=== PATIENT | female | born 1970 | race Caucasian/White ===

== ENCOUNTER → 2016-09-15 | Outpatient (REF) | payer BC ==
[2016-09-15 18:41] LABS: ALBUMIN 3.3 GM/DL (3.2-5.2); ALBUMIN/GLOBULIN RATIO 0.94 (1.00-1.93); ALKALINE PHOSPHATASE 61 U/L (45-117); ALT/SGPT 20 U/L (12-78); ANION GAP 5 MEQ/L (8-16); AST/SGOT 12 U/L (15-37); BILIRUBIN,TOTAL 0.5 MG/DL (0.2-1.0); BLOOD UREA NITROGEN 13 MG/DL (7-18); CALCIUM LEVEL 8.2 MG/DL (8.5-10.1); CARBON DIOXIDE LEVEL 29 MEQ/L (21-32); CHLORIDE LEVEL 108 MEQ/L (98-107); CHOLESTEROL LEVEL 161 MG/DL (<200); CREATININE FOR GFR 0.68 MG/DL (0.55-1.02); GLOMERULAR FILTRATION RATE > 60.0 (>58); GLUCOSE, FASTING 93 MG/DL (70-105); POTASSIUM SERUM 4.3 MEQ/L (3.5-5.1); SODIUM LEVEL 142 MEQ/L (136-145); TOTAL PROTEIN 6.8 GM/DL (6.4-8.2); TRIGLYCERIDES LEVEL 98 MG/DL (<150)
[2016-09-15 20:24] LABS: MEAN CORPUSCULAR HEMOGLOBIN 31.4 pg (27.0-33.0); MEAN CORPUSCULAR HGB CONC 33.4 g/dl (32.0-36.5); RED CELL DISTRIBUTION WIDTH 12.8 % (11.5-14.5); WHITE BLOOD COUNT 7.8 K/mm3 (4.0-10.0)
== END ==
LOC: M SFHCLERA 12:21
PROVIDERS: ATTEND Physician Assistant
DX: R59.9 Enlarged lymph nodes, unspecified (principal); E78.2 Mixed hyperlipidemia

== ENCOUNTER → 2016-11-10 | Outpatient (REF) | payer BC ==
[2016-11-11 12:49] LABS: ANION GAP 5 MEQ/L (8-16); BLOOD UREA NITROGEN 12 MG/DL (7-18); CALCIUM LEVEL 8.7 MG/DL (8.5-10.1); CARBON DIOXIDE LEVEL 31 MEQ/L (21-32); CHLORIDE LEVEL 107 MEQ/L (98-107); CHOLESTEROL LEVEL 171 MG/DL (<200); CREATININE FOR GFR 0.84 MG/DL (0.55-1.02); GLOMERULAR FILTRATION RATE > 60.0 (>58); GLUCOSE, FASTING 92 MG/DL (70-105); POTASSIUM SERUM 4.3 MEQ/L (3.5-5.1); SODIUM LEVEL 143 MEQ/L (136-145); TRIGLYCERIDES LEVEL 114 MG/DL (<150)
== END ==
LOC: M SFHCLERA 15:52
PROVIDERS: ATTEND Family Medicine
DX: M79.89 Other specified soft tissue disorders (principal)

== ENCOUNTER → 2017-12-23 | Outpatient (CLI) | payer BC, MEDICAID | LOC: M SLEEP 19:33 | DX: G47.33 Obstructive sleep apnea (adult) (pediatric) (principal) | CPT/HCPCS: 95811 ==

== ENCOUNTER → 2018-01-17 | Outpatient (CLI) | payer BC, MEDICAID | LOC: M LRY 13:55 | DX: R06.2 Wheezing (principal) | CPT/HCPCS: 71046 ==

== ENCOUNTER → 2018-07-07 | Outpatient (REF) | payer BC ==
[2018-07-07 11:40] LABS: BASO # 0.1 10^3/uL (0.0-0.2); EOS # 0.2 10^3/uL (0.0-0.50); EOS % 1.8 % (0.0-3.0); HEMATOCRIT 49.2 % (36.0-47.0); HEMOGLOBIN 15.9 g/dl (12.0-15.5); LYMPH # 1.8 10^3/uL (1.5-4.5); MEAN CORPUSCULAR HEMOGLOBIN 30.2 pg (27.0-33.0); MEAN CORPUSCULAR HGB CONC 32.3 g/dl (32.0-36.5); MEAN CORPUSCULAR VOLUME 93.4 fl (80.0-96.0); MONO # 0.7 10^3/uL (0.0-0.8); MONO % 7.6 % (0.0-5.0); NEUTROPHILS # 6.3 10^3/uL (1.8-7.7); NEUTROPHILS % 69.3 % (36.0-66.0); PLATELET COUNT, AUTOMATED 251 10^3/uL (150-450); RED BLOOD COUNT 5.27 10^6/uL (4.00-5.40); WHITE BLOOD COUNT 9.1 10^3/uL (4.0-10.0)
[2018-07-07 11:47] LABS: ALBUMIN 3.4 GM/DL (3.2-5.2); ALT/SGPT 16 U/L (12-78); BILIRUBIN,TOTAL 0.7 MG/DL (0.2-1.0); BLOOD UREA NITROGEN 16 MG/DL (7-18); CALCIUM LEVEL 8.4 MG/DL (8.5-10.1); CARBON DIOXIDE LEVEL 30 MEQ/L (21-32); CHLORIDE LEVEL 104 MEQ/L (98-107); CHOLESTEROL LEVEL 146 MG/DL (<200); CHOLESTEROL RISK RATIO 3.842 (<5); CREATININE FOR GFR 0.73 MG/DL (0.55-1.30); GLOMERULAR FILTRATION RATE > 60.0 (>58); GLUCOSE, FASTING 102 MG/DL (70-100); HDL CHOLESTEROL 38 MG/DL (>40); LDL CHOLESTEROL 87 MG/DL (<100); NON-HDL-C 108 MG/DL; POTASSIUM SERUM 4.4 MEQ/L (3.5-5.1); SODIUM LEVEL 141 MEQ/L (136-145); TOTAL PROTEIN 6.8 GM/DL (6.4-8.2); TRIGLYCERIDES LEVEL 103 MG/DL (<150)
[2018-07-07 12:23] LABS: HEMOGLOBIN A1c 6.4 %
== END ==
LOC: M SFHCLERA 09:28
PROVIDERS: ATTEND Nurse Practitioner Family
DX: E78.2 Mixed hyperlipidemia (principal); I10 Essential (primary) hypertension

== ENCOUNTER → 2018-12-06 | Outpatient (CLI) | payer BC ==
[2018-12-06 12:35] LABS: BASO # 0.1 10^3/uL (0.0-0.2); BASO % 0.7 % (0.0-1.0); EOS # 0.2 10^3/uL (0.0-0.5); HEMATOCRIT 47.4 % (36.0-47.0); HEMOGLOBIN 15.5 g/dl (12.0-15.5); LYMPH # 2.3 10^3/uL (1.5-5.0); LYMPH % 28.8 % (24.0-44.0); MEAN CORPUSCULAR HEMOGLOBIN 30.3 pg (27.0-33.0); MEAN CORPUSCULAR HGB CONC 32.7 g/dl (32.0-36.5); MEAN CORPUSCULAR VOLUME 92.8 fl (80.0-96.0); MONO # 0.7 10^3/uL (0.0-0.8); MONO % 8.7 % (0.0-5.0); NEUTROPHILS # 4.8 10^3/uL (1.5-8.5); NEUTROPHILS % 59.6 % (36.0-66.0); PLATELET COUNT, AUTOMATED 217 10^3/uL (150-450); RED BLOOD COUNT 5.11 10^6/uL (4.00-5.40); WHITE BLOOD COUNT 8.1 10^3/uL (4.0-10.0)
[2018-12-06 12:44] LABS: ALBUMIN 3.3 GM/DL (3.2-5.2); ALT/SGPT 21 U/L (12-78); BILIRUBIN,TOTAL 0.6 MG/DL (0.2-1.0); BLOOD UREA NITROGEN 16 MG/DL (7-18); CALCIUM LEVEL 8.7 MG/DL (8.5-10.1); CARBON DIOXIDE LEVEL 30 MEQ/L (21-32); CHLORIDE LEVEL 108 MEQ/L (98-107); CREATININE FOR GFR 0.77 MG/DL (0.55-1.30); FERRITIN 111 NG/ML (8-252); GLOMERULAR FILTRATION RATE > 60.0 (>58); GLUCOSE, FASTING 95 MG/DL (70-100); IRON (FE) 111 UG/DL (50-170); MAGNESIUM LEVEL 2.2 MG/DL (1.8-2.4); PERCENT SATURATION 41.1 % (13.2-45.0); PHOSPHORUS LEVEL 3.5 MG/DL (2.5-4.9); POTASSIUM SERUM 3.7 MEQ/L (3.5-5.1); SODIUM LEVEL 143 MEQ/L (136-145); TOTAL IRON BINDING CAPACITY 270 UG/DL (250-450); TOTAL PROTEIN 6.5 GM/DL (6.4-8.2)
[2018-12-06 12:49] LABS: VITAMIN B12 LEVEL 419 PG/ML (247-911)
[2018-12-06 12:52] LABS: HEMOGLOBIN A1c 5.4 %
[2018-12-06 13:47] LABS: HEMATOCRIT 47.4 % (36.0-47.0)
== END ==
LOC: M LRY 09:29
PROVIDERS: ATTEND Surgery
DX: K91.2 Postsurgical malabsorption, not elsewhere classified (principal); E55.9 Vitamin D deficiency, unspecified; Z98.84 Bariatric surgery status

== ENCOUNTER 2019-04-24 07:17 | Emergency (ER) | payer BC ==
[~2019-04-24] VITALS: Ht 170.2 cm; Wt 149.5 kg
[2019-04-24] MEDS ORDERED: ALBU8.5H (07:34)
[2019-04-24] MEDS ORDERED: OMEP-221 (07:34)
[2019-04-24] MEDS ORDERED: NS 1,000 ML IV ONE (07:45)
[2019-04-24] MEDS ORDERED: HYDROMORPHONE HCL 0.5 MG/ 0.5 ML SYRINGE (J1170 PER 1) IV ONE (07:45)
[2019-04-24] MEDS ORDERED: ONDANSETRON 4MG/2ML VIAL (J2405) IV ONE (07:45)
[2019-04-24 08:07] LABS: BASO # 0.1 10^3/uL (0.0-0.2); BASO % 0.7 % (0.0-1.0); EOS # 0.1 10^3/uL (0.0-0.5); EOS % 1.4 % (0.0-3.0); HEMATOCRIT 49.9 % (36.0-47.0); HEMOGLOBIN 15.7 g/dl (12.0-15.5); LYMPH # 1.7 10^3/uL (1.5-5.0); LYMPH % 21.7 % (24.0-44.0); MEAN CORPUSCULAR HEMOGLOBIN 29.6 pg (27.0-33.0); MEAN CORPUSCULAR HGB CONC 31.5 g/dl (32.0-36.5); MEAN CORPUSCULAR VOLUME 94.2 fl (80.0-96.0); MONO # 0.7 10^3/uL (0.0-0.8); MONO % 9.1 % (0.0-5.0); NEUTROPHILS # 5.1 10^3/uL (1.5-8.5); PLATELET COUNT, AUTOMATED 239 10^3/uL (150-450); WHITE BLOOD COUNT 7.6 10^3/uL (4.0-10.0)
[2019-04-24] MEDS: GASTROGRAFIN SOLUTION 30ML PO SCH ×2 (08:09→08:50)
[2019-04-24 08:38] LABS: ALBUMIN 3.1 GM/DL (3.2-5.2); ALT/SGPT 12 U/L (12-78); BILIRUBIN,DIRECT 0.2 MG/DL (0.0-0.2); BILIRUBIN,TOTAL 0.6 MG/DL (0.2-1.0); LIPASE 57 U/L (73-393); TOTAL PROTEIN 6.3 GM/DL (6.4-8.2)
[2019-04-24 08:39] LABS: HCG, SERUM QUALITATIVE NEGATIVE (NEGATIVE)
[2019-04-24] MEDS ORDERED: ISOVUE-370 76% 100ML VIAL (Q9967) As Ordered ONE (09:28)
--- NOTE | 2019-04-24 10:55 | REP ---
CT ABDOMEN AND PELVIS WITH ORAL AND IV CONTRAST: TECHNIQUE: Axial contrast enhanced images from the lung bases to the pubic symphysis using 100 mL Isovue 370 intravenous contrast material with multiplanar reformations. Visualized lung bases demonstrate no infiltrate. Liver, spleen and right adrenal are unremarkable. There is stable left adrenal gland thickening unchanged since the prior CT of 11/11/2011. Pancreas again demonstrates a cystic structure of the body of the pancreas measuring 2.4 x 2.8 cm. This is mildly increased in size since the prior study when it measured 2.2 x 1.7 cm. Recommend further evaluation with a dedicated MRI of the pancreas with and without contrast. The kidneys are unremarkable with no hydronephrosis. There is no abdominal aortic aneurysm. There is no adenopathy. There is no free air or free fluid. No bowel wall thickening is seen. There is evidence of prior gastric bypass surgery. Anterior abdominal wall hernia is seen in the midline at the level of the pelvis containing nondilated small bowel loops. There is no evidence of strangulation. The appendix is normal. No pelvic mass is seen. The urinary bladder is mildly distended and grossly unremarkable. There are degenerative changes of the spine. IMPRESSION: No evidence of appendicitis, free air or free fluid. Anterior abdominal wall hernia at the level of the pelvis in the midline contains nondilated bowel loops with no evidence of strangulation. Cystic structure in the body of the pancreas is mildly increased in size since the prior CT of 11/11/2011. Recommend dedicated MRI of the pancreas with and without contrast for further evaluation. Electronically Signed by Chris Naik MD 04/26/2019 11:39 A
[2019-04-24] MEDS ORDERED: ONDA4TAB6 PO (12:38)
[2019-04-24 12:49] VITALS: BP 119/74
--- NOTE | 2019-04-26 12:29 | ED PDOC ---
Post-Departure Follow-Up dr naik and juan carlos collins faxed formal report of ct abd/p for fu Petr Caldwell MD Apr 26, 2019 12:29
== END 2019-04-24 12:54 | disposition home or self-care (01) ==
LOC: M ED 07:17
DX: K64.9 Unspecified hemorrhoids (principal); R10.9 Unspecified abdominal pain; Z98.84 Bariatric surgery status; F17.200 Nicotine dependence, unspecified, uncomplicated; Z79.899 Other long term (current) drug therapy; Z88.5 Allergy status to narcotic agent
CPT/HCPCS: 36415; 74177; 80047; 80076; 81001; 83605; 83690; 84703; 85025; 87086; 96361; 96374; 96375; 99284; J1170; J2405; Q9963; Q9967

== ENCOUNTER → 2019-05-16 | Outpatient (CLI) | payer BC ==
[~2019-05-16] MED LIST: ALBU8.5H; OMEP-221; ONDA4TAB6 PO
--- NOTE | 2019-05-19 18:30 | SLEEPCENT ---
DATE OF PROCEDURE: 05/16/2019 ORDERED BY: BOBBY Mclaughlin Nocturnal polysomnography was performed for the re-titration of pressure therapy in this patient with severe obstructive sleep apnea syndrome on bilevel pressure therapy. For testing, the patient was fit with a ResMed F20 full face mask of large size, a bilevel pressure device was applied at inspiratory 8 over expiratory of 4 and the lights were extinguished. 7 hours and 51 minutes of data were reviewed. There were 444 minutes of sleep identified. Sleep latency was short at 5 minutes. Rapid eye movement (REM) latency was normal at 88 minutes. Sleep architecture was good with three REM cycles. Overall sleep efficiency was 95.5%. The patient's electrocardiogram showed a sinus rhythm with an average heart rate of 58 beats per minute. Premature ventricular contractions (PVCs) were identified. EEG showed normal waveforms for awake and sleep. Respiratory events were found best palliated with continuous positive airway pressure (CPAP) at a pressure of inspiratory 12 over expiratory +8 with which pressure the patient slept through REM without respiratory events or oxygen desaturation. There was some activity in the limb leads, two trains of 30 events. Limb movement arousal index 9.2. IMPRESSION: Obstructive sleep apnea syndrome (G47.33). RECOMMENDATIONS: Nightly use of bilevel pressure therapy inspiratory 12 over expiratory 8.
== END ==
LOC: M SLEEP 19:35
PROVIDERS: ATTEND Nurse Practitioner Adult Health
DX: G47.33 Obstructive sleep apnea (adult) (pediatric) (principal)

== ENCOUNTER → 2019-12-27 | Outpatient (CLI) | payer BC, OTHER ==
[~2019-12-27] MED LIST changes: +CALC600T60 PO; +CVS1CHW13 PO; +MULTCAP PO; +PERCOCET PO
== END ==
LOC: M LABSMTC 09:39
PROVIDERS: ATTEND Anesthesiology
DX: Z01.812 Encounter for preprocedural laboratory examination (principal); Z20.828 Contact with and (suspected) exposure to other viral communicable diseases
CPT/HCPCS: C9803; U0003

== ENCOUNTER 2020-01-01 06:00 | Day surgery (SDC) | payer OTHER ==
[2020-01-01] VITALS (8 sets, daily range): BP systolic 115–156; BP diastolic 67–87
[~2020-01-01] VITALS: Ht 175.3 cm; Wt 130.0 kg
[~2020-01-01 06:00] MED LIST changes: +LR 1,000 ML IV ONE; -PERCOCET PO; +ceFAZolin SOD 2 GM in IV 1 EA IV ONE
[2020-01-01] MEDS ORDERED: BUPIVACAINE HCL 0.25% 10ML VIAL As Ordered ONE (07:11)
[2020-01-01] MEDS ORDERED: LIDOCAINE 1% SDV 30ML VIAL As Ordered ONE (07:11)
[2020-01-01] MEDS ORDERED: BUPIVACAINE HCL 0.25% 30ML VIAL As Ordered ONE (07:11)
[2020-01-01] MEDS ORDERED: BUPIVACAINE LIPOSOME/PF 1.3% 20ML VIAL (13.3MG/ML)(EXPAREL)(C9290 PER1MG) As Ordered ONE (07:11)
[2020-01-01] MEDS ORDERED: propofoL 200 MG/20 ML VIAL As Ordered ONE (07:21)
[2020-01-01] MEDS ORDERED: LIDOCAINE 2% 100MG/5ML SDV (FOR ANES.) As Ordered ONE (07:21)
[2020-01-01] MEDS ORDERED: ROCURONIUM BROMIDE 50 MG/5 ML VIAL As Ordered ONE ×2 (07:21→08:13)
[2020-01-01] MEDS ORDERED: fentaNYL 250 MCG/5 ML INJECTION (J3010) As Ordered ONE (07:22)
[2020-01-01] MEDS ORDERED: dexameTHASONE 4 MG/ML 1ML VIAL (J1100 PER 1MG) As Ordered ONE (07:22)
[2020-01-01] MEDS ORDERED: MIDAZOLAM INJ 2MG/2ML VIAL (J2250 PER 1MG) As Ordered ONE (07:24)
[2020-01-01] MEDS ORDERED: METOCLOPRAMIDE INJ 10MG/2ML VIAL (J2765 PER 1) As Ordered ONE (07:49)
[2020-01-01] MEDS ORDERED: ePHEDrine SULFATE 25 MG/5 ML(5MG/ML) SYRINGE As Ordered ONE (08:23)
[2020-01-01] MEDS ORDERED: SEVOFLURANE INHAL SOLN 250 ML BTL As Ordered ONE (09:07)
[2020-01-01] MEDS ORDERED: SUGAMMADEX SODIUM 500 MG/5 ML VIAL (BRIDION) As Ordered ONE (09:10)
[2020-01-01] MEDS ORDERED: ACETAMINOPHEN 1000MG 100ML IV BTL (OFIRMEV) (J0131 PER 10MG) As Ordered ONE (09:10)
[2020-01-01] MEDS ORDERED: LACRILUBE (AKWA TEARS) OPHTH OINT 3.5 GM As Ordered ONE (09:11)
[2020-01-01] MEDS ORDERED: ONDANSETRON 4MG/2ML VIAL As Ordered ONE (09:12)
[2020-01-01] MEDS ORDERED: LR 1,000 ML IV SCH ×2 (12:03→13:00)
[2020-01-01] MEDS ORDERED: KETOROLAC 30 MG/ML 1ML VIAL IV PRN (12:15)
[2020-01-01] MEDS ORDERED: PERCOCET 5MG/325MG TAB PO PRN (12:15)
[2020-01-01] MEDS ORDERED: ACETAMINOPHEN TAB 650MG DOSE (2X325MG) PO PRN (12:15)
[2020-01-01] MEDS ORDERED: ONDANSETRON 4MG/2ML VIAL IV PRN ×2 (12:15→13:00)
[2020-01-01] MEDS ORDERED: fentaNYL 100 MCG/2 ML INJECTION (J3010) As Ordered ONE (12:27)
[2020-01-01] MEDS ORDERED: oxyCODONE 5MG TAB As Ordered ONE (12:27)
[2020-01-01] MEDS ORDERED: fentaNYL 100 MCG/2 ML INJECTION (J3010) IV PRN (13:00)
[2020-01-01] MEDS ORDERED: oxyCODONE 5MG TAB PO PRN (13:00)
[2020-01-01] MEDS: PERCOCET 5MG/325MG TAB PO PRN (20:30)
[2020-01-02 02:00] VITALS: BP 118/64
[2020-01-02 05:59] LABS: BASO % 0.4 % (0.0-1.0); EOS # 0.1 10^3/uL (0.0-0.5); EOS % 0.5 % (0.0-3.0); HEMATOCRIT 43.9 % (36.0-47.0); HEMOGLOBIN 14.3 g/dl (12.0-15.5); LYMPH # 2.7 10^3/uL (1.5-5.0); LYMPH % 24.2 % (24.0-44.0); MEAN CORPUSCULAR HEMOGLOBIN 30.4 pg (27.0-33.0); MEAN CORPUSCULAR HGB CONC 32.6 g/dl (32.0-36.5); MEAN CORPUSCULAR VOLUME 93.2 fl (80.0-96.0); MONO # 1.1 10^3/uL (0.0-0.8); MONO % 9.5 % (0.0-5.0); NEUTROPHILS # 7.2 10^3/uL (1.5-8.5); PLATELET COUNT, AUTOMATED 212 10^3/uL (150-450); RED BLOOD COUNT 4.71 10^6/uL (4.00-5.40)
[2020-01-02 06:00] VITALS: BP 118/64
[2020-01-02 06:27] LABS: BLOOD UREA NITROGEN 17 MG/DL (7-18); CALCIUM LEVEL 8.1 MG/DL (8.5-10.1); CARBON DIOXIDE LEVEL 29 MEQ/L (21-32); CHLORIDE LEVEL 109 MEQ/L (98-107); CREATININE FOR GFR 0.66 MG/DL (0.55-1.30); GLOMERULAR FILTRATION RATE > 60.0 (>58); GLUCOSE, FASTING 73 MG/DL (70-100); POTASSIUM SERUM 4.1 MEQ/L (3.5-5.1); SODIUM LEVEL 141 MEQ/L (136-145)
--- NOTE | 2020-01-02 08:19 | ROOPDOC ---
[facility] Report Of Operation Report of Operation DATE OF PROCEDURE: 01/01/20 PREPROCEDURE DIAGNOSES: ventral incisional hernia, morbid obesity POSTPROCEDURE DIAGNOSES: same. PROCEDURE: Robotic Assisted eTEP access Laparoscopic Mosheim-Stoppa Repair of Incisional Hernia (bilateral myocutaneous flap creation, retromuscular placement of mesh) SURGEON: Kristine Tan MD [employer] MEMBER: Sue Shine NP ANESTHESIA: . ESTIMATED BLOOD LOSS: Approximately mL. COMPLICATIONS: . REMARKS: . PROCEDURE NOTE: . DESCRIPTION OF PROCEDURE: . KRISTINE TAN MD Jan 02, 2020 08:19
[2020-01-02] MEDS ORDERED: PERCOCET PO (08:36)
[2020-01-02] MEDS: PERCOCET 5MG/325MG TAB PO PRN (08:51)
[2020-01-02] MEDS ORDERED: ENOXAPARIN 40MG/0.4ML SYRINGE (J1650 PER 10MG) SC SCH (09:00)
[2020-01-02 10:00] VITALS: BP 122/69
== END 2020-01-02 11:08 | disposition home or self-care (01) ==
LOC: M SDC 06:00 → M MSPAV 14:01 → M SDC 01-02 11:08
PROVIDERS: ATTEND Surgery
DX: K43.2 Incisional hernia without obstruction or gangrene (principal); E66.01 Morbid (severe) obesity due to excess calories; Z88.5 Allergy status to narcotic agent; G47.33 Obstructive sleep apnea (adult) (pediatric); E78.5 Hyperlipidemia, unspecified; F17.218 Nicotine dependence, cigarettes, with other nicotine-induced disorders; Z98.84 Bariatric surgery status
CPT/HCPCS: 15734; 36415; 49654; 80048; 85025; 96360; 96361; 96372; C1781; J0131; J0690; J1100; J1650; J1885; J2250; J2405; J2765; J3010; S2900

== ENCOUNTER → 2020-03-15 | Outpatient (REF) | payer OTHER ==
[~2020-03-15] MED LIST changes: -LR 1,000 ML IV ONE; +PERCOCET PO; -ceFAZolin SOD 2 GM in IV 1 EA IV ONE
== END ==
LOC: M LAB REF 14:24
PROVIDERS: ATTEND Physician Assistant
DX: Z11.59 Encounter for screening for other viral diseases (principal)

== ENCOUNTER → 2020-08-08 | Outpatient (CLI) | payer OTHER ==
--- NOTE | 2020-08-08 15:05 | REP ---
INDICATION: PAIN LEFT KNEE. COMPARISON: None. TECHNIQUE: Single AP weightbearing view of the right and left knee. FINDINGS: Symmetric moderate medial joint space narrowing is appreciated along with age-related cortical irregularities to the visualized femoral condyles. IMPRESSION: Symmetric medial joint space narrowing. <Electronically signed by Emery Retana > 08/08/20 [id number]
== END ==
LOC: M SOG 09:33
PROVIDERS: ATTEND Orthopaedic Surgery Adult Reconstructive Orthopaedic Surgery
DX: M25.562 Pain in left knee (principal)

== ENCOUNTER → 2020-08-27 | Outpatient (CLI) | payer OTHER ==
[2020-08-27 12:37] LABS: BASO # 0.1 10^3/uL (0.0-0.2); BASO % 0.8 % (0.0-1.0); EOS # 0.1 10^3/uL (0.0-0.5); EOS % 1.9 % (0.0-3.0); HEMATOCRIT 49.7 % (36.0-47.0); HEMOGLOBIN 16.4 g/dl (12.0-15.5); LYMPH # 2.1 10^3/uL (1.5-5.0); LYMPH % 29.7 % (24.0-44.0); MEAN CORPUSCULAR HEMOGLOBIN 31.1 pg (27.0-33.0); MEAN CORPUSCULAR VOLUME 94.3 fl (80.0-96.0); MONO # 0.6 10^3/uL (0.0-0.8); MONO % 8.6 % (2.0-8.0); NEUTROPHILS # 4.2 10^3/uL (1.5-8.5); NEUTROPHILS % 58.7 % (36.0-66.0); PLATELET COUNT, AUTOMATED 211 10^3/uL (150-450); RED BLOOD COUNT 5.27 10^6/uL (4.00-5.40); WHITE BLOOD COUNT 7.2 10^3/uL (4.0-10.0)
[2020-08-27 13:07] LABS: ALBUMIN 3.6 GM/DL (3.2-5.2); ALT/SGPT 16 U/L (12-78); BILIRUBIN,TOTAL 0.6 MG/DL (0.2-1.0); BLOOD UREA NITROGEN 15 MG/DL (7-18); CALCIUM LEVEL 8.8 MG/DL (8.5-10.1); CARBON DIOXIDE LEVEL 29 MEQ/L (21-32); CHLORIDE LEVEL 107 MEQ/L (98-107); CHOLESTEROL LEVEL 177 MG/DL (<200); CHOLESTEROL RISK RATIO 3.612 (<5); CREATININE FOR GFR 0.65 MG/DL (0.55-1.30); FERRITIN 74 NG/ML (8-252); GLOMERULAR FILTRATION RATE > 60.0 (>58); GLUCOSE, FASTING 78 MG/DL (70-100); HDL CHOLESTEROL 49 MG/DL (>40); LDL CHOLESTEROL 113 MG/DL (<100); NON-HDL-C 128 MG/DL; POTASSIUM SERUM 4.3 MEQ/L (3.5-5.1); SODIUM LEVEL 142 MEQ/L (136-145); TOTAL PROTEIN 6.4 GM/DL (6.4-8.2); TRIGLYCERIDES LEVEL 76 MG/DL (<150)
[2020-08-27 13:13] LABS: VITAMIN B12 LEVEL 305 PG/ML (247-911)
== END ==
LOC: M WUC 09:52
PROVIDERS: ATTEND Nurse Practitioner Family
DX: E78.2 Mixed hyperlipidemia (principal); I10 Essential (primary) hypertension; Z98.84 Bariatric surgery status

== ENCOUNTER → 2020-09-07 | Outpatient (CLI) | payer OTHER ==
--- NOTE | 2020-09-07 10:51 | REP ---
INDICATION: OTH TEAR OF UNSP MENISCUS, CURRENT INJURY, LEFT KNEE, INIT. COMPARISON: Comparison radiographs of the left knee are from July 25, 2020.. TECHNIQUE: Axial, coronal, and sagittal imaging planes are utilized. T1, proton density and T2 weighted scans are included with without fat saturation in the usual fashion. FINDINGS: Cortical and medullary bone signal intensity are normal. There is a suprapatellar joint effusion mild in degree. A tiny slit-like Kaplan's cyst is seen in the posteromedial popliteal soft tissues. Medial and lateral patellar retinacular structures are intact. The patellar and quadriceps tendons are intact. Anterior and posterior cruciate ligaments are normal in appearance. There is no evidence of lateral collateral ligament disruption. There is medial bowing of the medial collateral ligament associated with medial meniscal extrusion. There is medial and patellofemoral compartment osteoarthritic spurring and moderate chondromalacia changes are seen in the medial femoral condyle, medial tibial plateau, and in the inferior patello femoral trochlear articulation. There is a tiny inner free margin tear of the posterior horn of the medial meniscus.. No other meniscal tear is appreciated. No juxta-articular cyst or mass is seen. No vascular abnormality is observed. IMPRESSION: Medial and patellofemoral compartment osteoarthritis with associated chondromalacia changes. Inner free margin tear posterior horn medial meniscus. Joint effusion. Tiny Kaplan's cyst. <Electronically signed by Oscar Laura > 09/07/20 [id number]
== END ==
LOC: M RAD 08:37
PROVIDERS: ATTEND Orthopaedic Surgery Adult Reconstructive Orthopaedic Surgery
DX: S83.204A Other tear of unspecified meniscus, current injury, left knee, initial encounter (principal); X58.XXXA Exposure to other specified factors, initial encounter; Y92.9 Unspecified place or not applicable; M71.22 Synovial cyst of popliteal space [Baker], left knee; M17.12 Unilateral primary osteoarthritis, left knee; M94.262 Chondromalacia, left knee

== ENCOUNTER 2020-09-16 09:35 | Day surgery (SDC) | payer OTHER ==
[~2020-09-16] VITALS: Ht 175.3 cm; Wt 121.6 kg
[~2020-09-16 09:35] MED LIST changes: +DEBL1TAB PO; +ERGO500029 PO; +NAPR-885 PO; +VITMTA PO
[2020-09-16] MEDS ORDERED: fentaNYL 100 MCG/2 ML INJECTION (J3010) As Ordered ONE (09:43)
[2020-09-16] MEDS ORDERED: MIDAZOLAM INJ 2MG/2ML VIAL (J2250 PER 1MG) As Ordered ONE (09:43)
[2020-09-16] MEDS ORDERED: ACETAMINOPHEN 500 MG TAB PO ONE (10:10)
[2020-09-16] MEDS ORDERED: CelecoXIB 400 MG CAP PO ONE (10:10)
[2020-09-16] MEDS ORDERED: GABAPENTIN 300 MG CAP PO ONE (10:10)
[2020-09-16] MEDS ORDERED: ONDANSETRON 4MG/2ML VIAL IV ONE (10:10)
[2020-09-16] MEDS ORDERED: BUPIVACAINE/EPIN 0.5% 30 ML VIAL As Ordered ONE (10:12)
[2020-09-16] MEDS ORDERED: EPINEPHrine INJ 1 MG/ML 1ML AMP As Ordered ONE (10:12)
[2020-09-16] MEDS ORDERED: GLYCOPYRROLATE INJ 0.2 MG/ML 2 ML VIAL As Ordered ONE (11:20)
[2020-09-16] MEDS ORDERED: ONDANSETRON 4MG/2ML VIAL As Ordered ONE (11:20)
[2020-09-16] MEDS ORDERED: propofoL 200 MG/20 ML VIAL As Ordered ONE (11:20)
[2020-09-16] MEDS ORDERED: LIDOCAINE 2% 100MG/5ML SDV (FOR ANES.) As Ordered ONE (11:20)
[2020-09-16] MEDS ORDERED: dexameTHASONE 4 MG/ML 1ML VIAL (J1100 PER 1MG) As Ordered ONE (11:36)
[2020-09-16] MEDS ORDERED: ONDANSETRON 4MG/2ML VIAL IV PRN (12:20)
[2020-09-16] MEDS ORDERED: fentaNYL 100 MCG/2 ML INJECTION (J3010) IV PRN (12:20)
[2020-09-16] MEDS ORDERED: oxyCODONE 5MG TAB PO PRN (12:20)
[2020-09-16] MEDS ORDERED: LR 1,000 ML IV SCH ×2 (12:20→12:35)
[2020-09-16] MEDS ORDERED: HYDROMORPHONE HCL 0.5 MG/ 0.5 ML SYRINGE (J1170 PER 1) IV PRN (12:20)
--- NOTE | 2020-09-16 12:49 | ROOPDOC ---
[facility] Report Of Operation Report of Operation DATE OF PROCEDURE: 09/16/20 PREPROCEDURE DIAGNOSES: Left knee medial meniscal tear POSTPROCEDURE DIAGNOSES: Left knee medial and lateral meniscal tears with loose body posterior medial compartment; plica suprapatellar pouch; diffuse degenerative changes, grade 2 through 4. 2. Medial compartment and patellofemoral compartment PROCEDURE: Left knee arthroscopy Partial debridement of medial meniscus Partial debridement of lateral meniscus Removal of loose body posterior medial compartment, 1 x 0.5 cm Tricompartmental debridement with plica ectomy suprapatellar pouch Chondroplasty. 2. Medial compartment SURGEON: Kj Corrales MD [employer] REPRESENTATIVE: None ANESTHESIA: Gen. anesthetic ESTIMATED BLOOD LOSS: Less than 15 mL COMPLICATIONS: No known complications. REMARKS: Tourniquet inflated for 39 minutes. Overall, the medial femoral condylar region and patellar and trochlear region showed more articular cartilage osteoarthritic changes compared to MRI PROCEDURE NOTE: The patient was seen in the preoperative area, Consent was reviewed or obtained and the appropriate extremity was marked. DESCRIPTION OF PROCEDURE: The patient was brought to the operating room and after a surgical pause, the anesthetic was induced. The patient was appropriately positioned supine on the operating room table. A tourniquet was applied to the appropriate thigh with appropriate padding. Side bolster was also applied to help with manipulation of the extremity during the procedure. The extremity was prepped with chlorhexidine. The patient was draped in the normal sterile fashion. After a surgical safety checklist was performed, and a timeout was performed, the tourniquet was inflated and the incision over the lateral portal site was carried out. The trocar was introduced using the blunt tip. The scope was introduced and the fluid was allowed to run until the joint was insufflated with the scope in the patellofemoral joint. A diagnostic arthroscopy was then carried out. A medial portal was established using needle localization technique. A superior lateral portal was also established using needle localization. Suprapatellar pouch: Inflamed scar tissue and plica debrided with arthroscopic shaver Trochlea: Grade 3-4 Patella: Grade 2-3 Medial gutter: Clear Lateral gutter: Clear. Medial meniscus: Posterior horn tear associated with loose body. Posterior horn tear, debrided with shaver and punches. Loose body, 1 x 0.5 cm removed with grasper Medial femoral condyle: Grade 3-4 changes debrided with shaver for chondroplasty Medial tibial condyle: Grade 2 changes debrided with shaver for chondroplasty ACL: Grade 1 Lateral meniscus: Stable for the most part with an anterior beak type tear that was debrided with the shaver. Lateral femoral condyle: Grade 0 Lateral tibial plateau: Grade 2 Once the arthroscopic procedure was completed, the fluid was removed from the joint and the wounds were closed with 3. 0 Monocryl suture. Local anesthetic of 0.5% Marcaine with epi was instilled in the soft tissues and into the joint region. Mastisol was applied to the skin followed by Steri-Strips and Telfa and Tegaderm dressing. This was reinforced with an abdominal pad and a large Talib wrap was placed up to the level of the thigh from the foot and ankle. The patient tolerated the procedure well with no known complications. The patient will be seen for follow-up within 2 weeks, as scheduled. Postoperative instruction booklet was provided. The patient will have prescriptions for oxycodone for pain, baby aspirin for DVT prophylaxis, and senna for constipation. Tylenol and ibuprofen can be used as directed by bottle instructions. Prescriptions to [facility] on [address] as requested. Spoke with the patient's and the patient themselves, postoperatively for update. Of note, the patient states that they were able to tolerate oxycodone with any allergic reactions in the past. Patient demonstrated medial femoral condylar change and trochlear changes as well as large fissures to the patella. If pain and discomfort persists, may be a candidate for a total knee replacement KJ CORRALES MD Sep 16, 2020 12:49
[2020-09-16 14:08] VITALS: BP 132/72
== END 2020-09-16 15:04 | disposition home or self-care (01) ==
LOC: M SDC 09:35
PROVIDERS: ATTEND Orthopaedic Surgery Adult Reconstructive Orthopaedic Surgery
DX: M22.42 Chondromalacia patellae, left knee (principal); M67.52 Plica syndrome, left knee; F17.218 Nicotine dependence, cigarettes, with other nicotine-induced disorders; Z88.5 Allergy status to narcotic agent; Z98.84 Bariatric surgery status; I10 Essential (primary) hypertension; E78.5 Hyperlipidemia, unspecified; G47.30 Sleep apnea, unspecified; Z79.899 Other long term (current) drug therapy
CPT/HCPCS: 29876; 29880; 81025; J0171; J1100; J2250; J2405; J3010

== ENCOUNTER → 2020-10-04 | Outpatient (REF) | payer OTHER | LOC: M SFHCLERA 15:52 | PROVIDERS: ATTEND Nurse Practitioner Family | DX: Z12.4 Encounter for screening for malignant neoplasm of cervix (principal) ==

== ENCOUNTER → 2020-10-04 | Outpatient (CLI) | payer OTHER ==
--- NOTE | 2020-10-04 11:26 | REPMRS ---
Patient History The patient states she has not had a clinical breast exam in over a year. Family history of breast cancer at age 45 in maternal aunt, prostate cancer in paternal grandfather, prostate cancer in father. No breast complaints today Patient signed the MRS sheet 2013 is the most recent mammo Patient had gastric bypass 2 years and has lost 278lbs so far [facility]ors on PACS Patient Identification Verified 1st covid vaccine 06/11/20-right arm-Moderna 2nd covid vaccine 07/09/20-right arm Digital Woman Screen Mammo: October 04, 2020 - Exam #: [id number] Bilateral CC and MLO view(s) were taken. Technologist: Isabel Amaral, Technologist Prior study comparison: June 16, 2013, bilateral digital mammo screening bilat, performed at [facility]. October 03, 2008, bilateral digital mammo screening bilat, performed at [facility]. FINDINGS: There are scattered fibroglandular densities. The Volpara volumetric breast density category is:B. There has been no change in the appearance of the mammogram from the prior studies. There is a mild amount of scattered fibroglandular density which is fairly symmetric. There is no interval development of dominant mass, architectural distortion, or grouped microcalcification suggestive of malignancy. 3-D tomosynthesis shows no additional findings. Assessment: BI-RADS/ACR category 1 mammogram. Negative Mammogram. Recommendation Routine screening mammogram of both breasts in 1 year (for women over age 40). This patient's [facility] Lifetime Breast Cancer Risk is estimated at 14.1 %. This mammogram was interpreted with the aid of an FDA-approved computer-aided dectection system. Electronically Signed By: Oscar Laura MD 10/04/20 [id number]
== END ==
LOC: M WHC 10:17
PROVIDERS: ATTEND Nurse Practitioner Family
DX: Z12.31 Encounter for screening mammogram for malignant neoplasm of breast (principal)

== ENCOUNTER → 2020-11-18 | Outpatient (CLI) | payer OTHER | LOC: M PT 12:38 | PROVIDERS: ATTEND Family Medicine | DX: M17.12 Unilateral primary osteoarthritis, left knee (principal) ==

== ENCOUNTER → 2020-12-26 | Outpatient (CLI) | payer OTHER ==
[2020-12-26 12:32] LABS: BASO # 0.1 10^3/uL (0.0-0.2); BASO % 1.5 % (0.0-1.0); EOS # 0.1 10^3/uL (0.0-0.5); EOS % 1.6 % (0.0-3.0); HEMATOCRIT 49.4 % (36.0-47.0); HEMOGLOBIN 16.3 g/dl (12.0-15.5); LYMPH # 1.9 10^3/uL (1.5-5.0); LYMPH % 30.2 % (24.0-44.0); MEAN CORPUSCULAR HEMOGLOBIN 30.8 pg (27.0-33.0); MEAN CORPUSCULAR VOLUME 93.4 fl (80.0-96.0); MONO # 0.6 10^3/uL (0.0-0.8); NEUTROPHILS # 3.5 10^3/uL (1.5-8.5); NEUTROPHILS % 57.4 % (36.0-66.0); PLATELET COUNT, AUTOMATED 221 10^3/uL (150-450); RED BLOOD COUNT 5.29 10^6/uL (4.00-5.40); WHITE BLOOD COUNT 6.1 10^3/uL (4.0-10.0)
[2020-12-26 13:01] LABS: ALBUMIN 3.2 GM/DL (3.2-5.2); ALT/SGPT 21 U/L (12-78); BILIRUBIN,TOTAL 0.7 MG/DL (0.2-1.0); BLOOD UREA NITROGEN 17 MG/DL (7-18); CALCIUM LEVEL 8.8 MG/DL (8.5-10.1); CARBON DIOXIDE LEVEL 32 MEQ/L (21-32); CHLORIDE LEVEL 106 MEQ/L (98-107); CREATININE FOR GFR 0.73 MG/DL (0.55-1.30); GLOMERULAR FILTRATION RATE > 60.0 (>58); GLUCOSE, FASTING 69 MG/DL (70-100); POTASSIUM SERUM 4.2 MEQ/L (3.5-5.1); SODIUM LEVEL 140 MEQ/L (136-145); TOTAL PROTEIN 6.6 GM/DL (6.4-8.2)
== END ==
LOC: M LAB 10:59
PROVIDERS: ATTEND Family Medicine
DX: Z01.812 Encounter for preprocedural laboratory examination (principal)

== ENCOUNTER → 2020-12-26 | Outpatient (CLI) | payer OTHER | LOC: M LAB 10:56 | PROVIDERS: ATTEND Nurse Practitioner Family | DX: E55.9 Vitamin D deficiency, unspecified (principal) ==

== ENCOUNTER → 2020-12-26 | Outpatient (CLI) | payer OTHER ==
--- NOTE | 2020-12-26 13:43 | REP ---
INDICATION: UNILAT PRIMARY OA LT KNEE PT NEEDS LABS AFTER CT. [facility] protocol. COMPARISON: Comparison radiographs of the left knee are from July 25, 2020. TECHNIQUE: Helical [facility] CT protocol is utilized. 3 mm axial images re-formatted. Coronal and sagittal MPR images are generated. Imaging is generated at the hip, knee, and ankle. FINDINGS: Hip images demonstrate osteoarthritic spurring the superior acetabulum. There is tendon insertion site spurring on the greater and lesser trochanter and to a lesser extent at the ischium. Femoral head is smooth and rounded. Periarticular soft tissues are unremarkable. There is no evidence of osteopenia or bony destructive lesion. At the knee, there is osteoarthritic spurring and and mild medial joint space narrowing. There is mild patellofemoral spur formation. No bony destructive or erosive lesion is seen. At the ankle, ankle mortise is intact. There are 1 or 2 accessory ossicles adjacent the medial malleolus. There is mild tibiotalar osteoarthritic spurring. A large os trigonum is seen. There is an Achilles calcaneal spur. Mild tail 0 navicular spurring is seen. There is no evidence to suggest tarsal coalition. IMPRESSION: Osteoarthritic changes as noted above at L3 lower extremity articulations on the left. <Electronically signed by Oscar Laura > 12/26/20 [id number]
== END ==
LOC: M RAD 11:02
PROVIDERS: ATTEND Orthopaedic Surgery Adult Reconstructive Orthopaedic Surgery
DX: M17.12 Unilateral primary osteoarthritis, left knee (principal); M76.9 Unspecified enthesopathy, lower limb, excluding foot

== ENCOUNTER → 2021-01-06 | Outpatient (CLI) | payer OTHER | LOC: M LABSMTC 10:56 | PROVIDERS: ATTEND Anesthesiology | DX: Z01.812 Encounter for preprocedural laboratory examination (principal); Z20.822 Contact with and (suspected) exposure to COVID-19 ==

== ENCOUNTER 2021-01-09 06:01 | Observation (INO) | payer OTHER ==
[2021-01-09] VITALS (8 sets, daily range): BP systolic 99–133; BP diastolic 57–82; O2SAT 88
[~2021-01-09] VITALS: Ht 175.3 cm; Wt 125.7 kg
[~2021-01-09 06:01] MED LIST changes: +ACETAMINOPHEN 500 MG TAB PO ONE; +LIDOCAINE 1% MDV 20ML VIAL SQ PRN; +NAPROXEN 250 MG TAB PO ONE; +NS 1,000 ML IV SCH; +PREGABALIN 25 MG CAP (LYRICA) PO ONE; +ROPIVA 125MG/EPINEPH 0.25MG/CLONID 40MCG/KETOR 15MG IN NS 50ML SYRINGE PA ONE; +ceFAZolin SOD 2 GM in IV 1 EA IV ONE; +dexameTHASONE 4 MG/ML 1ML VIAL (J1100 PER 1MG) IV ONE
--- OUTSIDE RECORDS SUMMARY | 2021-01-09 06:05 | CCD ---
Author Author [facility] Organization [facility] Address Unknown Phone Unavailable Care Team Providers Care Terrazzo Polisher Name Role Phone Ilda Dickson Unavailable PROBLEMS Type Condition ICD9-CM Code [id number] Code Onset Dates Condition S tatus W/U Status Risk SNOMED Code Notes Problem Plantar wart B07.0 Active confirmed 6181473 8 Problem Left-sided low back pain without sciatica M54.5 Active confirmed 815624827 Problem Foot callus L84 Active confirmed 81756265 5 Problem Primary osteoarthritis of both knees M17.0 Act breezy confirmed 459728212 Problem Sebaceous cyst of skin of right breast N60.81 A ctive confirmed 46579984 Problem Morbid obesity E66.01 Active confirmed 36230 6002 Problem Former smoker Z87.891 Active confirmed 56934 06 Problem Vitamin D deficiency E55.9 Active confirmed 42048485 Problem Mixed hyperlipidemia E78.2 Active confirmed 486141975 Problem Arthritis of knee, left M17.12 Active confirmed 6493861767285880 Problem Primary osteoarthritis of left knee M17.12 Acti ve confirmed 731723432 Problem BMI 60.0-69.9, adult Z68.44 Active confirmed 291586757 Problem Essential hypertension I10 Active confirmed 24258718 Problem Tobacco dependence F17.200 Active confirmed 77780415 Problem Missed menses N92.6 Active confirmed 073859 00 ALLERGIES Allergen (clinical drug ingredient) Drug/Non Drug Allergy do cumented on EMR Reaction Allergy Type Onset Date Status morphine Morphine Sulfate(FORMERLY NAMED [facility] Code:[address]-36) Hives Drug A llergy Active ENCOUNTERS from 1971 to 2020-12-26 Encounter Location Date Provider Diagnosis [facility] [id number] [place] [address] [place] [address] 29 Nov, 2020 Ilda Dickson IMMUNIZATIONS Vaccine Route Administration Date Status Toradol 30mg/1mL Ketorolac IM Intramuscular July 24, 2020 Admi nistered Toradol 30mg/1mL Ketorolac IM Intramuscular July 24, 2020 Admi nistered Toradol 30mg/1mL Ketorolac IM Intramuscular June 04, 2017 Admi nistered COVID-19 dose #2 given elsewhere Unspecified IM Intramuscular Ap ril 2020 Administered COVID-19 dose #1 given elsewhere Unspecified IM Intramuscular [facility] 2020 Administered Influenza 6mo & up Fluzone IM Intramuscular Apr 15, 2018 Admi nistered Influenza 6mo & up Fluzone Unknown Mar 15, 2015 Other s Influenza 6mo & up Fluzone IM Intramuscular Feb 05, 2014 Admi nistered Influenza 6mo & up Fluzone IM Feb 16, 2013 Admin istered SOCIAL HISTORY Tobacco Use: Social History Observation Description Date Details (start date - stop date) Former Smoker Sex Assigned At : Social History Observation Description Sex Assigned At Unknown Education: Question Answer Notes Level of Education: High School Audit Question Answer Notes Total Score: 0 Interpretation: Alcohol Education Language: Question Answer Notes Languages spoken: Mongolian Islam: Question Answer Notes Islam 33 None Sexual Hx: Question Answer Notes Had sex in the last 12 months (vaginal, oral, or anal)? Yes Have you ever had an STD? No with Men only Use protection? No Drug and Alcohol Question Answer Notes Total Score: 0 Interpretation: No problems reported Alcohol Screening: Question Answer Notes Did you have a drink containing alcohol in the past year? Ye s Points 1 Interpretation Negative How often did you have six or more drinks on one occas ion in the past year? Never (0 points) How many drinks did you have on a typica l day when you were drinking in the past year? 1 or 2 (0 points) How often did you have a drink containing alcohol in t he past year? Monthly or less (1 point) BMI Care Goal Follow-Up Question Answer Notes Above Normal BMI Follow-Up Dietary management educatio n, guidance, and counseling, Dietary needs education, Exercise promotion: strength training, Exercise promotion: stretching Tobacco Use: Question Answer Notes Are you a: former smoker Quit 11/24/20 How long has it been since you last smoked? < 1 month REASON FOR REFERRAL No Information VITAL SIGNS No information MEDICATIONS Medication SIG (Take, Route, Frequency, Duration) Notes Start Da te End Date Status Multi For Her - as directed Orally N ot-Taking Jobst 20-30mmHg Compression Sm - as directed socks wea r daily, remove at night for 90 day(s) July, Not-Taking Chlorthalidone 25 mg 1 tablet in the morning with food Orally On ce a day Mar, Not-Taking Chantix Starting Month Eben 0.5 MG X 11 & 1 MG X 42 as directed Orally as directed for 30 days Sep, Not-Taking Aspirin 81 81 MG 1 tablet Orally Once a day for 90 day(s) Not-Taking Drisdol 1.25 MG (28321 UT) 1 capsule Orally weekly for 90 day(s) Aug, Active Naproxen 500 MG 1 tablet with food or milk a s needed Orally every 12 hrs for 10 day(s) Jun, Not-Taking Simvastatin 10 MG 1 tablet in the evening Orally Once a day for 90 da ys Not-Taking Jobst Relief 20-30mmHg XL - as directed knee high stockings daily for 90 day(s) Jun, Not-Taking Calcium 500 MG 1 tablet with meals Orally Twice a day for 30 day(s) Not-Taking Albuterol Sulfate (2.5 MG/3ML) 0.083% 1 vial as needed Inhalation every 6 hours as needed for 10 day(s) Dec, Not-Taki ng Norethindrone 0.35 MG take one tablet by mouth heydi day Orally Once a day for 90 days Not-Taking Fiber Adult Gummies 2 GM as directed Orally Not-Taking PROCEDURES No Information RESULTS No Results REASON FOR VISIT pre op note MEDICAL (GENERAL) HISTORY Type Description Date Medical History tobacco abuse Medical History arthralgia Medical History morbid obesity Medical History pancreatic lesion, needs repeat CT scan every September Medical History plantars warts on each foot Medical History onychomycosis Surgical History 3 cysts removed 1988,1994 Surgical History bunionectomy 1997 Surgical History pancreatic biopsy 2010 Surgical History 2004 Surgical History endoscopy 09/26/18 Surgical History gastric bypass 10/2018 Surgical History hernia repair 01/01/2020 Surgical History Left Knee surgery 08/2020 Hospitalization History hernia repair 01/01/2020- 020 Goals Section No Information Health Concerns No Information MEDICAL EQUIPMENT No Information MENTAL STATUS No Information FUNCTIONAL STATUS No Information ASSESSMENTS No Information PLAN OF TREATMENT No Information Insurance Providers Payer Name Payer Address Payer Phone Insured Name Patient Relati onship to Insured Coverage Start Date Coverage End Date [employer] DEPT [address] [facility] [phone] INDRA BURCIAGA self
--- OUTSIDE RECORDS SUMMARY | 2021-01-09 06:05 | CCD | Continuity of Care Document ---
Author Author Christina CORRALES MD Organization Unknown Address [address] , [facility] [place] [address] Phone [phone] Care Team Providers Care Logistics Technician Name Role Phone Ilda Dickson AUTM AUTM Unavailable Problems Active Problems Provider Date Obstructive sleep apnea syndrome BOBBY Mclaughlin Onset: 07/18/2019 Chronic rhinitis BOBBY Mclaughlin Onset: 11/06/2019 Social History Type Date Description Comments Sex Unknown ETOH Use Rarely consumes alcohol Recreational Drug Use Denies Drug Use Tobacco Use Start: Unknown Patient is a current smoker, smo kes every day patient is working on quitting, Vaping currently. HX 30 years smoked 1 ppd Smoking Status Reviewed: 10/30/20 Patient is a current smoker, smokes every day patient is working on quitting, Vaping currently. HX 30 years smoked 1 ppd Allergies, Adverse Reactions, Alerts Active Allergies Reaction Severity Comments Date Morphine Difficulty breathing, Hives, Itching 04/27/2019 Medications Active Medications SIG Qnty Indications Ordering Provide r Date Aspirin Adult Low Dose 81mg Tablet s DR 1 tab by mouth twice a day 28tabs Kj Corrales MD 2020 BIPAP Device 12/8CM Marras BOBBY Mclaughlin 05/25/2019 Faith-Be 0.35mg Tablets 1 by mouth every day Unknown History Medications Oxycodone HCL 5mg Tablets 1 tablet every 4 hours for pain, as needed 42tabs Kj Corrales MD 09/16 - 09/26/2020 Senna-Tabs 8.6mg Tablets 2 tab by mouth every day as needed 20tabs Kj Corrales MD 09/16/2020 - 09/26/2020 Immunizations Description No Information Available Vital Signs Date Vital Result Comment 10/30/2020 10:33am Body Temperature 97.4 F Height 67 inches 5'7" Weight 272.00 lb BMI (Body Mass Index) 42.6 kg/m2 [place] Body Weight 135 lb Weight 123.379 kg BSA (Body Surface Area) 2.30 m2 10/02/2020 8:07am Body Temperature 97.6 F Results Description No Information Available Procedures Date Code Description Status 10/30/2020 78981 Office/Outpatient Established Mo d MDM 30-39 Min Completed 09/16/2020 90177 Arthroscopy Knee W/Meniscectomy (Medial & Lateral) Completed 09/16/2020 74119 Arthroscopy Knee Remove Loose/Fo reign Body Completed 09/11/2020 87796 Office/Outpatient Established Mo d MDM 30-39 Min Completed 08/08/2020 46824 Office/Outpatient New Low MDM 30 -44 Minutes Completed 06/28/2020 98465 Office/Outpatient New Moderate M DM 45-59 Minutes Completed Medical Devices Description No Information Available Encounters Type Date Location Provider Dx Diagnosis Office Visit 10/30/2020 10:30a [facility] Orthopedics Kj Corrales MD Z98.890 Other specified postprocedural states M17.12 Unilateral primary osteoarth ritis, left knee Office Visit 10/02/2020 8:00a [facility] Kj Corrales MD Z98.890 Other specified postprocedural states M17.12 Unilateral primary osteoarth ritis, left knee Z47.89 Encounter for other orthoped ic aftercare Office Visit 09/11/2020 1:30p [facility] Orthoped[facility] Kj Corrales MD M22.42 Chondromalacia patellae, left knee S83.204A Oth tear of unsp meniscus, c urrent injury, left knee, init Office Visit 08/08/2020 9:30a [facility] Orthoped[facility] Kj Corrales MD S83.204A Oth tear of unsp meniscus, current injury, left knee, init M25.562 Pain in left knee Office Visit 06/28/2020 3:00p [facility] Plastic Surgery Tori Charles DO L98.7 Excessive and redundant skin and subcutaneous tissue M54.07 Panniculitis affecting regio ns of neck/bk, lumbosacr region Z68.41 Body mass index [BMI] 40.0-4 4.9, adult Assessments Date Code Description Provider 10/30/2020 Z98.890 History of arthroscopy of knee jane Corrales MD 10/30/2020 M17.12 Osteoarthritis of left knee join gia Corrales MD 10/02/2020 Z98.890 History of arthroscopy of knee j naheed Corrales MD 10/02/2020 M17.12 Osteoarthritis of left knee join gia Corrales MD 10/02/2020 Z47.89 Encounter for other orthopedic a ftercare Kj Corrales MD 09/16/2020 M23.322 Other meniscus deran gements, posterior horn of medial meniscus, left knee Kj Corrales MD 09/16/2020 M23.342 Other meniscus deran gements, anterior horn of lateral meniscus, left knee Kj Corrales MD 09/16/2020 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, left knee Kj Corrales MD 09/16/2020 M94.262 Chondromalacia, left knee Kj Corrales MD 09/16/2020 M23.42 Loose body in knee, left knee Jacky Corrales MD 09/11/2020 M22.42 Chondromalacia of patella Kj Corrales MD 09/11/2020 S83.204A Tear of meniscus of knee Kj bell MD 08/08/2020 S83.204A Tear of meniscus of knee Kj bell MD 08/08/2020 M25.562 Pain in left knee Kj Corrales MD 06/28/2020 L98.7 Excessive and redundant skin and subcutaneous tissue Tori Charles DO 06/28/2020 M54.07 Panniculitis affecti ng regions of neck and back, lumbosacral region Tori Charles DO 06/28/2020 Z68.41 Body mass index [BMI]40.0-44.9, adult Tori Charles DO Plan of Treatment Future Appointment(s):* 11/06/2020 3:00 pm - Fabby Wynn ANP at [facility] Pulmonary/Thoracic 10/30/2020 - Kj Corrales MD* Z98.890 History of arthroscopy of knee joint* Comments:* The patient is 6 weeks out from her left knee arthroscopy. She has seen some improvement in her range of motion with physical therapy; however, she continues to have persistent pain and discomfort in her left knee. She states that this is keeping her from returning to work and she would like to discuss a total knee replacement. * M17.12 Osteoarthritis of left knee joint* Comments:* I had a discussion with the patient with regards to her request for left total knee arthroplasty.I did explain to the patient that a total joint replacement procedure is an elective procedure. Candidacy for the procedure is based on imaging and the patient's symptoms and whether or not the patient would like to proceed with the surgery. The procedure is performed for pain relief only. Any other gains are secondary. The risks of the procedure include but are not limited to inf ection, periprosthetic fracture, damage to local neurovascular or soft tissue structures, deep vein thrombosis or pulmonary emboli, and need for revision surgery. Anesthetic risks will be discussed with the anesthesiologist. These include but are not limited to, heart attack, stroke and .Total knee arthroplasty patients typically fall into 3 categories of outcomes. Approximately 85% of patients are happy with the results and would have the surgery performed, again without any concerns. Approximately 10-15% of patients are happy with the results and would have the surgery performed. Again, but may have some persistent aches and pains or other symptoms. These patients typically have had a fracture of bone around the joint or the F had an open surgical procedure or infection around the joint. Approximately 1% of patients have the joint replacement procedure performed and did not experience any alleviation or sometimes worsening of her symptoms. If there is no identifiable cause of their persistent or worsening symptoms, then there is nothing that can be done. If there is no obvious cause of pain or discomfort, it can take a prolonged period of time in determining cause, if any, is the early period for a total joint replacement is approximately 1 year whereas the early period for most surgical intervention to 6 weeks.The patient is aware that she has had an increased risk associated with her history of smoking and is aware that she needs to transition to nicotine replacement products and stop utilization of tobacco cigarettes, vaping and other tobacco products. She is also increased risk associated with her BMI of 42. She has lost a few pounds since her last visit. This would put her at an optimal BMI if she lost approximately 10 to 15 pounds. She does not have a significant soft tissue envelope around her knee so if she continues to work on her weight loss I am comfortable booking surgery.The patient is aware that the robotic assisted total knee arthroplasty will be utilized if available at the time of surgery.We will move forward with the booking process. She has been provided with Hibiclens soap. She has been provided with the total joint replacement literature booklet.She reportedly has provided the office with additional paperwork to be off work. Based on the recovery. This will likely take her to the end of the year before returning to work will be considered, after a total knee replacement. * Follow up:* Booking left total knee arthroplasty Functional Status Description No Information Available Mental Status Description No Information Available Referrals Description No Information Available
--- OUTSIDE RECORDS SUMMARY | 2021-01-09 06:05 | CCD | Continuity of Care Document ---
Author Author Christina CORRALES MD Organization Unknown Address [address] , [place] [address] Phone [phone] Care Team Providers Care Gas Charger Name Role Phone Ilda Dickson AUTM AUTM [...] ppd Allergies, Adverse Reactions, Alerts Active Allergies Criticality Reaction | Severity Comments Date Morphine Unable to assess criticality Difficulty breathing, Hiv es, Itching 04/27/2019 Medications Active Medications SIG Qnty Indications Ordering Provide r Date BIPAP Device 12/8CM BOBBY Gonzalez 05/25/2019 Nicotine Transdermal System 21mg/24HR Patches 24HR apply 1 patch topically to skin once a day Unknown Nicotine 4mg Gum 1 piece by mouth every 2 hours as needed Unknown Nicotine Mini 4mg Lozenges one lozenge every 3 hours as needed craving Unknown History Medications Oxycodone HCL 5mg Tablets 1 tablet every 4 hours for pain, as needed 42tabs Kj Corrales MD 09/16 - 09/26/2020 Senna-Tabs 8.6mg Tablets 2 tab by mouth every day as needed 20tacoleen Corrales MD 09/16/2020 - 09/26/2020 Aspirin Adult Low Dose 81mg Tablet s DR 1 tab by mouth twice a day 28tacoleen Corrales MD 2020 - 12/26/2019 Immunizations Description No Information Available Vital Signs Date Vital Result Comment 10/30/2020 10:33am Body Temperature 97.4 F Height 67 inches 5'7" Weight 272.00 lb BMI (Body Mass Index) 42.6 kg/m2 [place] Body Weight 135 lb Weight 123.379 kg BSA (Body Surface Area) 2.30 m2 10/02/2020 8:07am Body Temperature 97.6 F Results Description No Information Available Procedures Date Code Description Status 10/30/2020 38048 Office/Outpatient Established Mo d MDM 30-39 Min Completed 09/16/2020 29373 Arthroscopy Knee W/Meniscectomy (Medial & Lateral) Completed 09/16/2020 00778 Arthroscopy Knee Remove Loose/Fo reign Body Completed 09/11/2020 30719 Office/Outpatient Established Mo d MDM 30-39 Min Completed 08/08/2020 10779 Office/Outpatient New Low MDM 30 -44 Minutes Completed 06/28/2020 84861 Office/Outpatient New Moderate M DM 45-59 Minutes Completed Medical Devices Description No Information Available Encounters Type Date Location Provider Dx Diagnosis Office Visit 10/30/2020 10:30a [facility] Kj Corrales MD Z98.890 Other specified postprocedural states M17.12 Unilateral primary osteoarth ritis, left knee Office Visit 10/02/2020 8:00a [facility] Kj Corrales MD Z98.890 Other specified postprocedural states M17.12 Unilateral primary osteoarth ritis, left knee Z47.89 Encounter for other orthoped ic aftercare Office Visit 09/11/2020 1:30p [facility] Kj Corrales MD M22.42 Chondromalacia patellae, left knee S83.204A Oth tear of unsp meniscus, c urrent injury, left knee, init Office Visit 08/08/2020 9:30a [facility] Kj Corrales MD S83.204A Oth tear of unsp meniscus, current injury, left knee, init M25.562 Pain in left knee Office Visit 06/28/2020 3:00p [facility] Tori Charles DO L98.7 Excessive and redundant skin and subcutaneous tissue M54.07 Panniculitis affecting regio ns of neck/bk, lumbosacr region Z68.41 Body mass index [BMI] 40.0-4 4.9, adult Assessments Date Code Description Provider 12/25/2020 M17.12 Osteoarthritis of left knee join gia Corrales MD 10/30/2020 Z98.890 History of arthroscopy of knee j naheed Corrales MD 10/30/2020 M17.12 Osteoarthritis of left [...] Z68.41 Body mass index [BMI]40.0-44.9, adult Tori Melvin, DO Plan of Treatment Future Appointment(s):* 01/20/2021 9:00 am - Kj Corrales MD at [facility] * 01/09/2021 7:30 am - Kj Corrales MD at [facility] 12/25/2020 - Kj Corrales MD* M17.12 Osteoarthritis of left knee joint* Comments:* Patient has resigned consent for Ryan left total knee arthroplasty. I have answered her questions to her satisfaction. She has declined reviewing the risks and benefits that were discussed at the last visit.Patient has consented for the left total knee arthroplasty utilizing the Ryan robot, as plannedSurgical date has been set for January 09. Patient has been smoke-free since 11/23/2020 Functional Status Description No Information Available Mental Status Description No Information Available Referrals Description No Information Available
--- OUTSIDE RECORDS SUMMARY | 2021-01-09 06:05 | CCD ---
Author Author [facility] Organization [facility] Address Unknown Phone Unavailable Care Team Providers Care Sanding Line Operator Name Role Phone Enzo Jorge Unavailable PROBLEMS Type Condition ICD9-CM Code XBE91-UT Code Onset Dates Condition S tatus W/U Status Risk SNOMED Code Notes Problem Plantar wart B07.0 Active confirmed 5352322 8 Problem Left-sided low back pain without sciatica M54.5 Active confirmed 572951074 Problem Foot callus L84 Active confirmed 28190404 5 Problem Primary osteoarthritis of both knees M17.0 Act breezy confirmed 251969549 Problem Sebaceous cyst of skin of right breast N60.81 A ctive confirmed 29907026 Problem Morbid obesity E66.01 Active confirmed 71440 6002 Problem Former smoker Z87.891 Active confirmed 38825 06 Problem Vitamin D deficiency E55.9 Active confirmed 28477807 Problem Mixed hyperlipidemia E78.2 Active confirmed 380467844 Problem Arthritis of knee, left M17.12 Active confirmed 1153643735405382 Problem Primary osteoarthritis of left knee M17.12 Acti ve confirmed 491672818 Problem BMI 60.0-69.9, adult Z68.44 Active confirmed 168791909 Problem Essential hypertension I10 Active confirmed 65605901 Problem Tobacco dependence F17.200 Active confirmed 64192809 Problem Missed menses N92.6 Active confirmed 908074 00 ALLERGIES Allergen (clinical drug ingredient) Drug/Non Drug Allergy do cumented on EMR Reaction Allergy Type Onset Date Status morphine Morphine Sulfate([facility] Code:[address]-40) Hives Drug A llergy Active ENCOUNTERS from 1971 to 2020-12-27 Encounter Location Date Provider Diagnosis [facility] [address] [facility] [phone] [place] [address] 30 Nov, 2020 Enzo Jorge IMMUNIZATIONS Vaccine Route Administration Date Status COVID-19 dose #2 given elsewhere Unspecified IM Intramuscular Ap ril 2020 Administered COVID-19 dose #1 given elsewhere Unspecified IM Intramuscular [facility] 2020 Administered Toradol 30mg/1mL Ketorolac IM Intramuscular July 24, 2020 Admi nistered Toradol 30mg/1mL Ketorolac IM Intramuscular July 24, 2020 Admi nistered Toradol 30mg/1mL Ketorolac IM Intramuscular June 04, 2017 Admi nistered Influenza 6mo & up Fluzone IM Intramuscular [...] Language: Question Answer Notes Languages spoken: Mongolian Hoahaoism: Question Answer Notes Hoahaoism 33 None Sexual Hx: Question Answer Notes [...] for 90 day(s) Not-Taking Drisdol 1.25 MG (06818 UT) 1 capsule Orally weekly for 90 [...] MG take one tablet by mouth heydi ry day Orally Once a day for 90 days Not-Taking Fiber Adult Gummies 2 GM as directed Orally Not-Taking PROCEDURES No Information RESULTS No Results REASON FOR VISIT preop note MEDICAL (GENERAL) HISTORY Type Description Date [...] Insured Coverage Start Date Coverage End Date FORMERLY [facility] [employer]PORATE CLAIMS DEPT [address] [facility] [phone] INDRA BURCIAGA self
--- OUTSIDE RECORDS SUMMARY | 2021-01-09 06:05 | CCD | Continuity of Care Document ---
Author Author Christina CORRALES MD Organization Unknown Address [address] , [facility] [address] Phone [phone] Care Team Providers Care Oil Burner Mechanic Name Role Phone Ilda Dickson AUTM [phone] AUTM Unavailable Problems Active Problems Provider Date [...] lb BMI (Body Mass Index) 42.6 kg/m2 [place] Body Weight 135 lb Weight 123.379 kg BSA (Body Surface Area) 2.30 m2 10/02/2020 8:07am Body Temperature 97.6 F Results Description No Information Available Procedures Date Code Description Status 10/30/2020 00307 Office/Outpatient Established Mo d MDM 30-39 Min Completed 09/16/2020 58624 Arthroscopy Knee W/Meniscectomy (Medial & Lateral) Completed 09/16/2020 89728 Arthroscopy Knee Remove Loose/Fo reign Body Completed 09/11/2020 25370 Office/Outpatient Established Mo d MDM 30-39 Min Completed 08/08/2020 45133 Office/Outpatient New Low MDM 30 -44 Minutes Completed 06/28/2020 22374 Office/Outpatient New Moderate M DM 45-59 Minutes Completed Medical Devices Description No Information Available Encounters Type Date Location Provider Dx Diagnosis Office Visit 10/30/2020 10:30a [facility] Orthopedics Kj Corrales MD Z98.890 Other specified postprocedural states M17.12 Unilateral primary osteoarth ritis, left knee Office Visit 10/02/2020 8:00a [facility] Kj Corrales MD Z98.890 Other specified postprocedural states M17.12 Unilateral primary osteoarth ritis, left knee Z47.89 Encounter for other orthoped ic aftercare Office Visit 09/11/2020 1:30p [facility] Orthopedics Kj Corrales MD M22.42 Chondromalacia patellae, left knee S83.204A Oth tear of unsp meniscus, c urrent injury, left knee, init Office Visit 08/08/2020 9:30a [facility] Orthopedics Kj Corrales MD S83.204A Oth tear of unsp meniscus, current injury, left knee, init M25.562 Pain in left knee Office Visit 06/28/2020 3:00p [facility] Plastic Surgery Tori Charles DO L98.7 Excessive and redundant skin and subcutaneous tissue M54.07 Panniculitis affecting regio ns of neck/bk, lumbosacr region Z68.41 Body mass index [BMI]40.0-44 .9, adult Assessments Date Code Description Provider 10/30/2020 [...] 3:00 pm - Fabby Wynn ANP at [facility] Pulmonary/Thoracic 10/30/2020 - Kj Corrales MD* Z98.890 [...]
--- OUTSIDE RECORDS SUMMARY | 2021-01-09 06:05 | CCD ---
Author Author [facility] Organization [facility] Address Unknown Phone Unavailable Care Team Providers Care Rodent Control Worker Name Role Phone Enzo Jorge Unavailable PROBLEMS Type Condition ICD9-CM Code [id number] Code Onset Dates Condition S tatus W/U Status Risk SNOMED Code Notes Problem Plantar wart B07.0 Active confirmed 2041666 8 Problem Left-sided low back pain without sciatica M54.5 Active confirmed 468762237 Problem Foot callus L84 Active confirmed 91079578 5 Problem Primary osteoarthritis of both knees M17.0 Act breezy confirmed 100079809 Problem Sebaceous cyst of skin of right breast N60.81 A ctive confirmed 04889129 Problem Morbid obesity E66.01 Active confirmed 14911 6002 Problem Former smoker Z87.891 Active confirmed 77099 06 Problem Vitamin D deficiency E55.9 Active confirmed 18838807 Problem Mixed hyperlipidemia E78.2 Active confirmed 449649032 Problem Arthritis of knee, left M17.12 Active confirmed 7222986236027244 Problem Primary osteoarthritis of left knee M17.12 Acti ve confirmed 226351372 Problem BMI 60.0-69.9, adult Z68.44 Active confirmed 104819579 Problem Essential hypertension I10 Active confirmed 77277659 Problem Tobacco dependence F17.200 Active confirmed 01546822 Problem Missed menses N92.6 Active confirmed 342813 00 ALLERGIES Allergen (clinical drug ingredient) Drug/Non Drug Allergy do cumented on EMR Reaction Allergy Type Onset Date Status morphine Morphine Sulfate([facility] Code:[address]-79) Hives Drug A llergy Active ENCOUNTERS from 1971 to 2020-12-27 Encounter Location Date Provider Diagnosis [facility] [address] [facility] [phone] [place] [address] 23 Nov, 2020 Enzo Jorge Pre-op exam Z01.818 and Arth ritis of knee, left M17.12 IMMUNIZATIONS Vaccine Route Administration Date Status Toradol 30mg/1mL Ketorolac IM Intramuscular July 24, 2020 Admi nistered Toradol 30mg/1mL Ketorolac IM Intramuscular July 24, 2020 Admi nistered COVID-19 dose #2 given elsewhere Unspecified IM Intramuscular Ap ril 2020 Administered COVID-19 dose #1 given elsewhere Unspecified IM Intramuscular [facility] [place] 2020 Administered Toradol 30mg/1mL Ketorolac IM Intramuscular June 04, [...] Education Language: Question Answer Notes Languages spoken: Rwandan Sikh: Question Answer Notes Sikh 33 None Sexual Hx: Question Answer Notes [...] REASON FOR REFERRAL No Information VITAL SIGNS Weight 178.6 lbs Nov, Weight-kg 81.01 kg Nov, Height 67.5 in Nov, BMI 27.56 kg/m2 Nov, Heart Rate 53 /min Nov, Respiratory Rate 17 /min Nov, Temperature 96.6 degrees Fahrenheit Nov, Oximetry 97 Nov, Blood pressure systolic 115 mm Hg Nov, Blood pressure diastolic 74 mm Hg Nov, MEDICATIONS Medication SIG (Take, Route, Frequency, Duration) Notes Start Da te End Date Status Multi For Her - as directed Orally N ot-Taking Jobst 20-30mmHg Compression Sm - as directed socks wea r daily, remove at night for 90 day(s) July, Not-Taking Chlorthalidone 25 mg 1 tablet in the morning with food Orally On a day Mar, Not-Taking Chantix Starting Month Eben 0.5 MG X 11 & 1 MG X 42 as directed Orally as directed for 30 days Sep, Not-Taking Aspirin 81 81 MG 1 tablet Orally Once a day for 90 day(s) Not-Taking Drisdol 1.25 MG (52913 UT) 1 capsule Orally weekly for 90 [...] hours as needed for 10 day(s) Dec, Not-Takarthur ng Norethindrone 0.35 MG take one tablet by mouth heydi ry day Orally Once a day for 90 days Not-Taking Fiber Adult Gummies 2 GM as directed Orally Not-Taking PROCEDURES No Information RESULTS No Results REASON FOR VISIT left total knee MEDICAL (GENERAL) HISTORY Type Description Date Medical [...] No Information FUNCTIONAL STATUS No Information ASSESSMENTS Encounter Date Diagnosis Assessment Notes Treatment Notes Treatm ent Clinical Notes Nov, Pre-op exam (ICD-10 - Z01.818) Patient preop for left knee surgery. Cardiovascular: Able to perform 4 METS without any symptoms, chest pain, shortness of breath. Patient's overal cardiac risk low and surgery low cardiac risk. No further recommendations at this time. EKG requested by surgeon, noted below. Respiratory: No history of asthma/ COPD, inhaler use. No further recommendations at this time. Renal: No history of chronic kidney disease/ renal disease. No further recommendations at this time. Pysch: Denies any feeling down/ depressed, loss of interest. No history of depression. No further recommendations at this time. Medications: Not on any aspirin daily. No further recommendations at this time. Labs/ tests: Reviewed CBC and BMP. Cr normal, stable, electrolytes normal. CBC notes elevated hgb 16.3, as noted previous, likely secondary to smoking cigarettes. No further recommendations at this time. EKG: sinus rhythym, rate 51, normal pr interval, normal ST wave, no t wave abnoramilits, simlar to previous EKG. Chronic pain: No history of chronic pain. No further recommendations at this time. Patient has been optimized for sugery at this time. Nov, Arthritis of knee, left (ICD-10 - M17.12) see preop PLAN OF TREATMENT Treatment Notes Assessment Notes Clinical Notes Pre-op exam Patient preop for le ft knee surgery.Cardiovascular: Able to perform 4 METS without any symptoms, chest pain, shortness of breath. Patient's overal cardiac risk low and surgery low cardiac risk. No further recommendations at this time. EKG requested by surgeon, noted below.Respiratory: No history of asthma/ COPD, inhaler use. No further recommendations at this time.Renal: No history of chronic kidney disease/ renal disease. No further recommendations at this time.Pysch: Denies any feeling down/ depressed, loss of interest. No history of depression. No further recommendations at this time.Medications: Not on any aspirin daily. No further recommendations at this time.Labs/ tests: Reviewed CBC and BMP. Cr normal, stable, electrolytes normal. CBC notes elevated hgb 16.3, as noted previous, likely secondary to smoking cigarettes. No further recommendations at this time.EKG: sinus rhythym, rate 51, normal pr interval, normal ST wave, no t wave abnoramilits, simlar to previous EKG.Chronic pain: No history of chronic pain. No further recommendations at this time.Patient has been optimized for sugery at this time. Arthritis of knee, left see preop Treatment Notes Test Name Order Date Comprehensive Metabolic Profile (CMP) 2020-12-19 CBC with Differential 2020-12-19 ELECTROCARDIOGRAM, COMPLETE EKG 2020-12-19 Next Appt Details prn Reason: Insurance Providers Payer Name Payer Address Payer Phone Insured Name Patient Relati onship to Insured Coverage Start Date Coverage End Date [employer] CLAIM[employer] DEPT [address] [place] [phone] INDRA BURCIAGA self
--- OUTSIDE RECORDS SUMMARY | 2021-01-09 06:05 | CCD ---
Author Author [facility] Organization [facility] Address Unknown Phone Unavailable Care Team Providers Care Director Of Product Marketing Name Role Phone Ilda Dickson Unavailable PROBLEMS Type Condition ICD9-CM Code [id number] Code Onset Dates Condition S tatus W/U Status Risk SNOMED Code Notes Problem Left-sided low back pain without sciatica M54.5 Active confirmed 308595568 Problem Primary osteoarthritis of both knees M17.0 Act breezy confirmed 010757476 Problem Plantar wart B07.0 Active confirmed 7825069 8 Problem Mixed hyperlipidemia E78.2 Active confirmed 171089477 Problem Sebaceous cyst of skin of right breast N60.81 A ctive confirmed 34758361 Problem Morbid obesity E66.01 Active confirmed 58939 6002 Problem Missed menses N92.6 Active confirmed 167862 00 Problem Primary osteoarthritis of left knee M17.12 Acti ve confirmed 449781953 Problem Vitamin D deficiency E55.9 Active confirmed 04600770 Problem Foot callus L84 Active confirmed 03806977 5 Problem Former smoker Z87.891 Active confirmed 77191 06 Problem BMI 60.0-69.9, adult Z68.44 Active confirmed 157552892 Problem Essential hypertension I10 Active confirmed 45256652 Problem Tobacco dependence F17.200 Active confirmed 14475891 ALLERGIES Allergen (clinical drug ingredient) Drug/Non Drug Allergy do cumented on EMR Reaction Allergy Type Onset Date Status morphine Morphine Sulfate([facility] Code:[address]-55) Hives Drug A llergy Active ENCOUNTERS from 1971 to 2020-11-27 Encounter Location Date Provider Diagnosis [address] [phone] [place] [address] Oct, Ilda Dickson IMMUNIZATIONS Vaccine Route Administration Date Status Toradol 30mg/1mL Ketorolac IM Intramuscular July 24, 2020 Admi nistered Toradol 30mg/1mL Ketorolac IM Intramuscular July 24, 2020 Admi nistered COVID-19 dose #2 given elsewhere Unspecified IM Intramuscular Ap ril 2020 Administered COVID-19 dose #1 given elsewhere Unspecified IM Intramuscular [facility] 2020 Administered Toradol 30mg/1mL Ketorolac IM Intramuscular [...] Date Details (start date - stop date) Current Smoker Sex Assigned At : Social History Observation Description Sex Assigned At Unknown Education: Question Answer Notes Level of Education: High School Audit Question Answer Notes Total Score: 0 Interpretation: Alcohol Education Language: Question Answer Notes Languages spoken: Guamanian Sikhism: Question Answer Notes Sikhism 33 None Sexual Hx: Question Answer Notes [...] Use: Question Answer Notes Are you a: current smoker Smoking Cessation Information Given 09/02/2020 Patient counseled on the dangers of tobacco use and urged to quit: 09/02/2020 How many cigarettes a day do you smoke? 6-10 10 or 11 REASON FOR REFERRAL No Information VITAL SIGNS No information MEDICATIONS Medication SIG (Take, Route, Frequency, Duration) Notes Start Da te End Date Status Chlorthalidone 25 mg 1 tablet in the morning with food Orally On ce a day Mar, Not-Taking Fiber Adult Gummies 2 GM as directed Orally Not-Taking Multi For Her - as directed Orally N ot-Taking Simvastatin 10 MG 1 tablet in the evening Orally Once a day for 90 da ys Not-Taking Calcium 500 MG 1 tablet with meals Orally Twice a day for 30 day(s) Not-Taking Naproxen 500 MG 1 tablet with food or milk a s needed Orally every 12 hrs for 10 day(s) Jun, Not-Taking Jobst Relief 20-30mmHg XL - as directed knee high stockings daily for 90 day(s) Jun, Not-Taking Chantix Starting Month Eben 0.5 MG X 11 & 1 MG X 42 as directed Orally as directed for 30 days Sep, Not-Taking Albuterol Sulfate (2.5 MG/3ML) 0.083% 1 vial as needed Inhalation every 6 hours as needed for 10 day(s) Dec, Not-Taki ng Aspirin 81 81 MG 1 tablet Orally Once a day for 90 day(s) Not-Taking Drisdol 1.25 MG (33917 UT) 1 capsule Orally weekly for 90 day(s) Aug, Active Norethindrone 0.35 MG take one tablet by mouth heydi ry day Orally Once a day for 90 days Active Jobst 20-30mmHg Compression Sm - as directed socks wea r daily, remove at night for 90 day(s) July, Not-Taking PROCEDURES No Information RESULTS No Results REASON FOR VISIT rescheduled pre op MEDICAL (GENERAL) HISTORY Type Description Date Medical [...] Information ASSESSMENTS No Information PLAN OF TREATMENT Next Appt Details Provider Name:Enzo Jorge, 2020-12-19 02:00:00 PM, [address] [facility], , [place], [address], Insurance Providers Payer Name Payer Address Payer Phone Insured Name Patient Relati onship to Insured Coverage Start Date Coverage End Date [facility] CLAIM[facility] DEPT [address] [facility] [phone] INDRA BURCIAGA self
--- OUTSIDE RECORDS SUMMARY | 2021-01-09 06:05 | CCD | Continuity of Care Document ---
Author Author Christina CORRALES MD Organization Unknown Address [address] , [facility] [place] [address] Phone [phone] Care Team Providers Care Turbine Engineer Name Role Phone Ilda Dickson AUTM [phone] AUTM Unavailable Problems Active Problems Provider Date [...] currently. HX 30 years smoked 1 ppd Allergies and adverse reactions Active Allergies Criticality Reaction | Severity Comments [...] lb BMI (Body Mass Index) 42.6 kg/m2 [place] Body Weight 135 lb Weight 123.379 kg BSA (Body Surface Area) 2.30 m2 10/02/2020 8:07am Body Temperature 97.6 F Results Description No Information Available Procedures Date Code Description Status 12/25/2020 61558 Office/Outpatient Established Lo w MDM 20-29 Min Completed 10/30/2020 39052 Office/Outpatient Established Mo d MDM 30-39 Min Completed 09/16/2020 40580 Arthroscopy Knee W/Meniscectomy (Medial & Lateral) Completed 09/16/2020 95692 Arthroscopy Knee Remove Loose/Fo reign Body Completed 09/11/2020 52832 Office/Outpatient Established Mo d MDM 30-39 Min Completed 08/08/2020 91803 Office/Outpatient New Low MDM 30 -44 Minutes Completed Medical Devices Description No Information Available Encounters Type Date Location Provider Dx Diagnosis Office Visit 12/25/2020 11:30a [facility] Kj Corrales MD M17.12 Unilateral primary osteoarthritis, left knee Office Visit 10/30/2020 10:30a [facility] Kj Corrales MD Z98.890 Other specified postprocedural states M17.12 Unilateral primary osteoarth ritis, left knee Office Visit 10/02/2020 8:00a [facility] MD Z98.890 Other specified postprocedural states M17.12 Unilateral primary osteoarth ritis, left knee Z47.89 Encounter for other orthoped ic aftercare Office Visit 09/11/2020 1:30p [facility] Kj Corrales MD M22.42 Chondromalacia patellae, left knee S83.204A Oth tear of unsp meniscus, c urrent injury, left knee, init Office Visit 08/08/2020 9:30a [facility] Kj Corrales MD S83.204A Oth tear of unsp meniscus, current injury, left knee, init M25.562 Pain in left knee Assessments Date Code Description Provider 12/25/2020 M17.12 [...] M23.42 Loose body in knee, left knee Da prosper Corrales MD 09/11/2020 M22.42 Chondromalacia of patella Kj Corrales MD 09/11/2020 S83.204A Tear of meniscus of knee Kj bell MD 08/08/2020 S83.204A Tear of meniscus of knee Kj bell MD 08/08/2020 M25.562 Pain in left knee Kj Corrales MD Plan of Treatment Future Appointment(s):* 01/20/2021 9:00 am - Kj Corrales MD at [facility] * 01/09/2021 7:30 am - Kj Corrales MD at [facility] 12/25/2020 - Kj Corrales MD* M17.12 Osteoarthritis [...]
--- OUTSIDE RECORDS SUMMARY | 2021-01-09 06:06 | CCD ---
Author Author [facility] Organization [facility] Address Unknown Phone Unavailable Care Team Providers Care Geothermal Electrical Engineer Name Role Phone Ramona Recio MUSHROOM GROWING SUPERVISOR Unavailable Unavailable Southold, Ramona Richie MUSHROOM GROWING SUPERVISOR Unavailable Unavailable Almita, Ramona Richie MUSHROOM GROWING SUPERVISOR Unavailable Unavailable Almita, Ramona Richie MUSHROOM GROWING SUPERVISOR Unavailable Unavailable Almita, Ramona Richie MUSHROOM GROWING SUPERVISOR Unavailable Unavailable Almita, Ramona Richie MUSHROOM GROWING SUPERVISOR Unavailable Unavailable Almita, Ramona Rihcie MUSHROOM GROWING SUPERVISOR Unavailable Unavailable Southold, Ramona Richie MUSHROOM GROWING SUPERVISOR Unavailable Unavailable Southold, Ramona Richie MUSHROOM GROWING SUPERVISOR Unavailable Unavailable Southold, Ramona Richie MUSHROOM GROWING SUPERVISOR Unavailable Unavailable Almita, Ramona Richie MUSHROOM GROWING SUPERVISOR Unavailable Unavailable Almita, Ramona Richie MUSHROOM GROWING SUPERVISOR Unavailable Unavailable Almita, Ramona Richie MUSHROOM GROWING SUPERVISOR Unavailable Unavailable Almita, Ramona Richie MUSHROOM GROWING SUPERVISOR Unavailable Unavailable Ravindra LEBLANC MD Unavailable Unavailable Ravindra LEBLANC MD Unavailable Unavailable Ravindra LEBLANC MD Unavailable Unavailable Ravindra LEBLANC MD Unavailable Unavailable Ravindra LEBLANC MD Unavailable Unavailable Ravindra LEBLANC MD Unavailable Unavailable Ravindra LEBLANC MD Unavailable Unavailable Ravindra LEBLANC MD Unavailable Unavailable Ravindra LEBLANC MD Unavailable Unavailable Ravindra LEBLANC MD Unavailable Unavailable Ravindra LEBLANC MD Unavailable Unavailable Ravindra LEBLANC MD Unavailable Unavailable Ravindra LEBLANC MD Unavailable Unavailable Ravindra LEBLANC MD Unavailable Unavailable Ravindra LEBLANC MD Unavailable Unavailable Ravindra LEBLANC MD Unavailable Unavailable Ravindra LEBLANC MD Unavailable Unavailable Ravindra LEBLANC MD Unavailable Unavailable Ravindra LEBLANC MD Unavailable Unavailable Ravindra LEBLANC MD Unavailable Unavailable Ravindra LEBLANC MD Unavailable Unavailable Ravindra LEBLANC MD Unavailable Unavailable Ravindra LEBLANC MD Unavailable Unavailable Ravindra LEBLANC MD Unavailable Unavailable Ravindra LEBLANC MD Unavailable Unavailable Ravindra LEBLANC MD Unavailable Unavailable Ravindra LEBLANC MD Unavailable Unavailable Ravindra LEBLANC MD Unavailable Unavailable Ravindra LEBLANC MD Unavailable Unavailable Ravindra LEBLANC MD Unavailable Unavailable Ravindra LEBLANC MD Unavailable Unavailable Ravindra LEBLANC MD Unavailable Unavailable Ravindra LEBLANC MD Unavailable Unavailable Ravindra LEBLANC MD Unavailable Unavailable Kj Edward MD Unavailable Unavailable Kj Edward MD Unavailable Unavailable Kj Edward MD Unavailable Unavailable Kj Edward MD Unavailable Unavailable Kj Edward MD Unavailable Unavailable Kj Edward MD Unavailable Unavailable Kj Edward MD Unavailable Unavailable Kj Edward MD Unavailable Unavailable Kj Edward MD Unavailable Unavailable VENKATA, E FAVIO DO Unavailable Unavailable VENKATA, E FAVIO DO Unavailable Unavailable VENKATA, E FAVIO DO Unavailable Unavailable VENKATA, E FAVIO DO Unavailable Unavailable VENKATA, E FAVIO DO Unavailable Unavailable VENKATA, E FAVIO DO Unavailable Unavailable VENKATA, E FAVIO DO Unavailable Unavailable VENKATA, E FAVIO DO Unavailable Unavailable VENKATA, E FAVIO DO Unavailable Unavailable VENKATA, E FAVIO DO Unavailable Unavailable VENKATA, E FAVIO DO Unavailable Unavailable VENKATA, E FAVIO DO Unavailable Unavailable VENKATA, E FAVIO DO Unavailable Unavailable VENKATA, E FAVIO DO Unavailable Unavailable VENKATA, E FAVIO DO Unavailable Unavailable VENKATA, E FAVIO DO Unavailable Unavailable VENKATA, E FAVIO DO Unavailable Unavailable VENKATA, E FAVIO DO Unavailable Unavailable VENKATA, E FAVIO DO Unavailable Unavailable VENKATA, E FAVIO DO Unavailable Unavailable VENKATA, E FAVIO DO Unavailable Unavailable VENKATA, E FAVIO DO Unavailable Unavailable Re-disclosure Warning The records that you are about to access may contain information from federally-assisted alcohol or drug abuse programs. If such information is present, then the following federally mandated warning applies: This information has been disclosed to you from records protected by federal confidentiality rules (42 CFR part 2). The federal rules prohibit you from making any further disclosure of this information unless further disclosure is expressly permitted by the written consent of the person to whom it pertains or as otherwise permitted by 42 CFR part 2. A general authorization for the release of medical or other information is NOT sufficient for this purpose. The Federal rules restrict any use of the information to criminally investigate or prosecute any alcohol or drug abuse patient.The records that you are about to access may contain highly sensitive health information, the redisclosure of which is protected by Article 27-F of the [facility] Public Health law. If you continue you may have access to information: Regarding HIV / AIDS; Provided by facilities licensed or operated by the [facility] Office of Mental Health; or Provided by the [facility] Office for People With Developmental Disabilities. If such information is present, then the following [facility] mandated warning applies: This information has been disclosed to you from confidential records which are protected by state law. State law prohibits you from making any further disclosure of this information without the specific written consent of the person to whom it pertains, or as otherwise permitted by law. Any unauthorized further disclosure in violation of state law may result in a fine or detention sentence or both. A general authorization for the release of medical or other information is NOT sufficient authorization for further disc losure. Encounters Encounter Providers Location Date Indications Data Source(s ) Unknown [address] [facility] [address] 12/26/2020 12:00:00 AM EDT eCW1 ([facility]) Outpatient Attender: Kj Monreal/Alex/Diallo/Alfonzo osborn 12/25/2020 11:30:00 AM EDT [facility] ([facility]) [place] [address] [facility] [address] 12/25/2020 12:00:00 AM EDT eCW1 ([facility]) Out[place] [address] [facility] [address] 12/19/2020 12:00:00 AM EDT eCW1 ([facility]) Unknown [address] [facility] [address] 11/26/2020 12:00:00 AM EDT eCW1 ([facility]) Outpatient Attender: Kj Monreal/Alex/Diallo/Rein dl 10/30/2020 10:30:00 AM EDT [facility] ([facility]) Outpatient [address] [facility] [address] 10/04/2020 12:00:00 AM EDT eCW1 ([facility]) Office Visit Attender: Kj Monreal/Alex/Diallo/Rein dl 10/02/2020 08:00:00 AM EDT MED[facility] ([facility]) Outpatient Attender: Kj Monreal/Alex/Diallo/Rein dl 09/11/2020 01:30:00 PM EDT [facility] ([facility]) Unknown [address] [facility] [address] 09/02/2020 12:00:00 AM EDT eCW1 ([facility]) Outpatient [address] [facility] [address] 09/02/2020 12:00:00 AM EDT eCW1 ([facility]) Unknown [address] [facility] [address] 08/29/2020 12:00:00 AM EDT eCW1 ([facility]) Unknown [address] [facility] [address] 08/13/2020 12:00:00 AM EDT eCW1 ([facility]) Outpatient Attender: Kj Monreal/Alex/Diallo/Rein dl 08/08/2020 09:30:00 AM EDT [facility] ([facility]) Unknown [address] [facility] [address] 08/07/2020 12:00:00 AM EDT eCW1 ([facility]) Unknown [address] [facility] [address] 08/07/2020 12:00:00 AM EDT eCW1 ([facility]) Outpatient [address] [facility] [address] 08/06/2020 12:00:00 AM EDT eCW1 ([facility]) Unknown [address] [facility] [address] 08/01/2020 12:00:00 AM EDT eCW1 ([facility]) Unknown [address] [facility] [address] 07/25/2020 12:00:00 AM EDT eCW1 ([facility]) Outpatient [address] [facility] [address] 07/24/2020 12:00:00 AM EDT eCW1 ([facility]) Outpatient Attender: FAVIO Tay/Alex/Diallo/Alfonzod elvira 06/28/2020 03:00:00 PM EDT MED[facility] ([facility]) Outpatient Attender: KRISTINE Monreal/Alex/Diallo/ Reinanurag 04/09/2020 01:10:00 PM EST [facility] ([facility]) Outpatient [address] [facility] [address] 01/22/2020 12:00:00 AM EDT eCW1 ([facility]) Office Visit Attender: Richie Monreal/Alex/Diallo/Stephon ndl 01/15/2020 09:30:00 AM EDT [facility] ([facility]) Out[place] [address] [facility] [address] 12/26/2019 12:00:00 AM EDT eCW1 ([facility]) Immunizations Vaccine Date Status Description Data Source(s) 07/24/2020 03:57:00 PM EDT completed e CW1 ([facility]) 07/24/2020 03:57:00 PM EDT completed e CW1 ([facility]) 07/24/2020 03:57:00 PM EDT completed e CW1 ([facility]) 07/24/2020 03:57:00 PM EDT completed e CW1 ([facility]) 07/24/2020 03:57:00 PM EDT completed e CW1 ([facility]) 07/24/2020 03:57:00 PM EDT completed e CW1 ([facility]) 07/24/2020 03:57:00 PM EDT completed e CW1 ([facility]) 07/24/2020 03:57:00 PM EDT completed e CW1 ([facility]) 07/24/2020 03:57:00 PM EDT completed e CW1 ([facility]) 07/24/2020 03:57:00 PM EDT completed e CW1 ([facility]) 07/24/2020 03:57:00 PM EDT completed e CW1 ([facility]) 07/24/2020 03:57:00 PM EDT completed e CW1 ([facility]) 07/24/2020 03:57:00 PM EDT completed e CW1 ([facility]) 07/24/2020 03:57:00 PM EDT completed e CW1 ([facility]) 07/24/2020 03:57:00 PM EDT completed e CW1 ([facility]) 07/24/2020 03:56:00 PM EDT completed e CW1 ([facility]) 07/24/2020 03:56:00 PM EDT completed e CW1 ([facility]) 07/24/2020 03:56:00 PM EDT completed e CW1 ([facility]) 07/24/2020 03:56:00 PM EDT completed e CW1 ([facility]) 07/24/2020 03:56:00 PM EDT completed e CW1 ([facility]) 07/24/2020 03:56:00 PM EDT completed e CW1 ([facility]) 07/24/2020 03:56:00 PM EDT completed e CW1 ([facility]) 07/24/2020 03:56:00 PM EDT completed e CW1 ([facility]) 07/24/2020 03:56:00 PM EDT completed e CW1 ([facility]) 07/24/2020 03:56:00 PM EDT completed e CW1 ([facility]) 07/24/2020 03:56:00 PM EDT completed e CW1 ([facility]) 07/24/2020 03:56:00 PM EDT completed e CW1 ([facility]) 07/24/2020 03:56:00 PM EDT completed e CW1 ([facility]) 07/24/2020 03:56:00 PM EDT completed e CW1 ([facility]) 07/24/2020 03:56:00 PM EDT completed e CW1 ([facility]) COVID-19 dose #2 given elsewhere Unspecified 07/09/2020 04:1 1:00 PM EDT completed eCW1 ([facility]) COVID-19 dose #2 given elsewhere Unspecified 07/09/2020 04:1 1:00 PM EDT completed eCW1 ([facility]) COVID-19 dose #2 given elsewhere Unspecified 07/09/2020 04:1 1:00 PM EDT completed eCW1 ([facility]) COVID-19 dose #2 given elsewhere Unspecified 07/09/2020 04:1 1:00 PM EDT completed eCW1 ([facility]) COVID-19 dose #2 given elsewhere Unspecified 07/09/2020 04:1 1:00 PM EDT completed eCW1 ([facility]) COVID-19 dose #2 given elsewhere Unspecified 07/09/2020 04:1 1:00 PM EDT completed eCW1 ([facility]) COVID-19 dose #2 given elsewhere Unspecified 07/09/2020 04:1 1:00 PM EDT completed eCW1 ([facility]) COVID-19 dose #2 given elsewhere Unspecified 07/09/2020 04:1 1:00 PM EDT completed eCW1 ([facility]) COVID-19 dose #2 given elsewhere Unspecified 07/09/2020 04:1 1:00 PM EDT completed eCW1 ([facility]) COVID-19 dose #2 given elsewhere Unspecified 07/09/2020 04:1 1:00 PM EDT completed eCW1 ([facility]) COVID-19 dose #2 given elsewhere Unspecified 07/09/2020 04:1 1:00 PM EDT completed eCW1 ([facility]) COVID-19 dose #2 given elsewhere Unspecified 07/09/2020 04:1 1:00 PM EDT completed eCW1 ([facility]) COVID-19 dose #2 given elsewhere Unspecified 07/09/2020 04:1 1:00 PM EDT completed eCW1 ([facility]) COVID-19 dose #2 given elsewhere Unspecified 07/09/2020 04:1 1:00 PM EDT completed eCW1 ([facility]) COVID-19 dose #2 given elsewhere Unspecified 07/09/2020 04:1 1:00 PM EDT completed eCW1 ([facility]) COVID-19 VACCINE Moderna 07/09/2020 12:00:00 AM EDT completed [facility] Vaccine Series Complete: YESThis Data wa s Submitted to [facility] Via [employer]. COVID-19 dose #1 given elsewhere Unspecified 06/11/2020 04:1 1:00 PM EDT completed eCW1 ([facility]) COVID-19 dose #1 given elsewhere Unspecified 06/11/2020 04:1 1:00 PM EDT completed eCW1 ([facility]) COVID-19 dose #1 given elsewhere Unspecified 06/11/2020 04:1 1:00 PM EDT completed eCW1 ([facility]) COVID-19 dose #1 given elsewhere Unspecified 06/11/2020 04:1 1:00 PM EDT completed eCW1 ([facility]) COVID-19 dose #1 given elsewhere Unspecified 06/11/2020 04:1 1:00 PM EDT completed eCW1 ([facility]) COVID-19 dose #1 given elsewhere Unspecified 06/11/2020 04:1 1:00 PM EDT completed eCW1 ([facility]) COVID-19 dose #1 given elsewhere Unspecified 06/11/2020 04:1 1:00 PM EDT completed eCW1 ([facility]) COVID-19 dose #1 given elsewhere Unspecified 06/11/2020 04:1 1:00 PM EDT completed eCW1 ([facility]) COVID-19 dose #1 given elsewhere Unspecified 06/11/2020 04:1 1:00 PM EDT completed eCW1 ([facility]) COVID-19 dose #1 given elsewhere Unspecified 06/11/2020 04:1 1:00 PM EDT completed eCW1 ([facility]) COVID-19 dose #1 given elsewhere Unspecified 06/11/2020 04:1 1:00 PM EDT completed eCW1 ([facility]) COVID-19 dose #1 given elsewhere Unspecified 06/11/2020 04:1 1:00 PM EDT completed eCW1 ([facility]) COVID-19 dose #1 given elsewhere Unspecified 06/11/2020 04:1 1:00 PM EDT completed eCW1 ([facility]) COVID-19 dose #1 given elsewhere Unspecified 06/11/2020 04:1 1:00 PM EDT completed eCW1 ([facility]) COVID-19 dose #1 given elsewhere Unspecified 06/11/2020 04:1 1:00 PM EDT completed eCW1 ([facility]) COVID-19 VACCINE Moderna 06/11/2020 12:00:00 AM EDT [facility] Vacc[facility] Complete: NOThis Data was Submitted to [facility] Via [employer]. Medications Medication Brand Name Start Date Product Form Dose Route Admi nistrative Instructions Pharmacy Instructions Status Indications Reaction Description Data Source(s) 1,250 mcg (50,000 unit) 12/31/2020 12:00:00 AM EDT capsule 12 TAKE 1 CAPSULE BY MOUTH ONCE A WEEK TAKE 1 CAPSULE BY MOUTH ONCE A WEEK SOLD: 01/03/2021 [facility] 8.6 mg 09/16/2020 12:00:00 AM EDT tablet 20 TAKE TWO TABLETS BY MOUTH EVERY DAY NEEDED TAKE TWO TABLETS BY MOUTH EVERY DAY NEEDED SOLD: 09/16/2020 [facility] Oxycodone Hydrochloride 5 MG Oral Tablet Oxycodone HCL 09/16/2020 12:00:00 AM EDT completed MEDENT ([facility], ) sennosides, SNF 8.6 MG Oral Tablet Senna-Tabs 09/16/2020 12:00:00 AM EDT ORAL completed MEDENT ([facility], ) 5 mg 09/16/2020 12:00:00 AM EDT tablet 42 TAKE ONE TABLET BY MOUTH EVERY 4 HOURS NEEDED FOR PAIN MAXIMUM DAILY DOSE = 6 TAKE ONE TABLET BY MOUTH EVERY 4 HOURS NEEDED FOR PAIN MAXIMUM DAILY DOSE = 6 SOLD: 09/16/2020 [facility] 81 mg 09/16/2020 12:00:00 AM EDT tablet,delayed release (DR/EC) 28 TAKE ONE TABLET BY MOUTH TWICE A DAY TAKE ONE TABLET BY MOUTH TWICE A DAY SOLD: 09/16/2020 [facility] 81 MG Delayed Release Oral Tablet Aspirin Adult Low Dose 09/16/2020 12:00:00 AM EDT ORAL completed [facility]ENT ([facility], ) 1,250 mcg (50,000 unit) 09/03/2020 12:00:00 AM EDT capsule 12 TAKE ONE CAPSULE BY MOUTH WEEKLY TAKE ONE CAPSULE BY MOUTH WEEKLY SOLD: 09/10/2020 [facility] Ergocalciferol 10549 UNT Oral Capsule [Drisdol] Drisdo l 1.25 MG (30281 UT) Drisdol 1.25 MG (50198 UT) 09/02/2020 12:00:00 AM EDT 1.0 {capsule} active Drisdol 1.25 MG (16239 UT) [facility] ([facility]) Ergocalciferol 89258 UNT Oral Capsule [Drisdol] Drisdo l 1.25 MG (86138 UT) Drisdol 1.25 MG (59260 UT) 09/02/2020 12:00:00 AM EDT 1.0 {capsule} active Drisdol 1.25 MG (44412 UT) [facility]C ([facility]) Ergocalciferol 38500 UNT Oral Capsule [Drisdol] Drisdo l 1.25 MG (55783 UT) Drisdol 1.25 MG (22225 UT) 09/02/2020 12:00:00 AM EDT 1.0 {capsule} active Drisdol 1.25 MG (00916 UT) [facility] ([facility]) Ergocalciferol 71268 UNT Oral Capsule [Drisdol] Drisdo l 1.25 MG (78501 UT) Drisdol 1.25 MG (63733 UT) 09/02/2020 12:00:00 AM EDT 1.0 {capsule} active Drisdol 1.25 MG (74827 UT) [facility] ([facility]) Ergocalciferol 53945 UNT Oral Capsule [Drisdol] Drisdo l 1.25 MG (60822 UT) Drisdol 1.25 MG (35508 UT) 09/02/2020 12:00:00 AM EDT 1.0 {capsule} active Drisdol 1.25 MG (81514 UT) eC ([facility]) Ergocalciferol 78953 UNT Oral Capsule [Drisdol] Drisdo l 1.25 MG (79270 UT) Drisdol 1.25 MG (96042 UT) 09/02/2020 12:00:00 AM EDT 1.0 {capsule} active Drisdol 1.25 MG (55254 UT) eC ([facility]) Ergocalciferol 75830 UNT Oral Capsule [Drisdol] Drisdo l 1.25 MG (12077 UT) Drisdol 1.25 MG (35529 UT) 09/02/2020 12:00:00 AM EDT 1.0 {capsule} active Drisdol 1.25 MG (37771 UT) eCW1 ([facility]) Naproxen 500 MG Oral Tablet Naproxen 500 MG 07/24/2020 12:00:00 AM EDT suspended Naproxen 500 MG eCW1 ([facility]) Naproxen 500 MG Oral Tablet Naproxen 500 MG 07/24/2020 12:00:00 AM EDT suspended Naproxen 500 MG eCW1 ([facility]) Naproxen 500 MG Oral Tablet Naproxen 500 MG 07/24/2020 12:00:00 AM EDT active eCW1 ([facility]) Naproxen 500 MG Oral Tablet Naproxen 500 MG 07/24/2020 12:00:00 AM EDT suspended Naproxen 500 MG eCW1 ([facility]) Naproxen 500 MG Oral Tablet Naproxen 500 MG 07/24/2020 12:00:00 AM EDT active Naproxen 500 MG eCW1 ([facility]) Naproxen 500 MG Oral Tablet Naproxen 500 MG 07/24/2020 12:00:00 AM EDT active Naproxen 500 MG eCW1 ([facility]) 500 mg 07/24/2020 12:00:00 AM EDT tablet 20 TAKE ONE TABLET BY MOUTH EVERY 12 HOURS WITH FOOD OR MILK TAKE ONE TABLET BY MOUTH EVERY 12 HOURS WITH FOOD OR MILK SOLD: 07/25/2020 [facility] Naproxen 500 MG Oral Tablet Naproxen 500 MG 07/24/2020 12:00:00 AM EDT suspended Naproxen 500 MG eCW1 ([facility]) Naproxen 500 MG Oral Tablet Naproxen 500 MG 07/24/2020 12:00:00 AM EDT active Naproxen 500 MG eCW1 ([facility]) Naproxen 500 MG Oral Tablet Naproxen 500 MG 07/24/2020 12:00:00 AM EDT suspended Naproxen 500 MG eCW1 ([facility]) Naproxen 500 MG Oral Tablet Naproxen 500 MG 07/24/2020 12:00:00 AM EDT active Naproxen 500 MG eCW1 ([facility]) Naproxen 500 MG Oral Tablet Naproxen 500 MG 07/24/2020 12:00:00 AM EDT suspended Naproxen 500 MG eCW1 ([facility]) Naproxen 500 MG Oral Tablet Naproxen 500 MG 07/24/2020 12:00:00 AM EDT active Naproxen 500 MG eCW1 ([facility]) Naproxen 500 MG Oral Tablet Naproxen 500 MG 07/24/2020 12:00:00 AM EDT suspended Naproxen 500 MG eCW1 ([facility]) Naproxen 500 MG Oral Tablet Naproxen 500 MG 07/24/2020 12:00:00 AM EDT active Naproxen 500 MG eCW1 ([facility]) Naproxen 500 MG Oral Tablet Naproxen 500 MG 07/24/2020 12:00:00 AM EDT active Naproxen 500 MG eCW1 ([facility]) 0.35 mg 01/22/2020 12:00:00 AM EDT tablet 84 TAKE ONE TABLET BY MOUTH EVERY DAY TAKE ONE TABLET BY MOUTH EVERY DAY SOLD: 01/25/2020 [facility] 0.35 mg 01/22/2020 12:00:00 AM EDT tablet 84 TAKE ONE TABLET BY MOUTH EVERY DAY TAKE ONE TABLET BY MOUTH EVERY DAY SOLD: 10/14/2020 [facility] 0.35 mg 01/22/2020 12:00:00 AM EDT tablet 84 TAKE ONE TABLET BY MOUTH EVERY DAY TAKE ONE TABLET BY MOUTH EVERY DAY SOLD: 04/28/2020 [facility] 0.35 mg 01/22/2020 12:00:00 AM EDT tablet 84 TAKE ONE TABLET BY MOUTH EVERY DAY TAKE ONE TABLET BY MOUTH EVERY DAY SOLD: 07/17/2020 [facility] 5-325 mg 01/02/2020 12:00:00 AM EDT tablet 20 TAKE 1-2 TABLETS BY MOUTH EVERY 4 HOURS NEEDED FOR MILD TO MODERATE PAIN (PS1-7) MAXIMUM DAILY DOSE = FOUR TABLETS TAKE 1-2 TABLETS BY MOUTH EVERY 4 HOURS NEEDED FOR MILD TO MODERATE PAIN (PS1-7) MAXIMUM DAILY DOSE = FOUR TABLETS SOLD: 01/03/2020 [facility] Acetaminophen 325 MG / Hydrocodone Bitartrate 5 MG Oral Tabl et [[place]] [place] 12/25/2019 12:00:00 AM EDT ORAL active MEDENT ([facility], ) Insurance Providers Payer name Policy type / Coverage type Policy ID Covered constitution party ID Covered constitution party's relationship to lakhani Policy Lakhani Plan Information [id number] BCBS [facility] 020/520 [id number] SP [id number] [place] P[place] 302/307 [id number] SP [id number] MEDICAID [id number] SP [id number] [place] BCBS MEDICAID xxxxxxxxxxxx [facility] MEDICA[facility] [id number] Mariaelena [id number] BCBS Ppo Commercial [id number] Self [id number] [facility] BS MEDICAID PI PI ANSI-Not a Secondary Insurance [id number] ANSI-Not a Secondary Insurance [id number] ANSI-Not a Secondary Insurance [id number] ANSI-Not a Secondary Insurance [id number] ANSI-Not a Secondary Insurance [id number] Medicaid [facility] Part B [id number] Self [id number] BIRDIE [id number] SP [id number] ANSI-Not a Secondary Insurance [id number] ANSI-Commercial [id number] ANSI-Medicaid [id number] MEDICAID [id number] SP [id number] [place]BS [place] P[place] 302/307 [id number] SP [id number] [place] BCBS B [id number] S W [id number] ANSI-Commercial [id number] ANSI-Medicaid [id number] ANSI-Medicaid [id number] ANSI-Commercial [id number] Medicaid [place] Medigap Part B [id number] Self [id number] [facility] [place] Commercial [id number] Self W [id number] [place]/307 [id number] SP [id number] [place] PPO 302/307 [id number] SP [id number] [place] PPO 302/307 [id number] SP [id number] [facility] [place] Medigap Part B [id number] Self W [id number] [facility] [id number] SP [id number] BCBS DENIZ O [id number] SP [id number] [place] BCBS B [id number] S [id number] MEDICAID M [id number] S [id number] BCBS DENIZ O [id number] SP [id number] [place] PPO 302/307 [id number] SP [id number] Problems, Conditions, and Diagnoses Code Display Name Description Problem Type Effective Dates Data Source(s) M17.12 [id number] Arthritis of knee, left Problem 12/19/2020 12:00:00 AM EDT [facility] ([facility]) E55.9 [id number] Vitamin D deficiency Problem 09/02/2020 12:0 0:00 AM EDT eC ([facility]) Surgeries/Procedures Procedure Description Date Indications Data Source(s) OFFICE OUTPATIENT VISIT 15 MINUTES 12/25/2020 12:00:00 AM EDT [facility] ([facility], ) OFFICE OUTPATIENT VISIT 25 MINUTES 10/30/2020 12:00:00 AM EDT [facility] ([facility], ) ARTHROSCOPY KNEE REMOVAL LOOSE/FOREIGN BODY 09/16/2020 12:00:00 AM EDT [facility] ([facility], ) ARTHRS KNEE W/MENISCECTOMY MED&LAT W/SHAVING 12:00:00 AM EDT [facility] ([facility]) OFFICE OUTPATIENT VISIT 25 MINUTES 09/11/2020 12:00:00 AM EDT [facility] ([facility]) OFFICE OUTPATIENT NEW 30 MINUTES 08/08/2020 12:00:00 A M EDT [facility] ([facility]) Medication: Toradol 30mg/1mL IM (Ketorolac) 07/24/2020 12:00:00 AM EDT eCW1 ([facility]) OFFICE OUTPATIENT NEW 45 MINUTES 06/28/2020 12:00:00 A M EDT [facility] ([facility]) OFFICE OUTPATIENT VISIT 10 MINUTES 04/09/2020 12:00:00 AM EST [facility] ([facility]) Laparoscopic Incisional Hernia W/ Mesh, Reducible 01/01/2020 12:00:00 AM EDT [facility] ([facility]) ECG ROUTINE ECG W/LEAST 12 LDS W/I&R 12/26/2019 12:00: 00 AM EDT eCW1 ([facility]) Results ID Date Data Source [id number] 09/12/2020 12:25:00 PM EDT [facility] Name Value Range Interpretation Code Description Data Esmer rce(s) Supporting Document(s) SARS-CoV-2 (COVID-19) RNA [Presence] in Respiratory specimen by ROYER with probe detection Not Detected [facility] This lab was ordered by [facility] and reported by [employer] ID Date Data Source PLZ KNEE COMPLETE 07/25/2020 12:00:00 AM EDT eCW1 ([facility]) Name Value Range Interpretation Code Description Data Esmer rce(s) Supporting Document(s) PLZ KNEE COMPLETE eCW1 ([facility]) ID Date Data Source [id number] 04/12/2020 12:00:00 AM EST [facility] Name Value Range Interpretation Code Description Data Esmer rce(s) Supporting Document(s) SARS-CoV2 Rapid Antigen Negative [facility] This lab was ordered by [facility] and reported by [facility]. ID Date Data Source [id number] 03/15/2020 11:55:00 AM EST [facility] Name Value Range Interpretation Code Description Data Esmer rce(s) Supporting Document(s) SARS coronavirus 2 RNA [facility] This lab was ordered by [facility] and reported by [facility]. ID Date Data Source [id number] 01/02/2020 05:30:00 AM EDT [facility], [facility] Name Value Range Interpretation Code Description Data Esmer rce(s) Supporting Document(s) Glucose, Fasting 73 mg/dL 70-100 Normal (applies to non-numeric results) [facility], ) Creatinine For GFR 0.66 mg/dL 0.55-1.30 Normal (applies to non -numeric results) [facility] ([facility], ) Blood Urea Nitrogen 17 mg/dL 7-18 Normal (applies to non-nume yaritza results) [facility] ([facility]) Glomerular Filtration Rate Laboratory test result Normal (applies to non- numeric results) [facility] ([facility], ) <content>Units are mL/min/1.73 m2</content>
<content></content>
<content>Chronic Kidney Disease Staging per NKF:</content>
<content></content>
<content>Stage I & II GFR >=60 Normal to Mildly Decreased</content>
<content>Stage III GFR 30- 59 Moderately Decreased</content>
<content>Stage IV GFR 15-29 Severely Decreased</content>
<content>Stage V GFR <15 Very Little GFR Left</content>
<content>ESRD GFR <15 on GENERAL MAINTENANCE HELPER</content>
<content></content> Sodium Level 141 meq/L 136-145 Normal (applies to non-numeric res ults) [facility], ) Potassium Serum 4.1 meq/L 3.5-5.1 Normal (applies to non-numeric results) [facility] ([facility], ) Carbon Dioxide Level 29 meq/L 21-32 Normal (applies to non-num gio results) [facility] ([facility]) Chloride Level 109 meq/L 98-107 Above high normal [facility] ([facility]) Calcium Level 8.1 mg/dL 8.5-10.1 Below low normal [facility] ([facility]) Anion Gap 3 meq/L 8-16 Below low normal [facility] ( [facility]) ID Date Data Source [id number] 01/02/2020 05:30:00 AM EDT [facility] ([facility]) Name Value Range Interpretation Code Description Data Esmer rce(s) Supporting Document(s) Red Blood Count 4.71 10 4.00-5.40 Normal (applies to non-numeric results) [facility] ([facility]) White Blood Count 11.0 10 4.0-10.0 Above high normal [facility]) Hematocrit 43.9 % 36.0-47.0 Normal (applies to non-numeric resul ts) [facility]) Hemoglobin 14.3 g/dL 12.0-15.5 Normal (applies to non-numeric resul ts) [facility]) Mean Corpuscular HGB Conc 32.6 g/dL 32.0-36.5 Normal (applies to non-numeric results) [facility]) Mean Corpuscular Volume 93.2 fl 80.0-96.0 Normal ( applies to non-numeric results) [facility]) Mean Corpuscular Hemoglobin 30.4 pg 27.0-33.0 Norm al (applies to non-numeric results) [facility] ([facility]) Platelet Count, Automated 212 10 150-450 Normal (applies to non-numeric results) [facility]) Red Cell Distribution Width 13.3 % 11.5-14.5 Norm al (applies to non-numeric results) [facility]) Neutrophils % 65.0 % 36.0-66.0 Normal (applies to non-numeric re sults) [facility]) Lymph % 24.2 % 24.0-44.0 Normal (applies to non-numeric resul ts) [facility]) Baso % 0.4 % 0.0-1.0 Normal (applies to non-numeric resul ts) [facility] ([facility]) [place] % 9.5 % 0.0-5.0 Above high normal [facility] ([facility]) Eos % 0.5 % 0.0-3.0 Normal (applies to non-numeric resul ts) [facility] ([facility]) Nucleated Red Blood Cell % 0.0 % 0-0 Normal (applies to n on-numeric results) [facility] ([facility]) Immature Granulocyte % 0.4 % 0-3.0 Normal (applies to non-n umeric results) [facility] ([facility]) Neutrophils # 7.2 10 1.5-8.5 Normal (applies to non-numeric re sults) [facility] ([facility]) Lymph # 2.7 10 1.5-5.0 Normal (applies to non-numeric resul ts) [facility] ([facility]) Eos # 0.1 10 0.0-0.5 Normal (applies to non-numeric resul ts) [facility] ([facility]) [place] # 1.1 10 0.0-0.8 Above high normal [facility] ([facility]) Baso # 0.0 10 0.0-0.2 Normal (applies to non-numeric resul ts) [facility] ([facility]) ID Date Data Source [id number] 12/27/2019 12:20:00 PM EDT [facility] Name Value Range Interpretation Code Description Data Esmer rce(s) Supporting Document(s) SARS coronavirus 2 RNA [facility] This lab was ordered by [facility] and reported by [facility]. Procedure Social History Code Duration Value Status Description Data Source(s ) Smoking 12/19/2020 12:00:00 AM EDT Former Smoker completed Former Smoker eCW1 ([facility]) Smoking 12/19/2020 12:00:00 AM EDT Former Smoker completed Former Smoker eCW1 ([facility]) Smoking 12/19/2020 12:00:00 AM EDT Former Smoker completed Former Smoker eCW1 ([facility]) Smoking 10/04/2020 12:00:00 AM EDT Current Smoker completed Curre nt Smoker eCW1 ([facility]) Smoking 10/04/2020 12:00:00 AM EDT Current Smoker completed Curre nt Smoker eCW1 ([facility]) Smoking 09/02/2020 12:00:00 AM EDT Current Smoker completed Curre nt Smoker eCW1 ([facility]) Smoking 09/02/2020 12:00:00 AM EDT Current Smoker completed Curre nt Smoker eCW1 ([facility]) Smoking 08/06/2020 12:00:00 AM EDT Current Smoker completed Curre nt Smoker eCW1 ([facility]) Smoking 08/06/2020 12:00:00 AM EDT Current Smoker completed Curre nt Smoker eCW1 ([facility]) Smoking 08/06/2020 12:00:00 AM EDT Current Smoker completed Curre nt Smoker eCW1 ([facility]) Smoking 08/06/2020 12:00:00 AM EDT Current Smoker completed Curre nt Smoker eCW1 ([facility]) Smoking 08/06/2020 12:00:00 AM EDT Current Smoker completed Curre nt Smoker eCW1 ([facility]) Smoking 07/24/2020 12:00:00 AM EDT Current Smoker completed Curre nt Smoker eCW1 ([facility]) Smoking 07/24/2020 12:00:00 AM EDT Current Smoker completed Curre nt Smoker eCW1 ([facility]) Smoking 07/24/2020 12:00:00 AM EDT Current Smoker completed Curre nt Smoker eCW1 ([facility]) Smoking 01/22/2020 12:00:00 AM EDT Current Smoker completed Curre nt Smoker eCW1 ([facility]) Smoking 12/26/2019 12:00:00 AM EDT Current Smoker completed Curre nt Smoker eCW1 ([facility]) Vital Signs ID Date Data Source [id number] Name Value Range Interpretation Code Description Data Source(s) Body weight 178.6 [lb_av] 178.6 [lb_av] eCW1 ([facility]) Body weight 81.01 kg 81.01 kg eCW1 ([facility]) Body height 67.5 [in_i] 67.5 [in_i] eCW1 ([facility]) Body mass index (BMI) [Ratio] 27.56 kg/m2 27.56 kg/m2 eCW1 ([facility]) Heart rate 53 /min 53 /min eCW1 ([facility]) Respiratory rate 17 /min 17 /min eCW1 ([facility]) Body temperature 96.6 [degF] 96.6 [degF] eCW1 ( [facility]) Systolic blood pressure 115 mm[Hg] 115 mm[Hg] e CW1 ([facility]) Diastolic blood pressure 74 mm[Hg] 74 mm[Hg] eCW1 ([facility]) Body temperature 97.4 [degF] 97.4 [degF] [facility] Body height 67 [in_i] 67 [in_i] [facility] ([facility]) 5'7" Body weight 272.00 [lb_av] 272.00 [lb_av] [facility] ([facility]) Body mass index (BMI) [Ratio] 42.6 kg/m2 42.6 k g/m2 [facility] ([facility]) [place] body weight 135 [lb_av] 135 [lb_av] [facility] ([facility]) Body weight 123.379 kg 123.379 kg [facility] ([facility]) Body surface area Derived from formula 2.30 m2 2.30 m2 [facility] ([facility], ) Body weight 271.8 [lb_av] 271.8 [lb_av] eCW1 ([facility]) Body weight 123.29 kg 123.29 kg eCW1 ([facility]) Body height 67.5 [in_i] 67.5 [in_i] eCW1 ([facility]) Body mass index (BMI) [Ratio] 41.94 kg/m2 41.94 kg/m2 eCW1 ([facility]) Heart rate 68 /min 68 /min eCW1 ([facility]) Body temperature 98.1 [degF] 98.1 [degF] eCW1 ( [facility]) Systolic blood pressure 122 mm[Hg] 122 mm[Hg] e CW1 ([facility]) Diastolic blood pressure 60 mm[Hg] 60 mm[Hg] eCW1 ([facility]) Body temperature 97.6 [degF] 97.6 [degF] [facility] ([facility], ) Body temperature 97.6 [degF] 97.6 [degF] [facility] ([facility], ) Body temperature 95.8 [degF] 95.8 [degF] [facility] ([facility], ) Body weight 271 [lb_av] 271 [lb_av] eCW1 ([facility]) Body height 67.5 [in_i] 67.5 [in_i] eCW1 ([facility]) Body mass index (BMI) [Ratio] 41.81 kg/m2 41.81 kg/m2 eCW1 ([facility]) Heart rate 73 /min 73 /min eCW1 ([facility]) Respiratory rate 18 /min 18 /min eCW1 ([facility]) Body temperature 97.2 [degF] 97.2 [degF] eCW1 ( [facility]) Systolic blood pressure 123 mm[Hg] 123 mm[Hg] e CW1 ([facility]) Diastolic blood pressure 63 mm[Hg] 63 mm[Hg] eCW1 ([facility]) Systolic blood pressure 124 mm[Hg] 124 mm[Hg] M EDENT ([facility], ) Diastolic blood pressure 74 mm[Hg] 74 mm[Hg] [facility] ([facility], ) Heart rate 71 /min 71 /min [facility] ([facility], ) Body temperature 98.4 [degF] 98.4 [degF] [facility] ([facility], ) Body height 67 [in_i] 67 [in_i] [facility] 5'7" Body weight 272.50 [lb_av] 272.50 [lb_av] [facility] ([facility]) Body mass index (BMI) [Ratio] 42.7 kg/m2 42.7 k g/m2 [facility] ([facility]) [place] body weight 135 [lb_av] 135 [lb_av] [facility] Body weight 123.606 kg 123.606 kg [facility] ([facility]) Body surface area Derived from formula 2.31 m2 2.31 m2 [facility] ([facility]) Oxygen saturation in Arterial blood by Pulse oximetry 99 % 99 % [facility] ([facility]) Respiratory rate 18 /min 18 /min [facility] ( [facility]) Body weight 293 [lb_av] 293 [lb_av] eCW1 ([facility]) Body height 67.5 [in_i] 67.5 [in_i] eCW1 ([facility]) Body mass index (BMI) [Ratio] 45.21 kg/m2 45.21 kg/m2 W1 ([facility]) Heart rate 73 /min 73 /min W1 ([facility]) Respiratory rate 17 /min 17 /min eCW1 ([facility]) Body temperature 97.5 [degF] 97.5 [degF] eCW1 ( [facility]) Systolic blood pressure 140 mm[Hg] 140 mm[Hg] e CW1 ([facility]) Diastolic blood pressure 72 mm[Hg] 72 mm[Hg] eCW1 ([facility]) Body weight 295 [lb_av] 295 [lb_av] eCW1 ([facility]) Body height 67.5 [in_i] 67.5 [in_i] eCW1 ([facility]) Body mass index (BMI) [Ratio] 45.52 kg/m2 45.52 kg/m2 [facility] ([facility]) Heart rate 72 /min 72 /min eCW1 ([facility]) Respiratory rate 17 /min 17 /min eCW1 ([facility]) Body temperature 97.9 [degF] 97.9 [degF] eCW1 ( [facility]) Systolic blood pressure 111 mm[Hg] 111 mm[Hg] e CW1 ([facility]) Diastolic blood pressure 77 mm[Hg] 77 mm[Hg] eCW1 ([facility]) Body height 69 [in_i] 69 [in_i] [facility] ([facility], ) 5'9" Body weight 277.00 [lb_av] 277.00 [lb_av] [facility] T ([facility]) Body mass index (BMI) [Ratio] 40.9 kg/m2 40.9 k g/m2 [facility] ([facility]) [place] body weight 145 [lb_av] 145 [lb_av] [facility] ([facility]) Body weight 125.647 kg 125.647 kg [facility] ([facility]) Body surface area Derived from formula 2.37 m2 2.37 m2 [facility] ([facility]) Systolic blood pressure 122 mm[Hg] 122 mm[Hg] M [facility] ([facility]) Diastolic blood pressure 74 mm[Hg] 74 mm[Hg] [facility] ([facility]) Heart rate 74 /min 74 /min [facility] ([facility]) Respiratory rate 14 /min 14 /min [facility] ( [facility]) Body temperature 97.1 [degF] 97.1 [degF] [facility] ([facility]) Systolic blood pressure 130 mm[Hg] 130 mm[Hg] M [facility]ENT ([facility]) Diastolic blood pressure 62 mm[Hg] 62 mm[Hg] [facility] Body height 67 [in_i] 67 [in_i] [facility] ([facility]) 5'7" Body weight 278.00 [lb_av] 278.00 [lb_av] [facility] ([facility]) Body mass index (BMI) [Ratio] 43.5 kg/m2 43.5 k g/m2 [facility] ([facility]) [place] body weight 135 [lb_av] 135 [lb_av] [facility] ([facility]) Body weight 126.101 kg 126.101 kg [facility] Body surface area Derived from formula 2.33 m2 2.33 m2 [facility] ([facility]) Systolic blood pressure 138 mm[Hg] 138 mm[Hg] M [facility] ([facility]) Diastolic blood pressure 87 mm[Hg] 87 mm[Hg] [facility] ([facility]) Body height 67 [in_i] 67 [in_i] [facility] ([facility]) 5'7" Body weight 283.00 [lb_av] 283.00 [lb_av] [facility] ([facility]) Body mass index (BMI) [Ratio] 44.3 kg/m2 44.3 k g/m2 [facility] [place] body weight 135 [lb_av] 135 [lb_av] [facility] ([facility]) Body weight 128.369 kg 128.369 kg [facility] ([facility]) Body surface area Derived from formula 2.34 m2 2.34 m2 [facility] ([facility]) Body weight 291 [lb_av] 291 [lb_av] eCW1 ([facility]) Body height 67.5 [in_i] 67.5 [in_i] eCW1 ([facility]) Body mass index (BMI) [Ratio] 44.90 kg/m2 44.90 kg/m2 eCW1 ([facility]) Heart rate 63 /min 63 /min eCW1 ([facility]) Respiratory rate 18 /min 18 /min eCW1 ([facility]) Body temperature 97.7 [degF] 97.7 [degF] eCW1 ( [facility]) Systolic blood pressure 114 mm[Hg] 114 mm[Hg] e CW1 ([facility]) Diastolic blood pressure 64 mm[Hg] 64 mm[Hg] eCW1 ([facility]) Systolic blood pressure 120 mm[Hg] 120 mm[Hg] M [facility] ([facility]) Diastolic blood pressure 70 mm[Hg] 70 mm[Hg] [facility] Body height 67 [in_i] 67 [in_i] [facility] ([facility]) 5'7" Body weight 291.00 [lb_av] 291.00 [lb_av] [facility] ([facility]) Body mass index (BMI) [Ratio] 45.6 kg/m2 45.6 k g/m2 [facility]) [place] body weight 135 [lb_av] 135 [lb_av] [facility] Body weight 131.998 kg 131.998 kg [facility] ([facility]) Body weight 288 [lb_av] 288 [lb_av] eCW1 ([facility]) Body height 67.5 [in_i] 67.5 [in_i] eCW1 ([facility]) Body mass index (BMI) [Ratio] 44.44 kg/m2 44.44 kg/m2 eCW1 ([facility]) Heart rate 79 /min 79 /min eCW1 ([facility]) Respiratory rate 18 /min 18 /min eCW1 ([facility]) Body temperature 97.9 [degF] 97.9 [degF] eCW1 ( [facility]) Systolic blood pressure 128 mm[Hg] 128 mm[Hg] e CW1 ([facility]) Diastolic blood pressure 77 mm[Hg] 77 mm[Hg] eCW1 ([facility]) Patient Treatment Plan of Care Planned Activity Planned Date Details Description Data Source (s) Ergocalciferol [id number] UNT Oral Capsule [Drisdol] 09/02/2020 12:00:00 AM EDT eCW1 ([facility]) Ergocalciferol 25450 UNT Oral Capsule [Drisdol] 09/02/2020 12:00:00 AM EDT eCW1 ([facility]) Naproxen 500 MG Oral Tablet 07/24/2020 12:00:00 AM EDT eCW1 ([facility]) Naproxen 500 MG Oral Tablet 07/24/2020 12:00:00 AM EDT eCW1 ([facility]) Naproxen 500 MG Oral Tablet 07/24/2020 12:00:00 AM EDT eCW1 ([facility])
[2021-01-09] MEDS ORDERED: TRANEXAMIC ACID 100 MG/ML 10ML VIAL As Ordered ONE (07:12)
[2021-01-09] MEDS ORDERED: fentaNYL 100 MCG/2 ML INJECTION (J3010) As Ordered ONE ×2 (07:17→08:22)
[2021-01-09] MEDS ORDERED: MIDAZOLAM INJ 2MG/2ML VIAL (J2250 PER 1MG) As Ordered ONE (07:17)
[2021-01-09] MEDS ORDERED: LIDOCAINE 2% 100MG/5ML SDV (FOR ANES.) As Ordered ONE (07:17)
[2021-01-09] MEDS ORDERED: propofoL 200 MG/20 ML VIAL As Ordered ONE (07:17)
[2021-01-09] MEDS ORDERED: LR 1,000 ML IV ONE (07:25)
[2021-01-09] MEDS ORDERED: ROCURONIUM BROMIDE 50 MG/5 ML VIAL As Ordered ONE (07:39)
[2021-01-09] MEDS: TRANEXAMIC ACID INJection 1,000 MG in NS 50 ML IV ONE ×2 (07:50→11:39)
[2021-01-09] MEDS ORDERED: ePHEDrine SULFATE 25 MG/5 ML(5MG/ML) SYRINGE As Ordered ONE ×2 (08:07→09:19)
[2021-01-09] MEDS ORDERED: HYDROmorphone HCL 2 MG/ML 1ML VIAL As Ordered ONE (08:22)
[2021-01-09] MEDS ORDERED: SUGAMMADEX SODIUM 500 MG/5 ML VIAL (BRIDION) As Ordered ONE (09:24)
[2021-01-09] MEDS ORDERED: ONDANSETRON 4MG/2ML VIAL As Ordered ONE (09:28)
[2021-01-09] MEDS ORDERED: KETOROLAC 60MG 2ML VIAL As Ordered ONE (09:28)
[2021-01-09] MEDS ORDERED: METOCLOPRAMIDE INJ 10MG/2ML VIAL (J2765 PER 1) As Ordered ONE (09:28)
[2021-01-09] MEDS ORDERED: ACETAMINOPHEN 1000MG 100ML IV BTL (OFIRMEV) (J0131 PER 10MG) As Ordered ONE (09:28)
[2021-01-09] MEDS ORDERED: HYDROMORPHONE HCL 0.5 MG/ 0.5 ML SYRINGE (J1170 PER 1) IV PRN (10:10)
[2021-01-09] MEDS ORDERED: LR 1,000 ML IV SCH ×2 (10:10→10:45)
[2021-01-09] MEDS ORDERED: oxyCODONE 5MG TAB PO PRN ×2 (10:10→10:40)
[2021-01-09] MEDS ORDERED: fentaNYL 100 MCG/2 ML INJECTION (J3010) IV PRN (10:10)
[2021-01-09] MEDS ORDERED: ONDANSETRON 4MG/2ML VIAL IV PRN ×2 (10:10→10:40)
--- NOTE | 2021-01-09 10:14 | ROOPDOC ---
[facility] Report Of Operation Report of Operation DATE OF PROCEDURE: 01/09/21 PREPROCEDURE DIAGNOSES: Left knee osteoarthritis POSTPROCEDURE DIAGNOSES: Left knee osteoarthritis PROCEDURE PERFORMED: Left Ryan total knee SURGEON: Minor Corrales MD HIDE DROPPER: Wendy Jasmine PA-C ANESTHESIA: Spinal. ESTIMATED BLOOD LOSS: Approximately less than 150 mL. COMPLICATIONS: No known complications. REMARKS: Patient was seen in the preoperative area and her left knee was marked. Consent was reviewed for the Ryan left total knee arthroplasty as well. Risks and benefits were discussed as previously described. Components: hetras triathlon system press-fit 35 mm patella Size 5 tibia and size 5 femur CR 9 mm CS polyethylene FINDINGS: Tricompartmental osteoarthritis left knee SPECIMENS REMOVED: None PROCEDURE NOTE: The patient was seen in the preoperative area and her status was updated. [facility] plan was reviewed prior to surgery and adjusted appropriately. DESCRIPTION OF PROCEDURE: Patient was taken to the operating room and after a checklist was performed, the underwent a spinal anesthetic. The patient was then placed supine. The operative leg was then cleansed with chlorhexidine wash followed by 2 times alcohol swab followed by hydrogen peroxide wash. 2 chlorhexidine prep once were then used to clean the leg. The operative extremity was then prepped and draped in the standard sterile fashion. This was done utilizing the Ryan leg beckwith device. A surgical pause was then carried out followed by the surgical safety checklist. 2 stab hole incisions were made approximately 4 fingerbreadths below the tibial tubercle of the left knee for the tibial array pins which were placed. The midline incision over the knee followed by the medial arthrotomy was then carried out. Cautery was used to control bleeders. The soft tissue and fat pad were removed using electrocautery. The femoral array pins were then placed proximal to the medial femoral condyle. The arrays were utilized as the femoral and tibial trackers. The arrays were then placed over the array pins. The hip center was checked followed by the medial and lateral condyles of the ankle. The registration of the femur and tibia then occurred using the arrays in the Ryan system. Osteophytes were removed at this point, as needed. The leg was then brought into extension and varus and valgus stresses were applied in extension and spoons were used for tensioning as well as a Franklin in flexion of approximately 95 degrees. Once the soft tissue adjustments were made to the Ryan plan, the plan was carried out utilizing the robot. The 90 degree blade cuts were made first followed by the straight blade cuts. Once all the cuts were completed with the assistance of the Boxcar robot, the rongeur and osteotome were used to remove the bone segments. A lamina operations manager assistant was used to help remove the medial lateral menisci remnants followed by a curved osteotome to remove any posterior osteophytes from the medial or lateral femoral condyles. A trial femur was placed and secured with a pin. The tibial component was then placed with a 9 mm polyinsert. This was brought into extension and found to have appropriate stability in both flexion and extension. The leg was then brought into extension and the patella was measured using the caliper. A freehand cut using towel clips was used to remove the patellar surface. This was then clamped and reamed appropriately for the press-fit components. A trial was placed and taken through range of motion and found to be nice and stable. The tibia was then appropriately positioned with the correct amount of rotation lined up with the medial third of the tibial tubercle. This was pinned and the keel punch was completed followed by the four-point reaming for the press-fit component. The CR femur had the lug holes drilled. The RE CK local anesthetic cocktail was instilled in the standard fashion. The wound was thoroughly irrigated with pulse lavage. The tibia was then press-fit in position using the mallet and impactors. The femur was then flexed high and positioned aligning the lug holes. This component was impacted then brought out into 90 degrees and impacted further to avoid anywhere to the metal components. The 9 mm polyethylene insert was then trialed, found appropriate and the final component was placed and impacted. The leg was brought into extension and the press-fit polyethylene patellar component was tightened and impacted utilizing the compression device The leg was taken through stable range of motion. It was thoroughly irrigated. Electrocautery was used to control any bleeders. A layered closure using #1 Vicryl followed by strata fix for the arthrotomy. #1 Vicryl to close down the subcutaneous tissue followed by running subcutaneous 2.0 and then a three-point 0 Monocryl subcuticular stitch antibacterial. Layered irrigation with saline and Betadine occurred. Steri-Strips were applied followed by the Mepilex dressing Patient tolerated the procedure well with no known complications. They were taken to the recovery room in stable condition. The patient will be admitted to the hospitalist service with plan for evaluation with physical therapy and possible discharge home tomorrow. Discharge Instructions Total Knee Arthroplasty 1. Pain: You may take oxycodone as prescribed for pain. Supplement with Tylenol as needed. Ice pack to operative knee as tolerated. 2. Wound care: Remove dressing on postop day 7. Call [phone] with any questions or concerns. Hygiene: The patient may shower. No tub baths. Check dressing seal prior to bathing. 3. Activity: WBAT left lower extremity. Front wheeled walker versus crutches for ambulation. Fall precautions. 4. Driving: No driving until cleared by your surgeon. Do not drive if taking narcotic pain medications as these may make you drowsy. 5. DVT Prophylaxis: Continue taking aspirin 81 mg p.o. twice daily as prescribed for the prevention of blood clots. Ankle pumps every 1 hour while awake. MARIAH hose at all times for 1 month after surgery. May remove for hygiene and wound care. 6. Placement: Plan is to discharge patient to home with home health including nursing and physical therapy. 7. Surgeon Follow-up: The patient is scheduled to be seen in Dr. Corrales's office 2 weeks post op with xrays. 8. Primary care Follow-up: Please see your primary care provider in the next 2 to 5 weeks for general medical re-evaluation and medication review. 9. Labs: CBC without differential to be drawn on postop day 3 with results to PCP and please fax to [phone]. 10. Please contact [facility] if you have any questions or concerns at [phone]. MINOR CORRALES MD Jan 09, 2021 10:14
--- NOTE | 2021-01-09 10:37 | REP ---
INDICATION: POST OP /PACU COMPARISON: None. TECHNIQUE: Portable AP and cross-table lateral views. FINDINGS: Normal appearance and positioning to the femoral, patellar and tibial components. Overlying postsurgical changes and skin maren noted. IMPRESSION: Status post left knee replacement. Satisfactory positioning. <Electronically signed by Emery Retana > 01/09/21 [id number]
[2021-01-09] MEDS ORDERED: SENNA 8.6 MG TAB (SENOKOT) PO PRN (10:40)
[2021-01-09] MEDS ORDERED: traMADol 50 MG TAB PO PRN (10:40)
[2021-01-09] MEDS: ACETAMINOPHEN TAB 650MG DOSE (2X325MG) PO SCH ×2 (13:07→17:00)
--- NOTE | 2021-01-09 13:27 | HPEPDOC ---
[facility] Medical History & Physical Date of Admission Jan 09, 2021 Date of Service: Jan 09, 2021 History and Physical HISTORY OF PRESENT ILLNESS: This is a 50-year-old morbidly obese female who presents to [facility] for an orthopedic procedure that was performed earlier today. She is status post day 0 of left Ryan total knee arthroplasty due to dx of arthralgia/left knee pain per orthopedics (Dr. Edward). Currently she denies being in any pain. Patient reports gastric bypass surgery 10/2018, and since then she has had a significant decrease in her medical problems. She was able to d/c a majority of her medications s/p bypass. REVIEW OF SYSTEMS: General: Denies fever, shaking chills, unintentional weight loss HEENT: Denies changes in vision including blurry vision or double vision, sore throat or dysphagia Heart: Denies chest pain or chest pressure or discomfort Pulm: Denies shortness of breath GI: Denies nausea vomiting diarrhea abdominal pain or bloody stools : Denies dysuria or hematuria Extremities: Reports chronic LE edema but no recent increase PAST MEDICAL HISTORY: Tobacco abuse Arthralgia Morbid obesity Pancreatic lesion with f/u CT yearly (every September) Plantar warts bilateral feet Onychomycosis History of Vitamin D deficient PAST SURGICAL HISTORY: Three cysts removed 1984, 1994 Bunionectomy 1987 Pancreatic biopsy 2005 Endoscopy 09/26/18 Gastric bypass 10/2018 Hernia repair 01/01/2020 Left knee surgery 08/2020 HOME MEDICATIONS: Please see below. SOCIAL HISTORY: Marital status: Children: 2 Employment: [employer] Tobacco use: Former smoker, quit 11/24/20, denies vaping or use of e-cigrette ETOH: Yes, 1-2 drinks per month Illicit drug use: Denies IV drug use: Denies FAMILY HISTORY: Father: at 66yrs, heart failure, VT, unspecified heart disease Mother: at 65yrs, DM, HTN, hyperlipidemia, unspecified heart disease Maternal aunt: Breast cancer Siblings: 1 brother, 1 sister, both healthy PHYSICAL EXAMINATION: VITAL SIGNS: See below GENERAL: Morbidly obese female, well-hydrated, in no apparent distress. AAOx3 NEURO: No focal neurological deficits HEENT: Head is normocephalic and atraumatic. Extraocular muscles are intact. Pupils are equal, round, and reactive to light and accommodation. Nares appears normal. Moist mucous membranes. PULM: Clear to auscultation bilaterally. No wheezing, rhonchi or rales appreciated.. CARDIO: Normal S1, S2. no significant murmurs, gallops, rubs or clicks. Some LE edema on right leg (left leg is wrapped in kelley bandage) that patient states is chronic and not increased from baseline ABDOMEN: Soft, nontender, and nondistended. Normal bowel sounds. No significant organomegaly appreciated. EXTREMITIES: No cyanosis, clubbing, rash, lesions. Left leg is wrapped from thigh to ankle in kelley bandage. Area above and below are not erythematous or swollen. Bandage on incision at knee under kelley wrap is clean without signs of excessive bleeding or puss PSYCH: Appropriate mood and affect LABORATORY DATA: See below. IMAGING: Left Knee X Ray AP, Lat 01/09/21 (post op) IMPRESSION: Status post left knee replacement. Satisfactory positioning MICROBIOLOGY: Please see below. ASSESSMENT AND PLAN: This is a 50-year-old morbidly obese female who is s/p day 0 of left Ryan total knee arthroplasty due to dx of arthralgia/left knee pain. She is admitted to the hospitalist service for observation and medical management. S/p day 0 left knee Ryan total knee arthroplasty - Pain management - Acetominophen 650mg PO q6h - Tramadol 50mg q4h PO prn mild pain - Ancef IV every x2 - Oxycodone 5mg q4h PO prn moderate pain - Oxycodone 10mg q4h PO prn severe pain - IVF LRs 100mls/hr q10h - Ondansetron 4mg IV q6h prn for post op n/v - Colace/Senna bowel regimen ppx - Aspirin 81mg PO BID GEORGIE - c/w bipap - Follow-up with outpatient pulmonary as necessary Tobacco dependence -Patient recently quit smoking -Tobacco use cessation counseling provided still History of vitamin D deficiency -We will order for vitamin D level -Patient states that she was recently prescribed with vitamin D prescription however has not picked up yet -We will start her on vitamin D DVT prophylaxis: TEDs and sequentials and heparin subcu CODE STATUS: Full Position: Pending clinical improvement Vital Signs Vital Signs Date Time Temp Pulse Resp B/P (MAP) Pulse Ox O2 Delivery O2 Flow Rate FiO2 01/09/21 12:20 97.4 92 11 133/82 (99) 94 Room Air 01/09/21 11:30 2.0 Home Medications No Active Prescriptions or Reported Meds Allergies Coded Allergies: morphine (Verified Allergy, Intermediate, itches and rash, 01/09/21) A-FIB/CHADSVASC A-FIB History Current/History of A-Fib/PAF?: No Current PO Anticoag Therapy: No Merry Givens DO Jan 09, 2021 12:45
[2021-01-09] MEDS: ceFAZolin SOD 2 GM in IV 1 EA IV SCH (17:00)
[2021-01-09] MEDS: oxyCODONE 5MG TAB PO PRN (21:26)
[2021-01-09] MEDS: ASPIRIN 81MG ENTERIC TABLET PO SCH (21:26)
[2021-01-09] MEDS: VITAMIN D 1,000 INTERNATIONAL UNITS TABLET PO SCH (21:26)
[2021-01-09] MEDS: DOCUSATE SODIUM 100MG CAPSULE PO SCH (21:26)
[2021-01-09] MEDS ORDERED: HEPARIN SOD (PORCINE) 5000UNITS/ML 1ML VIAL/SYRINGE SQ SCH (22:00)
[2021-01-10] MEDS: ACETAMINOPHEN TAB 650MG DOSE (2X325MG) PO SCH ×3 (00:12→12:09)
[2021-01-10] MEDS: ceFAZolin SOD 2 GM in IV 1 EA IV SCH (00:24)
[2021-01-10 05:35] VITALS: BP 110/62
[2021-01-10 06:31] LABS: HEMATOCRIT 42.5 % (36.0-47.0); HEMOGLOBIN 13.9 g/dl (12.0-15.5); MEAN CORPUSCULAR HEMOGLOBIN 30.5 pg (27.0-33.0); MEAN CORPUSCULAR HGB CONC 32.7 g/dl (32.0-36.5); MEAN CORPUSCULAR VOLUME 93.2 fl (80.0-96.0); PLATELET COUNT, AUTOMATED 197 10^3/uL (150-450); RED BLOOD COUNT 4.56 10^6/uL (4.00-5.40); WHITE BLOOD COUNT 11.9 10^3/uL (4.0-10.0)
[2021-01-10 06:52] LABS: BLOOD UREA NITROGEN 15 MG/DL (7-18); CALCIUM LEVEL 8.7 MG/DL (8.5-10.1); CARBON DIOXIDE LEVEL 31 MEQ/L (21-32); CHLORIDE LEVEL 106 MEQ/L (98-107); CREATININE FOR GFR 0.69 MG/DL (0.55-1.30); GLOMERULAR FILTRATION RATE > 60.0 (>58); GLUCOSE, FASTING 63 MG/DL (70-100); POTASSIUM SERUM 4.2 MEQ/L (3.5-5.1); SODIUM LEVEL 140 MEQ/L (136-145)
--- OUTSIDE RECORDS SUMMARY | 2021-01-10 08:26 | CCD ---
Author Author [facility] Organization [facility] Address Unknown Phone Unavailable Care Team Providers Care Testing Specialist Name Role Phone Ramona Recio CONCRETE ANALYST Unavailable Unavailable Brick, Ramona Richie CONCRETE ANALYST Unavailable Unavailable Almita, Ramona Richie CONCRETE ANALYST Unavailable Unavailable Almita, Ramona Richie CONCRETE ANALYST Unavailable Unavailable Almita, Ramona Richie CONCRETE ANALYST Unavailable Unavailable Almita, Ramona Richie CONCRETE ANALYST Unavailable Unavailable Almita, Ramona Richie CONCRETE ANALYST Unavailable Unavailable Brick, Ramona Richie CONCRETE ANALYST Unavailable Unavailable Brick, Ramona Richie CONCRETE ANALYST Unavailable Unavailable Brick, Ramona Richie CONCRETE ANALYST Unavailable Unavailable Almita, Ramona Richie CONCRETE ANALYST Unavailable Unavailable Almita, Ramona Richie CONCRETE ANALYST Unavailable Unavailable Almita, Ramona Richie CONCRETE ANALYST Unavailable Unavailable Almita, Ramona Richie CONCRETE ANALYST Unavailable Unavailable Ravindra LEBLANC MD Unavailable Unavailable [...] Unavailable Ravindra LEBLANC MD Unavailable Unavailable Ravindra ELBLANC MD Unavailable Unavailable Ravindra LEBLANC MD Unavailable [...] is protected by Article 27-F of the [facility] Public Health law. If you continue you may have access to information: Regarding HIV / AIDS; Provided by facilities licensed or operated by the [facility] Office of Mental Health; or Provided by the [facility] Office for People With Developmental Disabilities. If such information is present, then the following [facility] mandated warning applies: This information has been [...] law may result in a fine or nursing home sentence or both. A general authorization for the release of medical or other information is NOT sufficient authorization for further disc losure. Encounters Encounter Providers Location Date Indications Data Source(s ) Unknown [address] [facility] [address] 12/26/2020 12:00:00 AM EDT eCW1 ([facility]) Outpatient Attender: Kj Monreal/Alex/Diallo/Alfonzo osborn 12/25/2020 11:30:00 AM EDT MED[facility] ([facility]) [place] [address] [facility] [address] 12/25/2020 12:00:00 AM EDT eCW1 ([facility]) [place] [address] [facility] [address] 12/19/2020 12:00:00 AM EDT eCW1 ([facility]) [place] [address] [facility] [address] 11/26/2020 12:00:00 AM EDT eCW1 ([facility]) Outpatient Attender: Kj Monreal/Alex/Diallo/Rein dl 10/30/2020 10:30:00 AM EDT MEDENT ([facility]) [place] [address] [facility] [address] 10/04/2020 12:00:00 AM EDT eCW1 ([facility]) Office Visit Attender: Kj Monreal/Alex/Diallo/Rein dl 10/02/2020 08:00:00 AM EDT MEDENT ([facility]) Outpatient Attender: Kj Monreal/Alex/Diallo/Rein dl 09/11/2020 01:30:00 PM EDT MEDENT ([facility]) [place] [address] [facility] [address] 09/02/2020 12:00:00 AM EDT eCW1 ([facility]) [place] [address] [facility] [address] 09/02/2020 12:00:00 AM EDT eCW1 ([facility]) [place] [address] [facility] [address] 08/29/2020 12:00:00 AM EDT eCW1 ([facility]) [place] [address] [facility] [address] 08/13/2020 12:00:00 AM EDT eCW1 ([facility]) Outpatient Attender: Kj Monreal/Alex/Diallo/Rein dl 08/08/2020 09:30:00 AM EDT MED[facility] ([facility]) [place] [address] [facility] [address] 08/07/2020 12:00:00 AM EDT eCW1 ([facility]) [place] [address] [facility] [address] 08/07/2020 12:00:00 AM EDT eCW1 ([facility]) [place] [address] [facility] [address] 08/06/2020 12:00:00 AM EDT eCW1 ([facility]) [place] [address] [facility] [address] 08/01/2020 12:00:00 AM EDT eCW1 ([facility]) [place] [address] [facility] [address] 07/25/2020 12:00:00 AM EDT eCW1 ([facility]) [place] [address] [facility] [address] 07/24/2020 12:00:00 AM EDT eCW1 ([facility]) Outpatient Attender: FAVIO Tay/Alex/Diallo/Alfonzod elvira 06/28/2020 03:00:00 PM EDT MEDENT ([facility]) Outpatient Attender: KRISTINE Monreal/Alex/Diallo/ Reinanurag 04/09/2020 01:10:00 PM EST MEDENT ([facility]) [place] [address] [facility] [address] 01/22/2020 12:00:00 AM EDT eCW1 ([facility]) Office Visit Attender: Richie Monreal/Alex/Diallo/Stephon ndl 01/15/2020 09:30:00 AM EDT MEDENT ([facility]) [place] [address] [facility] [address] 12/26/2019 12:00:00 AM EDT eCW1 ([facility]) Immunizations Vaccine Date Status Description Data Source(s) 07/24/2020 03:57:00 PM EDT completed e CW1 ([facility]) 07/24/2020 03:57:00 PM EDT completed e CW1 ([facility]) 07/24/2020 03:57:00 PM EDT completed e CW1 ([facility]) 07/24/2020 03:57:00 PM EDT completed e CW1 ([facility]) 07/24/2020 03:57:00 PM EDT completed e CW1 ([facility]) 07/24/2020 03:57:00 PM EDT completed e CW1 ([facility]) 07/24/2020 03:57:00 PM EDT completed e CW1 ([facility]) 07/24/2020 03:57:00 PM EDT completed e CW1 ([facility]) 07/24/2020 03:57:00 PM EDT completed e CW1 ([facility]) 07/24/2020 03:57:00 PM EDT completed e CW1 ([facility]) 07/24/2020 03:57:00 PM EDT completed e CW1 ([facility]) 07/24/2020 03:57:00 PM EDT completed e CW1 ([facility]) 07/24/2020 03:57:00 PM EDT completed e CW1 ([facility]) 07/24/2020 03:57:00 PM EDT completed e CW1 ([facility]) 07/24/2020 03:57:00 PM EDT completed e CW1 ([facility]) 07/24/2020 03:56:00 PM EDT completed e CW1 ([facility]) 07/24/2020 03:56:00 PM EDT completed e CW1 ([facility]) 07/24/2020 03:56:00 PM EDT completed e CW1 ([facility]) 07/24/2020 03:56:00 PM EDT completed e CW1 ([facility]) 07/24/2020 03:56:00 PM EDT completed e CW1 ([facility]) 07/24/2020 03:56:00 PM EDT completed e CW1 ([facility]) 07/24/2020 03:56:00 PM EDT completed e CW1 ([facility]) 07/24/2020 03:56:00 PM EDT completed e CW1 ([facility]) 07/24/2020 03:56:00 PM EDT completed e CW1 ([facility]) 07/24/2020 03:56:00 PM EDT completed e CW1 ([facility]) 07/24/2020 03:56:00 PM EDT completed e CW1 ([facility]) 07/24/2020 03:56:00 PM EDT completed e CW1 ([facility]) 07/24/2020 03:56:00 PM EDT completed e CW1 ([facility]) 07/24/2020 03:56:00 PM EDT completed e CW1 ([facility]) 07/24/2020 03:56:00 PM EDT completed e CW1 ([facility]) COVID-19 dose #2 given elsewhere Unspecified 07/09/2020 04:1 1:00 PM EDT completed eCW1 ([facility]) COVID-19 dose #2 given elsewhere Unspecified 07/09/2020 04:1 1:00 PM EDT completed eCW1 ([facility]) COVID-19 dose #2 given elsewhere Unspecified 07/09/2020 04:1 1:00 PM EDT completed eCW1 ([facility]) COVID-19 dose #2 given elsewhere Unspecified 07/09/2020 04:1 1:00 PM EDT completed eCW1 ([facility]) COVID-19 dose #2 given elsewhere Unspecified 07/09/2020 04:1 1:00 PM EDT completed eCW1 ([facility]) COVID-19 dose #2 given elsewhere Unspecified 07/09/2020 04:1 1:00 PM EDT completed eCW1 ([facility]) COVID-19 dose #2 given elsewhere Unspecified 07/09/2020 04:1 1:00 PM EDT completed eCW1 ([facility]) COVID-19 dose #2 given elsewhere Unspecified 07/09/2020 04:1 1:00 PM EDT completed eCW1 ([facility]) COVID-19 dose #2 given elsewhere Unspecified 07/09/2020 04:1 1:00 PM EDT completed eCW1 ([facility]) COVID-19 dose #2 given elsewhere Unspecified 07/09/2020 04:1 1:00 PM EDT completed eCW1 ([facility]) COVID-19 dose #2 given elsewhere Unspecified 07/09/2020 04:1 1:00 PM EDT completed eCW1 ([facility]) COVID-19 dose #2 given elsewhere Unspecified 07/09/2020 04:1 1:00 PM EDT completed eCW1 ([facility]) COVID-19 dose #2 given elsewhere Unspecified 07/09/2020 04:1 1:00 PM EDT completed eCW1 ([facility]) COVID-19 dose #2 given elsewhere Unspecified 07/09/2020 04:1 1:00 PM EDT completed eCW1 ([facility]) COVID-19 dose #2 given elsewhere Unspecified 07/09/2020 04:1 1:00 PM EDT completed eCW1 ([facility]) COVID-19 VACCINE Moderna 07/09/2020 12:00:00 AM EDT completed [facility] Vaccine Series Complete: YESThis Data wa s Submitted to [facility] Via [employer]. COVID-19 dose #1 given elsewhere Unspecified 06/11/2020 04:1 1:00 PM EDT completed eCW1 ([facility]) COVID-19 dose #1 given elsewhere Unspecified 06/11/2020 04:1 1:00 PM EDT completed eCW1 ([facility]) COVID-19 dose #1 given elsewhere Unspecified 06/11/2020 04:1 1:00 PM EDT completed eCW1 ([facility]) COVID-19 dose #1 given elsewhere Unspecified 06/11/2020 04:1 1:00 PM EDT completed eCW1 ([facility]) COVID-19 dose #1 given elsewhere Unspecified 06/11/2020 04:1 1:00 PM EDT completed eCW1 ([facility]) COVID-19 dose #1 given elsewhere Unspecified 06/11/2020 04:1 1:00 PM EDT completed eCW1 ([facility]) COVID-19 dose #1 given elsewhere Unspecified 06/11/2020 04:1 1:00 PM EDT completed eCW1 ([facility]) COVID-19 dose #1 given elsewhere Unspecified 06/11/2020 04:1 1:00 PM EDT completed eCW1 ([facility]) COVID-19 dose #1 given elsewhere Unspecified 06/11/2020 04:1 1:00 PM EDT completed eCW1 ([facility]) COVID-19 dose #1 given elsewhere Unspecified 06/11/2020 04:1 1:00 PM EDT completed eCW1 ([facility]) COVID-19 dose #1 given elsewhere Unspecified 06/11/2020 04:1 1:00 PM EDT completed eCW1 ([facility]) COVID-19 dose #1 given elsewhere Unspecified 06/11/2020 04:1 1:00 PM EDT completed eCW1 ([facility]) COVID-19 dose #1 given elsewhere Unspecified 06/11/2020 04:1 1:00 PM EDT completed eCW1 ([facility]) COVID-19 dose #1 given elsewhere Unspecified 06/11/2020 04:1 1:00 PM EDT completed eCW1 ([facility]) COVID-19 dose #1 given elsewhere Unspecified 06/11/2020 04:1 1:00 PM EDT completed eCW1 ([facility]) COVID-19 VACCINE Moderna 06/11/2020 12:00:00 AM EDT [facility] Vacc[facility] Complete: NOThis Data was Submitted to [facility] Via [employer]. Medications Medication Brand Name Start Date Product [...] HCL 09/16/2020 12:00:00 AM EDT completed MEDENT ([facility], ) sennosides, HALFWAY 8.6 MG Oral Tablet Senna-Tabs 09/16/2020 12:00:00 AM EDT ORAL completed MEDENT ([facility], ) 5 mg 09/16/2020 12:00:00 AM EDT [...] BY MOUTH TWICE A DAY SOLD: 09/16/2020 Lumatic Aspirin 81 MG Delayed Release Oral Tablet Aspirin Adult Low Dose 09/16/2020 12:00:00 AM EDT ORAL completed MEDENT ([facility], ) 1,250 mcg (50,000 unit) 09/03/2020 12:00:00 AM EDT capsule 12 TAKE ONE CAPSULE BY MOUTH WEEKLY TAKE ONE CAPSULE BY MOUTH WEEKLY SOLD: 09/10/2020 [place] Ergocalciferol 45416 UNT Oral Capsule [Drisdol] Drisdo l 1.25 MG (56137 UT) Drisdol 1.25 MG (22144 UT) 09/02/2020 12:00:00 AM EDT 1.0 {capsule} active Drisdol 1.25 MG (58553 UT) [facility] ([facility]) Ergocalciferol 40725 UNT Oral Capsule [Drisdol] Drisdo l 1.25 MG (66723 UT) Drisdol 1.25 MG (93736 UT) 09/02/2020 12:00:00 AM EDT 1.0 {capsule} active Drisdol 1.25 MG (59943 UT) eC ([facility]) Ergocalciferol 54832 UNT Oral Capsule [Drisdol] Drisdo l 1.25 MG (89414 UT) Drisdol 1.25 MG (68965 UT) 09/02/2020 12:00:00 AM EDT 1.0 {capsule} active Drisdol 1.25 MG (11067 UT) [facility] ([facility]) Ergocalciferol 60717 UNT Oral Capsule [Drisdol] Drisdo l 1.25 MG (72452 UT) Drisdol 1.25 MG (07712 UT) 09/02/2020 12:00:00 AM EDT 1.0 {capsule} active Drisdol 1.25 MG (59924 UT) [facility] ([facility]) Ergocalciferol 86374 UNT Oral Capsule [Drisdol] Drisdo l 1.25 MG (44019 UT) Drisdol 1.25 MG (19527 UT) 09/02/2020 12:00:00 AM EDT 1.0 {capsule} active Drisdol 1.25 MG (52718 UT) eC ([facility]) Ergocalciferol 82871 UNT Oral Capsule [Drisdol] Drisdo l 1.25 MG (77736 UT) Drisdol 1.25 MG (58482 UT) 09/02/2020 12:00:00 AM EDT 1.0 {capsule} active Drisdol 1.25 MG (68969 UT) eC ([facility]) Ergocalciferol 06787 UNT Oral Capsule [Drisdol] Drisdo l 1.25 MG (78883 UT) Drisdol 1.25 MG (64779 UT) 09/02/2020 12:00:00 AM EDT 1.0 {capsule} active Drisdol 1.25 MG (39376 UT) eCW1 ([facility]) Naproxen 500 MG Oral Tablet Naproxen 500 MG 07/24/2020 12:00:00 AM EDT suspended Naproxen 500 MG eCW1 ([facility]) Naproxen 500 MG Oral Tablet Naproxen 500 MG 07/24/2020 12:00:00 AM EDT suspended Naproxen 500 MG eCW1 ([facility]) Naproxen 500 MG Oral Tablet Naproxen 500 MG 07/24/2020 12:00:00 AM EDT active eCW1 ([facility]) Naproxen 500 MG Oral Tablet Naproxen 500 MG 07/24/2020 12:00:00 AM EDT suspended Naproxen 500 MG eCW1 ([facility]) Naproxen 500 MG Oral Tablet Naproxen 500 MG 07/24/2020 12:00:00 AM EDT active Naproxen 500 MG eCW1 ([facility]) Naproxen 500 MG Oral Tablet Naproxen 500 MG 07/24/2020 12:00:00 AM EDT active Naproxen 500 MG eCW1 ([facility]) 500 mg 07/24/2020 12:00:00 AM EDT tablet 20 TAKE ONE TABLET BY MOUTH EVERY 12 HOURS WITH FOOD OR MILK TAKE ONE TABLET BY MOUTH EVERY 12 HOURS WITH FOOD OR MILK SOLD: 07/25/2020 Rosa Elena Pascual s Naproxen 500 MG Oral Tablet Naproxen 500 MG 07/24/2020 12:00:00 AM EDT suspended Naproxen 500 MG eCW1 ([facility]) Naproxen 500 MG Oral Tablet Naproxen 500 MG 07/24/2020 12:00:00 AM EDT active Naproxen 500 MG eCW1 ([facility]) Naproxen 500 MG Oral Tablet Naproxen 500 MG 07/24/2020 12:00:00 AM EDT suspended Naproxen 500 MG eCW1 ([facility]) Naproxen 500 MG Oral Tablet Naproxen 500 MG 07/24/2020 12:00:00 AM EDT active Naproxen 500 MG eCW1 ([facility]) Naproxen 500 MG Oral Tablet Naproxen 500 MG 07/24/2020 12:00:00 AM EDT suspended Naproxen 500 MG eCW1 ([facility]) Naproxen 500 MG Oral Tablet Naproxen 500 MG 07/24/2020 12:00:00 AM EDT active Naproxen 500 MG eCW1 ([facility]) Naproxen 500 MG Oral Tablet Naproxen 500 MG 07/24/2020 12:00:00 AM EDT suspended Naproxen 500 MG eCW1 ([facility]) Naproxen 500 MG Oral Tablet Naproxen 500 MG 07/24/2020 12:00:00 AM EDT active Naproxen 500 MG eCW1 ([facility]) Naproxen 500 MG Oral Tablet Naproxen 500 MG 07/24/2020 12:00:00 AM EDT active Naproxen 500 MG eCW1 ([facility]) 0.35 mg 01/22/2020 12:00:00 AM EDT tablet [...] Hydrocodone Bitartrate 5 MG Oral Tabl et [[place]] [place] 12/25/2019 12:00:00 AM EDT ORAL active MEDENT ([facility], ) Insurance Providers Payer name Policy type / Coverage type Policy ID Covered libertarian ID Covered libertarian's relationship to lakhani Policy Lakhani Plan Information [id number] BCBS [facility] 020/520 [id number] SP [id number] [place]/307 [id number] SP [id number] MEDICAID [id number] SP [id number] EXCELLUS BCBS MEDICAID xxxxxxxxxxxx [facility] [id number] Mariaelena [id number] BCBS Ppo Commercial [id number] Self [id number] [facility] PI PI ANSI-Not a Secondary Insurance [id number] ANSI-Not a Secondary Insurance [id number] ANSI-Not a Secondary Insurance [id number] ANSI-Not a Secondary Insurance [id number] ANSI-Not a Secondary Insurance [id number] Medicaid [facility] Part B [id number] Self [id number] BIRDIE [id number] SP [id number] ANSI-Not a Secondary Insurance [id number] ANSI-Commercial [id number] ANSI-Medicaid [id number] MEDICAID [id number] SP [id number] [place]/307 [id number] SP [id number] [place]LLUS BCBS B [id number] S W [id number] ANSI-Commercial [id number] ANSI-Medicaid [id number] ANSI-Medicaid [id number] ANSI-Commercial [id number] Medicaid [place] Medigap Part B [id number] Self [id number] [employer] [place] Commercial [id number] Self W [id number] [place]/307 [id number] SP [id number] [place] 302/307 [id number] SP [id number] [place] 302/307 [id number] SP [id number] [place] [employer] [place] Medigap Part B [id number] Self W [id number] [facility] [id number] SP [id number] BCBS DENIZ O [id number] SP [id number] [place]LL[place] BCBS B [id number] S [id number] MEDICAID M [id number] S [id number] BCBS DENIZ O [id number] SP [id number] [place] PPO 302/307 [id number] SP [id number] Problems, Conditions, and Diagnoses Code Display Name Description Problem Type Effective Dates Data Source(s) M17.12 [id number] Arthritis of knee, left Problem 12/19/2020 12:00:00 AM EDT [facility] ([facility]) E55.9 [id number] Vitamin D deficiency Problem 09/02/2020 12:0 0:00 AM EDT eC ([facility]) Surgeries/Procedures Procedure Description Date Indications Data Source(s) OFFICE OUTPATIENT VISIT 15 MINUTES 12/25/2020 12:00:00 AM EDT [facility] ([facility], ) OFFICE OUTPATIENT VISIT 25 MINUTES 10/30/2020 12:00:00 AM EDT [facility] ([facility], ) ARTHROSCOPY KNEE REMOVAL LOOSE/FOREIGN BODY 09/16/2020 12:00:00 AM EDT [facility] ([facility], ) ARTHRS KNEE W/MENISCECTOMY MED&LAT W/SHAVING 12:00:00 AM EDT MEDENT ([facility]) OFFICE OUTPATIENT VISIT 25 MINUTES 09/11/2020 12:00:00 AM EDT [facility] ([facility]) OFFICE OUTPATIENT NEW 30 MINUTES 08/08/2020 12:00:00 A M EDT MED[facility] ([facility]) Medication: Toradol 30mg/1mL IM (Ketorolac) 07/24/2020 12:00:00 AM EDT eCW1 ([facility]) OFFICE OUTPATIENT NEW 45 MINUTES 06/28/2020 12:00:00 A M EDT MEDENT ([facility]) OFFICE OUTPATIENT VISIT 10 MINUTES 04/09/2020 12:00:00 AM EST [facility] ([facility]) Laparoscopic Incisional Hernia W/ Mesh, Reducible 01/01/2020 12:00:00 AM EDT [facility] ([facility]) ECG ROUTINE ECG W/LEAST 12 LDS W/I&R 12/26/2019 12:00: 00 AM EDT eCW1 ([facility]) Results ID Date Data Source [id number] 09/12/2020 12:25:00 PM EDT [facility] Name Value Range Interpretation Code Description Data Esmer rce(s) Supporting Document(s) SARS-CoV-2 (COVID-19) RNA [Presence] in Respiratory specimen by ROYER with probe detection Not Detected [facility] This lab was ordered by [facility] and reported by [facility] [facility] ID Date Data Source PLZ KNEE COMPLETE 07/25/2020 12:00:00 AM EDT eCW1 ([facility]) Name Value Range Interpretation Code Description Data Esmer rce(s) Supporting Document(s) PLZ KNEE COMPLETE eCW1 ([facility]) ID Date Data Source [id number] 04/12/2020 12:00:00 AM EST [facility] Name Value Range Interpretation Code Description Data Esmer rce(s) Supporting Document(s) SARS-CoV2 Rapid Antigen Negative [facility] This lab was ordered by [facility] [place] and reported by [facility]. ID Date Data Source [id number] 03/15/2020 11:55:00 AM EST [facility] Name Value Range Interpretation Code Description Data Esmer rce(s) Supporting Document(s) SARS coronavirus 2 RNA [facility] This lab was ordered by [facility] and reported by [facility]. ID Date Data Source [id number] 01/02/2020 05:30:00 AM EDT [facility] Name Value Range Interpretation Code Description Data Esmer rce(s) Supporting Document(s) Glucose, Fasting 73 mg/dL 70-100 Normal (applies to non-numeric results) [facility], ) Creatinine For GFR 0.66 mg/dL 0.55-1.30 Normal (applies to non -numeric results) [facility] ([facility], ) Blood Urea Nitrogen 17 mg/dL 7-18 Normal (applies to non-nume yaritza results) [facility] ([facility]) Glomerular Filtration Rate Laboratory test result Normal (applies to non- numeric results) [facility] ([facility], ) <content>Units are mL/min/1.73 m2</content>
<content></content>
<content>Chronic Kidney Disease Staging per NKF:</content>
<content></content>
<content>Stage I & II GFR >=60 Normal to Mildly Decreased</content>
<content>Stage III GFR 30- 59 Moderately Decreased</content>
<content>Stage IV GFR 15-29 Severely Decreased</content>
<content>Stage V GFR <15 Very Little GFR Left</content>
<content>ESRD GFR <15 on SHIPBOARD INTELLIGENCE ANALYST</content>
<content></content> Sodium Level 141 meq/L 136-145 Normal (applies to non-numeric res ults) [facility] ) Potassium Serum 4.1 meq/L 3.5-5.1 Normal (applies to non-numeric results) [facility] ([facility], ) Carbon Dioxide Level 29 meq/L 21-32 Normal (applies to non-num gio results) [facility] ([facility]) Chloride Level 109 meq/L 98-107 Above high normal [facility] ([facility]) Calcium Level 8.1 mg/dL 8.5-10.1 Below low normal MEDEN T ([facility]) Anion Gap 3 meq/L 8-16 Below low normal [facility] ( [facility]) ID Date Data Source [id number] 01/02/2020 05:30:00 AM EDT [facility] [facility] ([facility]) Name Value Range Interpretation Code Description Data Esmer rce(s) Supporting Document(s) Red Blood Count 4.71 10 4.00-5.40 Normal (applies to non-numeric results) [facility] ([facility]) White Blood Count 11.0 10 4.0-10.0 Above high normal [facility]) Hematocrit 43.9 % 36.0-47.0 Normal (applies to non-numeric resul ts) [facility]) Hemoglobin 14.3 g/dL 12.0-15.5 Normal (applies to non-numeric resul ts) [facility]) Mean Corpuscular HGB Conc 32.6 g/dL 32.0-36.5 Normal (applies to non-numeric results) [facility]) Mean Corpuscular Volume 93.2 fl 80.0-96.0 Normal ( applies to non-numeric results) [facility]) Mean Corpuscular Hemoglobin 30.4 pg 27.0-33.0 Norm al (applies to non-numeric results) [facility] ([facility]) Platelet Count, Automated 212 10 150-450 Normal (applies to non-numeric results) [facility]) Red Cell Distribution Width 13.3 % 11.5-14.5 Norm al (applies to non-numeric results) [facility]) Neutrophils % 65.0 % 36.0-66.0 Normal (applies to non-numeric re sults) [facility]) Lymph % 24.2 % 24.0-44.0 Normal (applies to non-numeric resul ts) [facility]) Baso % 0.4 % 0.0-1.0 Normal (applies to non-numeric resul ts) [facility] ([facility]) [place] % 9.5 % 0.0-5.0 Above high normal [facility] ([facility]) Eos % 0.5 % 0.0-3.0 Normal (applies to non-numeric resul ts) [facility] ([facility]) Nucleated Red Blood Cell % 0.0 % 0-0 Normal (applies to n on-numeric results) [facility] ([facility]) Immature Granulocyte % 0.4 % 0-3.0 Normal (applies to non-n umeric results) [facility] ([facility]) Neutrophils # 7.2 10 1.5-8.5 Normal (applies to non-numeric re sults) [facility] ([facility]) Lymph # 2.7 10 1.5-5.0 Normal (applies to non-numeric resul ts) [facility] ([facility]) Eos # 0.1 10 0.0-0.5 Normal (applies to non-numeric resul ts) [facility] ([facility]) [place] # 1.1 10 0.0-0.8 Above high normal [facility] ([facility]) Baso # 0.0 10 0.0-0.2 Normal (applies to non-numeric resul ts) [facility] ([facility]) ID Date Data Source [id number] 12/27/2019 12:20:00 PM EDT [facility] Name Value Range Interpretation Code Description Data Esmer rce(s) Supporting Document(s) SARS coronavirus 2 RNA [facility] This lab was ordered by [facility] and reported by [facility]. Procedure Social History Code Duration Value Status Description Data Source(s ) Smoking 12/19/2020 12:00:00 AM EDT Former Smoker completed Former Smoker eCW1 ([facility]) Smoking 12/19/2020 12:00:00 AM EDT Former Smoker completed Former Smoker eCW1 ([facility]) Smoking 12/19/2020 12:00:00 AM EDT Former Smoker completed Former Smoker eCW1 ([facility]) Smoking 10/04/2020 12:00:00 AM EDT Current Smoker completed Curre nt Smoker eCW1 ([facility]) Smoking 10/04/2020 12:00:00 AM EDT Current Smoker completed Curre nt Smoker eCW1 ([facility]) Smoking 09/02/2020 12:00:00 AM EDT Current Smoker completed Curre nt Smoker eCW1 ([facility]) Smoking 09/02/2020 12:00:00 AM EDT Current Smoker completed Curre nt Smoker eCW1 ([facility]) Smoking 08/06/2020 12:00:00 AM EDT Current Smoker completed Curre nt Smoker eCW1 ([facility]) Smoking 08/06/2020 12:00:00 AM EDT Current Smoker completed Curre nt Smoker eCW1 ([facility]) Smoking 08/06/2020 12:00:00 AM EDT Current Smoker completed Curre nt Smoker eCW1 ([facility]) Smoking 08/06/2020 12:00:00 AM EDT Current Smoker completed Curre nt Smoker eCW1 ([facility]) Smoking 08/06/2020 12:00:00 AM EDT Current Smoker completed Curre nt Smoker eCW1 ([facility]) Smoking 07/24/2020 12:00:00 AM EDT Current Smoker completed Curre nt Smoker eCW1 ([facility]) Smoking 07/24/2020 12:00:00 AM EDT Current Smoker completed Curre nt Smoker eCW1 ([facility]) Smoking 07/24/2020 12:00:00 AM EDT Current Smoker completed Curre nt Smoker eCW1 ([facility]) Smoking 01/22/2020 12:00:00 AM EDT Current Smoker completed Curre nt Smoker eCW1 ([facility]) Smoking 12/26/2019 12:00:00 AM EDT Current Smoker completed Curre nt Smoker eCW1 ([facility]) Vital Signs ID Date Data Source UNK Name Value Range Interpretation Code Description Data Source(s) Body weight 178.6 [lb_av] 178.6 [lb_av] eCW1 ([facility]) Body weight 81.01 kg 81.01 kg eCW1 ([facility]) Body height 67.5 [in_i] 67.5 [in_i] eCW1 ([facility]) Body mass index (BMI) [Ratio] 27.56 kg/m2 27.56 kg/m2 eCW1 ([facility]) Heart rate 53 /min 53 /min eCW1 ([facility]) Respiratory rate 17 /min 17 /min eCW1 ([facility]) Body temperature 96.6 [degF] 96.6 [degF] eCW1 ( [facility]) Systolic blood pressure 115 mm[Hg] 115 mm[Hg] e CW1 ([facility]) Diastolic blood pressure 74 mm[Hg] 74 mm[Hg] eCW1 ([facility]) Body temperature 97.4 [degF] 97.4 [degF] [facility] Body height 67 [in_i] 67 [in_i] [facility] ([facility]) 5'7" Body weight 272.00 [lb_av] 272.00 [lb_av] [facility] ([facility]) Body mass index (BMI) [Ratio] 42.6 kg/m2 42.6 k g/m2 [facility] ([facility]) [place] body weight 135 [lb_av] 135 [lb_av] [facility] ([facility]) Body weight 123.379 kg 123.379 kg [facility] ([facility]) Body surface area Derived from formula 2.30 m2 2.30 m2 [facility] ([facility], ) Body weight 271.8 [lb_av] 271.8 [lb_av] eCW1 ([facility]) Body weight 123.29 kg 123.29 kg eCW1 ([facility]) Body height 67.5 [in_i] 67.5 [in_i] eCW1 ([facility]) Body mass index (BMI) [Ratio] 41.94 kg/m2 41.94 kg/m2 eCW1 ([facility]) Heart rate 68 /min 68 /min eCW1 ([facility]) Body temperature 98.1 [degF] 98.1 [degF] eCW1 ( [facility]) Systolic blood pressure 122 mm[Hg] 122 mm[Hg] e CW1 ([facility]) Diastolic blood pressure 60 mm[Hg] 60 mm[Hg] eCW1 ([facility]) Body temperature 97.6 [degF] 97.6 [degF] [facility] ([facility], ) Body temperature 97.6 [degF] 97.6 [degF] [facility] ([facility], ) Body temperature 95.8 [degF] 95.8 [degF] [facility] ([facility], ) Body weight 271 [lb_av] 271 [lb_av] eCW1 ([facility]) Body height 67.5 [in_i] 67.5 [in_i] eCW1 ([facility]) Body mass index (BMI) [Ratio] 41.81 kg/m2 41.81 kg/m2 eCW1 ([facility]) Heart rate 73 /min 73 /min eCW1 ([facility]) Respiratory rate 18 /min 18 /min eCW1 ([facility]) Body temperature 97.2 [degF] 97.2 [degF] eCW1 ( [facility]) Systolic blood pressure 123 mm[Hg] 123 mm[Hg] e CW1 ([facility]) Diastolic blood pressure 63 mm[Hg] 63 mm[Hg] eCW1 ([facility]) Systolic blood pressure 124 mm[Hg] 124 mm[Hg] M EDENT ([facility], ) Diastolic blood pressure 74 mm[Hg] 74 mm[Hg] [facility] ([facility], ) Heart rate 71 /min 71 /min [facility] ([facility], ) Body temperature 98.4 [degF] 98.4 [degF] [facility] ([facility], ) Body weight 272.50 [lb_av] 272.50 [lb_av] [facility] T ([facility]) Body height 67 [in_i] 67 [in_i] [facility] ([facility]) 5'7" Body mass index (BMI) [Ratio] 42.7 kg/m2 42.7 k g/m2 [facility] ([facility]) [place] body weight 135 [lb_av] 135 [lb_av] [facility] ([facility]) Body weight 123.606 kg 123.606 kg [facility] ([facility]) Body surface area Derived from formula 2.31 m2 2.31 m2 [facility] ([facility]) Oxygen saturation in Arterial blood by Pulse oximetry 99 % 99 % [facility] ([facility]) Respiratory rate 18 /min 18 /min [facility] ( [facility]) Body weight 293 [lb_av] 293 [lb_av] eCW1 ([facility]) Body height 67.5 [in_i] 67.5 [in_i] W1 ([facility]) Body mass index (BMI) [Ratio] 45.21 kg/m2 45.21 kg/m2 W1 ([facility]) Heart rate 73 /min 73 /min W1 ([facility] hospital) Respiratory rate 17 /min 17 /min eCW1 ([facility]) Body temperature 97.5 [degF] 97.5 [degF] eCW1 ( [facility]) Systolic blood pressure 140 mm[Hg] 140 mm[Hg] e CW1 ([facility]) Diastolic blood pressure 72 mm[Hg] 72 mm[Hg] eCW1 ([facility]) Body weight 295 [lb_av] 295 [lb_av] eCW1 ([facility]) Body height 67.5 [in_i] 67.5 [in_i] eCW1 ([facility]) Body mass index (BMI) [Ratio] 45.52 kg/m2 45.52 kg/m2 [facility] ([facility]) Heart rate 72 /min 72 /min eCW1 ([facility]) Respiratory rate 17 /min 17 /min eCW1 ([facility]) Body temperature 97.9 [degF] 97.9 [degF] eCW1 ( [facility]) Systolic blood pressure 111 mm[Hg] 111 mm[Hg] e CW1 ([facility]) Diastolic blood pressure 77 mm[Hg] 77 mm[Hg] eCW1 ([facility]) Body height 69 [in_i] 69 [in_i] [facility] ([facility], ) 5'9" Body weight 277.00 [lb_av] 277.00 [lb_av] [facility] T ([facility]) Body mass index (BMI) [Ratio] 40.9 kg/m2 40.9 k g/m2 [facility] ([facility]) [place] body weight 145 [lb_av] 145 [lb_av] [facility] T ([facility]) Body weight 125.647 kg 125.647 kg [facility] ([facility]) Body surface area Derived from formula 2.37 m2 2.37 m2 [facility] ([facility]) Systolic blood pressure 122 mm[Hg] 122 mm[Hg] M EDENT ([facility]) Diastolic blood pressure 74 mm[Hg] 74 mm[Hg] [facility] ([facility]) Heart rate 74 /min 74 /min [facility] ([facility]) Respiratory rate 14 /min 14 /min [facility] ( [facility]) Body temperature 97.1 [degF] 97.1 [degF] [facility] ([facility]) Systolic blood pressure 130 mm[Hg] 130 mm[Hg] M EDENT ([facility]) Diastolic blood pressure 62 mm[Hg] 62 mm[Hg] [facility]) Body height 67 [in_i] 67 [in_i] [facility] ([facility]) 5'7" Body weight 278.00 [lb_av] 278.00 [lb_av] [facility] T ([facility]) Body mass index (BMI) [Ratio] 43.5 kg/m2 43.5 k g/m2 [facility] ([facility]) [place] body weight 135 [lb_av] 135 [lb_av] [facility] T ([facility]) Body weight 126.101 kg 126.101 kg [facility] ([facility]) Body surface area Derived from formula 2.33 m2 2.[address] [facility]) Systolic blood pressure 138 mm[Hg] 138 mm[Hg] M EDENT ([facility]) Diastolic blood pressure 87 mm[Hg] 87 mm[Hg] [facility] ([facility]) Body weight 128.369 kg 128.369 kg [facility] ([facility]) Body height 67 [in_i] 67 [in_i] [facility] ([facility]) 5'7" Body surface area Derived from formula 2.34 m2 2.34 m2 [facility] ([facility]) Body weight 283.00 [lb_av] 283.00 [lb_av] [facility] T ([facility]) Body mass index (BMI) [Ratio] 44.3 kg/m2 44.3 k g/m2 [facility] ([facility]) [place] body weight 135 [lb_av] 135 [lb_av] [facility] ([facility]) Body weight 291 [lb_av] 291 [lb_av] eCW1 ([facility]) Body height 67.5 [in_i] 67.5 [in_i] eCW1 ([facility]) Body mass index (BMI) [Ratio] 44.90 kg/m2 44.90 kg/m2 eCW1 ([facility]) Heart rate 63 /min 63 /min eCW1 ([facility]) Respiratory rate 18 /min 18 /min eCW1 ([facility]) Body temperature 97.7 [degF] 97.7 [degF] eCW1 ( [facility]) Systolic blood pressure 114 mm[Hg] 114 mm[Hg] e CW1 ([facility]) Diastolic blood pressure 64 mm[Hg] 64 mm[Hg] eCW1 ([facility]) Systolic blood pressure 120 mm[Hg] 120 mm[Hg] M EDENT ([facility]) Diastolic blood pressure 70 mm[Hg] 70 mm[Hg] [facility]) Body height 67 [in_i] 67 [in_i] [facility] ([facility]) 5'7" Body weight 291.00 [lb_av] 291.00 [lb_av] [facility] T ([facility]) Body mass index (BMI) [Ratio] 45.6 kg/m2 45.6 k g/m2 [facility]) [place] body weight 135 [lb_av] 135 [facility]av[facility] Body weight 131.998 kg 131.998 kg [facility] ([facility]) Diastolic blood pressure 77 mm[Hg] 77 mm[Hg] eCW1 ([facility]) Body weight 288 [lb_av] 288 [lb_av] eCW1 ([facility]) Body height 67.5 [in_i] 67.5 [in_i] eCW1 ([facility]) Body mass index (BMI) [Ratio] 44.44 kg/m2 44.44 kg/m2 eCW1 ([facility]) Heart rate 79 /min 79 /min eCW1 ([facility]) Respiratory rate 18 /min 18 /min eCW1 ([facility]) Body temperature 97.9 [degF] 97.9 [degF] eCW1 ( [facility]) Systolic blood pressure 128 mm[Hg] 128 mm[Hg] e CW1 ([facility]) Patient Treatment Plan of Care Planned Activity Planned Date Details Description Data Source (s) Ergocalciferol [id number] UNT Oral Capsule [Drisdol] 09/02/2020 12:00:00 AM EDT eCW1 ([facility]) Ergocalciferol [id number] UNT Oral Capsule [Drisdol] 09/02/2020 12:00:00 AM EDT eCW1 ([facility]) Naproxen 500 MG Oral Tablet 07/24/2020 12:00:00 AM EDT eCW1 ([facility]) Naproxen 500 MG Oral Tablet 07/24/2020 12:00:00 AM EDT eCW1 ([facility]) Naproxen 500 MG Oral Tablet 07/24/2020 12:00:00 AM EDT eCW1 ([facility])
[2021-01-10] MEDS: DOCUSATE SODIUM 100MG CAPSULE PO SCH (08:57)
[2021-01-10] MEDS: ASPIRIN 81MG ENTERIC TABLET PO SCH (08:57)
[2021-01-10] MEDS: VITAMIN D 1,000 INTERNATIONAL UNITS TABLET PO SCH (08:58)
[2021-01-10] MEDS ORDERED: FERROUS SULFATE 325MG TAB PO SCH (09:00)
[2021-01-10] MEDS ORDERED: ASCORBIC ACID 500 MG TAB PO SCH (09:00)
[2021-01-10] MEDS: oxyCODONE 5MG TAB PO PRN ×2 (09:03→13:34)
[2021-01-10] MEDS ORDERED: VITAD1000T PO (11:59)
[2021-01-10] MEDS ORDERED: ASPI-551 PO (11:59)
[2021-01-10] MEDS ORDERED: ACET1TAB55 PO (11:59)
[2021-01-10] MEDS ORDERED: OXYC-517 PO ×2 (12:02→13:33)
--- NOTE | 2021-01-10 12:33 | DS.PDOC ---
Discharge Summary General Date of Admission Jan 09, 2021 at 06:02 Date of Discharge 01/10/21 Specialist/Consultants Involve Dr. Edward Discharge Summary PROCEDURES PERFORMED DURING STAY: Total knee arthroplasty Left knee osteoarthritis DISCHARGE DIAGNOSES: Left knee osteoarthritis s/p arthroplasty COMPLICATIONS/CHIEF COMPLAINT: Left Knee Osteoarthritis. HISTORY OF PRESENT ILLNESS/HOSPITAL COURSE: This is a 50-year-old morbidly obese female who presents to [facility] for an orthopedic procedure that was performed earlier today. She is status post day 0 of left Ryan total knee arthroplasty due to dx of arthralgia/left knee pain per orthopedics (Dr. Edward). Currently she denies being in any pain. Patient reports gastric bypass surgery 10/2018, and since then she has had a significant decrease in her medical problems. She was able to d/c a majority of her medications s/p bypass. Hospitalist team was consulted to admit patient for further mgmt of her home meds. Patient is not on any home meds. She did not have any acute events with good pain control in hospital. Patient tolerated PT/OT well. Will be discharged home with home health and PT will provide a prescription for commode patient instructed on being compliant with medications as well as follow-ups listed in detail below. Patient was also instructed to present back to the ER if her symptoms/condition present again and/or worsen. DISCHARGE MEDICATIONS: Please see below. ALLERGIES: Please see below. PHYSICAL EXAMINATION ON DISCHARGE: VITAL SIGNS: Please see below. GENERAL: Morbidly obese female, well-hydrated, in no apparent distress. AAOx3 NEURO: No focal neurological deficits HEENT: Head is normocephalic and atraumatic. Extraocular muscles are intact. Pupils are equal, round, and reactive to light and accommodation. Nares appears normal. Moist mucous membranes. PULM: Clear to auscultation bilaterally. No wheezing, rhonchi or rales appreciated.. CARDIO: Normal S1, S2. no significant murmurs, gallops, rubs or clicks. Some LE edema on right leg (left leg is wrapped in kelley bandage) that patient states is chronic and not increased from baseline ABDOMEN: Soft, nontender, and nondistended. Normal bowel sounds. No significant organomegaly appreciated. EXTREMITIES: No cyanosis, clubbing, rash, lesions. Left leg is wrapped from thigh to ankle in kelley bandage. Area above and below are not erythematous or swollen. Bandage on incision at knee under kelley wrap is clean without signs of excessive bleeding or puss PSYCH: Appropriate mood and affect LABORATORY DATA: Please see below. IMAGING: AP LAT LEFT KNEE XR IMPRESSION: Status post left knee replacement. Satisfactory positioning. PROGNOSIS: stable ACTIVITY: As tolerated DIET: Regular DISCHARGE PLAN: 1. Pain: You may take oxycodone as prescribed for pain. Supplement with Tylenol as needed. Ice pack to operative knee as tolerated. 2. Wound care: Remove dressing on postop day 7. Call [phone] with any questions or concerns. Hygiene: The patient may shower. No tub baths. Check dressing seal prior to bathing. 3. Activity: WBAT left lower extremity. Front wheeled walker versus crutches for ambulation. Fall precautions. 4. Driving: No driving until cleared by your surgeon. Do not drive if taking narcotic pain medications as these may make you drowsy. 5. DVT Prophylaxis: Continue taking aspirin 81 mg p.o. twice daily as prescribed for the prevention of blood clots. Ankle pumps every 1 hour while awake. MARIAH hose at all times for 1 month after surgery. May remove for hygiene and wound care. 6. Placement: Plan is to discharge patient to home with home health including nursing and physical therapy. 7. Surgeon Follow-up: The patient is scheduled to be seen in Dr. Edward's office 2 weeks post op with xrays. 8. Primary care Follow-up: Please see your primary care provider in the next 2 to 5 weeks for general medical re-evaluation and medication review. 9. Labs: CBC without differential to be drawn on postop day 3 with results to PCP and please fax to [phone]. 10. Please contact [facility] if you have any questions or concerns at [phone]. DISPOSITION: . DISCHARGE INSTRUCTIONS: See above ITEMS TO FOLLOWUP ON ON OUTPATIENT: Follow-up with Ortho. See above DISCHARGE CONDITION: Stable TIME SPENT ON DISCHARGE: 30 minutes. Vital Signs/I&Os Vital Signs Date Time Temp Pulse Resp B/P (MAP) Pulse Ox O2 Delivery O2 Flow Rate FiO2 01/10/21 09:40 16 01/10/21 05:35 98.7 50 110/62 (78) 93 Room Air 01/09/21 11:30 2.0 l I&O- Last 24 Hours up to 6 AM 01/10/21 06:00 Intake Total 2650 ml Output Total 650 ml Balance 2000 ml Laboratory Data Labs 24H Laboratory Tests 2 01/09/21 18:05: Bedside Glucose (Misc Panel) 155H 01/09/21 19:42: Bedside Glucose (Misc Panel) 216H 01/10/21 06:06: Nucleated Red Blood Cells % (auto) 0.0, Anion Gap 3L, Glomerular Filtration Rate > 60.0, Calcium Level 8.7 CBC/BMP Laboratory Tests 01/10/21 06:06 FSBS Laboratory Tests Test 01/09/21 18:05 01/09/21 19:42 Range/Units Bedside Glucose (Misc Panel) 155 216 70-105 MG/DL Discharge Medications Scheduled Acetaminophen (Acetaminophen) 325 Mg Tablet, 650 MG PO Q6H Aspirin (Aspirin EC) 81 Mg Tablet.dr, 81 MG PO BID Cholecalciferol (Vitamin D3) (Vitamin D3) 25 Mcg Tablet, 1,000 UNITS PO BID Allergies Coded Allergies: morphine (Verified Allergy, Intermediate, itches and rash, 01/09/21) GME ATTESTATION GME ATTESTATION My faculty preceptor for this patient encounter was physically present during the encounter and was fully available. All aspects of the patient interview, examination, medical decision making process, and medical care plan development were reviewed and approved by the faculty preceptor. The faculty preceptor is aware and concurs with the plan as stated in the body of this note and will atte st to such by his/her cosignature. Merry Givens DO Jan 10, 2021 12:33
== END 2021-01-10 15:40 | disposition home health service (06) ==
LOC: M SDC 06:01 → M MS5PR 06:02
PROVIDERS: ADMIT Internal Medicine; ATTEND Orthopaedic Surgery Adult Reconstructive Orthopaedic Surgery
DX: M17.12 Unilateral primary osteoarthritis, left knee (principal); G47.33 Obstructive sleep apnea (adult) (pediatric); E66.01 Morbid (severe) obesity due to excess calories; Z79.82 Long term (current) use of aspirin; F17.218 Nicotine dependence, cigarettes, with other nicotine-induced disorders; Z88.5 Allergy status to narcotic agent
CPT/HCPCS: 27447; 36415; 73560; 80048; 81025; 85027; 88304; 88311; 96365; 96366; 97110; 97116; 97161; 97165; 97530; 97535; C1776; J0131; J0690; J1100; J1170; J1885; J2250; J2405; J2765; J3010

== ENCOUNTER → 2021-01-13 | Outpatient (REF) | payer OTHER ==
[~2021-01-13] MED LIST changes: +ACET1TAB55 PO; -ACETAMINOPHEN 500 MG TAB PO ONE; +ASPI-551 PO; -LIDOCAINE 1% MDV 20ML VIAL SQ PRN; -NAPROXEN 250 MG TAB PO ONE; -NS 1,000 ML IV SCH; +OXYC-517 PO; -PREGABALIN 25 MG CAP (LYRICA) PO ONE; -ROPIVA 125MG/EPINEPH 0.25MG/CLONID 40MCG/KETOR 15MG IN NS 50ML SYRINGE PA ONE; +VITAD1000T PO; -ceFAZolin SOD 2 GM in IV 1 EA IV ONE; -dexameTHASONE 4 MG/ML 1ML VIAL (J1100 PER 1MG) IV ONE
[2021-01-13 16:41] LABS: BASO # 0.1 10^3/uL (0.0-0.2); EOS # 0.2 10^3/uL (0.0-0.5); EOS % 2.1 % (0.0-3.0); HEMATOCRIT 43.1 % (36.0-47.0); HEMOGLOBIN 14.3 g/dl (12.0-15.5); LYMPH # 2.2 10^3/uL (1.5-5.0); LYMPH % 26.8 % (24.0-44.0); MEAN CORPUSCULAR HEMOGLOBIN 30.3 pg (27.0-33.0); MEAN CORPUSCULAR HGB CONC 33.2 g/dl (32.0-36.5); MEAN CORPUSCULAR VOLUME 91.3 fl (80.0-96.0); MONO # 0.8 10^3/uL (0.0-0.8); MONO % 9.5 % (2.0-8.0); NEUTROPHILS % 60.2 % (36.0-66.0); PLATELET COUNT, AUTOMATED 215 10^3/uL (150-450); RED BLOOD COUNT 4.72 10^6/uL (4.00-5.40); WHITE BLOOD COUNT 8.3 10^3/uL (4.0-10.0)
== END ==
LOC: M SHH 16:02
PROVIDERS: ATTEND Orthopaedic Surgery Adult Reconstructive Orthopaedic Surgery
DX: Z01.812 Encounter for preprocedural laboratory examination (principal)

== ENCOUNTER → 2021-01-29 | Outpatient (CLI) | payer OTHER ==
--- NOTE | 2021-01-29 12:40 | REP ---
INDICATION: LT TKA FOLLOW UP. COMPARISON: 01/09/2021 a portable exam TECHNIQUE: AP and lateral views FINDINGS: The previously described left knee arthroplasty is completely unchanged. There is no evidence of an acute abnormality. IMPRESSION: No change <Electronically signed by Noe Menard > 01/29/21 0041
== END ==
LOC: M SOG 07:55
PROVIDERS: ATTEND Orthopaedic Surgery Adult Reconstructive Orthopaedic Surgery
DX: Z96.652 Presence of left artificial knee joint (principal)

== ENCOUNTER 2021-02-06 11:45 | Emergency (ER) | payer OTHER ==
[~2021-02-06] VITALS: Ht 170.2 cm; Wt 118.2 kg
--- OUTSIDE RECORDS SUMMARY | 2021-02-06 11:53 | CCD | Continuity of Care Document ---
Author Author Christina CORRALES MD Organization Unknown Address [address] , [facility] [place] [address] Phone [phone] Care Team Providers Care Breaker Machine Tender Name Role Phone Ilda Dickson AUTM [phone] AUTM Unavailable Problems Active Problems Provider Date Obstructive sleep apnea syndrome Dwight Mclaughlin.N.PZeeshan Onset: 07/18/2019 Chronic rhinitis Anita MclaughlinNGabrielle Onset: 11/06/2019 Social History Type Date Description Comments Sex Unknown ETOH Use Rarely consumes alcohol Recreational Drug Use Denies Drug Use Tobacco Use Start: Unknown Quit former smoker, q uit vaping Smoking Status Reviewed: 01/16/21 Quit former smoker , quit vaping Allergies and adverse reactions Active Allergies Criticality Reaction | Severity Comments Date Morphine Unable to assess criticality Difficulty breathing, Hiv es, Itching 04/27/2019 Medications Active Medications SIG Qnty Indications Ordering Provide r Date Oxycodone HCL 5mg Tablets 1 tablet every 4 hours for pain, as needed 42tabs Kj Corrales MD 01/12 BIPAP Device 12/8CM Dwight Gonzalez.N.P. 05/25/2019 Nicotine Transdermal System 21mg/24HR Patches 24HR apply 1 patch topically to skin once a day Unknown Nicotine 4mg Gum 1 piece by mouth every 2 hours as needed Unknown Nicotine Mini 4mg Lozenges one lozenge every 3 hours as needed craving Unknown Aspirin Low Dose 81mg Tablets DR Take One Tablet By Mouth Twice A Day Unknown 00 Iron 325(65Fe) mg Tablets take 1 tablet by mouth daily. Unknown History Medications Oxycodone HCL 5mg Capsules 1 tab by mouth every 4 hours as needed 42caps Kj Corrales MD 021 - 01/11/2021 Oxycodone HCL 5mg Tablets 1 tablet every 4 hours for pain, as needed 42tacoleen Corrales MD 09/16 - 09/26/2020 Senna-Tabs 8.6mg Tablets 2 tab by mouth every day as needed 20tacoleen Corrales MD 09/16/2020 - 09/26/2020 Aspirin Adult Low Dose 81mg Tablet s DR 1 tab by mouth twice a day 28tacoleen Corrales MD 2020 - 12/26/2019 Immunizations Description No Information Available Vital Signs Date Vital Result Comment 01/16/2021 12:51pm Body Temperature 97.4 F 10/30/2020 10:33am Body Temperature 97.4 F Height 67 inches 5'7" Weight 272.00 lb BMI (Body Mass Index) 42.6 kg/m2 [place] Body Weight 135 lb Weight 123.379 kg BSA (Body Surface Area) 2.30 m2 Results Description No Information Available Procedures Date Code Description Status 01/16/2021 01726 Office/Outpatient Established Lo w MDM 20-29 Min Completed 01/09/2021 57499 Arthroplasty Knee Total Complete d 12/25/2020 55614 Office/Outpatient Established Lo w MDM 20-29 Min Completed 10/30/2020 17713 Office/Outpatient Established Mo d MDM 30-39 Min Completed 09/16/2020 44241 Arthroscopy Knee W/Meniscectomy (Medial & Lateral) Completed 09/16/2020 25409 Arthroscopy Knee Remove Loose/Fo reign Body Completed 09/11/2020 06251 Office/Outpatient Established Mo d MDM 30-39 Min Completed 08/08/2020 59525 Office/Outpatient New Low MDM 30 -44 Minutes Completed Medical Devices Description No Information Available Encounters Type Date Location Provider Dx Diagnosis Office Visit 01/16/2021 12:45p [facility] Kj Corrales MD Z96.652 Presence of left artificial knee joint Office Visit 12/25/2020 11:30a [facility] MD M17.12 Unilateral primary osteoarthritis, left knee Office Visit 10/30/2020 10:30a [facility] Cor[facility] MD Z98.890 Other specified postprocedural states M17.12 Unilateral primary osteoarth ritis, left knee Office Visit 10/02/2020 8:00a [facility] Corrales MD Z98.890 Other specified postprocedural states M17.12 Unilateral primary osteoarth ritis, left knee Z47.89 Encounter for other orthoped ic aftercare Office Visit 09/11/2020 1:30p Madhu Corrales MD M22.42 Chondromalacia patellae, left knee S83.204A Oth tear of unsp meniscus, c urrent injury, left knee, init Office Visit 08/08/2020 9:30a [facility] Kj Corrales MD S83.204A Oth tear of unsp meniscus, current injury, left knee, init M25.562 Pain in left knee Assessments Date Code Description Provider 01/16/2021 Z96.652 History of left total knee repla cement Kj Corrales MD 01/09/2021 M17.12 Unilateral primary osteoarthriti s, left knee Kj Corrales MD 12/25/2020 M17.12 Osteoarthritis of left knee join gia Corrales MD 10/30/2020 Z98.890 History of arthroscopy of knee jane Corrales MD 10/30/2020 M17.12 Osteoarthritis of left knee join gia Corrales MD 10/02/2020 Z98.890 History of arthroscopy of knee jane Corrales MD 10/02/2020 M17.12 Osteoarthritis of left [...] 9:00 am - Kj Corrales MD at [facility] 01/16/2021 - Kj Corrales MD* Z96.652 History of left total knee replacement* Comments:* The patient does not show any overt signs of swelling to the left knee that is not consistent with a left total knee arthroplasty. Her calf is soft and nontender to compression. At this point there is no concern for DVT. She was fitted with thigh-high Duglsa stockinette which she states are comfortable. She was advised to keep her knee straight and elevated and ice. We will contact her tomorrow to see how she is doing. If her symptoms are worse than there will be consideration for an ultrasound rule out DVT * Follow up:* Next week as scheduled for her 2-week follow-up Functional Status Description No Information Available Mental Status Description No Information Available Referrals Description No Information Available
--- OUTSIDE RECORDS SUMMARY | 2021-02-06 11:53 | CCD | Continuity of Care Document ---
Author Author Christina CORRALES MD Organization Unknown Address [address] , [facility] [address] Phone [phone] Care Team Providers Care Regional Director Of Admissions Name Role Phone Ilda Dickson AUTM AUTM [...] lb BMI (Body Mass Index) 42.6 kg/m2 [place] Body Weight 135 lb Weight 123.379 kg BSA (Body Surface Area) 2.30 m2 Results Description No Information Available Procedures Date Code Description Status 01/16/2021 61299 Office/Outpatient Established Lo w MDM 20-29 Min Completed 01/09/2021 06469 Arthroplasty Knee Total Complete d 12/25/2020 07996 Office/Outpatient Established Lo w MDM 20-29 Min Completed 10/30/2020 44378 Office/Outpatient Established Mo d MDM 30-39 Min Completed 09/16/2020 94397 Arthroscopy Knee W/Meniscectomy (Medial & Lateral) Completed 09/16/2020 87013 Arthroscopy Knee Remove Loose/Fo reign Body Completed 09/11/2020 16481 Office/Outpatient Established Mo d MDM 30-39 Min Completed 08/08/2020 65581 Office/Outpatient New Low MDM 30 -44 Minutes Completed Medical Devices Description No Information Available Encounters Type Date Location Provider Dx Diagnosis Office Visit 01/16/2021 12:45p [facility] Kj Corrales MD Z96.652 Presence of left artificial knee joint Office Visit 12/25/2020 11:30a [facility] Corral[facility] MD M17.12 Unilateral primary osteoarthritis, left knee Office Visit 10/30/2020 10:30a [facility] Cor[facility] MD Z98.890 Other specified postprocedural states M17.12 Unilateral primary osteoarth ritis, left knee Office Visit 10/02/2020 8:00a [facility] Cor[facility] MD Z98.890 Other specified postprocedural states M17.12 Unilateral primary osteoarth ritis, left knee Z47.89 Encounter for other orthoped ic aftercare Office Visit 09/11/2020 1:30p Madhu Corrales MD M22.42 Chondromalacia patellae, left knee S83.204A Oth tear of unsp meniscus, c urrent injury, left knee, init Office Visit 08/08/2020 9:30a [facility] Kj Corrales MD S83.204A Oth tear [...] 9:00 am - Kj Corrales MD at [facility] 01/16/2021 - Kj Corrales MD* Z96.652 History of left total knee replacement* Comments:* The patient does not show any overt signs of swelling to the left knee that is not consistent with a left total knee arthroplasty. Her calf is soft and nontender to compression. At this point there is no concern for DVT. She was fitted with thigh-high Duglas stockinette which she states are comfortable. She [...]
--- OUTSIDE RECORDS SUMMARY | 2021-02-06 11:53 | CCD | Continuity of Care Document ---
Author Author Christina CORRALES MD Organization Unknown Address [address] , [facility] [place] [address] Phone [phone] Care Team Providers Care Pneumatic Tool Repairer Name Role Phone Ilda Dickson AUTM AUTM [...] lb BMI (Body Mass Index) 42.6 kg/m2 [place] Body Weight 135 lb Weight 123.379 kg BSA (Body Surface Area) 2.30 m2 Results Description No Information Available Procedures Date Code Description Status 01/16/2021 45548 Office/Outpatient Established Lo w MDM 20-29 Min Completed 01/09/2021 10427 Arthroplasty Knee Total Complete d 12/25/2020 26395 Office/Outpatient Established Lo w MDM 20-29 Min Completed 10/30/2020 43496 Office/Outpatient Established Mo d MDM 30-39 Min Completed 09/16/2020 71100 Arthroscopy Knee W/Meniscectomy (Medial & Lateral) Completed 09/16/2020 59546 Arthroscopy Knee Remove Loose/Fo reign Body Completed 09/11/2020 39830 Office/Outpatient Established Mo d MDM 30-39 Min Completed 08/08/2020 38179 Office/Outpatient New Low MDM 30 -44 Minutes Completed Medical Devices Description No Information Available Encounters Type Date Location Provider Dx Diagnosis Office Visit 01/16/2021 12:45p [facility] Kj Corrales MD Z96.652 Presence of left artificial knee joint Office Visit 12/25/2020 11:30a [facility] MD M17.12 Unilateral primary osteoarthritis, left knee Office Visit 10/30/2020 10:30a [facility] MD Z98.890 Other specified postprocedural states M17.12 Unilateral primary osteoarth ritis, left knee Office Visit 10/02/2020 8:00a [facility] Cor[facility] MD Z98.890 Other specified postprocedural states M17.12 Unilateral primary osteoarth ritis, left knee Z47.89 Encounter for other orthoped ic aftercare Office Visit 09/11/2020 1:30p Madhu Corrales MD M22.42 Chondromalacia patellae, left knee S83.204A Oth tear of unsp meniscus, c urrent injury, left knee, init Office Visit 08/08/2020 9:30a [facility] Kj Corrales MD S83.204A Oth tear [...] 9:00 am - Kj Corrales MD at [facility] 01/16/2021 - Kj Corrales MD* Z96.652 History [...]
--- OUTSIDE RECORDS SUMMARY | 2021-02-06 11:53 | CCD | Continuity of Care Document ---
Author Author Christina CORRALES MD Organization Unknown Address [address] , [facility] [place] [address] Phone [phone] Care Team Providers Care Paperhanger Contractor Name Role Phone Ilda Dickson AUTM AUTM [...] lb BMI (Body Mass Index) 42.6 kg/m2 [place] Body Weight 135 lb Weight 123.379 kg BSA (Body Surface Area) 2.30 m2 Results Description No Information Available Procedures Date Code Description Status 01/16/2021 07440 Office/Outpatient Established Lo w MDM 20-29 Min Completed 01/09/2021 14453 Arthroplasty Knee Total Complete d 12/25/2020 13920 Office/Outpatient Established Lo w MDM 20-29 Min Completed 10/30/2020 56828 Office/Outpatient Established Mo d MDM 30-39 Min Completed 09/16/2020 20923 Arthroscopy Knee W/Meniscectomy (Medial & Lateral) Completed 09/16/2020 53780 Arthroscopy Knee Remove Loose/Fo reign Body Completed 09/11/2020 82879 Office/Outpatient Established Mo d MDM 30-39 Min Completed 08/08/2020 69342 Office/Outpatient New Low MDM 30 -44 Minutes Completed Medical Devices Description No Information Available Encounters Type Date Location Provider Dx Diagnosis Office Visit 01/16/2021 12:45p [facility] Kj Corrales MD Z96.652 Presence of left artificial knee joint Office Visit 12/25/2020 11:30a [facility] MD M17.12 Unilateral primary osteoarthritis, left knee Office Visit 10/30/2020 10:30a [facility] Cor[facility] MD Z98.890 Other specified postprocedural states M17.12 Unilateral primary osteoarth ritis, left knee Office Visit 10/02/2020 8:00a [facility] Corrales MD Z98.890 Other specified postprocedural states M17.12 Unilateral primary osteoarth ritis, left knee Z47.89 Encounter for other orthoped ic aftercare Office Visit 09/11/2020 1:30p Madhu Corrales MD M22.42 Chondromalacia patellae, left knee S83.204A Oth tear of unsp meniscus, c urrent injury, left knee, init Office Visit 08/08/2020 9:30a [facility] Kj Corrales MD S83.204A Oth tear [...] 9:00 am - Kj Corrales MD at [facility] 01/16/2021 - Kj Corrales MD* Z96.652 History [...]
--- OUTSIDE RECORDS SUMMARY | 2021-02-06 11:53 | CCD | Continuity of Care Document ---
Author Author Christina CORRALES MD Organization Unknown Address [address] , [facility] [place] [address] Phone [phone] Care Team Providers Care Documentation Specialist Name Role Phone Ilda Dickson AUTM AUTM Unavailable Problems Active Problems Provider Date Obstructive sleep apnea syndrome Anita MclaughlinN.PZeeshan Onset: 07/18/2019 Chronic rhinitis Anita MclaughlinNGabrielle Onset: 11/06/2019 Social History Type Date Description Comments Sex Unknown ETOH Use Rarely consumes alcohol Recreational Drug Use Denies Drug Use Tobacco Use Start: Unknown Quit former smoker, q uit vaping Smoking Status Reviewed: 01/29/21 Quit former smoker , quit vaping Allergies and adverse reactions Active Allergies Criticality Reaction | Severity Comments Date Morphine Unable to assess criticality Difficulty breathing, Hiv es, Itching 04/27/2019 Medications Active Medications SIG Qnty Indications Ordering Provide r Date Oxycodone HCL 5mg Tablets 1 tablet every 4 hours for pain, as needed 42tabs Kj Corrales MD 01/12 BIPAP Device 12/8CM Anita GonzalezN.PZeeshan 05/25/2019 Nicotine Transdermal System 21mg/24HR Patches 24HR [...] Available Vital Signs Date Vital Result Comment 01/29/2021 7:58am Body Temperature 96.7 F 01/16/2021 12:51pm Body Temperature 97.4 F Results Description No Information Available Procedures Date Code Description Status 01/09/2021 60639 Arthroplasty Knee Total Complete d 12/25/2020 38334 Office/Outpatient Established Lo w MDM 20-29 Min Completed 10/30/2020 23596 Office/Outpatient Established Mo d MDM 30-39 Min Completed 09/16/2020 16154 Arthroscopy Knee W/Meniscectomy (Medial & Lateral) Completed 09/16/2020 13690 Arthroscopy Knee Remove Loose/Fo reign Body Completed 09/11/2020 41963 Office/Outpatient Established Mo d MDM 30-39 Min Completed 08/08/2020 42451 Office/Outpatient New Low MDM 30 -44 Minutes Completed Medical Devices Description No Information Available Encounters Type Date Location Provider Dx Diagnosis Office Visit 01/29/2021 8:00a Madhu Corrales MD Z96.652 Presence of left artificial knee joint Z47.89 Encounter for other orthoped ic aftercare Office Visit 01/16/2021 12:45p Madhu Corrales MD Z96.652 Presence of left artificial knee joint Z47.89 Encounter for other orthoped ic aftercare Office Visit 12/25/2020 11:30a Madhu Corrales MD M17.12 Unilateral primary osteoarthritis, left knee Office Visit 10/30/2020 10:30a aMdhu Corrales MD Z98.890 Other specified postprocedural states M17.12 Unilateral primary osteoarth ritis, left knee Office Visit 10/02/2020 8:00a [facility] Kj Corrales MD Z98.890 Other specified postprocedural states M17.12 Unilateral primary osteoarth ritis, left knee Z47.89 Encounter for other orthoped ic aftercare Office Visit 09/11/2020 1:30p [facility] Kj Corrales MD M22.42 Chondromalacia patellae, left knee S83.204A Oth tear of unsp meniscus, c urrent injury, left knee, init Office Visit 08/08/2020 9:30a [facility] Kj Corrales MD S83.204A Oth tear of unsp meniscus, current injury, left knee, init M25.562 Pain in left knee Assessments Date Code Description Provider 01/29/2021 Z96.652 History of left total knee repla cement Kj Corrales MD 01/29/2021 Z47.89 Encounter for other orthopedic a ftausten Corrales MD 01/16/2021 Z96.652 History of left total knee repla clayton Corrales MD 01/16/2021 Z47.89 Encounter for other orthopedic a ftausten Corrales MD 01/09/2021 M17.12 Unilateral primary osteoarthriti [...] 10/02/2020 Z47.89 Encounter for other orthopedic a ftausten Corrales MD 09/16/2020 M23.322 Other meniscus deran [...] Corrales MD Plan of Treatment Future Appointment(s):* 02/27/2021 9:30 am - Kj Corrales MD at [facility] 01/29/2021 - Kj Corrales MD* Z96.652 History of left total knee replacement* Comments:* Overall the patient appears to be doing well. She did get physical therapy twice a day while in [place] for her knee. She states that she has contacted physical therapy through [facility] to restart which is supposed to occur within the next couple of days in addition to the home health care which was ordered through [place] associated with her GI surgery. We will double check to see if they actually made appointments to continue with her home therapy. She will likely continue with the home therapy for at least a full 6-week postoperative period before transitioning to outpatient therapy due to her limitations with mobility etc. the Telfa island dressing may be removed in 3 days. The Steri-Strips will fall off on their own. * Follow up:* 4 weeks. * Z47.89 Encounter for other orthopedic aftercare Functional Status Description No Information Available Mental Status Description No Information Available Referrals Description No Information Available"
--- OUTSIDE RECORDS SUMMARY | 2021-02-06 11:53 | CCD | Continuity of Care Document ---
Author Author Christina CORRALES MD Organization Unknown Address [address] , [facility] [address] Phone [phone] Care Team Providers Care Gun Stock Maker Name Role Phone Ilda Dickson AUTM [phone] AUTM Unavailable Problems Active Problems Provider Date [...] every 4 hours for pain, as needed 42tacoelen Corrales MD 09/16 - 09/26/2020 Senna-Tabs 8.6mg [...] Information Available Procedures Date Code Description Status 01/29/2021 61001 Office/Outpatient Established Mo d MDM 30-39 Min Completed 01/09/2021 78579 Arthroplasty Knee Total Complete d 12/25/2020 53769 Office/Outpatient Established Lo w MDM 20-29 Min Completed 10/30/2020 79328 Office/Outpatient Established Mo d MDM 30-39 Min Completed 09/16/2020 06141 Arthroscopy Knee W/Meniscectomy (Medial & Lateral) Completed 09/16/2020 64307 Arthroscopy Knee Remove Loose/Fo reign Body Completed 09/11/2020 91113 Office/Outpatient Established Mo d MDM 30-39 Min Completed 08/08/2020 79652 Office/Outpatient New Low MDM 30 -44 Minutes Completed Medical Devices Description No Information Available Encounters Type Date Location Provider Dx Diagnosis Office Visit 01/29/2021 8:00a [facility] Kj Corrales MD Z96.652 Presence of left artificial knee joint Office Visit 01/16/2021 12:45p Madhu Corrales MD Z96.652 Presence of left artificial knee joint Z47.89 Encounter for other orthoped ic aftercare Office Visit 12/25/2020 11:30a Madhu Corrales MD M17.12 Unilateral primary osteoarthritis, left knee Office Visit 10/30/2020 10:30a Madhu Corrales MD Z98.890 Other specified postprocedural states M17.12 Unilateral primary osteoarth ritis, left knee Office Visit 10/02/2020 8:00a [facility] Kj Corrales MD Z98.890 Other specified postprocedural states M17.12 Unilateral primary osteoarth ritis, left knee Z47.89 Encounter for other orthoped ic aftercare Office Visit 09/11/2020 1:30p Madhu Corrales MD M22.42 Chondromalacia patellae, left knee S83.204A Oth tear of unsp meniscus, c urrent injury, left knee, init Office Visit 08/08/2020 9:30a [facility] Kj Corrales MD S83.204A Oth tear of unsp meniscus, current injury, left knee, init M25.562 Pain in left knee Assessments Date Code Description Provider 01/29/2021 Z96.652 History of left total knee repla cement Kj Corrales MD 01/16/2021 Z96.652 History of left total knee repla cement Kj Corrales MD 01/16/2021 Z47.89 Encounter for other orthopedic a golden Corrales MD 01/09/2021 M17.12 Unilateral primary osteoarthriti [...] 10/02/2020 Z47.89 Encounter for other orthopedic a golden Corrales MD 09/16/2020 M23.322 Other meniscus deran [...] 9:30 am - Kj Corrales MD at [facility] 01/29/2021 - Kj Corrales MD* Z96.652 History of left total knee replacement* Comments:* Overall the patient appears to be doing well. She did get physical therapy twice a day while in [place] for her knee. She states that she has contacted physical therapy through [facility] to restart which is supposed to occur within the next couple of days in addition to the home health care which was ordered through [place] associated with her GI surgery. We will [...] their own. * Follow up:* 4 weeks. Functional Status Description No Information Available Mental Status Description No Information Available Referrals Description No Information Available"
--- OUTSIDE RECORDS SUMMARY | 2021-02-06 11:53 | CCD | Continuity of Care Document ---
Author Author Christina CORRALES MD Organization Unknown Address [address] , [facility] [place] [address] Phone [phone] Care Team Providers Care Returned Goods Inspector Name Role Phone Ilda Dickson AUTM AUTM [...] lb BMI (Body Mass Index) 42.6 kg/m2 [place] Body Weight 135 lb Weight 123.379 kg BSA (Body Surface Area) 2.30 m2 Results Description No Information Available Procedures Date Code Description Status 01/16/2021 67956 Office/Outpatient Established Lo w MDM 20-29 Min Completed 01/09/2021 52288 Arthroplasty Knee Total Complete d 12/25/2020 25992 Office/Outpatient Established Lo w MDM 20-29 Min Completed 10/30/2020 62754 Office/Outpatient Established Mo d MDM 30-39 Min Completed 09/16/2020 88839 Arthroscopy Knee W/Meniscectomy (Medial & Lateral) Completed 09/16/2020 44234 Arthroscopy Knee Remove Loose/Fo reign Body Completed 09/11/2020 22385 Office/Outpatient Established Mo d MDM 30-39 Min Completed 08/08/2020 83104 Office/Outpatient New Low MDM 30 -44 Minutes Completed Medical Devices Description No Information Available Encounters Type Date Location Provider Dx Diagnosis Office Visit 01/16/2021 12:45p [facility] Kj Corrales MD Z96.652 Presence of left artificial knee joint Office Visit 12/25/2020 11:30a [facility] Cor[facility] MD M17.12 Unilateral primary osteoarthritis, left knee Office Visit 10/30/2020 10:30a [facility] Cor[facility] MD Z98.890 Other specified postprocedural states M17.12 Unilateral primary osteoarth ritis, left knee Office Visit 10/02/2020 8:00a [facility] Cor[facility] MD Z98.890 Other specified postprocedural states M17.12 Unilateral primary osteoarth ritis, left knee Z47.89 Encounter for other orthoped ic aftercare Office Visit 09/11/2020 1:30p Madhu Corrales MD M22.42 Chondromalacia patellae, left knee S83.204A Oth tear of unsp meniscus, c urrent injury, left knee, init Office Visit 08/08/2020 9:30a [facility] Kj Corrales MD S83.204A Oth tear [...] 9:00 am - Kj Corrales MD at [facility] 01/16/2021 - Kj Corrales MD* Z96.652 History [...]
--- OUTSIDE RECORDS SUMMARY | 2021-02-06 11:55 | CCD ---
Author Author [facility] Organization [facility] Address Unknown Phone Unavailable Care Team Providers Care Masticator Name Role Phone Watts, P Taylor Unavailable Unavailable Watts, P Taylor Unavailable Unavailable Watts, P Taylor Unavailable Unavailable Watts, P Taylor Unavailable Unavailable Watts, P Taylor Unavailable Unavailable Watts, P Taylor Unavailable Unavailable Watts, P Taylor Unavailable Unavailable Kolby Gage MD Unavailable Unavailable Kolby Gage MD Unavailable Unavailable Kolby Gage MD Unavailable Unavailable Kolby Gage MD Unavailable Unavailable Kolby Gage MD Unavailable Unavailable Kolby Gage MD Unavailable Unavailable VENKATA, E FAVIO DO [...] Unavailable VENKATA, E FAVIO DO Unavailable Unavailable Almita, Ramona Richie SUPPLY TECHNICIAN Unavailable Unavailable Houston, Ramona Richie SUPPLY TECHNICIAN Unavailable Unavailable Houston, Ramona Richie SUPPLY TECHNICIAN Unavailable Unavailable Almita, Ramona Richie SUPPLY TECHNICIAN Unavailable Unavailable Almita, Ramona Richie SUPPLY TECHNICIAN Unavailable Unavailable Houston, Ramona Richie SUPPLY TECHNICIAN Unavailable Unavailable Almita, Ramona Richie SUPPLY TECHNICIAN Unavailable Unavailable Almita, Ramona Richie SUPPLY TECHNICIAN Unavailable Unavailable Almita, Ramona Richie SUPPLY TECHNICIAN Unavailable Unavailable Houston, Ramona Richie SUPPLY TECHNICIAN Unavailable Unavailable Almita, Ramona Richie SUPPLY TECHNICIAN Unavailable Unavailable Houston, Ramona Richie SUPPLY TECHNICIAN Unavailable Unavailable Almita, Ramona Richie SUPPLY TECHNICIAN Unavailable Unavailable Houston, Ramona Richie SUPPLY TECHNICIAN Unavailable Unavailable KIRK BAEZ MD Unavailable Unavailable KIRK BAEZ MD Unavailable Unavailable KIRK BAEZ MD Unavailable Unavailable KIRK BAEZ MD Unavailable Unavailable Ravindra LEBLANC MD Unavailable [...] Unavailable Unavailable Ravindra LEBLANC MD Unavailable Unavailable NATALIIAAYRavindra MCCOY MD Unavailable Unavailable Ravindra LEBLANC MD Unavailable [...] Unavailable Unavailable Ravindra LEBLANC MD Unavailable Unavailable TAYLOR MAYO MD Unavailable Unavailable TAYLOR MAYO MD Unavailable Unavailable TAYLOR MAYO MD Unavailable Unavailable TAYLOR MAYO MD Unavailable Unavailable TAYLOR MAYO MD Unavailable Unavailable TAYLOR MAYO MD Unavailable Unavailable TAYLOR MAYO MD Unavailable Unavailable TAYLOR MAYO MD Unavailable Unavailable TAYLOR MAYO MD Unavailable Unavailable TAYLOR MAYO MD Unavailable Unavailable TAYLOR MAYO MD Unavailable Unavailable TAYLOR MAYO MD Unavailable Unavailable TAYLOR MAYO MD Unavailable Unavailable TAYLOR MAYO MD Unavailable Unavailable Kj Edward MD Unavailable Unavailable Wagner, Kj MOBLEY Unavailable Unavailable Kj Edward MD Unavailable Unavailable Wagner, Kj MOBLEY Unavailable Unavailable Wagner, Kj MOBLEY Unavailable Unavailable Kj Edward MD Unavailable Unavailable Wagner, Kj MOBLEY Unavailable Unavailable Wagner, Kj MOBLEY Unavailable Unavailable Wagner, Kj MOBLEY Unavailable Unavailable Kj Edward MD Unavailable Unavailable Portillo, A Carlyn PA Unavailable Unavailable Portillo, A Carlyn PA Unavailable Unavailable Portillo, A Carlyn PA Unavailable Unavailable Portillo, A Carlyn PA Unavailable Unavailable Portillo, A Carlyn PA Unavailable Unavailable Portillo, A Carlyn PA Unavailable Unavailable Portillo, A Carlyn PA Unavailable Unavailable Portillo, A Carlyn PA Unavailable Unavailable Portillo, A Carlyn PA Unavailable Unavailable Portillo, A Carlyn PA Unavailable Unavailable Portillo, A Carlyn PA Unavailable Unavailable Portillo, A Carlyn PA Unavailable Unavailable Portillo, A Carlyn PA Unavailable Unavailable Portillo, A Carlyn PA Unavailable Unavailable Portillo, A Carlyn PA Unavailable Unavailable Portillo, A Carlyn PA Unavailable Unavailable Portillo, A Carlyn PA Unavailable Unavailable Portillo, A Carlyn PA Unavailable Unavailable Portillo, A Carlyn PA Unavailable Unavailable Portillo, A Carlyn PA Unavailable Unavailable Portillo, A Carlyn PA Unavailable Unavailable Portillo, A Carlyn PA Unavailable Unavailable Portillo, A Carlyn PA Unavailable Unavailable Portillo, A Carlyn PA Unavailable Unavailable Portillo, A Carlyn PA Unavailable Unavailable Portillo, A Carlyn PA Unavailable Unavailable Portillo, A Carlyn PA Unavailable Unavailable Portillo, A Carlyn PA Unavailable Unavailable Portillo, A Carlyn PA Unavailable Unavailable Portillo, A Carlyn PA Unavailable Unavailable Portillo, A Carlyn PA Unavailable Unavailable Portillo, A Carlyn PA Unavailable Unavailable Portillo, A Carlyn PA Unavailable Unavailable Portillo, A Carlyn PA Unavailable Unavailable Portillo, A Carlyn PA Unavailable Unavailable Portillo, A Carlyn PA Unavailable Unavailable Hamdan, A Ranya PA-C Unavailable Unavailable Hamdan, A Ranya PA-C Unavailable Unavailable Hamdan, A Ranya PA-C Unavailable Unavailable Hamdan, A Ranya PA-C Unavailable Unavailable STACK, M FRANKLYN DO Unavailable Unavailable STACK, M FRANKLYN DO Unavailable Unavailable STACK, M FRANKLYN DO Unavailable Unavailable STACK, M FRANKLYN DO Unavailable Unavailable STACK, M FRANKLYN DO Unavailable Unavailable STACK, M FRANKLYN DO Unavailable Unavailable STACK, M FRANKLYN DO Unavailable Unavailable STACK, M FRANKLYN DO Unavailable Unavailable STACK, M FRANKLYN DO Unavailable Unavailable Ravindra Marina MD Unavailable Unavailable SalasRavindra MD Unavailable Unavailable SalasRavindra MD Unavailable Unavailable Clam GulchRavindra MD Unavailable Unavailable SalasRavindra MD Unavailable Unavailable SalasRavindra MD Unavailable Unavailable Clam GulchRavindra vila MD Unavailable Unavailable Ravindra Marina MD Unavailable Unavailable Ravindra Marina MD Unavailable Unavailable Clam GulchRavindra MD Unavailable Unavailable Clam GulchRavindra vila MD Unavailable Unavailable SalasRavindra MD Unavailable Unavailable Ravindra Marina MD Unavailable Unavailable Ravindra Marina MD Unavailable Unavailable Ravindra Marina MD Unavailable Unavailable Clam GulchRavindra MD Unavailable Unavailable Clam GulchRavindra MD Unavailable Unavailable SalasRavindra MD Unavailable Unavailable Clam GulchRavindra MD Unavailable Unavailable Clam GulchRavindra vila MD Unavailable Unavailable Clam GulchRavindra vila MD Unavailable Unavailable SalasRavindra vila MD Unavailable Unavailable SalasRavindra MD Unavailable Unavailable SalasRavindra MD Unavailable Unavailable SalasRavindra MD Unavailable Unavailable SalasRavindra MD Unavailable Unavailable SalasRavindra vila MD Unavailable Unavailable SalasRavindra driscoll MD Unavailable Unavailable SalasRavindra MD Unavailable Unavailable SalasRavindra driscoll MD Unavailable Unavailable Clam GulchRavindra vila MD Unavailable Unavailable Clam GulchRavindra vila MD Unavailable Unavailable Clam GulchRavindra vila MD Unavailable Unavailable Clam GulchRavindra vila MD Unavailable Unavailable SalasRavindra driscoll MD Unavailable Unavailable Clam GulchRavindra driscoll MD Unavailable Unavailable Clam GulchRavindra vila MD Unavailable Unavailable Clam GulchRavindra vila MD Unavailable Unavailable SalasRavindra driscoll MD Unavailable Unavailable SalasRavindra MD Unavailable Unavailable SalasRavindra MD Unavailable Unavailable SalasRavindra MD Unavailable Unavailable SalasRavindra MD Unavailable Unavailable SalasRavindra MD Unavailable Unavailable Clam GulchRavindra MD Unavailable Unavailable Clam GulchRavindra MD Unavailable Unavailable Clam GulchRavindra MD Unavailable Unavailable SalasRavindra MD Unavailable Unavailable FELIU, DOMINGO PRODUCT DESIGN SPECIALIST Unavailable Unavailable FELIU, DOMINGO PRODUCT DESIGN SPECIALIST Unavailable Unavailable FELIU, DOMINGO PRODUCT DESIGN SPECIALIST Unavailable Unavailable FELIU, DOMINGO PRODUCT DESIGN SPECIALIST Unavailable Unavailable FELIU, DOMINGO PRODUCT DESIGN SPECIALIST Unavailable Unavailable FELIU, DOMINGO PRODUCT DESIGN SPECIALIST Unavailable Unavailable FELIU, DOMINGO PRODUCT DESIGN SPECIALIST Unavailable Unavailable FELIU, DOMINGO PRODUCT DESIGN SPECIALIST Unavailable Unavailable FELIU, DOMINGO PRODUCT DESIGN SPECIALIST Unavailable Unavailable FELIU, DOMINGO PRODUCT DESIGN SPECIALIST Unavailable Unavailable FELIU, DOMINGO PRODUCT DESIGN SPECIALIST Unavailable Unavailable FELIU, DOMINGO PRODUCT DESIGN SPECIALIST Unavailable Unavailable FELIU, DOMINGO PRODUCT DESIGN SPECIALIST Unavailable Unavailable FELIU, DOMINGO PRODUCT DESIGN SPECIALIST Unavailable Unavailable FELIU, DOMINGO PRODUCT DESIGN SPECIALIST Unavailable Unavailable FELIU, DOMINGO PRODUCT DESIGN SPECIALIST Unavailable Unavailable FELIU, DOMINGO PRODUCT DESIGN SPECIALIST Unavailable Unavailable FELIU, DOMINGO PRODUCT DESIGN SPECIALIST Unavailable Unavailable FELIU, DOMINGO PRODUCT DESIGN SPECIALIST Unavailable Unavailable FELIU, DOMINGO PRODUCT DESIGN SPECIALIST Unavailable Unavailable FELIU, DOMINGO PRODUCT DESIGN SPECIALIST Unavailable Unavailable FELIU, DOMINGO PRODUCT DESIGN SPECIALIST Unavailable Unavailable Re-disclosure Warning The records that [...] is protected by Article 27-F of the [facility] Public Health law. If you continue you may have access to information: Regarding HIV / AIDS; Provided by facilities licensed or operated by the [facility] Office of Mental Health; or Provided by the [facility] Office for People With Developmental Disabilities. If such information is present, then the following [facility] mandated warning applies: This information has [...] NOT sufficient authorization for further disc losure. Allergies and Adverse Reactions Type Description Substance Reaction Status Data Source(s ) Propensity to adverse reactions [facility]ORPH[facility] Providers Location Date Indications Data Source(s ) Outpatient Attender: TAYLOR MAYO MDAttender: KIRK CARMONA MD 02/19/2021 12:00:00 AM [facility] Outpatient Attender: TAYLOR MAYO MDAttender: KIRK CARMONA MD 02/10/2021 12:00:00 AM [facility] Office Visit Attender: Kj Monreal/Alex/Diallo/Alfonzo osborn 01/29/2021 08:00:00 AM EDT [facility] ([facility]) Inpatient Attender: TAYLOR MAYO MDA ttender: KIRK BAEZ MDAdmitter: KIRK BAEZ MDReferrer: KIRK BAEZ MD 1 12:00:00 AM [facility] Inpatient Attender: TAYLOR MAYO MDA ttender: KIRK BAEZ MDAdmitter: KIRK BAEZ MDReferrer: Valentino Barber PA-C 01/22/2021 12:0 0:00 AM EDT [facility] Emergency Attender: Kolby Gage MDConsultant: Carlyn CROUCH 01/19/2021 07:50:00 AM EDT - 01/19/2021 10:58:00 AM EDT [facility] Patient discharged. Inpatient Attender: TAYLOR MAYO MDA ttender: KIRK BAEZ MDAttender: FRANKLYN COTA DOAttender: Taylor MacAdmitter: KIRK BAEZ MDReferrer: DOMINGO PANG NPConsultant: Tigre Marina MD [id number] 12/28 12:00:00 AM EDT - 01/25/2021 04:29:00 PM EDT abd pain, perforation [facility] abd pain, perforation Patient discharged. Office Visit Attender: Kj Monreal/Alex/Diallo/Alfonzo dl 01/16/2021 12:45:00 PM EDT [facility] ([facility]) [place] [address] [facility] [place] [address] 12/26/2020 12:00:00 AM EDT eCW1 ([facility]) Outpatient Attender: Kj Monreal/Alex/Diallo/Alfonzo dl 12/25/2020 11:30:00 AM EDT [facility] ([facility] [place] [address] [facility] [address] 12/25/2020 12:00:00 AM EDT eCW1 ([facility]) [place]patient [address] [place] [address] 12/19/2020 12:00:00 AM EDT eCW1 ([facility]) [place] [address] [facility] [address] 11/26/2020 12:00:00 AM EDT eCW1 ([facility]) Outpatient Attender: Kj Monreal/Alex/Diallo/Rein dl 10/30/2020 10:30:00 AM EDT [facility] ([facility]) [place] [address] [facility] [place] [address] 10/04/2020 12:00:00 AM EDT eCW1 ([facility]) Office Visit Attender: Kj Monreal/Alex/Diallo/Rein dl 10/02/2020 08:00:00 AM EDT [facility] ([facility]) Outpatient Attender: Kj Monreal/Alex/Diallo/Rein dl 09/11/2020 01:30:00 PM EDT [facility] ([facility]) [place] [address] [facility] [place] [address] 09/02/2020 12:00:00 AM EDT [facility]1 ([facility]) [place] [address] [facility] [place] [address] 09/02/2020 12:00:00 AM EDT [facility]CW1 ([facility]) [place] [address] [facility] [place] [address] 08/29/2020 12:00:00 AM EDT [facility]1 ([facility]) [place] [address] [facility] [place] [address] 08/13/2020 12:00:00 AM EDT eCW1 ([facility]) Outpatient Attender: Kj Monreal/Alex/Diallo/Rein dl 08/08/2020 09:30:00 AM EDT [facility] ([facility]) [place] [address] [facility] [place] [address] 08/07/2020 12:00:00 AM EDT [facility] ([facility]) [place] [address] [facility] [place] [address] 08/07/2020 12:00:00 AM EDT eCW1 ([facility]) [place] [address] [facility] [place] [address] 08/06/2020 12:00:00 AM EDT eCW1 ([facility]) [place] [address] [facility] [place] [address] 08/01/2020 12:00:00 AM EDT eCW1 ([facility]) [place] [address] [facility] [place] [address] 07/25/2020 12:00:00 AM EDT eCW1 ([facility]) [place] [address] [facility] [place] [address] 07/24/2020 12:00:00 AM EDT eCW1 ([facility]) Outpatient Attender: FAVIO Tay/Alex/Diallo/Alfonzod elvira 06/28/2020 03:00:00 PM EDT [facility] ([facility] Outpatient Attender: KRISTINE Monreal/Alex/Diallo/ Yobany 04/09/2020 01:10:00 PM EST [facility] ([facility] [place] [address] [facility] [place] [address] 01/22/2020 12:00:00 AM EDT eCW1 ([facility]) Office Visit Attender: Richie Monreal/Alex/Diallo/Stephon leander 01/15/2020 09:30:00 AM EDT [facility] ([facility] [place] [address] [facility] [place] [address] 12/26/2019 12:00:00 AM EDT eCW1 ([facility]) Immunizations Vaccine Date Status Description Data Source(s) 07/24/2020 03:57:00 PM EDT [facility] 07/24/2020 03:57:00 PM EDT completed [facility] 07/24/2020 03:57:00 PM EDT completed [facility]) 07/24/2020 03:57:00 PM EDT completed [facility]) 07/24/2020 03:57:00 PM EDT completed e [facility]) 07/24/2020 03:57:00 PM EDT completed e [facility]) 07/24/2020 03:57:00 PM EDT completed e [facility]) 07/24/2020 03:57:00 PM EDT completed e [facility]) 07/24/2020 03:57:00 PM EDT completed e [facility]) 07/24/2020 03:57:00 PM EDT completed e [facility]) 07/24/2020 03:57:00 PM EDT completed e [facility]) 07/24/2020 03:57:00 PM EDT completed e [facility]) 07/24/2020 03:57:00 PM EDT completed e [facility]) 07/24/2020 03:57:00 PM EDT completed e [facility]) 07/24/2020 03:57:00 PM EDT completed e [facility]) 07/24/2020 03:56:00 PM EDT completed e [facility]) 07/24/2020 03:56:00 PM EDT completed e [facility]) 07/24/2020 03:56:00 PM EDT completed e [facility]) 07/24/2020 03:56:00 PM EDT completed e [facility]) 07/24/2020 03:56:00 PM EDT completed e [facility]) 07/24/2020 03:56:00 PM EDT completed e [facility]) 07/24/2020 03:56:00 PM EDT completed e [facility]) 07/24/2020 03:56:00 PM EDT completed e [facility]) 07/24/2020 03:56:00 PM EDT completed e [facility]) 07/24/2020 03:56:00 PM EDT completed e [facility]) 07/24/2020 03:56:00 PM EDT completed e [facility]) 07/24/2020 03:56:00 PM EDT completed e [facility]) 07/24/2020 03:56:00 PM EDT completed e [facility]) 07/24/2020 03:56:00 PM EDT completed e [facility]) 07/24/2020 03:56:00 PM EDT completed e [facility]) COVID-19 dose #2 given elsewhere Unspecified 07/09/2020 04:1 1:00 PM EDT completed eCW1 ([facility]) COVID-19 dose #2 given elsewhere Unspecified 07/09/2020 04:1 1:00 PM EDT completed eCW1 ([facility]) COVID-19 dose #2 given elsewhere Unspecified 07/09/2020 04:1 1:00 PM EDT completed eCW1 ([facility]) COVID-19 dose #2 given elsewhere Unspecified 07/09/2020 04:1 1:00 PM EDT completed eCW1 ([facility]) COVID-19 dose #2 given elsewhere Unspecified 07/09/2020 04:1 1:00 PM EDT completed eCW1 ([facility]) COVID-19 dose #2 given elsewhere Unspecified 07/09/2020 04:1 1:00 PM EDT completed eCW1 ([facility]) COVID-19 dose #2 given elsewhere Unspecified 07/09/2020 04:1 1:00 PM EDT completed eCW1 ([facility]) COVID-19 dose #2 given elsewhere Unspecified 07/09/2020 04:1 1:00 PM EDT completed eCW1 ([facility]) COVID-19 dose #2 given elsewhere Unspecified 07/09/2020 04:1 1:00 PM EDT completed eCW1 ([facility]) COVID-19 dose #2 given elsewhere Unspecified 07/09/2020 04:1 1:00 PM EDT completed eCW1 ([facility]) COVID-19 dose #2 given elsewhere Unspecified 07/09/2020 04:1 1:00 PM EDT completed eCW1 ([facility]) COVID-19 dose #2 given elsewhere Unspecified 07/09/2020 04:1 1:00 PM EDT completed eCW1 ([facility]) COVID-19 dose #2 given elsewhere Unspecified 07/09/2020 04:1 1:00 PM EDT completed eCW1 ([facility]) COVID-19 dose #2 given elsewhere Unspecified 07/09/2020 04:1 1:00 PM EDT completed eCW1 ([facility]) COVID-19 dose #2 given elsewhere Unspecified 07/09/2020 04:1 1:00 PM EDT completed eCW1 ([facility]) COVID-19 VACCINE Moderna 07/09/2020 12:00:00 AM EDT completed [employer] Vaccine Series Complete: YESThis Data wa s Submitted to [facility] Via [employer]. COVID-19 dose #1 given elsewhere Unspecified 06/11/2020 04:1 1:00 PM EDT completed eCW1 ([facility]) COVID-19 dose #1 given elsewhere Unspecified 06/11/2020 04:1 1:00 PM EDT completed eCW1 ([facility]) COVID-19 dose #1 given elsewhere Unspecified 06/11/2020 04:1 1:00 PM EDT completed eCW1 ([facility]) COVID-19 dose #1 given elsewhere Unspecified 06/11/2020 04:1 1:00 PM EDT completed eCW1 ([facility]) COVID-19 dose #1 given elsewhere Unspecified 06/11/2020 04:1 1:00 PM EDT completed eCW1 ([facility]) COVID-19 dose #1 given elsewhere Unspecified 06/11/2020 04:1 1:00 PM EDT completed eCW1 ([facility]) COVID-19 dose #1 given elsewhere Unspecified 06/11/2020 04:1 1:00 PM EDT completed eCW1 ([facility]) COVID-19 dose #1 given elsewhere Unspecified 06/11/2020 04:1 1:00 PM EDT completed eCW1 ([facility]) COVID-19 dose #1 given elsewhere Unspecified 06/11/2020 04:1 1:00 PM EDT completed eCW1 ([facility]) COVID-19 dose #1 given elsewhere Unspecified 06/11/2020 04:1 1:00 PM EDT completed eCW1 ([facility]) COVID-19 dose #1 given elsewhere Unspecified 06/11/2020 04:1 1:00 PM EDT completed eCW1 ([facility]) COVID-19 dose #1 given elsewhere Unspecified 06/11/2020 04:1 1:00 PM EDT completed eCW1 ([facility]) COVID-19 dose #1 given elsewhere Unspecified 06/11/2020 04:1 1:00 PM EDT completed eCW1 ([facility]) COVID-19 dose #1 given elsewhere Unspecified 06/11/2020 04:1 1:00 PM EDT completed eCW1 ([facility]) COVID-19 dose #1 given elsewhere Unspecified 06/11/2020 04:1 1:00 PM EDT completed eCW1 ([facility]) COVID-19 VACCINE Moderna 06/11/2020 12:00:00 AM EDT completed [employer] Vaccine Series Complete: NOThis Data was Submitted to [facility] Via [employer]. Medications Medication Brand Name Start Date Product Form Dose Route Admi nistrative Instructions Pharmacy Instructions Status Indications Reaction Description Data Source(s) 1 gram 01/29/2021 12:00:00 AM EDT tablet 120 TAKE ONE TABLET BY MOUTH FOUR TIMES A DAY BEFORE MEALS AND AT BEDTIME DIRECTED TAKE ONE TABLET BY MOUTH FOUR TIMES A DAY BEFORE MEALS AND AT BEDTIME DIRECTED SOLD: 01/31/2021 [facility] pantoprazole 40 MG Delayed Release Oral Tablet PANTOPRAZOLE SODIUM 01/25/2021 12:00:00 AM EDT tablet,delayed release (DR/EC) 90 T HAILE ONE TABLET BY MOUTH EVERY DAY TAKE ONE TABLET BY MOUTH EVERY DAY SOLD: 01/26/2021 [facility] Oxycodone Hydrochloride 5 MG Oral Tablet Oxycodone HCL 01/12/2021 12:00:00 AM EDT active [facility] ([facility], ) 5 mg 01/12/2021 12:00:00 AM EDT tablet 42 TAKE ONE TABLET BY MOUTH EVERY 4 HOURS NEEDED FOR PAIN MAXIMUM DAILY DOSE = 6 TAKE ONE TABLET BY MOUTH EVERY 4 HOURS NEEDED FOR PAIN MAXIMUM DAILY DOSE = 6 SOLD: 01/12/2021 [facility] 81 mg 01/11/2021 12:00:00 AM EDT tablet,delayed release (DR/EC) 60 TAKE ONE TABLET BY MOUTH TWICE A DAY TAKE ONE TABLET BY MOUTH TWICE A DAY SOLD: 01/12/2021 [facility] Oxycodone Hydrochloride 5 MG Oral Capsule Oxycodone HCL 01/11/2021 12:00:00 AM EDT ORAL completed [facility] ([facility], ) 5 mg 01/10/2021 12:00:00 AM EDT tablet 10 TAKE ONE TABLET BY MOUTH TWICE A DAY NEEDED FOR PAIN MAXIMUM DAILY DOSE = 2 TABLETS TAKE ONE TABLET BY MOUTH TWICE A DAY NEEDED FOR PAIN MAXIMUM DAILY DOSE = 2 TABLETS SOLD: 01/10/2021 [facility] 1,250 mcg (50,000 unit) 12/31/2020 12:00:00 AM EDT capsule 12 TAKE 1 CAPSULE BY MOUTH ONCE A WEEK TAKE 1 CAPSULE BY MOUTH ONCE A WEEK SOLD: 01/03/2021 [facility] 8.6 mg 09/16/2020 12:00:00 AM EDT tablet 20 TAKE TWO TABLETS BY MOUTH EVERY DAY NEEDED TAKE TWO TABLETS BY MOUTH EVERY DAY NEEDED SOLD: 09/16/2020 [facility] Oxycodone Hydrochloride 5 MG Oral Tablet Oxycodone HCL 09/16/2020 12:00:00 AM EDT completed [facility] ([facility], ) sennosides, ASSISTED 8.6 MG Oral Tablet Senna-Tabs 09/16/2020 12:00:00 AM EDT ORAL completed [facility] ([facility], ) 5 mg 09/16/2020 12:00:00 AM [...] BY MOUTH TWICE A DAY SOLD: 09/16/2020 [facility] Aspirin 81 MG Delayed Release Oral Tablet Aspirin Adult Low Dose 09/16/2020 12:00:00 AM EDT ORAL completed [facility] ([facility], ) 1,250 mcg (50,000 unit) 09/03/2020 12:00:00 AM EDT capsule 12 TAKE ONE CAPSULE BY MOUTH WEEKLY TAKE ONE CAPSULE BY MOUTH WEEKLY SOLD: 09/10/2020 [facility] Ergocalciferol 86030 UNT Oral Capsule [Drisdol] Drisdo l 1.25 MG (34603 UT) Drisdol 1.25 MG (91341 UT) 09/02/2020 12:00:00 AM EDT 1.0 {capsule} active Drisdol 1.25 MG (65814 UT) [facility] Ergocalciferol 86234 UNT Oral Capsule [Drisdol] Drisdo l 1.25 MG (42007 UT) Drisdol 1.25 MG (79900 UT) 09/02/2020 12:00:00 AM EDT 1.0 {capsule} active Drisdol 1.25 MG (83536 UT) [facility] ([facility] Ergocalciferol 41232 UNT Oral Capsule [Drisdol] Drisdo l 1.25 MG (84229 UT) Drisdol 1.25 MG (91272 UT) 09/02/2020 12:00:00 AM EDT 1.0 {capsule} active Drisdol 1.25 MG (73321 UT) [facility] Ergocalciferol 66438 UNT Oral Capsule [Drisdol] Drisdo l 1.25 MG (25247 UT) Drisdol 1.25 MG (59425 UT) 09/02/2020 12:00:00 AM EDT 1.0 {capsule} active Drisdol 1.25 MG (72462 UT) eCW1 ([facility] Ergocalciferol 93646 UNT Oral Capsule [Drisdol] Drisdo l 1.25 MG (37633 UT) Drisdol 1.25 MG (91118 UT) 09/02/2020 12:00:00 AM EDT 1.0 {capsule} active Drisdol 1.25 MG (39009 UT) eCW1 ([facility] Ergocalciferol 30007 UNT Oral Capsule [Drisdol] Drisdo l 1.25 MG (62813 UT) Drisdol 1.25 MG (15032 UT) 09/02/2020 12:00:00 AM EDT 1.0 {capsule} active Drisdol 1.25 MG (85764 UT) eCW1 ([facility] Ergocalciferol 79331 UNT Oral Capsule [Drisdol] Drisdo l 1.25 MG (23452 UT) Drisdol 1.25 MG (75640 UT) 09/02/2020 12:00:00 AM EDT 1.0 {capsule} active Drisdol 1.25 MG (57650 UT) [facility]CW[facility] ([facility] Naproxen 500 MG Oral Tablet Naproxen 500 MG 07/24/2020 12:00:00 AM EDT suspended Naproxen 500 MG eCW1 ([facility]) Naproxen 500 MG Oral Tablet Naproxen 500 MG 07/24/2020 12:00:00 AM EDT suspended Naproxen 500 MG eCW1 ([facility]) Naproxen 500 MG Oral Tablet Naproxen 500 MG 07/24/2020 12:00:00 AM EDT [facility] Naproxen 500 MG Oral Tablet Naproxen 500 MG 07/24/2020 12:00:00 AM EDT suspended Naproxen 500 MG eCW1 ([facility]) Naproxen 500 MG Oral Tablet Naproxen 500 MG 07/24/2020 12:00:00 AM EDT active Naproxen 500 MG eCW1 ([facility]) Naproxen 500 MG Oral Tablet Naproxen 500 MG 07/24/2020 12:00:00 AM EDT active Naproxen 500 MG eCW1 ([facility]) 500 mg 07/24/2020 12:00:00 AM EDT tablet 20 TAKE ONE TABLET BY MOUTH EVERY 12 HOURS WITH FOOD OR MILK TAKE ONE TABLET BY MOUTH EVERY 12 HOURS WITH FOOD OR MILK SOLD: 07/25/2020 [facility] Naproxen 500 MG Oral Tablet Naproxen 500 MG 07/24/2020 12:00:00 AM EDT suspended Naproxen 500 MG eCW1 ([facility]) Naproxen 500 MG Oral Tablet Naproxen 500 MG 07/24/2020 12:00:00 AM EDT active Naproxen 500 MG eCW1 ([facility]) Naproxen 500 MG Oral Tablet Naproxen 500 MG 07/24/2020 12:00:00 AM EDT suspended Naproxen 500 MG eCW1 ([facility]) Naproxen 500 MG Oral Tablet Naproxen 500 MG 07/24/2020 12:00:00 AM EDT active Naproxen 500 MG eCW1 ([facility]) Naproxen 500 MG Oral Tablet Naproxen 500 MG 07/24/2020 12:00:00 AM EDT suspended Naproxen 500 MG eCW1 ([facility]) Naproxen 500 MG Oral Tablet Naproxen 500 MG 07/24/2020 12:00:00 AM EDT active Naproxen 500 MG eCW1 ([facility]) Naproxen 500 MG Oral Tablet Naproxen 500 MG 07/24/2020 12:00:00 AM EDT suspended Naproxen 500 MG eCW1 ([facility]) Naproxen 500 MG Oral Tablet Naproxen 500 MG 07/24/2020 12:00:00 AM EDT active Naproxen 500 MG eCW1 ([facility]) Naproxen 500 MG Oral Tablet Naproxen 500 MG 07/24/2020 12:00:00 AM EDT active Naproxen 500 MG eCW1 ([facility]) 0.35 mg 01/22/2020 12:00:00 AM EDT tablet [...] Hydrocodone Bitartrate 5 MG Oral Tabl et [[place]] [place] 12/25/2019 12:00:00 AM EDT ORAL active [facility] ([facility] ) Insurance Providers Payer name Policy type / Coverage type Policy ID Covered democrat ID Covered democrat's relationship to beckwith Policy Beckwith Plan Information [id number] BCBS [facility] 020/520 [id number] SP [id number] [place]/307 [id number] SP [id number] MEDICAID [id number] SP [id number] BCBS Ppo Commercial [id number] Self [id number] EXCELLUS BCBS MEDICAID [id number] EXCELLUS BCBS MEDICAID [id number] Mariaelena [id number] BIRDIE EXCHANGE U [id number] Self [id number] BCBS DENIZ HMO [id number] SP [id number] [place] P[place] 302/307 [id number] SP [id number] [place] BCBS MEDICAID PI PI ANSI-Not a Secondary Insurance [id number] ANSI-Not a Secondary Insurance [id number] ANSI-Not a Secondary Insurance [id number] ANSI-Not a Secondary Insurance [id number] ANSI-Not a Secondary Insurance [id number] Medicaid [place] Medigap Part B [id number] Self [id number] [place] Med[place] B [id number] Self W [id number] ANSI-Not a Secondary Insurance [id number] ANSI-Commercial [id number] ANSI-Medicaid [id number] MEDICAID [id number] SP [id number] [place] P[place]/307 [id number] SP [id number] [facility] BCBS B [id number] S W [id number] ANSI-Commercial [id number] ANSI-Medicaid [id number] ANSI-Medicaid [id number] ANSI-Commercial [id number] Medicaid [place] Med[place] Part B [id number] Self [id number] BIRDIE [id number] SP [id number] [place] PPO 302/307 [id number] SP [id number] BCBS [place] 302/307 [id number] SP [id number] [place] 302/307 [id number] SP [id number] [place] Commercial [id number] Self W [id number] [place] [id number] 18 [id number] [place] 00 18 00 BLUE CROSS BLUE SHIELD-O/P [id number] BIRDIE MAINE [id number] SP [id number] BCBS DENIZ HMO [id number] SP [id number] [place] BCBS B [id number] S [id number] MEDICAID M [id number] S [id number] Problems, Conditions, and Diagnoses Code Display Name Description Problem Type Effective Dates Data Source(s) abd pain, perforation abd pain, perforation Diagnosis 01/19/2021 12:56:00 PM EDT [facility] Z9884 Bariatric surgery status Bariatric surgery status Diag nosis [facility]-term (current) use of aspirin long-term (cu rrent) use of aspirin Diagnosis 01/19/2021 07:50:00 AM EDT [facility] Z6841 Body mass index [BMI]40.0-44.9, adult Marquise dy mass index [BMI]40.0-44.9, adult Diagnosis 01/19/2021 07:50:00 AM EDT [facility] [id number] CONTACT WITH AND SUSPECTED EXPOSURE TO C OVID-19 CONTACT WITH AND SUSPECTED EXPOSURE TO COVID-19 Diagnosis 01/19/2021 07:50:00 AM EDT [facility] E6601 Morbid (severe) obesity due to excess ca lories Morbid (severe) obesity due to excess calories Diagnosis 01/19/2021 07:50:00 AM EDT [facility] K631 Perforation of intestine (nontraumatic) Perforation of intestine (nontraumatic) Diagnosis 01/19/2021 07:50:00 AM EDT [facility] R1033 Periumbilical pain Periumbilical pain Diagnosis 07:50:00 AM [facility] M17.12 [id number] Arthritis of knee, left Problem 12/19/2020 12:00:00 AM EDT [facility] E55.9 [id number] Vitamin D deficiency Problem 09/02/2020 12:0 0:00 AM EDT [facility]CW1 [facility]) Surgeries/Procedures Procedure Description Date Indications Data Source(s) OFFICE OUTPATIENT VISIT 25 MINUTES 01/29/2021 12:00:00 AM EDT [facility] ([facility]) OFFICE OUTPATIENT VISIT 15 MINUTES 01/16/2021 12:00:00 AM EDT [facility] ([facility]) ARTHRP KNE CONDYLE&PLATU MEDIAL&LAT CMPRTS 01/09/2021 12:00:00 AM EDT [facility] ([facility]) OFFICE OUTPATIENT VISIT 15 MINUTES 12/25/2020 12:00:00 AM EDT [facility] ([facility]) OFFICE OUTPATIENT VISIT 25 MINUTES 10/30/2020 12:00:00 AM EDT [facility] ([facility]) ARTHROSCOPY KNEE REMOVAL LOOSE/FOREIGN BODY 09/16/2020 12:00:00 AM EDT [facility] ([facility]) ARTHRS KNEE W/MENISCECTOMY MED&LAT W/SHAVING 12:00:00 AM EDT [facility] ([facility]) OFFICE OUTPATIENT VISIT 25 MINUTES 09/11/2020 12:00:00 AM EDT [facility] ([facility]) OFFICE OUTPATIENT NEW 30 MINUTES 08/08/2020 12:00:00 A M EDT [facility] ([facility]) Medication: Toradol 30mg/1mL IM (Ketorolac) 07/24/2020 12:00:00 AM EDT [facility]C [facility] OFFICE OUTPATIENT NEW 45 MINUTES 06/28/2020 12:00:00 A M EDT [facility] ([facility]) OFFICE OUTPATIENT VISIT 10 MINUTES 04/09/2020 12:00:00 AM EST [facility] ([facility]) Laparoscopic Incisional Hernia W/ Mesh, Reducible 01/01/2020 12:00:00 AM EDT [facility] ([facility]) ECG ROUTINE ECG W/LEAST 12 LDS W/I&R 12/26/2019 12:00: 00 AM EDT [facility]CW[facility] Results ID Date Data Source [id number] 01/28/2021 11:37:02 AM EDT [facility] Name Value Range Interpretation Code Description Data Esmer rce(s) Supporting Document(s) Discharge Summary [facility] EWOZUs9dKkARPyLf37/LGYcmWBBcu3DoJJosLBk1ROnyZVZoT7EzBYE1zZ1zJUM5HMrHWzZuXnLnOXWb lbm [file] AgICAgICAgICAgICAgICAgICAgICAgICAgICAgICAg ICAgICAgICAgICAgICAgICAgICAgICAgICAgICAgICAgICAgICAgICAgICAgICAgICAgICAgICAgICAg ICAgICANCiAgICAgICAgICAgICAgICAgICAgICAgICAgICAgICAgICAgICAgICAgICAgICAgICAgICAg ICAgICAgICAgICAgICAgICAgICAgICAgICAgICAgIC AgICAgICAgICAgICAgICANCiAgICAgICAgICAgICAgICAgICAgICAgICAgICAgICAgICAgICAgICAgIC AgICAgICAgICAgICAgICAgICAgICAgICAgICAgICAgICAgICAgICAgICAgICAgICAgICAgICAgICANCi AgICAgICAgICAgICAgICAgICAgICAgICAgICAgICAg ICAgICAgICAgICAgICAgICAgICAgICAgICAgICAgICAgICAgICAgICAgICAgICAgICAgICAgICAgICAg ICAgICAgICANCiAgICAgICAgICAgICAgICAgICAgICAgICAgICAgICAgICAgICAgICAgICAgICAgICAg ICAgICAgICAgICAgICAgICAgICAgICAgICAgICAgIC AgICAgICAgICAgICAgICAgICANCiAgICAgICAgICAgICAgICAgICAgICAgICAgICAgICAgICAgICAgIC AgICAgICAgICAgICAgICAgICAgICAgICAgICAgICAgICAgICAgICAgICAgICAgICAgICAgICAgICAgIC ANCiAgICAgICAgICAgICAgICAgICAgICAgICAgICAg ICAgICAgICAgICAgICAgICAgICAgICAgICAgICAgICAgICAgICAgICAgICAgICAgICAgICAgICAgICAg ICAgICAgICAgICANCiAgICAgICAgICAgICAgICAgICAgICAgICAgICAgICAgICAgICAgICAgICAgICAg ICAgICAgICAgICAgICAgICAgICAgICAgICAgICAgIC AgICAgICAgICAgICAgICAgICAgICANCiAgICAgICAgICAgICAgICAgICAgICAgICAgICAgICAgICAgIC AgICAgICAgICAgICAgICAgICAgICAgICAgICAgICAgICAgICAgICAgICAgICAgICAgICAgICAgICAgIC AgICANCiAgICAgICAgICAgICAgICAgICAgICAgICAg ICAgICAgICAgICAgICAgICAgICAgICAgICAgICAgICAgICAgICAgICAgICAgICAgICAgICAgICAgICAg ICAgICAgICAgICAgICANCjw/bMZzD0rgvTHfcjS4U6mhFm2YPl3SHN7cp3JqRBRzFQyktdCxUsgHSyKx QLIrXwbUHbz6TYddOX5YmBJgQ6DqG3IcMOnyYU0XBJ QhRHVxsHVrZYDcVDKbKjR8HDVqHNhoDU5IcORpIRuwMGYfBKCdUmEbDTVlPZRpECMcFYRwUFCPBT2BRb FkY6AivI45JSWSEm0+FAcrrgOeXgxFSgA7CWRvp4VpLUk0IG0KAAEfEwabv0HdVdhlWJCLNEpzGJ6FLE W1KNH0VRMzUj4KFFQdX874yvHtDQ2JTa2YTpChBQ8d sl9VIigeNPLaPjlXSoz6LXqgAC9IzEDdFChAmTPnfKYqH8PhY1AoaOMuuEEstQLNABuqgKM1LQHjUAAb nPLgSIQGBiZDXCL0ZKHdZpXlFdVsXbViDQH9KXxcFW7hMMwvNN9ELSK3EMeqGYJqZUVzX8pSDhXyPFTd IoDysFetKQ8WPqTgF2YiprDjbWAxDkCsODRFBs1+DQ oxrjQbYkoEKdU5YZCjh4EuZYv4ED2KNTSgMRdsRO2UWXMhtU4qMUslKZ8SZjAhJANyZIBMTcCvB80qtU SdEXl6Y6YmKtYiSWEwOtzhIXNdHTiaAvNsVJLwUyUnLOrwWB0+ID4+NVtbHI2ZOUjdzmFoZMQbLh2WFW SyNXIwLP3qEUDeSKAsG1I3dYbuWWBJBtAuD5mzpqze CN7cJMPxO077rEtuhbXxGPK5NWKeDz1KLFLyWVS8FXBckBWpSsPfRJZIMQhyQO7GbZUhTAM5kV5aRZdt XJZkAPHtK7lSLnYpsYmjHV89gOpbraFjvIXqAAm+Gb1XZV5sv1BlNJc6pbOgSJwfDLG9RDxvAHTxRBHq ERLrAOD6ZGC9PPZKExIvQYPjEGGdPIiuVMOdKTGvqt 0SGCLfGEPfIRF8TnKiTZExQKNrCOwkMIXqBNBrDEU5LWQnXKOrGK8UAxUyEHJtLAZzYDvvBQNoTZHeri 9LUCOkAZGqBDJ3KbWuNFPkXADmWXouQVIlBGQ6AqD5HWPrBABuKD5UPuSmWHUqOSsdCByoHQMpGGMece 7FOUAsMEYpHxL0BmDuZCObHVYyPFoxIWPaIEIrBAMc TBBmWZMmPH5AMeJbACNjPIZdIUvkLGCsXJUiae1AHABcYUTpMuY3AQAjQNXdLGQkUZylBLLgRTQgWpC6 YIQzDVUyPB1WQpKrLPOiAMYfXDFwTAJuFLDipn0YZFZpZOKaBJVdNgPvERLfFHIfZTwwREPyHZU3ZXe1 KUWbDTVxBP5WVtTvEQXgCQT6UZSnMSViWQIqep0BEK NhZCSwYIr1HkXmIKRhQEOzPHhjWMWtJSV1GCP9JUAxMVNoJS0BEiLnNTSvFTY8ROAyOEFeMUVdyn3ZOK OaTKCdItSgOEPfRJYzZEJiYUmjRDPyTST8Xys7UUWjGWSsCQ5XGeUfRMGfTLheSGQvMEUaRVFcoj8KLW EuCVUeHIG0GBZjSWZuUUXeKSgeDNCwKSW1SrV2DACl ENFtIO7FWaOqYTJdNEqtSbvbXZJdTFAgms1NPZJqBBXoEESdAwCuGVIaBZPyYBabCYBzIOWjWtN1SHMq SNCuHF0CReGuWUPqMsJ4MkYvCXNhPRIrmy8RfJFosZafel1GBMcUYu8GvEkhFWW4FElsOv1vuVYwRFRa NNOFPz7DkwFoNSEgPVBELTwaUXYvHMFuCMHgKsZbKT o9AbK0KRLqKQn1IKC7HvF1UvFcShSdUxI9W9Q8RbObIMN5ZCF8QuT1NBXeODmbEoArFYIwZCNdOOV+IF 0gDQo+Jb5Ia5UmyjT3slQrDKchENNzPN5IHEFXO1PWIe== ID Date Data Source [id number] 01/26/2021 02:57:21 AM EDT [facility] Name Value Range Interpretation Code Description Data Esmer rce(s) Supporting Document(s) ED Provider Note [facility] HCIMOd7eElOEIgOg71/MDVtkNTCiz9StJAjvWKf5DVjfLTJbC3ZmCGV9hG4mBXM3EQsVAoTiPkSiTVKe lbm RjMcsVAvOmHNNdSseYIzFxXNqjWchehEMgMN0EkRI3QBAsQ30cJURbYHMqZ0SiRGX6SPc+Ss6XYKSbxF UzJC8GIvpJ2X1KciuZEc0zMJ9Bc68YSVEcG8DjbaFLhvSuI2APOUTBBCBcOZGCZrGNfQlG7sjjQkWSCx 3dx0NEOj6BJWZ32l0kow+2hcj//W995abFbpLhi063 0mJ4K/83G7OvNbDEbmkolTN0RroP1knP5KgYT2/wTV+8/CfYpKlrIvtXjuYVZNCHdRI1Ah/OBsPfvhYX 5Eh7JG2O43+aFS2TJ8XLErr6P9+J/q/idV+8bcwyUskrJU/jqzsmp0wnqUQIS7p5FEu5MwhbqoIyRLyB xyjGFNCZoBkExFUgoWvQ14UkgBdxI5bCRXgySlrhtV uFO/J4sy09S4aRQvqxsqR0hCinlNg+6pegdKkU5hxxrc7UMs16rOuD1oBJBkG+Xl3K1EXLjwg3qQasoa wFTDd4TeojKSAWUARDgjUJlmapXF2gEZtmvPu9lCI7VEZLQ3yfYGX5OYNbRhbeTOsbhwxAKV4UQUyCBB Now6/Ul9CFZ5dUctwjbmJfmKD0WpjD2tZT3xsKu99U I1pIAZZDPSXQ0qNPkAAaBbROkd+ysrDpbUGJpmLS2PkZOQtTG8W/[employer]+mgJAHf1QnMqJxDRLJsquQlCj [file] XSANCj4+RQvtrFCanVpiZTAQWoD9MRqeCOjzXMKUPm5R ID Date Data Source [id number] 01/24/2021 10:13:50 AM EDT [facility] FLUORO UPPER GI SERIESFINAL RESULTInterp reted by:Edmund Ribera [facility] [place]: 50-year-old female with a history of repair of a perforated gastric ulcer, who presents for postoperative fluoroscopic evaluation.TECHNIQUE:Supine promotions associate views of the abdomen were obtained.A single contrast upper GI series was performed. The patient swallowed water-soluble oral contrast under videofluoroscopic observation and multiple projections.The patient then swallowed a thin barium solution under videofluoroscopic observation and multiple projections. Multiple spot images of the esophagus, gastric pouch, g astrojejunostomy and [place] stomach were obtained. Fluoroscopic Time: 2.5 minutes. Dose: 65.1 mGy. COMPARISON:There are no prior studies available for comparison.FINDINGS:CLINICAL PROGRAM MANAGER IMAGES: There are postsurgical changes within the superior medial left upper quadrant at the T11 level and a surgical drain projects over the left upper quadrant and upper midabdomen.There is a mild to moderate amount stool throughout the visualized colon.The remaining bowel gas patterns and soft tissue shadows are grossly normal. There is no gross evidence of free air or free fluid. There is mild to moderate osteopenia and moderate to marked degenerative bony change throughout study.There is mild patchy linear subsegmental airspace opacity within the basilar aspects of both lungs and the remaining visualized lungs are clear with no evidence of pleural disease.UPPER GI SERIES: The oropharyngeal phase of swallowing was normal. The upper, mid and distal portions of the esophagus are normal in caliber and there are no filling defects, diverticula, strictures or ulcers.There is a small hiatal hernia and mild to moderate gastroesophageal reflux in the mid esophageal level with no tertiary contractions.The water-soluble contrast and thin barium anterior to the gastric pouch without difficulty and the gastric pouch is not enlarged.There are no thickened gastric folds, masses or ulcers.There is no leakage of water-soluble contrast or thin barium from the gastric pouch.There was normal emptying of the gastric pouch.The water-soluble contrast and thin barium pass freely into the gastrojejunostomy, without evidence for leakage or stricture in the jejunal limb is normal in appearance.The [place] stomach and duodenum are not visualized. IMPRESSION:1. There is no evidence of leakage of the water- soluble contrast and thin barium from the gastric pouch.2. There is no evidence of stenosis or obstruction at the gastrojejunostomy site.3. There is a small hiatal hernia and mild to moderate gastroesophageal reflux in the mid esophageal level.4. The visualized esophagus is otherwise normal.5. There is patchy bibasilar subsegmental atelectasis.This document has been electronically signed by Edmund Ribera MD on 01/24/2021 10:11 AM Name Value Range Interpretation Code Description Data [facility](s) Supporting Document(s) ID Date Data Source [id number] 01/24/2021 04:14:07 AM [facility] Name Value Range Interpretation Code Description Data Esmer e(s) Supporting Document(s) Leukocytes [#/volume] in Blood by Automated count 8.1 10*3/uL 4-10 [facility] Erythrocytes [#/volume] in Blood by Automated count 4.18 10*6/uL 4.1- 5.3 [facility] Hemoglobin [Mass/volume] in Blood 12.9 g/dL 11.5-15.5 [facility] Hematocrit [Volume Fraction] of Blood by Automated count 38.5 % 3 6-45 [facility] Erythrocyte mean corpuscular volume [Entitic volume] by Auto mated count 92.1 fL 80-96 [facility] Erythrocyte mean corpuscular hemoglobin [Entitic mass] by Automated count 30.9 pg 27-33 [facility] Erythrocyte mean corpuscular hemoglobin concentration [Mass/volume] by Automated count 33.5 g/dL 32.0-36.0 [facility] distribution width [Ratio] by Automated count 13.2 % 11.5-14.5 [facility] Platelets [#/volume] in Blood by Automated count 246 10*3/uL 150-400 [facility] Differential cell count method - Blood [facility] Neutrophils/100 leukocytes in Blood by Automated count 66 % [facility] Lymphocytes/100 leukocytes in Blood by Automated count 18 % [facility] Monocytes/100 leukocytes in Blood by Automated count 14 % [facility] Eosinophils/100 leukocytes in Blood by Automated count 1 % [facility] Basophils/100 leukocytes in Blood by Automated count 1 % [facility] Neutrophils [#/volume] in Blood by Automated count 5.31 10*3/uL 1.8-7 .0 [facility] Lymphocytes [#/volume] in Blood by Automated count 1.46 10*3/uL 1.2-4 .0 [facility] Monocytes [#/volume] in Blood by Automated count 1.13 10*3/uL 0-0.8 H [facility] Eosinophils [#/volume] in Blood by Automated count 0.11 10*3/uL 0-0.5 [facility] Basophils [#/volume] in Blood by Automated count 0.07 10*3/uL 0-0.2 [facility] Nucleated erythrocytes/100 leukocytes [Ratio] in Blood by Automated count 0 /100{WBCs} 0-0 [facility] ID Date Data Source [id number] 01/24/2021 04:30:05 AM [facility] Name Value Range Interpretation Code Description Data Esmer rce(s) Supporting Document(s) Bicarbonate [Moles/volume] in Serum 30 mmol/L 22-29 H [facility] Chloride [Moles/volume] in Serum or Plasma 98 mmol/L 98-107 [facility] Creatinine [Mass/volume] in Serum or Plasma 0.37 mg/dL 0.50-0.90 L [facility] Glucose [Mass/volume] in Serum or Plasma 57 mg/dL 70-140 [facility] Potassium [Moles/volume] in Serum or Plasma 3.5 mmol/L 3.4-5.1 [facility] Sodium [Moles/volume] in Serum or Plasma 139 mmol/L 136-145 [facility] Urea nitrogen [Mass/volume] in Serum or Plasma 8 mg/dL 6-20 [facility] Anion gap 3 in Serum or Plasma 11 mmol/L 8-15 [facility] Osmolality of Serum or Plasma by calculation 284 mosm/kg 275-300 [facility] Creatinine/Urea nitrogen [Mass Ratio] in Serum or Plasma 22 [facility] Calcium [Mass/volume] in Serum or Plasma 8.7 mg/dL 8.6-10.0 [facility] Glomerular filtration rate/1.73 sq M pre dicted among non-blacks [Volume Rate/Area] in Serum or Plasma by Creatinine-based formula (MDRD) >6 0 [facility] Glomerular filtration rate/1.73 sq M pre dicted among blacks [Volume Rate/Area] in Serum or Plasma by Creatinine-based formula (MDRD) >60 [facility] ID Date Data Source [id number] 01/23/2021 04:56:28 AM [facility] Name Value Range Interpretation Code Description Data Esmer rce(s) Supporting Document(s) Leukocytes [#/volume] in Blood by Automated count 9.5 10*3/uL 4-10 [facility] Erythrocytes [#/volume] in Blood by Automated count 3.87 10*6/uL 4.1- 5.3 L [facility] Hemoglobin [Mass/volume] in Blood 12.1 g/dL 11.5-15.5 [facility] Hematocrit [Volume Fraction] of Blood by Automated count 35.0 % 3 6-45 L [facility] Erythrocyte mean corpuscular volume [Entitic volume] by Auto mated count 90.6 fL 80-96 [facility] Erythrocyte mean corpuscular hemoglobin [Entitic mass] by Automated count 31.3 pg 27-33 [facility] Erythrocyte mean corpuscular hemoglobin concentration [Mass/volume] by Automated count 34.5 g/dL 32.0-36.0 [facility] E[facility] distribution width [Ratio] by Automated count 13.2 % 11.5-14.5 [facility] Platelets [#/volume] in Blood by Automated count 219 10*3/uL 150-400 [facility] Differential cell count method - Blood [facility] Neutrophils/100 leukocytes in Blood by Automated count 71 % [facility] Lymphocytes/100 leukocytes in Blood by Automated count 15 % [facility] Monocytes/100 leukocytes in Blood by Automated count 12 % [facility] Eosinophils/100 leukocytes in Blood by Automated count 1 % [facility] Basophils/100 leukocytes in Blood by Automated count 1 % [facility] Neutrophils [#/volume] in Blood by Automated count 6.81 10*3/uL 1.8-7 .0 [facility] Lymphocytes [#/volume] in Blood by Automated count 1.43 10*3/uL 1.2-4 .0 [facility] Monocytes [#/volume] in Blood by Automated count 1.12 10*3/uL 0-0.8 H [facility] Eosinophils [#/volume] in Blood by Automated count 0.08 10*3/uL 0-0.5 [facility] Basophils [#/volume] in Blood by Automated count 0.06 10*3/uL 0-0.2 [facility] Nucleated erythrocytes/100 leukocytes [Ratio] in Blood by Automated count 0 /100{WBCs} 0-0 [facility] ID Date Data Source [id number] 01/23/2021 05:23:00 AM EDT [facility] Name Value Range Interpretation Code Description Data Esmer rce(s) Supporting Document(s) Bicarbonate [Moles/volume] in Serum 27 mmol/L 22-29 [facility] Chloride [Moles/volume] in Serum or Plasma 100 mmol/L 98-107 [facility] Creatinine [Mass/volume] in Serum or Plasma 0.33 mg/dL 0.50-0.90 L [facility] Glucose [Mass/volume] in Serum or Plasma 69 mg/dL 70-140 L [facility] Potassium [Moles/volume] in Serum or Plasma 3.5 mmol/L 3.4-5.1 [facility] Sodium [Moles/volume] in Serum or Plasma 137 mmol/L 136-145 [facility] Urea nitrogen [Mass/volume] in Serum or Plasma 8 mg/dL 6-20 [facility] Anion gap 3 in Serum or Plasma 10 mmol/L 8-15 [facility] Osmolality of Serum or Plasma by calculation 281 mosm/kg 275-300 [facility] Creatinine/Urea nitrogen [Mass Ratio] in Serum or Plasma 24 [facility] Calcium [Mass/volume] in Serum or Plasma 8.4 mg/dL 8.6-10.0 [facility] Glomerular filtration rate/1.73 sq M pre dicted among non-blacks [Volume Rate/Area] in Serum or Plasma by Creatinine-based formula (MDRD) >6 0 [facility] Glomerular filtration rate/1.73 sq M pre dicted among blacks [Volume Rate/Area] in Serum or Plasma by Creatinine-based formula (MDRD) >60 [facility] ID Date Data Source [id number] 01/22/2021 01:04:30 PM EDT [facility] CT ANGIOGRAPHY THORAX [id number] RESULTI nterpreted by:Esteban Solomon MDCLINICAL INDICATION: 50-year-old female with suspected pulmonary embolism..TECHNIQUE: Multidetector axial CT angiography images of the thorax were obtained, following the intravenous administration of 100 mL of Omnipaque-350. Coronal and sagittal reformations were also obtained. Automated dose lowering techniques and/or adjustment according to patient size were utilized for this exam.Comparison: Chest radiograph dated 01/20/2021.FINDINGS: This exam is limited by respiratory motion. The pulmonary arteries are well visualized and are without filling defects to suggest a pulmonary embolism.Lungs and pleura: Streaky and patchy opacities are seen within the lung bases, with a small left pleural effusion.Heart and pericardium: Heart size is normal. No pericardial effusion.Vessels: No significant atherosclerotic plaque is present. A three-vessel aortic arch is noted. The pulmonary trunk and aorta are not en larged.Mediastinum and paty: Subcentimeter mediastinal lymph nodes are present which are likely reactive in nature. An enteric tube is present within the esophagus with the distal tip at the distal esophageal level.Chest wall and lower neck: Unremarkable.Bones: Mild multilevel degenerative changes of the axial skeleton with large anterior osteophytes throughout the midthoracic level. No fracture. No suspicious lytic or blastic lesions.Abdomen: Nonspecific bilateral perinephric stranding is present. The patient is status post gastric bypass surgery. The remainder the visualized abdomen is within normal limits.IMPRESSION:1. Bibasilar atelectasis and airspace disease, favoring pneumonia or aspiration.2. Enteric tube with the tip at the level of the distal esophagus. Advancement with follow-up radiograph is recommended to confirm position.3. No evidence of pulmonary embolism at this time.This document has been electronically signed by Cody García MD on 01/22/2021 1:02 PM Name Value Range Interpretation Code Description Data Esmer rce(s) Supporting Document(s) ID Date Data Source [id number] 01/22/2021 04:51:43 AM [facility] Name Value Range Interpretation Code Description Data Esmer rce(s) Supporting Document(s) Leukocytes [#/volume] in Blood by Automated count 12.8 10*3/uL 4-10 H [facility] Erythrocytes [#/volume] in Blood by Automated count 3.86 10*6/uL 4.1- 5.3 L [facility] Hemoglobin [Mass/volume] in Blood 11.8 g/dL 11.5-15.5 [facility] Hematocrit [Volume Fraction] of Blood by Automated count 35.5 % 3 6-45 L [facility] Erythrocyte mean corpuscular volume [Entitic volume] by Auto mated count 92.0 fL 80-96 [facility] Erythrocyte mean corpuscular hemoglobin [Entitic mass] by Automated count 30.5 pg 27-33 [facility] Erythrocyte mean corpuscular hemoglobin concentration [Mass/volume] by Automated count 33.1 g/dL [facility].0-[facility] width [Ratio] by Automated count 13.6 % 11.5-14.5 [facility] Platelets [#/volume] in Blood by Automated count 208 10*3/uL 150-400 [facility] Differential cell count method - Blood [facility] Neutrophils/100 leukocytes in Blood by Automated count 79 % [facility] Lymphocytes/100 leukocytes in Blood by Automated count 11 % [facility] Monocytes/100 leukocytes in Blood by Automated count 8 % [facility] Eosinophils/100 leukocytes in Blood by Automated count 1 % [facility] Basophils/100 leukocytes in Blood by Automated count 1 % [facility] Neutrophils [#/volume] in Blood by Automated count 10.38 10*3/uL 1.8- 7.0 H [facility] Lymphocytes [#/volume] in Blood by Automated count 1.38 10*3/uL 1.2-4 .0 [facility] Monocytes [#/volume] in Blood by Automated count 0.96 10*3/uL 0-0.8 H [facility] Eosinophils [#/volume] in Blood by Automated count 0.06 10*3/uL 0-0.5 [facility] Basophils [#/volume] in Blood by Automated count 0.06 10*3/uL 0-0.2 [facility] Nucleated erythrocytes/100 leukocytes [Ratio] in Blood by Automated count 0 /100{WBCs} 0-0 [facility] ID Date Data Source [id number] 01/22/2021 05:03:43 AM EDT [facility] Name Value Range Interpretation Code Description Data Esmer rce(s) Supporting Document(s) Bicarbonate [Moles/volume] in Serum 26 mmol/L 22-29 [facility] Chloride [Moles/volume] in Serum or Plasma 101 mmol/L 98-107 [facility] Creatinine [Mass/volume] in Serum or Plasma 0.36 mg/dL 0.50-0.90 L [facility] Glucose [Mass/volume] in Serum or Plasma 70 mg/dL 70-140 [facility] Potassium [Moles/volume] in Serum or Plasma 4.0 mmol/L 3.4-5.1 [facility] Sodium [Moles/volume] in Serum or Plasma 137 mmol/L 136-145 [facility] Urea nitrogen [Mass/volume] in Serum or Plasma 13 mg/dL 6-20 [facility] Anion gap 3 in Serum or Plasma 10 mmol/L 8-15 [facility] Osmolality of Serum or Plasma by calculation 283 mosm/kg 275-300 [facility] Creatinine/Urea nitrogen [Mass Ratio] in Serum or Plasma 36 [facility] Calcium [Mass/volume] in Serum or Plasma 8.2 mg/dL 8.6-10.0 L [facility] Glomerular filtration rate/1.73 sq M pre dicted among non-blacks [Volume Rate/Area] in Serum or Plasma by Creatinine-based formula (MDRD) >6 0 [facility] Glomerular filtration rate/1.73 sq M pre dicted among blacks [Volume Rate/Area] in Serum or Plasma by Creatinine-based formula (MDRD) >60 [facility] ID Date Data Source [id number] 01/22/2021 05:03:43 AM [facility] Name Value Range Interpretation Code Description Data Esmer rce(s) Supporting Document(s) Magnesium [Mass/volume] in Serum or Plasma 1.7 mg/dL 1.6-2.6 [facility] ID Date Data Source [id number] 01/21/2021 05:21:38 AM [facility] Name Value Range Interpretation Code Description Data Esmer rce(s) Supporting Document(s) Leukocytes [#/volume] in Blood by Automated count 16.4 10*3/uL 4-10 H [facility] Erythrocytes [#/volume] in Blood by Automated count 3.76 10*6/uL 4.1- 5.3 L [facility] Hemoglobin [Mass/volume] in Blood 11.6 g/dL 11.5-15.5 [facility] Hematocrit [Volume Fraction] of Blood by Automated count 34.7 % 3 6-45 L [facility] Erythrocyte mean corpuscular volume [Entitic volume] by Auto mated count 92.2 fL 80-96 [facility] Erythrocyte mean corpuscular hemoglobin [Entitic mass] by Automated count 30.8 pg 27-33 [facility] Erythrocyte mean corpuscular hemoglobin concentration [Mass/volume] by Automated count 33.4 g/dL 32.0-36.0 [facility] E[facility]throcyte distribution width [Ratio] by Automated count 14.2 % 11.5-14.5 [facility] Platelets [#/volume] in Blood by Automated count 199 10*3/uL 150-400 [facility] Differential cell count method - Blood [facility] Neutrophils/100 leukocytes in Blood by Automated count 85 % [facility] Lymphocytes/100 leukocytes in Blood by Automated count 9 % [facility] Monocytes/100 leukocytes in Blood by Automated count 6 % [facility] Eosinophils/100 leukocytes in Blood by Automated count 0 % [facility] Basophils/100 leukocytes in Blood by Automated count 0 % [facility] Neutrophils [#/volume] in Blood by Automated count 13.93 10*3/uL 1.8- 7.0 H [facility] Lymphocytes [#/volume] in Blood by Automated count 1.44 10*3/uL 1.2-4 .0 [facility] Monocytes [#/volume] in Blood by Automated count 0.99 10*3/uL 0-0.8 H [facility] Eosinophils [#/volume] in Blood by Automated count 0.02 10*3/uL 0-0.5 [facility] Basophils [#/volume] in Blood by Automated count 0.05 10*3/uL 0-0.2 [facility] Nucleated erythrocytes/100 leukocytes [Ratio] in Blood by Automated count 0 /100{WBCs} 0-0 [facility] ID Date Data Source [id number] 01/21/2021 06:03:07 AM T [facility] Name Value Range Interpretation Code Description Data Esmer rce(s) Supporting Document(s) Bicarbonate [Moles/volume] in Serum 28 mmol/L 22-29 [facility] Chloride [Moles/volume] in Serum or Plasma 106 mmol/L 98-107 [facility] Creatinine [Mass/volume] in Serum or Plasma 0.50 mg/dL 0.50-0.90 [facility] Glucose [Mass/volume] in Serum or Plasma 72 mg/dL 70-140 [facility] Potassium [Moles/volume] in Serum or Plasma 4.0 mmol/L 3.4-5.1 [facility] Sodium [Moles/volume] in Serum or Plasma 141 mmol/L 136-145 [facility] Urea nitrogen [Mass/volume] in Serum or Plasma 22 mg/dL 6-20 H [facility] Anion gap 3 in Serum or Plasma 7 mmol/L 8-15 L [facility] Osmolality of Serum or Plasma by calculation 294 mosm/kg 275-300 [facility] Creatinine/Urea nitrogen [Mass Ratio] in Serum or Plasma 43 [facility] Calcium [Mass/volume] in Serum or Plasma 8.7 mg/dL 8.6-10.0 [facility] Glomerular filtration rate/1.73 sq M pre dicted among non-blacks [Volume Rate/Area] in Serum or Plasma by Creatinine-based formula (MDRD) >6 0 [facility] Glomerular filtration rate/1.73 sq M pre dicted among blacks [Volume Rate/Area] in Serum or Plasma by Creatinine-based formula (MDRD) >60 [facility] ID Date Data Source [id number] 01/21/2021 06:03:07 AM [facility] Name Value Range Interpretation Code Description Data Esmer rce(s) Supporting Document(s) Magnesium [Mass/volume] in Serum or Plasma 1.9 mg/dL 1.6-2.6 [facility] ID Date Data Source [id number] 01/20/2021 02:05:58 PM EDT [facility] Name Value Range Interpretation Code Description Data Esmer rce(s) Supporting Document(s) Operative Note [facility] HTOIPa4oSqNBVaIz47/UMEyjHACam0UdMBuaTLw4HOikOPOiP6UlQLI0nX9qOYD5PByAOyOgUuYiQDW5 lbm [file] rib 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 fitter/gGG/ULEJ3d2xrTKDaqSK2bjXYT8HTWKZQXCR9gc8mu+Cx4BX4UHJuuC/MjGYTmntzZbqYI2zeNoRZ [file] [id number]CTM9XYKw== ID Date Data Source [id number] 01/20/2021 01:57:19 PM EDT [facility] Name Value Range Interpretation Code Description Data Esmer rce(s) Supporting Document(s) History and Physical [facility] [id number]/UDNrjFSHjx5FySHskSQe4NHztXUYrX9HyJMV8zJ6xIBS4UKaXOgGzLgPvJNO4 lbm [file] ID Date Data Source [id number] 01/20/2021 12:10:17 PM EDT [facility] XR CHEST FRONTAL ONLY [id number] RESULTI nterpreted by:Mg Mckeon MDHISTORY: Please assess position of nasogastric tube.TECHNIQUE: A total of 2 semiupright frontal portable views of the chest were performed and compared to a study done approximately 5 hours previously.FINDINGS: There is a nasogastric tube in place with its tip projecting over the region of the gastric body. The side port is not well-visualized. Otherwise, there are degenerative changes in the visualized thoracic spine. The cardiac and mediastinal structures are unremarkable. There is persistent elevation of the left hemidiaphragm with atelectatic changes in the left base. There are also areas of linear atelectasis in both upper lobes and the right lower lobe.IMPRESSION: 1. The nasogastric tube tip projects over the region of the gastric body.2. Atelectatic changes in both lungs as described above.This document has been electronically signed by Mg Mckoen MD on 01/20/2021 12:08 PM Name Value Range Interpretation Code Description Data Esmer rce(s) Supporting Document(s) ID Date Data Source [id number] 01/20/2021 07:55:11 AM EDT [facility] Name Value Range Interpretation Code Description Data Esmer rce(s) Supporting Document(s) [facility] EPCKIk5yOhGVZmRmk8TwWhBmXKSlXN4lrkm4G3V3hAOeB6HmcKAwo8haY3VoZ5LfKMWnKHTZIG3WgXFn jb2 [file] mGYWoK1FKEWRQSLSQHLKYpgvCRCDLU0n0rWJhEUmCg c1OBPz0wDCPGSgUG4EGHwutXqchPhmuxCimwv9yZPDKh6N2gAKZ1Zmi4NmEZleOv1kh2Itt+abpRPLwP vGyfHE+vR9oE5WX92kLjfS1sNOR13YD1fVzlsklLdTKQyYDqMxSVTuPRKkNNRLKCJYJeARq9ZyDV5lGA hDLECyFZlU4fuoIdD62hBIN5AyRZFg1clVF3+qJINk mOtCPRIqEfWqXnBpnOdsNZIcb2HriBZ2oICZsJK3P63wMFxdDWmYZMzaCZxU5LDmYLkXq0WvLHqVBpxW DY7LcgGYm0d+pW9UnsrCAPN1nRQM4BbDRXa8RHJ2Q+PimWttdhal4Crn4EIEF4dr96wdseZv2uGxftUc mdYvYXVxx4pd3ObiE+6kptr9KAtfDcUSty/T2/bOGk /0RMQ88jK26ccw/TivLPY7ewJXS5GqZ+mklz63oXJileipNtnpnK1t4UkRMh4lbof6tjuxByvVC69fv+ jQypPvnWfpREuCZ+kTDnCocazmv6QzwG7NFzGSzsVQVgrXPA93YcHYDsMQxgTYIVKQhnayJBcUXq0Kt8 TLh8AtNNJpUYj8eyxgIekdEAcC2BIabCqlKmgZ6oS9 Vb77p5IB+fQ+Uyfm0/uBsQrU1zV0Ge62v6MYPevj8PsmdUPSzTnlF2ZioJ9u+gGQj2iJHfdE92ln1DFk MqVOXFlgUyduzXg+VwZP1eYxvqM+061RR2scD/73M3Xy+q5mr0ispymGZ95ICYE00k2L5vQYyEE5jeBY e58LH9xkJz6boRrn2dy8gG+SQWy6Kt1DtzmD9/XafH AwZaU16tfwEpsixO6b4gkjkjMpwwUgTZd5D/1JMziq5GR+tNauvA70Y3ePO1y9VrkrtLGUdJ1r05XLl0 KlE1+CBHFhevASku1SxFTymOALjo5G8ZshWmTGoVCJlzdNdwHKvRTLTfRF0oARihhMJQCYxHaR+IEpxg 9MoZWNOtEUGslUSZRkkAySSTJJjMRInMRJFskiCZIg wMWjZK7EdKsfI+3HpRiW0gQQvC03VUEMKmmgnDA2S9VSbNrNdVGwb1S9iJHT+mVT6cMh+Crp45dMInrr 7NxLJF90Ts35EsoeYB1IaJo4QFzvrMSzn9QM3lOfX0oCVqxDNV+QG7scqMd5pSV25k5ZflLj+5NrM/Ld +6q4UMRlkrAAmT+8y2oYgEWu6PhsB7pJLlBdcqRrfq PMQenETNWrE/Ex3wqCA43SqTvKeZmfHGBO6sTRvxJIeGtEZCmVCwxfBVT8A6T91mosO6e6d0MNTWm94v y59pyzI82bjF1yjE1kdO4dnB2amx2956hEvBSPzJQidwH29jXF91eUXA+DxwRI36wleTdXED1dLG56bk fhduYF79pH921X506B6321oMRES1j7jvh2NAgJHCdF zwne4OPSkZRpt/i+jz5NVJjBPVcTv5DBvvfRfHyo6bYcvOERGV0hxU3j1P6A+2GawyQpA8DNIOpTQqIC gU6o0Fs7+9eAnxAoo5yxEld9jl2+qeBe8UxfL/yXfu8fAcmdEogTtZPy6DyDe5Nidv50tkFSs239E7fU BOTWM1UQ2/xE5/xE5/xE5/xE5/vEk7dN63GCT9rafc BVMVnIA1duP+cnumA+thwZlwdCisgNSoEYT1AqZY/xNNEumKvrNT+tXHq351zqKQPrH3YLn+CC8QOv+Y vHFU1f3QYjX2jollhT+QcumH/gNT/i6NQg3mMf3/EhSxBW0nLg/MRzHsUYiivmpbni/YIr3i+4ThLmQD CryJZnOT5zU69P54Uh47e5FP9655w79LEs9MLKZ623 9+5S8053FPOFn+E0rivMKAzirfnodua5uuZKHXAAPLfMVVgxiIrROWuN4gQqjyloVJA2SKbMexmQCvZ/ wCdzMJmDyRxMrF/wifUL/q7WL+DI92ls977d6nTCaQXfwzfDQ2724xBzp+VyB7XHvmpRxTe/njoxhzN8 8fxW8wRG+oH41hKzgvCEZ+bkWE+dOIucHFjGkzoxpw W59hEDZb22yiwAnv1A1G7v/fQZrdEi2HxRdYtx5AH6OvHjeySaCD1C5aydYGx+oK82teQX84mkXSbg9S qFzJvX+fLDcbt0QO584lDE3p6vzmlxHJ/VXVGDHe+L8JLY2Yit2Y890X119V7sPsBwawE36ijXnFyHrO E80OgaUKUXZu5c5Cj+7HyjdCUmhqc1owv6rhg1gss5 yVem4hEfI9r8LGfINk7V59KJxm6MwswSp9KTkKRmFrAgDf6vkCHLV3cEHAx1oCumROeTMNSRF6WOF1si 1ua2dlwCXeDjRYJQ0Zf57gphQJ1UlCPjrQUDvjCkLRJ0Go56ci7ve2+f523OkZmiB28w/MD7pyk1bVS1 wN/4tub7ncY2vm3YmngFF5Ucl95lGyTxBVkCk3ue2F kofzXSzwSB5pOn+0qdmI/y+Z6mzyuR4iEys7vedOqlvR7xu89Gva2kaouXzXOGtMj/F0Ybh5vDRERPx5 Ck1i+qs8ZNDM0c+2DerB8axC2QNN5znvGRFAJ4DamGPICj53FF21rz8KR8GrPvMJI+WQgBtIgBvGXT4W s0jUYLkc3SsZJFcAJlcjhazK9W+eYaVBk8YG/aVulE E8Q5iisJmyroeOE0V8d4xaCvAJTF9kC1u/zf/vM//tc/ucR9/AnVf/7r//health administration teacher/+F/+ef/+M9//X/++fzt 0ZWvy9X4s+47X8o2Ghz4Mlig9bVmFj2vQ8/F5ve444xrMOVzWJYJULUPPvTwNmyuefdXxbEIy4QdXG0F 5TVINvfZOJo+Lk4R0lHFZ9WGzAcH0lSYA0ZNXUJNz0 HglV5B1ysWLtcpQG4Yg06mIoJ5667/fjl1PLHim+CTMrn2/QurkdkEmczjeVTbaiqOkx5kgjGvuH4/Ph Lt31r7/gukR7YJeldtkVhUhQyE3dpbynQYSji1NVBvGpeVl4Y/Z+e5HiDvqw2EtOgVk6uoPd39Mwd1k3 OOf9ReBOhBjSa9Zq8xycheCjkLWG+8gKxL87cuBy5U SPwmrI87hrQVHneC3y5B/Rre497KdH5sJIFwlG5zjPZxEzYl+yGGN3hC+yIgObt6oiWwx9XO6S0wtkw4 VUhpUb0dyHJGZkI1DJb8+Qt7O2bFEIKHVaLeQttwVLiEx5ZGUeI9dlveX4eGUGRlDR6bYmPNKqNGepIE SYPTMeRUvMTIAgIYwsa6h+OGr8KHOVTpBo3PncW23s ALuW+RiVfbtAF440vKnhpFQ1AMAa8/rYE0MB6Cx7I0qha/8rYGuRDf8gIfSwhhjVytlQUNMU4RW4Cfd5 Bwg1WyN6Yx23wGHvs7ZL6TnJ94NAx46iLIiUiPIzS3dxnfr3yH3zkjMD13M48RZWhq+eY78s8YUuW6pI wWJA4m6UGYbCf2B8sCzoqRictWac3nVRLVi+J5shxk KL5nK0L6fO6p51u107EoJWYfDQFdQE+WJUMKJhfhu8kYoe0FiukMf1PTH3WUimXIhr5iR9DCYziRpo7K ABGPQHQVIDWEQqvjiWxYvj3pv5+rmsHfG4QGNGBmXJFGbqFHJ94XoWRZfJRrfzp8G8zobpM72Eqgpg+X YueDmeoMbaDP3X5yQfW5TNUrMi9opBmvDmq+xu2DVf IpXY7dTYqexSIGjUxMjhkQIpx5qcvYmDYp1ZggVrRVIIZXM8xb8RNVk31Sef0Nwc/LnSWs89l3j+3710 uXgIqQDputkLu61qL+ug16tsAb+/5qKYgBhKRhaWJWJerF49FCZOavl5U+GSD2cWG3PXsaJE1vyb4J7e lM8QEYSdtf8jFgXdlCZ4IyPR0X5vqBps5AvJy1404K pGa20320HF5KUzr9Qwb43zeDWNlzOpWfnQqLpvMdaD9N+xM6PvgN0kKSYFL6EJUuK45F5qLEPI9Udfs5 batKJ+ZnAkonloG+UUsnloF+HU96twjfkEFDUsVL9zBVUZZLUAQwClTJ4liw9C5VXNNHDEBYqzkXSrxm ilxGOcHEN5PVXbWBknVMMW6iweMROK91XdLPvpb1/W lmRVnJbkA6eLGdDBVRYoFZ7gZJxtcCQPBINWWiwDUgTmM2QKtBvBwFwh2/UxzDyJu6bSBVAguxfkE9Yc Cyiff3zq2StM4kkHF9V7mBt2pLaGiwGXpR3cJDO2Lwq0omyl1qTmt7EwWxhBOoM0QglBAxlfvybgKLae Jfx60tQez5CqFdrYU/BomTOMkiYb+QOvFrkGySfUmu oe5jo0QwIaOmwwaPfCbJI7FWJljQc+qVZnNzbUB15GAHy+iD6tLFJGKsJCbSDpDtuLEIr+17VcBc+14t 4csilKWrEPWT1MnvS7Q6FhsaVBUD8U5L1Od5h6HbHmKXXfifrJAZUtKN8lFDVDUPo3MDS35Bvf1xYQKu ct9XLGXDAIRV9yXLU3WZrRoO5fLKt0IGu7q7Fv7VQH q17/O5s7fvl4Vz248/CwFNlh96HD0ShDQBaHPFCi1h57m0YVuIfeuswnGyxnut0qrsy4AEp2//imMe4O MoJe3NsILhCFWefjyu4PAuSN67jzD7716/j7aFdrmugLVaG2h258/PJAlQbwOkp9OMCUbQlr/XIBESIV ES6INc+46jt2c1edvJl0768l08W+iDXPv+GIs2Va23 /jsFnA7SSZ4VM/OIS7848zwTYCz1pxxEHQxaPiTPn2TDZiPHWAQLrjqwSZoTEf6EDrjBrpyF6APn4FGo WJXpdkF1TTs6tyBSBLrt092EXqm680wfHPREXGHVNfQyjE30XxD6TU9fbxN0fAC7DjcdW5Wc+9v/LIwf 6Mm4w7Zo6QesDxDHOHeSqQGNPWe/sRNjoW2u8Qq4dk Xa97c/YlyJx196/niWWoGqfCLygYvNBtvAEcIcN9isfpLzSakAlKIg887LTDCijRjFrw6ka0tItn+vQk mdmM/Xzsz9fj7Wh5946f0mnaVv+0qAh227IpdgPkbLb4pXkoSlpTVZKVSBZFN63bhuHJFkFVQbPQGZNM SKkwxPoAJ0vJZ0GXMgqEZnlUAAUrz4RebO/dkYPxg1 kdakJAoGzywtjwq07H0oRP5SH73FQ52MXR+MH0x+qH+SRzefnhQMjYMIR27KzJH+sB83Euhy+jMfjB/M B+FI8vtFUYtlH+HyPnxmzjwF06zF73tZ96oY67hNVzqnhDODtKkmxvk12skhqnTn2zQEGNvUZSdksAZn 8vkPsdjzsO85+s296e1x8UtkvsbBB3qNNV264werh2 MjjKU0wIPcRrMKJYqGteAwMVGXg6HhXVzbOPLFUtKCduBpPFhXAWUFT6CRN7N532v2/tafgXHlOTCuPA fevc+RbpO5Go40ealdQ4vFZ2BD6G3mImR7RDUFhOGiHHthakBvaJxrNKr9TUkxXd+PMSj5zzNEljU/7V uufa/+J9e+VzOYa9+r/3d484Yv0kl61i3q8ifwvU82 KuKBVmZBfmXARDHLYqWHvlf0LGK9ClMbozivQOp+bpt8ScK6oXBb8jL5rAfz76be2Yn53e489l4xSJFr 972N1EtrHE6nPkYwqICrHrxpORcZtmTeJCrcix80Mvw1nXZEqOhVfJ/Im5Y6rxSMcIELttEVWOztCc1M XBg/zYreD7Ka/HWgEnCy75qbyGlseCSVwEnQsHisPG GqduA1HgEFJQfgMMKJkFhC6g4x2cxdjchVuQwPW4/Wqq0yMhYbkVriQVtdNCq2V7ndW7nWEMHCSc7I97 gduzYqnJkG5X4OAgf61YoX9FWqqEtIXp7z4yg50XszUkh+Dbs/S52Yj/+59v1Z+164v3rGg1RwjZr16e 7sEno5Sv00oa9542x9mq6UKog+QZwilZ51+b901g7u 5HvnyffOk++dje+dc+77yBfMzy9xJy9ID+p77x35m6X7TkvjhWvx9DyL7rDEcjeEGWSFxJoCt7HMnh2g 0vbNWR9NFNHIRHSeUTqGDY9wjlpOgExZwjmZSPKuYfODSC2R2EHuWuNSSjXPZfrC1/xE4/nA34dfDXqj YZ2TpIiF+RlHwTciLrVFbq7xNjkq6WQ7ffoHWDSsjO Nqk2e24huoIiZTFQjilEBaxzqbfmm1mpGcp5QhwHRioZEdkqxw0kh49DIQonrfmTHqMPbVg9rXs1XN/M UokZv6sUAx9senvh+hGzOKpj39uBi46s1z+XLee6Tfkmk6niCj7faLQYKjvOPxLPHSDEUfeXE8OZtz3l /sTlLF9dHDO7aSYSagcMdejpsmdP9ejctoxJkw43cr 2El22f46y6kU5qubImlRBJlIUxYvEQLSzmg0RmjhoCBTMOLCJ2uXHAnwcGBvqTxCtrL5hbOen+BsD6gT 0S7SINEvemYIgPkEqK4tqD4mpnLqj5fwkk+GZGuXOZX011rx8r9THeFfWwMiBxRETdiohMYUEqNBmwzo 9bEoM7v0MSxvK/tK452nFi60uoCQHGq9BaRqBCzMlj 4x2DcG+8ZXJ+hM5GROscucP8J3Ibruy91g0WxU+3Gs8vaMJ7m4GINgkSfFGO3byFKFZKrpCLBIufhWfX zoaTHZP5Z+isMk2tq4g6LzM3k01GnXNz8f5cb5PKOYBBEn+INxJH+gD/mAWJlY4reqAC6uZHOyK0Y7JW 0vA00pSQWOqSoStpT64u+G4SwPlegulC1d22mqJ245 84EUc75d3xPgIz/G6cU5uhrJV2j8JTOXrwRQ5pWhUzE+IQnWL+Nd1hdfbeGw4Mxn4xluwjPdm5Blgxg2 awRJkGwSzD/Ite/IyYkB34r3iRDbcWAR2/zEJOPqHVdoJC+dmHeudOJIgnlp/h3aWHHfQGwRiPTghaz8 18s32zE/kQgSatWl60pfGv0Gctn07b8xFMLjPHenFL NkkEySbA+KVLe888jppZWzSOGVRXhf4q33jwRbAQxZM8jb78wo/QnQr419jgtYsiwTHSh7eosrPsEZeF HEYjCK629ceFC1tWjMelKtXGqSNHF7R04imYBgSoniKbX7rEg7wl/Ver4s8DJTyDdwtHrhlurnpnv6ac nLA+T8cqki9a5cmP+nwCSMbc07NMzChr5/7Zjm8AJk 0qBZVdMcPtqUiixZh9VNEbOyJSd+VHQUqjOX8deB5e075F/7uRalyaqMGiAK2599/ibRMQ/YtP2MJusv ufqQmc38ZKriH2R9lkkVcZViBhYo7nWHVO2c8XhTwfuHoG3r9URXxhkIknKSaHHJrxDTkhWBnnAQpjJY qoHWqtCGgrTSbeHHigOYqmECjbTBiCcCtJAoMnK9I7 GD+nRNR8yEtMmAiUFuHbDlJp4Wi2BSmxlI4sWRlAuh0XgtbuQEcxDx2trrhv313mM3dzknoqK8lnF9Dh neM/nG/APfmH+Qa9+vQWIkRkKNVOtYstfcWL/jHL1LSU1TP2ry4cAKE++XeFD9voYrqs6X3dAmK+sXFt 04p7TUkqPz8guaZ+YydLxnWg/OT0dPelkT4fGm++Ad H000S88Nu38DpURn0yiPlHMw0hgkf48knQTCbmkkwEfwrpCNAyPg+Azt10lBmOwco4Num2QSpb70tfXS vj++kmS/UAbmH+Ta9+1MaBbqihk3ze3nSnb7xSFd11YzpsriJbcrL8VTb5sXEhrr3Kvn4hQGMZ5g9Giq dKKXYTCqHOSy+oiPPHhSM4UXXwzMIOp0aap0Ax5qlS UnSdadxkv72j2/quJZ+h9r4o1eMBf06dqQ/jdXvt/o27kkcXb9Mp/Ar/Ar/AP+Af+Efx7/SR74xyxwM7 7/5GrqzvKi9C/n7rtw/AUuQz0y/H7f4+jzYBt+gV/gV/gV/gH/gH/Dm6sV6vOqhhuOs+J9t+E/8Xr+/s Xnpay5wIq4/tBlAhM66y64n8h98I+eA/8poa8rw5sP v8B/0k868N2/aAnbieteDz9L/n+PY+f4+CfPnYyU45kt33aYhowcig6v/Sj/uw1/bV16414OMwa045dd 5h0DiaMEF0x2npyxT23Sv20klZkq207AsfQ5yU6vdhLWnL3qfmKYq/7+3N93G/6AP+Df8J/8h0qG6HXt dxt+gV/gV/hTsZn368674lh8O/5Ly2Sd6R37hbQ8jM w0hUR1Z++7DX/AH/Bv+Pf1+/Xs796hjqaX71NdwdRu921II/gH/BP+efPvuL+O++t+2xnP+pv+deuLr1 dTHL483Yi4oMd7qD/ywhJdaR8dpvO8Mm3VCS+ba8/9XUb+ulke9qtz1ad2/DMgIdtzS2q7mcgGeicqnL etE//Le2UGu4k5a8p/tPrX/7r62VHpv2dptw82oy4G /8T7ufn/5nLz7/N36tN0tnhjgto3yKZblGAiBhH3AaA+UejnceDfXGh+ngb+zXXmb+mqpk68j/2sMv9T /7P6vYsgB2r6FsO51M1y+lj9J1ykIEQmw952hoV/lm2qMNd91JzOldO90WV/tNEfbfRHG/3RRn+00R9t 9Ecb/eAQp9Hj/CjPG+E0rwllc+3bRv+7F/bS1lEUw+ G/1K637HoocuHm7Zx7Qj6E/4B/wn/b57Ny/G7D7/A7/Av+heMHjh/wb/gRryBeQbyCeAXxCuIVxCuIVx KnLS4V9Xu26u2VfEFZmqQ/4F/wB/wB/4Z/X3/pq9qGX+AX+BV+xXr4cxADXl9uqbrQW0VzLJ/bs1iRnc jjski3D/6AP+Df8N/+77uSu5mvL19NyEnyXJ9R4zR+ Af/E8SeOb/Ab/Gn1NH8CxTbeXrw/A/a74Z9V4I+J+vsKkgbG42S7oddLH/i68r1L9F+J+wtkn7RwCOdF S1je2DYER+lE/W3ltmS0V/pKJ+J6kIj9weTRJn7iek/z06ssJhHGOu+r1i5c8l/h/hrur+H+vr6f7mlk x5Ia7Ta0L/59/pfu7h95CA8QG/JSI8joXAlyw+P+Ou 3i9ARGD4b2/A7/gh/313F/TadE9B345goR8mvkQN+T94ZwuSYcC3ahKsqhdQjk6nB8S7jgmvYpjKrzfR fR6onNVv/K33U8g6QhP1lzhVpJ3c1NM8v2EO4z2gV1wJvGS8N/mfrK0n/y1xTfLctw0mshbEDbv06S3P CBcv9Iz7J/HmwfnZy/yeff9O+hfh5axe27/AK/wK/w a17LbTfxrd1zgwBF2Mn81iZD9+pDkq56oy7p/Ptu4/wW74ze78q+t974hmJplNwGJlzkkbZKyh/O9nju 51ULgCRHedUn85R9dqrZ/T33YqS+BneqlI83v+Gf8N/6K9IiggKr07sw/R2Pw7/gX/AH/AH/hv/W3wF9 SpRpVnEQdF2b2QgM+qfAKs0zhsO3GyHqIuTHpSsZkU sOpCqJMPOvpJmUviOfGrrPslkKziaTgoeIbzyNwofLqikUOwP6jxQ+ynunuL+he5R6UDFKklRIbqhgEA if6j7os/e5vpqZQl179zk51x/0B/kzjI8tOtM8ePnbV/rqLJ8+73r+qxORzpK2Q4/OFlWue2dd6cBDrd x50Yzv03XL2lK9y2pa3ifgiF4Xf/X78/xb1/CJt/5a 99FX+BGmi4B045t6j6HwxvE5BFnlte3rGyAwdXfdWFlv7vR4k57476PCYs1ghvM5NR5HPczLTO79/s0/ AP9rq5LGWTbgfs6iT7q6bjFHMl3xrdV3QrYgPpfvvdpYApE8Lac5bnyyunj9W/47HjsmyrOhPBvKc+qr /P6i4xjto/x5mMI/4B/wT/fdyrkg7yiKWW3F2+Ff8C /4A/8Oh558RfJXkxtyy85u+NE+R3no5Sxq7flvQZ6MG9qqd7gx8M/4DX6D3+F3+Bf8C/6AP+BHvKmvcj x43zgTr0KCaSBeXd4OzQIhJ/4B/8y9YH0O9hr/ad71tte52+t978CwIa5pWw9xq3pg/wmQ3DuurGW839 kw528XA+YQ751PVvy+6oGzqvluwz/hn/Ab/FdvnPXM b/scftvbWA+62i9tzT+1b+A4G/59/dtf8v322T3W8wkyGikJL/CB2Gv8A01UdHz2jaVIOw8yktf9G/51 71eOX+W53GqDnv6ipbxfjgS0AGob5Bz03rVmP/FKxFt8ehvD29ro+Qz4J/y3PM/jvog2HAlAr9W/4F/w B/wB/8Z5b/87U1+92/AL/AK/kx33XrKF7tHDByV+xC j4cThy85leCa+Tl9Sl2Lf4K/6kCd469sOYD14ZL99q/Qv08Z2AF/V5shJhk57isbxpmYgpgjF4Y5R/Ff e33g+npHI73agWK+2f0RIkxA1Q56kn/w8G10EoNG4Gi2cXE+Cf8E/4DX6D3+F3+G/5NKokz2Nk97PP70 e1veG/71Mm3g+mZydGuyyNswZ1cJAT8U5p6mFOFm4z xdVmntXFd/ure8/d2bhKb3Vn8Sx2Ph+C/4OXS3391tXQBgkr7gPx0h/0fo0g7IYw86QRAalWQ++2ftvz h0F3wdgPI6Wxx17fn4luaorlQ/jt5j/0Lf073Ek1V+0+552VjFt2Q0u6JsOAb66hkferpYWxl7fo2Lw9 ddRfR/31Af+Af8I/6Je0WD9H5+Ff8C/4A/6Af8O/r3 /d+Ruz3g+m/+rnmfqqthX++mg7GF12GZ55PS78ZN13k2Ll5Nk8Xf+Zo6DwqL41vFKM2sgY/yb0FG6y1e e64uqkowMJL/2nPL/iL27pQQ719E2p36f/qa/qXFc/zxy/klr6+6znn6WiV7mmH0j/4xKLXT3+elcUf+ QkTyxDQjEQ0N95jl2YnhOba/J3fn/1xQkvA51l9x3x p2mP3zUzFi0nG/dye6BE1j+xZoWEE8X8SL1Vl+2PvqpV/EdfvSuFP/N92zJee0rjL7w6B3/aj2up8gja u39ZT4ALs/v68h6r5Dv5aPq+OtuW+urdhv/WX5Fv9p15tl030s4z3MD2W4oD/BP+Cb/Bb/Df/tegrwz6 vd1T0xfAD/Bv+O/jlDk4ZvC5tzZg8h1KdKKjMi/iOA PHGfBP+LBmRH6pT4X+Kghwe02l6ZnBwnPtQ0U+DfD9vpq2jK/jEcMMmRl4v7v1mv0R+dhD0XrqKiVafU s7hhbdpxj7x15rH4wZe9sgJk/HVtVH65Y9Y+AX+K9+lmX4seTELy0s5OeCoHNXRwV3FjQFQbxXN4lrX4 xReR8PM+8txC4gVbd8e7b4D/mQvyRsy6hTrgtcpeq4 A/4J/4Vg8Mi9GjqVmCA1wsVrcvXLhAW/w4/ybLi/hvprKM+J2oygd5iswYjahF26QHf5wxDjFU5ide+y zuP0p9UZB0A/jteZLfgD/oB/w4/22dE+O9pnF/jv+BD6OP93Z/gH/AP+Cf+E3+C/78vM7/syc4d/wb9w uWYoOm8Z/x1nkCGjw6x60dzwVqoEo2Pi0L/4B/z3/a +tO7/P4l8zM9iwo/gd/oXjLBw/mZ1Nv0F/7y6d6TDTp/tBw/tBw/tBw/tBw/tBw/tBw/tBw/tBw/tBiz s/2vFkMij9c4H+QLFcmeGbx163JQg7/Fc/291II3Sz+AV+5O8NvtDTciPwhaj9U/wTftTfjXhr/lXk9q 6vyK3coM0uM+AP+Df8t/469JVDX/zo3Wd4Rn/CP+C/ 4+3U64PLdbPOKv570yAX/tz22Z/0HQkZyr479i9o+3Of9/3Z8N/n/rRryk2Ua5NH3mEsYotburz245fH vdvwD/gH/BP+Cb/Bb/A7/A7/gn/CQ7wYC2/KTtWlyqq92F2/EbGRfVK069Bjl7wT2t9jvTpryzS+Yv6V Y/6VY/6Vq8F/22fH/CvH/CvH/CvH/UqY7300Ln9l4t /tlY/jIqt16Sf34/wcH3c+sA+Ff8A/4J/w3/bRt75gmLi8Sy/Dv+Ka2Ec2Nk75w5Psx9m9+uBjbxv7HU Josie/GJeCfinYrfD/x+wD/yD6mPdPe8bB/zaa560LZlxhubCg18Qq/wnadw629o1Kfpm+2F0R47Rhn4qs M7jy47mbQq4J43cE88w0Rwe6fyOvrAR0Z1sl1/z7rV eqY+P/5u3VkuI3fpq8+w+UBQi1EH7r4/l59+8xAo670+VsM2YUEyTa9PL6Lw4nugAvI/0IG3vls7n878 vO9/b8REscQ9gw+9r9ccn2GijOeSfB2YPVkx9Okb+fSr2QUedT027A1fk69EwpiX5f/xjfTn/Of03/health administration teacher 7ijPjvrrqL/EPb406zJFpdjJlwfBrxzVhqpLewnMdo Erx/Francis/aSMJ5zGW8bfP/9sbJAjM885Jf/mvfvZfecdIW1hOlx2oH5dg9e+mfmpck4fcXwDUpGsd7s+s wY2KwdIbBjoI/j9ILsNWpIrQBhKwOIhBo99N968X248L046I722S821F969G688O622C393m3yle6kmE 739dnV1qlntw6rkrejD7ptfSs1M/81s9K2a/7keh74 Bf7bPq/nPi+p6h7eoFxBR+Cf8E/0NT3M7W//ar1Hs1D/4L0bC6X1Bf/tf5fc/nfJA7/AL/VfXpH3floS 2zwwb9ep+vPIJZ0J5500Rrk/tTD/amH+3sS1l1U4BbtiavdjIm2Lx0uNb8Iw/2ph/tXC/KuF+OrN120F 2HTKdahFDhf0ckdIh5x5abkQbq7depfKhd/Qo1l8wh 95nL/t/N8+ht0/9Hy+87ZPSwFyGshwfzXgSDFnYCbNEiiWF8XEw7w4LvxINXnhVU2jixDCx3ygGXQoQq dIBVzAuHOJWfEymNZBACdloBcEWv2CKcZIcGbnlrZQoUTHCGUwzusQfItDltsSNUTvDdQSSdg/Dw0SIW ZVrBvwakLfMFJKZ2p6qNaFoJQtHhc6lPGCTgxqvjDh OXDmwDMH+YuTPPXLahnxFeZVd6cJnbRXsy7+MC7mZTs/BvvKHLwGySSZJEZiJJmD/ZLzW8HCs8F5SJ54 NjIOa1GAoxco6nez6AX6nGh2VERWTBEg/ormHTnVHuTgZLj3DA2LZ7LXyTIckS10ZMxKsXG/Nz5OmEs8 wY1UlK7N4WBcMHPSCTDcmOsPuZvs8Vz/nKt4t7OuQk sQZwWN9wjYZSz323VPvpLzCZgZZHzIjegi63lhJ4pQKK2RFN9OgctPkhxXXopcBZWjk0PrIgt8XvitBP IhURIlGSSZg/MFdlgeU45FDtKAk6TUfEb3HtR4WgtjGktIiU1m4ADcMD2vHNIRQ1jqTN88PbJ6Bockdm ZdmfuFMp5uwkfk0ozohEc1qEyjqt/HbIqnIWiCw6z9 [file] [id number]= ID Date Data Source [id number] 01/20/2021 07:05:26 AM EDT [facility] XR CHEST FRONTAL ONLY [id number] RESULTI nterpreted by:Luis Angel Diaz III, MDPROCEDURE INFORMATION: Exam: XR Chest Exam date and time: 01/20/2021 6:27 AM Age: 50 years old Clinical indication: Other: Evaluate ngt placement; Additional info: Eval ngt placement TECHNIQUE: Imaging protocol: XR of the chest. Views: 1 view. Total images: 2 COMPARISON: CT ABD PELVIS W/ IV ONLY 01/19/2021 9:18 AM FINDINGS: Tubes, catheters and devices: Enteric tube is seen with the tip in the body of the stomach. Lungs: Streaky upper lobe and bibasilar atelectasis or scar. Pleural spaces: Unremarkable. No pleural effusion. No pneumothorax. Heart/Mediastinum: Unremarkable. No cardiomegaly. Diaphragm: There is nonspecific elevation of the left hemidiaphragm. Bones/joints: Osseous structures are unchanged from the prior exam. IMPRESSION: 1. Streaky upper lobe and bibasilar atelectasis or scar. 2. Enteric tube is seen with the tip in the body of the stomach. THIS DOCUMENT HAS BEEN ELECTRONICALLY SIGNED BY LUIS ANGEL DIAZ MDThis document has been electronically signed by Luis Angel Diaz III, MD on 01/20/2021 7:05 AM Name Value Range Interpretation Code Description Data Esmer rce(s) Supporting Document(s) ID Date Data Source [id number] 01/20/2021 04:47:44 AM [facility] Name Value Range Interpretation Code Description Data Esmer rce(s) Supporting Document(s) Leukocytes [#/volume] in Blood by Automated count 21.1 10*3/uL 4-10 H [facility] Erythrocytes [#/volume] in Blood by Automated count 4.17 10*6/uL 4.1- 5.3 [facility] Hemoglobin [Mass/volume] in Blood 12.8 g/dL 11.5-15.5 [facility] Hematocrit [Volume Fraction] of Blood by Automated count 38.4 % 3 6-45 [facility] Erythrocyte mean corpuscular volume [Entitic volume] by Auto mated count 92.0 fL 80-96 [facility] Erythrocyte mean corpuscular hemoglobin [Entitic mass] by Automated count 30.8 pg 27-33 [facility] Erythrocyte mean corpuscular hemoglobin concentration [Mass/volume] by Automated count 33.5 g/dL 32.0-36.0 [facility] distribution width [Ratio] by Automated count 14.2 % 11.5-14.5 [facility] Platelets [#/volume] in Blood by Automated count 226 10*3/uL 150-400 [facility] Differential cell count method - Blood [facility] Neutrophils/100 leukocytes in Blood by Automated count 93 % [facility] Lymphocytes/100 leukocytes in Blood by Automated count 3 % [facility] Monocytes/100 leukocytes in Blood by Automated count 4 % [facility] Eosinophils/100 leukocytes in Blood by Automated count 0 % [facility] Basophils/100 leukocytes in Blood by Automated count 0 % [facility] Neutrophils [#/volume] in Blood by Automated count 19.63 10*3/uL 1.8- 7.0 H [facility] Lymphocytes [#/volume] in Blood by Automated count 0.63 10*3/uL 1.2-4 .0 L [facility] Monocytes [#/volume] in Blood by Automated count 0.80 10*3/uL 0-0.8 [facility] Eosinophils [#/volume] in Blood by Automated count 0.00 10*3/uL 0-0.5 [facility] Basophils [#/volume] in Blood by Automated count 0.01 10*3/uL 0-0.2 [facility] Nucleated erythrocytes/100 leukocytes [Ratio] in Blood by Automated count 0 /100{WBCs} 0-0 [facility] ID Date Data Source [id number] 01/20/2021 05:03:54 AM EDT [facility] Name Value Range Interpretation Code Description Data Esmer rce(s) Supporting Document(s) Bicarbonate [Moles/volume] in Serum 26 mmol/L 22-29 [facility] Chloride [Moles/volume] in Serum or Plasma 104 mmol/L 98-107 [facility] Creatinine [Mass/volume] in Serum or Plasma 0.64 mg/dL 0.50-0.90 [facility] Glucose [Mass/volume] in Serum or Plasma 136 mg/dL 70-140 [facility] Potassium [Moles/volume] in Serum or Plasma 4.3 mmol/L 3.4-5.1 [facility] Sodium [Moles/volume] in Serum or Plasma 138 mmol/L 136-145 [facility] Urea nitrogen [Mass/volume] in Serum or Plasma 20 mg/dL 6-20 [facility] Anion gap 3 in Serum or Plasma 8 mmol/L 8-15 [facility] Osmolality of Serum or Plasma by calculation 291 mosm/kg 275-300 [facility] Creatinine/Urea nitrogen [Mass Ratio] in Serum or Plasma 30 [facility] Calcium [Mass/volume] in Serum or Plasma 8.5 mg/dL 8.6-10.0 L [facility] Glomerular filtration rate/1.73 sq M pre dicted among non-blacks [Volume Rate/Area] in Serum or Plasma by Creatinine-based formula (MDRD) >6 0 [facility] Glomerular filtration rate/1.73 sq M pre dicted among blacks [Volume Rate/Area] in Serum or Plasma by Creatinine-based formula (MDRD) >60 [facility] ID Date Data Source [id number] 01/20/2021 05:03:54 AM EDT [facility] Name Value Range Interpretation Code Description Data Esmer rce(s) Supporting Document(s) Magnesium [Mass/volume] in Serum or Plasma 1.8 mg/dL 1.6-2.6 [facility] ID Date Data Source [id number] 01/20/2021 12:23:00 AM EDT [facility] Name Value Range Interpretation Code Description Data Esmer rce(s) Supporting Document(s) Glucose [Mass/volume] in Capillary blood by Glucometer 149 mg/dL 70- 140 H [facility] ID Date Data Source [id number] 01/19/2021 11:07:20 PM EDT [facility] Name Value Range Interpretation Code Description Data Esmer rce(s) Supporting Document(s) ED Provider Note [facility] UVIERp0aBaANYoCb37/YEYgfOYRid4EtVJlyBWk7NTldWMWjA1AhRAG3lZ9gGKR0MKyBZxVdSePpPWO1 lbm [file] mMQbLAu7Z65vvCJiAXhlYE4KEUT+Yessenia+Rr5HZMRmAVUnIBUtEaOaUECQJlJoX8IoA8FSv3PqV4XaUT12 gGzemgEbASpqZU8GFG9hGSCdLXXGKG5MqSXdiY4vwkHuKGOhNHFJJuClM62kuTMzTDLzRNN1BZTdJi4G IFEjN1RprtSoyTmfxnAmMMNfKOLRYY1RFVubgtXltH WomFtuTZ70oTgbSF6YRw1CAqQfJZ3hxu6StSYvEs2FKPS1Ok5HUOBlLKUkSJPzHSS8RYItQmEwALuoEQ NzIIWlJOM1XMBzRUJzFT8QBaDmNTUuMsN1PxXiPSSdBFXctv3HEFXsSFImUqJbBoEpOZHpNJZjBSdoER DaEINjFFA0OLUuNSQrAH5WMhBlSBOdHQPhTgVyOKFw WONwmb0IRYTuOLQnWiP8ApYyYGAbYWUwBZpgZPPpCVS5LrV0FMCfVYAzOE4VTeInSULiQEF6TJDeQYEn ECAncu4NHGQgRLQaNDR4NfHzSCAtUBNlHGpmZNWjJMC1Mva5STJkGOYrZM2IRwVtOXFqMVLhBAXxTXXk LPLhak3GFZAvSZDxIiWnTRVdMJPaXVJuYWtlKHUyMF Y1USJ8RVIySFMxCB0ANmEpSJWdYXA5CDSyFCPuBDIkyc0PBASlRNVhOvv7QmDpHOXrWUBoGXxaJHLzKY D4NNY7JEZqSHMyOA1RCgAnPZRzRVc9TDydJNXlNSUqwe4SASQbLEFsKHTkWfNdUUKvHGRnTFqiJQFjZR M5Pty4NBVnNOXzOU2GVzGxACZmKKczCPzmEIDuIEZw aq5JMWKsABTzFHK7COYhFJWzUFDnFVqpWPBeCEK3PmJ3DPJbAMNgXA8KEySlGJVyHhL1TZpxPPAiQIVg qe2ZSFXwAGKgWZm5ZWAvNVCvFPNoINmxTMLyFCUaPQj2WXAcOAUqLH0AEyGdJDUzKxM2VSayFQVwURYn xc8OFPEvSVHvXrklFxApQLKnLBTgUBnqUXZjRRRjMU YnVZJcMLKtML5OGcVhZHDeBjUfWXJkXFBqBFHsrs3GQCXkUNPsRySkCYSyUFJqILDvSFxrWFNyOHV2Mj cuVOHgRJTjCQ5DTzTwVYUlViW5ZiIhUNOtHTYvdb2ECZYbGCVmBNA0NZTlBHGgRMAgYJfqIKMcWTT1XY iaGEAmGCHyLV6HSrKrJXNxAxK9SQDzBUApQUYsnb1F YKKnFCGzUdNqLgYiNUKaVUTtSFoiFGZvHSS7Xxm6RKEmENIeYI8BXmRoGIKyTxR3ZBIpYGNaHTMocp3W EONiMGZhUdP8YYUvUEFbTSMnATdiYLAoXWG1FwW7ESNkWASyKD1UYsJoWWSpIzn5VhqcTSMgVYMmgx7Y FTUpLDWxBxeeGVEkJFTlDGCfJEvpUBPfHTB7ZYknJE QkAKGpMA8MSfQhOVSnZytxZoTuDZXdHAFpph6GSTYzIFGzNBB7MPEiPVDjRSZkXRjhKQVaUVU5GUV3JV CeMVXfQA0ENjEhIPjhPAPPQao5ONxmL5j7XIU0Ea0LL1Vad2GcQUXoKOYBCKigUS5lggGgKZMnQa8NH6 qZYbslIwvpLET6TYH9HZS1JJFmCQX0GZL9SYQ0KfCg GsO7Fk1kTHLnWBSvYkJpXNj1DAi7VyB5ZwPdHvjaQsofXfB8HgVxIjXwHS2XBi8DBtJ8TDY3wMTlXw7V Lza7KNlAVnTcWZ5PRRw= ID Date Data Source [id number] 01/19/2021 03:40:30 PM EDT [facility] Name Value Range Interpretation Code Description Data Esmer rce(s) Supporting Document(s) Lactate [Moles/volume] in Serum or Plasma 1.6 mmol/l 0.5-2.2 [facility] ID Date Data Source [id number] 01/19/2021 03:10:08 PM EDT [facility] Name Value Range Interpretation Code Description Data Esmer rce(s) Supporting Document(s) pH of Venous blood 7.36 7.36-7.41 [facility] Carbon dioxide [Partial pressure] in Venous blood 54 mmHg 40-45 H [facility] Oxygen [Partial pressure] in Venous blood [facility] Base excess standard in Venous blood by calculation 3 mmol/L [facility] Oxygen saturation Calculated from oxygen partial pressure in Venous blood 60-85 [facility] Lactate [Moles/volume] in Venous blood 1.3 mmol/L 0.5-2.2 [facility] Bicarbonate [Moles/volume] in Venous blood 32 mmol/L [facility] ID Date Data Source [id number] 01/19/2021 07:50:00 AM EDT [facility] 1 OrderSheet [facility] Emergency Department [address] [place] [address] Phone #: ext- [phone] 01/19/2021 07:43 Patient: INDRA BURCIAGA Sex: F : 1970 Age: 50yWEIGHT:126.0 kg (S) HEIGHT:69 inches (S) BMI:41.0ALLERGIES: Morphine and RelatedCHIEF COMPLAINT: abdominal painDIAGNOSIS: Perforation of intestineLAB ORDERSOrder Description Priority Entered Acknowledged InitialedCMP STAT 08:38 01/19/2021 08:42 Kolby Gamble ; Dylan KAHNCBC w Diff STAT 08:38 01/19/2021 08:42 Kolby Gamble ; Dylan RNLipase STAT 08:38 01/19/2021 08:42 Kolby Gamble ; Dylan RNLactic Acid STAT 09:40 01/19/2021 09:41 Kolby Gamble ; Dylan KAHNCOVID-19 CAH (Not STAT 09:40 01/19/2021 09:55 PeterSymptomatic as Kolby Gage ; Dylan RNDefined by [facility])(01/19/2021) (NotFirst Test) (NotHospitalized) (Not) (NotResident inCongregate CareSetting) (NotEmployed inHealthcare Setting)DIAGNOSTIC STUDY ORDERSOrder Description Priority Entered Acknowledged InitialedCT Abd PEL W/ IV STAT 08:38 01/19/2021 08:42 PeterContrast Only Kolby Gage ; Dylan RN(Oxygen?(No))(IV?(Yes)) NOTES: sp knee surgery Reason for Study: Abdominal Distention, Abdominal PainMEDICATION/IV /DRIP/FLUID ORDERS 2 OrderSheet [facility] Emergency Department [address] [place] [address] Phone #: ext- [phone] 01/19/2021 07:43 Patient: INDRA BURCIAGA Sex: F : 1970 Age: 50yOrder Description Priority Entered Acknowledged InitialedToradol IVP 30 mg 08:38 01/19/2021 08:45 Kody(NOW x1) Kolby Gage ; Dylan RNNS IV 75 mL/hr: : 09:40 01/19/2021 09:47 Vxjks711 mL/hr (NOW Kolby Gage ; Dylan RNx1)Zosyn- IVPB 3.375 09:40 01/19/2021 09:48 Kodygm (in 50 mL D5W, Kolby Gage ; Dylan RNX1)fentaNYL IVP 50 10:46 01/19/2021 10:49 Kodymcg (HIGH ALERT Kolby Gage ; Dylan RNMEDICATION)GENERAL ORDERSOrder Description Priority Entered Acknowledged Initialed[Electronically signed by Kody Richardson RN (10:57 01/19/2021)][Electronically signed by Kolby Gage (13:52 01/19/2021)][Electronically locked by Kody Richardson RN (10:57 01/19/2021)] Name Value Range Interpretation Code Description Data Esmer rce(s) Supporting Document(s) ID Date Data Source [id number] 01/19/2021 07:50:00 AM EDT [facility] 1 Medication Reconciliation Report [facility] Emergency Department [address] [place] [address] Phone #: ext- [phone] 01/19/2021 07:43 Patient: INDRA BURCIAGA Sex: F : 1970 Age: 50yWeight: 126.0 kgHeight/Length: 69 in.BMI: 41.0ALLERGIES: Morphine and RelatedThe patient's Home Medications are listed below:THE FOLLOWING MEDICATIONS NEED TO BE RECONCILED: Aspirin 81 Oral (81 mg) 1 tablet, 2x a day oxyCODONE HCl Oral (5 mg) 1 tablet, q4h, prn Vitamin D Oral, medina lyThe source(s) of the original Home Medication information:Not obtained.The following Medications were given to the patient in the Emergency Department:Toradol [IVP] IVP 30 mg, administered: 08:45 01/19/2021NS [IV] IV Fluids bolus 0, then 125 mL/hr, administered: 09:47 01/19/2021Zosyn [IVPB] IVPB bolus 0, then 3.375 gm 100 mL/hr, administered: 09:48 01/19/2021Fentanyl [IVP] IVP 50 mcg, administered: 10:49 01/19/2021The following Medications were prescribed to the patient:None. Name Value Range Interpretation Code Description Data Esmer rce(s) Supporting Document(s) ID Date Data Source [id number] 01/19/2021 07:50:00 AM EDT [facility] 1 Medication Administration Record [facility] Emergency Department [address] [place] [address] Phone #: ext- [phone] 01/19/2021 07:43 Patient: INDRA BURCIAGA Sex: F : 1970 Age: 50yWeight: 126.0 kgHeight/Length: 69 inBMI: 41ALLERGIES: Morphine and Related Date/Time Medication Administered Medication OrderedGiven TORADOL [IVP] (KETOROLAC Toradol IVP 30 mg (NOW x1)08:45 01/19/2021 TROMETHAMINE)Kody Richardson RN Dose: 30 mg IVP Site: #1 right ACStart NS [IV] NS IV 75 mL/hr: : 125 mL/hr (NOW09:47 01/19/2021 Dose: IV Fluids x1)Kody Richardson RN Rate: 125 mL/hr over 8 hour(s)---- Dispensed: 1000 mL bagStop Site: #1 right AC10:55 1Peter Vamsi Richardson ZOSYN [IVPB] (PIPERACILLIN Zosyn- IVPB 3.375 gm (in 50 mL09:48 01/19/2021 SOD-TAZOBACTAM SO) D5W, X1)Kody Richardson RN Dose: 3.375 gm IVPB---- Rate: 100 mL/hr over 30 minute(s)Stop Dispensed: 50 mL bag10:46 01/19/2021 Site: #1 right ACPeter FEMI RichardsonGiheidi FENTANYL [IVP] fentaNYL IVP 50 mcg (HIGH10:49 01/19/2021 Dose: 50 mcg IVP ALERT MEDICATION)Kody Richardson RN Site: #1 right AC Name Value Range Interpretation Code Description Data Esmer rce(s) Supporting Document(s) ID Date Data Source [id number] 01/19/2021 07:50:00 AM EDT [facility] 1 General Instructions [facility] Emergency Department [address] [place] [address] Phone #: ext- [phone] 01/19/2021 07:43 Patient: INDRA BURCIAGA Sex: F : 1970 Age: 50yNontraumatic bowel perforation.(Electronically signed by Kolby Gage 01/19/2021 13:52) Name Value Range Interpretation Code Description Data Esmer rce(s) Supporting Document(s) ID Date Data Source [id number] 01/19/2021 07:50:00 AM EDT [facility] 1 Clinical Report - Nurses [facility] Emergency Department [address] [place] [address] Phone #: ext- [phone] 01/19/2021 07:43 Patient: INDRA BURCIAGA Sex: F : 1970 Age: 50yTRIAGEArrived by EMS. Historian: patient.Acuity: LEVEL 3.Chief Complaint: ABDOMINAL PAIN.This started yesterday. 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 See report. Finger stick glucose performed(108).SEPSIS SCREEN: SIRS SCREEN NEGATIVE. SEPSIS SCREEN NEGATIVE. No suspected or confirmedsigns of infection present.ESTEPHANIE COMA SCORE: 15- eyes open- spontaneous (4); best verbal response- oriented (5); bestmotor response- obeys commands (6). --07:58 01/19/21 Kody Richardson RN07:49 01/19/21. BP: 128/84. MAP: 98. HR: 88. RR: 18. O2 saturation: 99%. Temp: 96.9 F. Pain level now:01/05. --07:58 01/19/21 Kody Richardson RN.Weight: 126 kg stated. Height/Length: 69 inches Per Patient. BMI: 41. --07:48 01/19/21 Kody Richardson RN.MedicationsoxyCODONE HCl Oral (Tablet 5 mg) 1 tablet, q4h as needed. --07:57 01/19/21 Kody Richardson RN Aspirin 81 Oral (Tablet Chewable 81 mg) 1 tablet, 2x a day. --07:58 01/19/21 Kody Richardson RN Vitamin D Oral, daily. --07:58 01/19/21 Kody Richardson RN.AllergiesMorphine and Related. --07:56 01/19/21 Kody Richardson RN.PROBLEMS:no known problems.ADDITIONAL SURGERIES:.Gastric Resection. 2 Clinical Report - Nurses [facility] Emergency Department [address] [place] [address] Phone #: ext- [phone] 01/19/2021 07:43 Patient: INDRA BURCIAGA Sex: F : 1970 Age: 50y Hernia Repair. Knee Surgery. Pilonial cyst. --07:58 01/19/21 Kody Richardson RN. History PAST MEDICAL HX: Immunizations: up-to-date. The patient is post- menopausal. SOCIAL HX: Former smoker, end date 11/2020. Occasional alcohol use. No drug use. No recent travel. No known contact with a sick individual. She was offered HIV testing but declined and hepatitis C testing but declined. She has not traveled outside the [place] Infectious disease exposure: No infectious disease exposure. The patient was not exposed to Coronavirus. SELF HARM ASSESSMENT: Self harm assessment was performed. The patient answered "no" to the question(s) "Have you recently felt down, depressed, or hopeless?", "Do you have thoughts of harming or killing yourself?", "Do you have a plan for harming or killing yourself?", "Have you recently had thoughts about harming or killing others?", "Do you have any dangerous items in your possession?", "Have you noticed less interest or pleasure in doing things?", "Are you here because you tried to hurt yourself?" and "Have you ever tried to hurt yourself before today?". ABUSE ASSESSMENT: No report of abuse. NUTRITIONAL RISK ASSESSMENT: The nutritional risk assessment revealed no deficiencies. FUNCTIONAL ASSESSMENT: Functional assessment: no impairments noted. LEARNING NEEDS ASSESSMENT: The learning needs assessment revealed no barriers. FALL RISK ASSESSMENT: Fall risk assessment completed. No risk factors identified. SKIN INTEGRITY ASSESSMENT: Skin integrity risk assessment completed. No skin integrity risk identified. --07:58 01/19/21 Kody Richardson RN. FAMILY HX: No significant family medical history. --09:46 01/19/21 Kolby Gage. Interventions Identification band on patient. To treatment room. --07:58 01/19/21 Kody Richardson RN. 07:51 01/19/2021 Site #1 started via IV in the right antecubital space with an 20g angiocath, with aseptic technique and good blood return; one attempt. Saline lock flushed with 10 mL saline. --07:51 01/19/21 Kody Richardson RN.PHYSICAL ASSESSMENTTo room via stretcher. ( last BM 4 days ago).GENERAL / NEURO / PSYCH: Alert. Oriented X 4. Appears in pain.HEENT: Mucous membranes are pink. 3 Clinical Report - Nurses [facility] Emergency Department [address] [place] [address] Phone #: ext- [phone] 01/19/2021 07:43 Patient: INDRA BURCIAGA Sex: F : 1970 Age: 50y RESPIRATORY: Respirations not labored. Breath sounds within normal limits. CVS: Normal sinus rhythm noted. Capillary refill less than 2 seconds. GI / : The patient has had nausea. Abdomen soft. Abdominal tenderness in the left lower quadrant. Bowel sounds within normal limits. SKIN: Skin is warm and dry. --08:00 01/19/21 Kody Richardson RN.NURSING PROGRESS NOTESNIBP monitor and pulse oximeter placed on patient; monitor alarms on. Patient gowned. Head of bedelevated. Reassurance given. Call light placed in reach. Side rails up x 2. Bed placed in lowestposition. Brakes of bed on. Patient ready for evaluation- ED physician notified. --08:00 01/19/21 FEMI Denney 08:00 01/19/21. BP: 120/75. MAP: 90. HR: 81. RR: 18. O2 saturation: 97%. --08:11 01/19/21 Anita sAif R.N. 08:45 01/19/2021 Toradol (Ketorolac Tromethamine) IVP 30 mg given over 2 minute(s) via site #1. Allergies verified and confirmed 5 rights. IV patency established. IV site checked: no pain, redness, or swelling. IV flushed thoroughly pre- and post-medication administration. IVP given by RN. Information reviewed with patient including reason for taking this medication. Verbalizes understanding (diluted in 10 ml of nacl). --08:45 01/19/21 Kody Richardson RN 08:47 01/19/21. BP: 96/64. MAP: 74. HR: 74. RR: 18. Pain level now: 01/05. --08:48 01/19/21 Kody Richardson RN 09:47 01/19/2021 Started bag #1 1000 mL IV Fluids NS; at 125 mL/hr over 8 hour(s) via site #1 via IV pump. Allergies verified and confirmed 5 rights. IV patency established. IV site checked: no pain, redness, or swelling. IV flushed thoroughly pre- and post-medication administration. Information reviewed with patient including reason for taking this medication. Verbalizes understanding. --09:47 01/19/21 Kody Richardson RN 09:48 01/19/2021 Started 3.375 gm of Zosyn (Piperacillin Sod-Tazobactam So) IVPB in bag #1 50 mL; at 100 mL/hr over 30 minute(s) via site #1. via IV pump. Allergies verified and confirmed 5 rights. IV patency established. IV site checked: no pain, redness, or swelling. IV flushed thoroughly pre- and post-medication administration. Information reviewed with patient including reason for taking this medication. Verbalizes understanding. --09:48 01/19/21 Kody Richardson RN ( pt now to be transferred to a facility of higher care). --09:51 01/19/21 Kody Richardson RN 09:51 01/19/21. BP: 94/54. MAP: 67. HR: 94. RR: 18. O2 saturation: 98%. Pain level now: 10/05. --09:51 01/19/21 Kody Richardson RN Patient ID band checked for patient name and birthdate: patient confirmed. COVID-19 specimen obtained by RN via nasopharyngeal swab. Labeled in the presence of the patient and sent to lab. --09:55 01/19/21 Kody Richardson RN 4 Clinical Report - Nurses [facility] Emergency Department [address] [place] [address] Phone #: [phone] 01/19/2021 07:43 Patient: INDRA BURCIAGA Sex: F : 1970 Age: 50y 10:46 01/19/2021 Zosyn IVPB via IV site #1 Discontinued: infused. Total amount infused: 50 mL. IV patency established. IV site checked: no pain, redness, or swelling. IV flushed thoroughly. --10:46 01/19/21 Kody Richardson RN 10:49 01/19/2021 Fentanyl IVP 50 mcg given over 2 minute(s) via site #1. Allergies verified and confirmed 5 rights. IV patency established. IV site checked: no pain, redness, or swelling. IV flushed thoroughly pre- and post- medication administration. IVP given by RN. Information reviewed with patient including reason for taking this medication and sedative warning. Verbalizes understanding (diluted in 5 ml of nacl). --10:49 01/19/21 Kody Richardson RN 10:55 01/19/2021 IV Fluids NS via IV site #1 Discontinued: STOPPED upon transfer. Total amount infused: 250 mL. IV patency established. IV site checked: no pain, redness, or swelling. IV flushed thoroughly. --10:55 01/19/21 Kody Richardson RN.DISPOSITION / DISCHARGE 10:26 01/19/21. Transferred to [facility]. Visit overview and summary of care (CCDA) provided to EMS and transfer facility via paper and fax. Transported via ambulance by EMS with IV and mask. Report was given to a nurse via a phone call and visit overview. Report included information regarding patient's care, treatment, allergies and condition including: recent changes, current and abnormal vital signs and abnormal labs. Report included treatment information regarding medications given or pending; type and amount of IV fluids and medications infusing and total volume infused. All questions were answered. Report was acknowledged and care was transferred. (James KAHN). --10:34 01/19/21 Kody Richardson RN 10:33 01/19/21. BP: 109/66. MAP: 80. HR: 93. RR: 18. O2 saturation: 96%. Temp: 98.2 F. Pain level now: 10/05. --10:34 01/19/21 Kody Richardson RN ( report given to EMS, no questions). --10:56 01/19/21 Kody Richardson RN 10:55 01/19/21. BP: 108/56. MAP: 73. HR: 97. RR: 18. O2 saturation: 95%. Pain level now: 10/05. --10:56 01/19/21 Kody Richardson RN Departure time: 10:57 01/19/2021. --10:57 01/19/21 Kody Richardson RN.Locked/Released at 01/19/2021 10:57 by Kody Richardson RN Name Value Range Interpretation Code Description Data Esmer rce(s) Supporting Document(s) ID Date Data Source [id number] 01/19/2021 07:50:00 AM EDT [facility] 1 Clinical Report - Physicians/Mid Levels [facility] Emergency Department [address] [place] [address] Phone #: ext- [phone] 01/19/2021 07:43 Patient: INDRA BURCIAGA [facility]#: [id number] Sex: F : 1970 Age: 50y Time Seen: 08:11 01/19/2021. Arrived- By ambulance. Historian- patient. Disposition decision: 10:02 01/19/2021.HISTORY OF PRESENT ILLNESS Chief Complaint: ABDOMINAL PAIN. It is described as sharp. No radiation. It is described as located in the periumbilical area. This started 3 days and is still present. It has been constant. At its maximum, severity described as moderate. When seen in the E.D., severity described as severe. Modifying factors. Not w orsened by anything. No nausea, loss of appetite, vomiting or diarrhea. No additional abdominal pain. (Patient is on oxycodone after left knee replacement surgery at [facility] 10 days ago. small hard stools until 4 days ago. Has not had a bowel movement since. Passing flatus. No nausea. Gastric bypass surgery 2 years ago. Patient only took one oxycodone yesterday. On aspirin since surgery). No recent travel. Similar symptoms previously. None. Recent medical care: Not recently seen/assessed.REVIEW OF SYSTEMSThe patient has had constipation and constipation. No hematemesis, difficulty with urination, pain withurination, urinary frequency or fever. No headache, chest pain, skin rash or chills. No back pain or pain,fever, vomiting or hematuria. No diabetic symptoms or easy bruising. Last bowel movement- 4 days ago.All other systems reviewed and are negative.PAST HISTORYSee nurses notes. No history of peptic ulcer. No history of bowel obstruction. Surgeries: Prior abdominal surgery. Additional Surgeries: C- Section. Gastric Resection. Hernia Repair. Knee Surgery. Pilonial cyst. Medications: Vitamin D Oral, daily. Aspirin 81 Oral (Tablet Chewable 81 mg) 1 tablet, 2x a day. oxyCODONE HCl Oral (Tablet 5 mg) 1 tablet, q4h as needed. Allergies: 2 Clinical Report - Physicians/Mid Levels [facility] Emergency Department [address] [place] [address] Phone #: ext- [phone] 01/19/2021 07:43 Patient: INDRA BURCIAGA Sex: F : 1970 Age: 50y Morphine and Related.SOCIAL HISTORYNever smoker. No alcohol use.FAMILY HISTORYNo significant family medical history.ADDITIONAL NOTESThe nursing notes have been reviewed.PHYSICAL EXAMVital Signs: 01/19/2021 07:49 BP: 128/84. MAP: 98. HR: 88. RR: 18. O2 saturation: 99%. Temp: 96.9 F.Pain level now: 01/05.Appearance: Alert. Oriented X3. Appears to be in pain.Eyes: Eyes normal inspection.ENT: Nose normal. Pharynx normal.Neck: Normal inspection. Neck supple.CVS: Normal heart rate and rhythm. Heart sounds normal.Respiratory: No respiratory distress. Breath sounds normal. Chest nontender.Abdomen: Soft. T enderness in the epigastric area and periumbilical area. Abnormal bowel sounds:diminished. No organomegaly. Obese.Back: Normal inspection.Rectal: Rectal exam normal. (no stool in rectal vault).Skin: Normal skin color. No rash. Normal skin turgor.Extremities: Bilateral mild non-pitting edema of the lower extremities involving both ankles and both lowerlegs. Extremities exhibit normal ROM. No calf tenderness.Neuro: Oriented X 3. No motor deficit. No sensory deficit.LABS, X-RAYS, AND EKGLaboratory Tests: Lactic Acid: (JOANNE: 01/19/2021 10:09) ( MsgRcvd 01/19/2021 10:38) Final results Test Result Flag Units (Reference) LACTIC ACID 1.1 MMOL/L (0.2 - 2.2) COVID-19 CAH: (JOANNE: 01/19/2021 09:55) ( MsgRcvd 01/19/2021 10:39) Final results Test Result Flag Units (Reference) COVID-19 NOT DETECTED COVID-19 REENTER NOT DETECTED PROCEDURAL CONTROL VALID KIT LOT # _[id number] 01/19/21.1038.TAD. . . KIT EXP DATE _08.01.21 01/19/211038.TAD. . . NORMAL RANGE IS NOT DETECTEDThe COVID-19 assay is a rapid molecular in vitro diagnostic testutilizing an isothermal nucleic acid amplification technology for thequalitative detection of nucleic acid from the SARS-CoV-2 viral RNA in directnasal or nasopharyngeal swabs. Testing should be performed within the first 7days of the onset of symptoms.NEGATIVE RESULTS SHOULD BE TREATED PRESUMPTIVE AND, IF INCONSISTENT WITHCLINICAL SIGNS AND SYMPTOMS OR NECESSARY FOR PATIENT MANAGEMENT, SHOULD BETESTED WITH DIFFERENT AUTHORIZED OR CLEARED MOLECULAR TESTS. NEGATIVE RESULTSDO NOT PRECLUDE SARS-CoV-2 3 Clinical Report - Physicians/Mid Levels [facility] Emergency Department [address] [place] [address] Phone #: ext- [phone] 01/19/2021 07:43 Patient: INDRA BURCIAGA Sex: F : 1970 Age: 50yINFECTION AND SHOULD NOT BE USED THE SOLE BASISFOR PATIENT MANAGEMENT DECISIONS.CMP: (JOANNE: 01/19/2021 08:58) ( MsgRcvd 01/19/2021 09:47) Final results Test Result Flag Units (Reference) COMPREHENSIVE METABOLIC PANEL COMPREHENSIVE METABOLIC PANEL SODIUM 142 mEq/L (134 - 153) POTASSIUM 3.8 mEq/L (3.6 - 5.0) CHLORIDE 106 mEq/L (98 - 107) CO2 28 MEQ/L (22 - 30) GLUCOSE 93 MG/DL (70 - 99) BUN 15 MG/DL (7 - 21) CREATININE 0.6 L MG/DL (0.7 - 1.5) BUN/CREAT 25 (8 - 27) TOTAL PROTEIN 6.3 G/DL (6.3 - 8.2) ALBUMIN 3.4 L G/DL (3.9 - 5.0) GLOBULIN 2.9 GM/DL (2.4 - 3.2) A/G RATIO 1.2 (0.8 - 2.0) CALCIUM 8.9 MG/DL (8.4 - 10.2) TOTAL BILI <0.7 MG/DL (0.2 - 1.3) ALKALINE PHOS 55 U/L (38 - 126) SGOT/AST 11 U/L (5 - 40) SGPT/ALT 8 U/L (7 - 56) ANION GAP 8.0 mmol/L (8.0 - 16.0) AGE 50 yrs NON- AA GFR >60 mL/min AFR AMER GFR >60 mL/min Male GFR Interprentation 20-49 yrs >60 mL/min [id number] yrs >56 mL/min Normal 60- 69 yrs >49 mL/min Normal 70-79yrs>42 mL/min Normal 80 and above >35 mL/min Normal Female GFRInterpretation 20-39 yrs >60 mL/min Normal 40-49 yrs >58 mL/minNormal 50-59 yrs >51 mL/min Normal 60-69 yrs >45 mL/min Ybszfs89-94 yrs >39 mL/min Normal 80 and above >32 mL/min NormalCBC w Diff: (JOANNE: 01/19/2021 08:58) ( MsgRcvd 01/19/2021 09:13) Final results Test Result Flag Units (Reference) CBC W/AUTOMATED DIFF COMPLETE BLOOD COUNT WBC 15.8 H 10/uL (4.2 - 11.0) RBC 5.10 10/uL (4.20 - 5.40) HEMOGLOBIN 15.6 g/dL (12.0 - 16.0) HEMATOCRIT 46.7 % (37.0 - 47.0) MCV 91.6 fL (81.0 - 101) MCH 30.6 pg (27.0 - 34.0) MCHC 33.4 g/dL (31.0 - 36.0) RDW 13.2 % (11.5 - 14.5) PLATELETS 272 10/uL (150 - 450) MPV 8.5 fL (7.4 - 10.4) NEUT 80.6 H % (37.0 - 80.0) LYMPH 12.3 L % (25.0 - 40.0) MONO 5.6 % (3.0 - 8.0) EOS 0.8 % (0.0 - 7.0) BASO 0.4 % (0.0 - 2.5) %IG 0.3 H % (0.0 - 0.0) %NRBC 0.0 % (0.0 - 0.0) #NEUT 12.73 H 10/uL (2.00 - 6.90) 4 Clinical Report - Physicians/Mid Levels [facility] Emergency Department [address] [place] [address] Phone #: ext- [phone] 01/19/2021 07:43 Patient: INDRA BURCIAGA Sex: F : 1970 Age: 50y #LYMPH 1.94 10/uL (0.60 - 3.40) #MONO 0.88 10/uL (0.00 - 0.90) #EOS 0.13 10/uL (0.00 - 0.70) #BASO 0.06 10/uL (0.00 - 0.20) #IG 0.05 10/uL (0.00 - 0.10) #NRBC 0.00 10/uL (0.00 - 0.00) MANUAL DIFF NOT INDICATED RBC MORPH NOT INDICATEDLipase: (JOANNE: 01/19/2021 08:58) ( MsgRcvd 01/19/2021 09:42) Final results Test Result Flag Units (Reference) LIPASE 15 U/L (13 - 60)CT Abd PEL W/ IV Contrast Only: (JOANNE: 01/19/2021 08:38) ( MsgRcvd 01/19/2021 13:02) Finalresults Exam CT ABD //T// PELVIS W/ IV ONLY [facility] [address] [facility] [place] [address] PHONE: [phone] FAX: [phone] Name .................. : GUALBERTO BURRELL Acct Number.................. : [id number] ROOM. ................. : TR-07 MR Number ................... : [id number] Stay type ............. : E/R Discharge Date......... ... : 01/19/21 Admit Date ......... : 01/19/21 Admit Phys .................... : MARIANA Peña Date of ....... : 1970 Family Phys ................... : BANDAR BOBBY Phone .................. : [phone] Age ................................ : 50 Film# .................. .:[id number] Sex ................................. : F Unsigned transcriptions are preliminary reports and do not represent a medical or legal document CT ABD Reason(s): Abdominal Distention Abdominal Pain CT ABDOMEN AND PELVIS WITH IV CONTRAST INDICATION: Abdominal distention. Gastric bypass surgery 1.5 years ago. Recent knee surgery. COMPARISON: None IV CONTRAST: 75 cc Isovue-370 One or more of the following dose reduction techniques were utilized in effectively lowering the radiation dose for this examination: Automated Exposure Control, Adjustment of the mA and/or kV according to patient size, or Iterative reconstruction. FINDINGS: LUNG BASES: No pulmonary nodules or masses. No pleural effusions. LIVER/BILIARY: Low-attenuation lesions are seen in the posterior right lobe of liver measuring 7 mm and 3 mm. 2 small to definitively characterize. Most likely benign. No abnormalities are seen in the gallbladder. The bile ducts are not dilated. SPLEEN: Normal. PANCREAS: Well-circumscribed cystic lesion in the body of the pancreas measuring 32 mm. 5 Clinical Report - Physicians/Mid Levels [facility] Emergency Department [address] [place] [address] Phone #: ext- [phone] 01/19/2021 07:43 Patient: INDRA BURCIAGA Sex: F : 1970 Age: 50y No solid component identified. The remainder the pancreas is normal size and enhances normally. No calcifications. Pancreatic duct is not dilated. ADRENALS: Normal bilaterally. RIGHT KIDNEY: No hydronephrosis, stones or masses. LEFT KIDNEY: No hydronephrosis, stones or masses. [address] [place] [address] PHONE: [phone] FAX: [phone] Name .................. : GUALBERTO BURRELL Acct Number.................. : [id number] ROOM. ................. : TR-07 MR Number ................... : [id number] Stay type ............. : E/R Discharge Date......... ... : 01/19/21 Admit Date ......... : 01/19/21 Admit Phys .................... : MARIANA Peña Date of ....... : 1970 Family Phys ................... : BANDAR BOBBY Phone .................. : [phone] Age ................................ : 50 Film# .................. .:[id number] Sex ................................. : F Unsigned transcriptions are preliminary reports and do not represent a medical or legal document CT ABD Reason(s): Abdominal Distention Abdominal Pain OTHER : No abnormalities seen in the urinary bladder. Uterus is unremarkable. No adnexal masses. BOWEL/GI: Sutures are seen around the stomach and proximal small bowel from gastric bypass surgery. Mild infiltration in the fat around the gastric pouch. No dilated bowel or obstruction. Moderate increased stool in the colon. Appendix is visible and is unremarkable. PERITONEUM: Moderate amount of free air in the abdomen. This is primarily in the upper abdomen anterior to the liver. There are gas bubbles in the periportal region and around the spleen. Smallmoderate amount of free fluid in the abdomen and pelvis. No focal fluid collection or abscess. NODES: No enlarged lymph nodes. RETROPERITONEUM: No masses. No AAA. SKELETAL: Severe facet arthropathy L3-4, L4-5 and L5-S1. Mild grade 1 anterolisthesis L4-5. Moderate stenosis L3-4 and L4-5. IMPRESSION: 1. Free air and free fluid in the abdomen and pelvis, mostly in the upper abdomen. The patient has not had recent abdominal surgery and therefore this is likely from a visceral perforation. The site of perforation is not definitively determined. Patient has had gastric bypass surgery. There is mild inflammation around the gastric pouch which could be the site of perforation. 2. Moderate increased stool in the colon consistent with constipation. No bowel obstruction. 3. 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 Follow-up CT 6 months recommended. These findings were discussed with Dr. Gage in the emergency department at 9:45 AM 6 Clinical Report - Physicians/Mid Levels [facility] Emergency Department [address] [place] [address] Phone #: ext- [phone] 01/19/2021 07:43 Patient: INDRA BURCIAGA Sex: F : 1970 Age: 50y Electronically Reviewed and Signed By [address] [place] [address] PHONE: [phone] FAX: [phone] Name .................. : GUALBERTO BURRELL Acct Number.................. : [id number] ROOM. ................. : TR-07 MR Number ................... : [id number] Stay type ............. : E/R Discharge Date......... ... : 01/19/21 Admit Date ......... : 01/19/21 Admit Phys .................... : MARIANA Peña Date of ....... : 1970 Family Phys ................... : PORTILLO KANU Phone .................. : [phone] Age ................................ : 50 Film# .................. .:[id number] Sex ................................. : F Unsigned transcriptions are preliminary reports and do not represent a medical or legal document CT ABD Reason(s): Abdominal Distention Abdominal Pain Van Conner MD , 01/19/21 13:02, GABE Transcribe Initials: DZ , Transcribe Date: 01/19/21 12:25, Dictation Date: Copy for: EMERGENCY DEPT via modem Copy for: 710 MED REC DISCHARGED Page 3 of 3.PROGRESS AND PROCEDURESCourse of Care: 09:03 01/19/21. History suggestive of constipation, however due to gastric bypasssurgery and extent of her pain, CT ordered to rule out obstruction, perforation, diverticulitis or colitis. 09:51 01/19/21. IV fluids and antibiotics initiated after CT scan shows perforation. [facility] notified. Critical care performed (35 minutes). Time is exclusive of separately billable procedures. Time includes: direct patient care, patient reassessment and medical consultation. Patient/family counseled. Disposition: Benefits, risks and alternatives to transfer explained to patient. Transferred to [facility]. 7 Clinical Report - Physicians/Mid Levels [facility] Emergency Department [address] [place] [address] Phone #: ext- [phone] 01/19/2021 07:43 Patient: INDRA BURCIAGA Sex: F : 1970 Age: 50yCLINICAL IMPRESSION Nontraumatic bowel perforation.(Electronically signed by Kolby Gage 01/19/2021 13:52) Name Value Range Interpretation Code Description Data Esmer rce(s) Supporting Document(s) ID Date Data Source [id number] 01/19/2021 01:02:00 PM EDT [facility] [address] [place] [address] PHONE: [phone] FAX: [phone] Name .................. : GUALBERTO BURRELL Acct Number.................. : [id number] ROOM. ................. : TR-07 MR Number ................... : [id number] Stay type ............. : E/R Discharge Date......... ... : 01/19/21 Admit Date ......... : 01/19/21 Admit Phys .................... : MARIANA Peña Date of ....... : 1970 Family Phys ................... : BANDAR BOBBY Phone .................. : [phone] Age ................................ : 50 Film# .................. .:[id number] Sex ................................. : F Unsigned transcriptions are preliminary reports and do not represent a medical or legal document CT ABD & PELVIS W/ IV ONLY [id number] COMPLETE:01/19/21 09:32 KEYON [id number] Reason(s): Abdominal Distention CT ABDOMEN AND PELVIS WITH IV CONTRAST INDICATION: Abdominal distention. Gastric bypass surgery 1.5 years ago. Recent knee surgery. COMPARISON: None IV CONTRAST: 75 cc Isovue-370 One or more of the following dose reduction techniques were utilized in effectively lowering the radiation dose for this examination: Automated Exposure Control, Adjustment of the mA and/or kV according to patient size, or Iterative reconstruction. FINDINGS: LUNG BASES: No pulmonary nodules or masses. No pleural effusions. LIVER/BILIARY: Low-attenuation lesions are seen in the posterior right lobe of liver measuring 7 mm and 3 mm. 2 small to definitively characterize. Most likely benign. No abnormalities are seen in the gallbladder. The bile ducts are not dilated. SPLEEN: Normal. PANCREAS: Well-circumscribed cystic lesion in the body of the pancreas measuring 32 mm. No solid component identified. The remainder the pancreas is normal size and enhances normally. No calcifications. Pancreatic duct is not dilated. ADRENALS: Normal bilaterally. RIGHT KIDNEY: No hydronephrosis, stones or masses. LEFT KIDNEY: No hydronephrosis, stones or masses. [address] [place] [address] PHONE: [phone] FAX: [phone] Name .................. : GUALBERTO BURRELL Acct Number.................. : [id number] ROOM. ................. : TR-07 MR Number ................... : [id number] Stay type ............. : E/R Discharge Date......... ... : 01/19/21 Admit Date ......... : 01/19/21 Admit Phys .................... : MARIANA Peña Date of ....... : 1970 Family Phys ................... : BANDAR BOBBY Phone .................. : [phone] Age ................................ : 50 Film# .................. .:[id number] Sex ................................. : F Unsigned transcriptions are preliminary reports and do not represent a medical or legal document CT ABD & PELVIS W/ IV ONLY [id number] COMPLETE:01/19/21 09:32 KEYON [id number] Reason(s): Abdominal Distention OTHER : No abnormalities seen in the urinary bladder. Uterus is unremarkable. No adnexal masses. BOWEL/GI: Sutures are seen around the stomach and proximal small bowel from gastric bypass surgery. Mild infiltration in the fat around the gastric pouch. No dilated bowel or obstruction. Moderate increased stool in the colon. Appendix is visible and is unremarkable. PERITONEUM: Moderate amount of free air in the abdomen. This is primarily in the upper abdomen anterior to the liver. There are gas bubbles in the periportal region and around the spleen. Smallmoderate amount of free fluid in the abdomen and pelvis. No focal fluid collection or abscess. NODES: No enlarged lymph nodes. RETROPERITONEUM: No masses. No AAA. SKELETAL: Severe facet arthropathy L3-4, L4-5 and L5-S1. Mild grade 1 anterolisthesis L4-5. Moderate stenosis L3-4 and L4-5. IMPRESSION: 1. Free air and free fluid in the abdomen and pelvis, mostly in the upper abdomen. The patient has not had recent abdominal surgery and therefore this is likely from a visceral perforation. The site of perforation is not definitively determined. Patient has had gastric bypass surgery. There is mild inflammation around the gastric pouch which could be the site of perforation. 2. Moderate increased stool in the colon consistent with constipation. No bowel obstruction. 3. 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 Follow- up CT 6 months recommended. These findings were discussed with Dr. Gage in the emergency department at 9:45 AM Electronically Reviewed and Signed By [address] [facility] [address] [place] [address] [place] [address] PHONE: [phone] FAX: [phone] Name .................. : GUALBERTO BURRELL Acct Number.................. : [id number] ROOM. ................. : TR-07 MR Number ................... : [id number] Stay type ............. : E/R Discharge Date......... ... : 01/19/21 Admit Date ......... : 01/19/21 Admit Phys .................... : MARIANA Peña Date of ....... : 1970 Family Phys ................... : PORTILLO Hundo Phone .................. : [phone] Age ................................ : 50 Film# .................. .:[id number] Sex ................................. : F Unsigned transcriptions are preliminary reports and do not represent a medical or legal document CT ABD & PELVIS W/ IV ONLY [id number] COMPLETE:01/19/21 09:32 KEYON [id number] Reason(s): Abdominal Distention Van Conner MD , 01/19/21 13:02, JWS Transcribe Initials: AMBER , Transcribe Date: 01/19/21 12:25, Dictation Date: Copy for: EMERGENCY DEPT via mode Copy for: 710 MED REC DISCHARGED Page 3 of 3 Name Value Range Interpretation Code Description Data Esmer rce(s) Supporting Document(s) ID Date Data Source [id number] 01/19/2021 10:37:00 AM EDT [facility] Name Value Range Interpretation Code Description Data Esmer rce(s) Supporting Document(s) Lactate [Moles/volume] in Serum or Plasma 1.1 MMOL/L 0.2 - 2.2 [facility] ID Date Data Source [id number] 01/19/2021 09:55:00 AM EDT [facility] Name Value Range Interpretation Code Description Data Esmer rce(s) Supporting Document(s) COVID19 Case rprt NOT DETECTED [facility] This lab was ordered by [facility] and reported by [facility]. ID Date Data Source [id number] 01/19/2021 10:38:00 AM EDT [facility] NOT DETECTEDNOT DETECTED PROCE DURAL CONTROL VALID KIT LOT # _[id number] 01/19/21.1038.TAD. . . KIT EXP DATE _08.01.21 01/19/211038.TAD. . . NORMAL RANGE IS NOT DETECTEDThe COVID-19 assay is a rapid molecular in vitro diagnostic testutilizing an isothermal nucleic acid amplification technology for thequalitative detection of nucleic acid from the SARS-CoV-2 viral RNA in directnasal or nasopharyngeal swabs. Testing should be performed within the first 7days of the onset of symptoms.NEGATIVE RESULTS SHOULD BE TREATED PRESUMPTIVE AND, IF INCONSISTENT WITHCLINICAL SIGNS AND SYMPTOMS OR NECESSARY FOR PATIENT MANAGEMENT, SHOULD BETESTED WITH DIFFERENT AUTHORIZED OR CLEARED MOLECULAR TESTS. NEGATIVE RESULTSDO NOT PRECLUDE SARS-CoV-2 INFECTION AND SHOULD NOT BE USED THE SOLE BASISFOR PATIENT MANAGEMENT DECISIONS. Name Value Range Interpretation Code Description Data Esmer rce(s) Supporting Document(s) ID Date Data Source [id number] 01/19/2021 09:47:00 AM EDT [facility] Name Value Range Interpretation Code Description Data Esmer rce(s) Supporting Document(s) COMPREHENSIVE METABOLIC PANEL [facility] COMPREHENSIVE METABOLIC PANEL Sodium [Moles/volume] in Serum or Plasma 142 mEq/L 134 - 153 [facility] Potassium [Moles/volume] in Serum or Plasma 3.8 mEq/L 3.6 - 5.0 [facility] Chloride [Moles/volume] in Serum or Plasma 106 mEq/L 98 - 107 [facility] Carbon dioxide, total [Moles/volume] in Serum or Plasma 28 MEQ/L 22 - 30 [facility] Glucose [Mass/volume] in Serum or Plasma 93 MG/DL 70 - 99 [facility] BUN 15 MG/DL 7 - 21 [facility] Creatinine [Mass/volume] in Serum or Plasma 0.6 MG/DL 0.7 - 1.5 L [facility] BUN/CREAT 25 8 - 27 [facility] Protein [Mass/volume] in Serum or Plasma 6.3 G/DL 6.3 - 8.2 [facility] Albumin [Mass/volume] in Serum or Plasma 3.4 G/DL 3.9 - 5.0 L [facility] Globulin [Mass/volume] in Serum by calculation 2.9 GM/DL 2.4 - 3.2 [facility] A/G RATIO 1.2 0.8 - 2.0 [facility] Calcium [Mass/volume] in Serum or Plasma 8.9 MG/DL 8.4 - 10.2 [facility] Bilirubin.total [Mass/volume] in Serum or Plasma <0.7 MG/DL 0.2 - 1.3 [facility] Alkaline phosphatase [Enzymatic activity/volume] in Serum or Plasma 55 U/L 38 - 126 [facility] Aspartate aminotransferase [Enzymatic activity/volume] in Serum or Plasma 11 U/L 5 - 40 [facility] Alanine aminotransferase [Enzymatic activity/volume] in Seru m or Plasma 8 U/L 7 - 56 [facility] Anion gap 3 in Serum or Plasma 8.0 mmol/L 8.0 - 16.0 [facility] AGE 50 yrs [facility] al NON-AA GFR >60 mL/min [facility] ital AFR AMER GFR >60 mL/min [facility] Male GFR In terprentation 20-49 yrs >60 mL/min Normal 50-59 yrs >56 mL/min Normal 60-69 yrs >49 mL/min Normal 70-79yrs >42 mL/min Normal 80 and above >35 mL/min Normal Female GFR Interpretation 20-39 yrs >60 mL/min Normal 40-49 yrs >58 mL/min Normal 50-59 yrs >51 mL/min Normal 60-69 yrs >45 mL/min Normal 70-79 yrs >39 mL/min Normal 80 and above >32 mL/min Normal ID Date Data Source [id number] 01/19/2021 09:42:00 AM T [facility] Name Value Range Interpretation Code Description Data Esmer rce(s) Supporting Document(s) Lipase [Enzymatic activity/volume] in Serum or Plasma 15 U/L 13 - 60 [facility] ID Date Data Source [id number] 01/19/2021 09:13:00 AM EDT [facility] Name Value Range Interpretation Code Description Data Esmer rce(s) Supporting Document(s) CBC W/AUTOMATED DIFF [facility] COMPLETE BLOOD COUNT Leukocytes [#/volume] in Blood by Automated count 15.8 10^3/uL 4.2 - 11.0 H [facility] Erythrocytes [#/volume] in Blood by Automated count 5.10 10^6/uL 4. 20 - 5.40 [facility] Hemoglobin [Mass/volume] in Blood 15.6 g/dL 12.0 - 16.0 [facility] Hematocrit [Volume Fraction] of Blood by Automated count 46.7 % 3 7.0 - 47.0 [facility] Erythrocyte mean corpuscular volume [Entitic volume] by Auto mated count 91.6 fL 81.0 - 101 [facility] Erythrocyte mean corpuscular hemoglobin [Entitic mass] by Automated count 30.6 pg 27.0 - 34.0 [facility] Erythrocyte mean corpuscular hemoglobin concentration [Mass/volume] by Automated count 33.4 g/dL 31.0 - 36.0 [facility] Erythrocyte distribution width [Ratio] by Automated count 13.2 % 11.5 - 14.5 [facility] Platelets [#/volume] in Blood by Automated count 272 10^3/uL 150 - 45 0 [facility] Platelet mean volume [Entitic volume] in Blood by Automated count 8.5 fL 7.4 - 10.4 [facility] Neutrophils/100 leukocytes in Blood by Automated count 80.6 % 37. 0 - 80.0 H [facility] Lymphocytes/100 leukocytes in Blood by Manual count 12.3 % 25.0 - 40.0 L [facility] Monocytes/100 leukocytes in Blood by Automated count 5.6 % 3.0 - 8.0 [facility] Eosinophils/100 leukocytes in Blood by Automated count 0.8 % 0.0 - 7.0 [facility] Basophils/100 leukocytes in Blood by Automated count 0.4 % 0.0 - 2.5 [facility] %IG 0.3 % 0.0 - 0.0 H [facility] %NRBC 0.0 % 0.0 - 0.0 [facility] Neutrophils [#/volume] in Blood by Automated count 12.73 10^3/uL 2. 00 - 6.90 H [facility] Lymphocytes [#/volume] in Blood by Automated count 1.94 10^3/uL 0.60 - 3.40 [facility] Monocytes [#/volume] in Blood by Automated count 0.88 10^3/uL 0.00 - 0.90 [facility] Eosinophils [#/volume] in Blood by Automated count 0.13 10^3/uL 0.00 - 0.70 [facility] Basophils [#/volume] in Blood by Automated count 0.06 10^3/uL 0.00 - 0.20 [facility] #IG 0.05 10^3/uL 0.00 - 0.10 [facility] #NRBC 0.00 10^3/uL 0.00 - 0.00 [facility] MANUAL DIFF NOT INDICATED [facility] RBC MORPH NOT INDICATED [facility] ID Date Data Source [id number] 09/12/2020 12:25:00 PM EDT [facility] Name Value Range Interpretation Code Description Data Esmer rce(s) Supporting Document(s) SARS-CoV-2 (COVID-19) RNA [Presence] in Respiratory specimen by ROYER with probe detection Not Detected [facility] This lab was ordered by [facility] and reported by [employer] ID Date Data Source PLZ KNEE COMPLETE 07/25/2020 12:00:00 AM EDT eCW1 ([facility]) Name Value Range Interpretation Code Description Data Esmer rce(s) Supporting Document(s) PLZ KNEE COMPLETE eCW1 ([facility]) ID Date Data Source [id number] 04/12/2020 12:00:00 AM EST [facility] Name Value Range Interpretation Code Description Data Esmer rce(s) Supporting Document(s) SARS-CoV2 Rapid Antigen Negative [facility] This lab was ordered by [facility] and reported by [facility]. ID Date Data Source [id number] 03/15/2020 11:55:00 AM EST [facility] Name Value Range Interpretation Code Description Data Esmer rce(s) Supporting Document(s) SARS coronavirus 2 RNA [facility] This lab was ordered by [facility] and reported by [facility]. ID Date Data Source [id number] 02/16/2020 12:00:00 AM EST [facility] Name Value Range Interpretation Code Description Data Esmer rce(s) Supporting Document(s) SARS coronavirus 2 RNA Not Detected [facility] This lab was ordered by [facility] and rep orted by [facility]. ID Date Data Source [id number] 01/02/2020 05:30:00 AM EDT [facility] ([facility], ) Name Value Range Interpretation Code Description Data Esmer rce(s) Supporting Document(s) Glucose, Fasting 73 mg/dL 70-100 Normal (applies to non-numeric results) [facility] ([facility], ) Creatinine For GFR 0.66 mg/dL 0.55-1.30 Normal (applies to non -numeric results) [facility] ([facility], ) Blood Urea Nitrogen 17 mg/dL 7-18 Normal (applies to non-nume yaritza results) [facility] ([facility], ) Glomerular Filtration Rate Laboratory test result Normal (applies to non- numeric results) [facility] ([facility], ) <content>Units are mL/min/1.73 m2</content>
<content></content>
<content>Chronic Kidney Disease Staging per NKF:</content>
<content></content>
<content>Stage I & II GFR >=60 Normal to Mildly Decreased</content>
<content>Stage III GFR 30- 59 Moderately Decreased</content>
<content>Stage IV GFR 15-29 Severely Decreased</content>
<content>Stage V GFR <15 Very Little GFR Left</content>
<content>ESRD GFR <15 on [employer]</content>
<content></content> Sodium Level 141 meq/L 136-145 Normal (applies to non-numeric res ults) [facility] ([facility]) Potassium Serum 4.1 meq/L 3.5-5.1 Normal (applies to non-numeric results) [facility] ([facility]) Carbon Dioxide Level 29 meq/L 21-32 Normal (applies to non-num gio results) [facility]) Chloride Level 109 meq/L 98-107 Above high normal [facility] ([facility]) Calcium Level 8.1 mg/dL 8.5-10.1 Below low normal [facility]) Anion Gap 3 meq/L 8-16 Below low normal [facility] ( [facility]) ID Date Data Source [id number] 01/02/2020 05:30:00 AM EDT [facility] ([facility]) Name Value Range Interpretation Code Description Data Esmer rce(s) Supporting Document(s) Red Blood Count 4.71 10 4.00-5.40 Normal (applies to non-numeric results) [facility] ([facility]) White Blood Count 11.0 10 4.0-10.0 Above high normal [facility] ([facility]) Hematocrit 43.9 % 36.0-47.0 Normal (applies to non-numeric resul ts) [facility] ([facility]) Hemoglobin 14.3 g/dL 12.0-15.5 Normal (applies to non-numeric resul ts) [facility]) Mean Corpuscular HGB Conc 32.6 g/dL 32.0-36.5 Normal (applies to non-numeric results) [facility]) Mean Corpuscular Volume 93.2 fl 80.0-96.0 Normal ( applies to non-numeric results) [facility]) Mean Corpuscular Hemoglobin 30.4 pg 27.0-33.0 Norm al (applies to non-numeric results) [facility] ([facility]) Platelet Count, Automated 212 10 150-450 Normal (applies to non-numeric results) [facility] ([facility]) Red Cell Distribution Width 13.3 % 11.5-14.5 Norm al (applies to non-numeric results) [facility] ([facility]) Neutrophils % 65.0 % 36.0-66.0 Normal (applies to non-numeric re sults) [facility] ([facility]) Lymph % 24.2 % 24.0-44.0 Normal (applies to non-numeric resul ts) [facility]) Baso % 0.4 % 0.0-1.0 Normal (applies to non-numeric resul ts) [facility]) [place] % 9.5 % 0.0-5.0 Above high normal [facility]) Eos % 0.5 % 0.0-3.0 Normal (applies to non-numeric resul ts) [facility] ([facility]) Nucleated Red Blood Cell % 0.0 % 0-0 Normal (applies to n on-numeric results) [facility] ([facility]) Immature Granulocyte % 0.4 % 0-3.0 Normal (applies to non-n umeric results) [facility]) Neutrophils # 7.2 10 1.5-8.5 Normal (applies to non-numeric re sults) [facility] ([facility]) Lymph # 2.7 10 1.5-5.0 Normal (applies to non-numeric resul ts) [facility]) Eos # 0.1 10 0.0-0.5 Normal (applies to non-numeric resul ts) [facility]) [place] # 1.1 10 0.0-0.8 Above high normal [facility]) Baso # 0.0 10 0.0-0.2 Normal (applies to non-numeric resul ts) [facility]) ID Date Data Source [id number] 12/27/2019 12:20:00 PM EDT [facility] Name Value Range Interpretation Code Description Data Esmer rce(s) Supporting Document(s) SARS coronavirus 2 RNA [facility] This lab was ordered by [facility] and reported by [facility]. Procedure Social History Code Duration Value Status Description Data Source(s ) Smoking 12/19/2020 12:00:00 AM EDT Former Smoker completed Former Smoker [facility] Smoking 12/19/2020 12:00:00 AM EDT Former Smoker completed Former Smoker eCW1 ([facility]) Smoking 12/19/2020 12:00:00 AM EDT Former Smoker completed Former Smoker eCW1 ([facility]) Smoking 10/04/2020 12:00:00 AM EDT Current Smoker completed Curre nt Smoker eCW1 ([facility]) Smoking 10/04/2020 12:00:00 AM EDT Current Smoker completed Curre nt Smoker eCW1 ([facility]) Smoking 09/02/2020 12:00:00 AM EDT Current Smoker completed Curre nt Smoker eCW1 ([facility]) Smoking 09/02/2020 12:00:00 AM EDT Current Smoker completed Curre nt Smoker eCW1 ([facility]) Smoking 08/06/2020 12:00:00 AM EDT Current Smoker completed Curre nt Smoker eCW1 ([facility]) Smoking 08/06/2020 12:00:00 AM EDT Current Smoker completed Curre nt Smoker eCW1 ([facility]) Smoking 08/06/2020 12:00:00 AM EDT Current Smoker completed Curre nt Smoker eCW1 ([facility]) Smoking 08/06/2020 12:00:00 AM EDT Current Smoker completed Curre nt Smoker eCW1 ([facility]) Smoking 08/06/2020 12:00:00 AM EDT Current Smoker completed Curre nt Smoker eCW1 ([facility]) Smoking 07/24/2020 12:00:00 AM EDT Current Smoker completed Curre nt Smoker eCW1 ([facility]) Smoking 07/24/2020 12:00:00 AM EDT Current Smoker completed Curre nt Smoker eCW1 ([facility]) Smoking 07/24/2020 12:00:00 AM EDT Current Smoker completed Curre nt Smoker eCW1 ([facility]) Smoking 01/22/2020 12:00:00 AM EDT Current Smoker completed Curre nt Smoker eCW1 ([facility]) Smoking 12/26/2019 12:00:00 AM EDT Current Smoker completed Curre nt Smoker eCW1 ([facility]) Vital Signs ID Date Data Source UNK Name Value Range Interpretation Code Description Data Source(s) Body temperature 96.7 [degF] 96.7 [degF] [facility] ([facility], ) Body temperature 97.4 [degF] 97.4 [degF] [facility] ([facility], ) Body weight 178.6 [lb_av] 178.6 [lb_av] eCW1 ([facility]) Body weight 81.01 kg 81.01 kg W1 ([facility]) Body height 67.5 [in_i] 67.5 [in_i] eCW1 [facility] Body mass index (BMI) [Ratio] 27.56 kg/m2 27.56 kg/m2 W1 ([facility]) Heart rate 53 /min 53 /min eCW1 ([facility]) Respiratory rate 17 /min 17 /min eCW1 ([facility]) Body temperature 96.6 [degF] 96.6 [degF] eCW1 ( [facility]) Systolic blood pressure 115 mm[Hg] 115 mm[Hg] e CW1 ([facility]) Diastolic blood pressure 74 mm[Hg] 74 mm[Hg] eCW1 ([facility]) Body weight 123.379 kg 123.379 kg [facility] ([facility], ) Body temperature 97.4 [degF] 97.4 [degF] [facility] ([facility], ) Body height 67 [in_i] 67 [in_i] [facility] ([facility]) 5'7" Body weight 272.00 [lb_av] 272.00 [lb_av] [facility] T ([facility]) Body mass index (BMI) [Ratio] 42.6 kg/m2 42.6 k g/m2 [facility] ([facility]) [place] body weight 135 [lb_av] 135 [lb_av] [facility] T ([facility]) Body surface area Derived from formula 2.30 m2 2.30 m2 [facility] ([facility]) Body weight 271.8 [lb_av] 271.8 [lb_av] eCW1 ([facility]) Body weight 123.29 kg 123.29 kg W1 ([facility]) Body height 67.5 [in_i] 67.5 [in_i] eCW1 [facility] Body mass index (BMI) [Ratio] 41.94 kg/m2 41.94 kg/m2 W1 ([facility]) Heart rate 68 /min 68 /min eCW1 ([facility]) Body temperature 98.1 [degF] 98.1 [degF] eCW1 ( [facility]) Systolic blood pressure 122 mm[Hg] 122 mm[Hg] e CW1 ([facility]) Diastolic blood pressure 60 mm[Hg] 60 mm[Hg] eCW1 ([facility]) Body temperature 97.6 [degF] 97.6 [degF] [facility] ([facility]) Body temperature 97.6 [degF] 97.6 [degF] [facility] ([facility]) Body temperature 95.8 [degF] 95.8 [degF] [facility] ([facility]) Body weight 271 [lb_av] 271 [lb_av] eCW1 ([facility] Body height 67.5 [in_i] 67.5 [in_i] eCW1 ([facility] Body mass index (BMI) [Ratio] 41.81 kg/m2 41.81 kg/m2 W1 ([facility]) Heart rate 73 /min 73 /min eCW1 ([facility]) Respiratory rate 18 /min 18 /min eCW1 ([facility]) Body temperature 97.2 [degF] 97.2 [degF] eCW1 ( [facility]) Systolic blood pressure 123 mm[Hg] 123 mm[Hg] e CW1 ([facility]) Diastolic blood pressure 63 mm[Hg] 63 mm[Hg] eCW1 ([facility]) Body weight 272.50 [lb_av] 272.50 [lb_av] [facility] T ([facility]) Body mass index (BMI) [Ratio] 42.7 kg/m2 42.7 k g/m2 [facility] ([facility]) [place] body weight 135 [lb_av] 135 [lb_av] [facility] T ([facility]) Body weight 123.606 kg 123.606 kg [facility] ([facility]) Body surface area Derived from formula 2.31 m2 2.31 m2 [facility] ([facility]) Systolic blood pressure 124 mm[Hg] 124 mm[Hg] M EDENT ([facility]) Diastolic blood pressure 74 mm[Hg] 74 mm[Hg] [facility] ([facility]) Heart rate 71 /min 71 /min [facility] ([facility]) Body temperature 98.4 [degF] 98.4 [degF] [facility] ([facility]) Body height 67 [in_i] 67 [in_i] [facility] ([facility]) 5'7" Oxygen saturation in Arterial blood by Pulse oximetry 99 % 99 % [facility] ([facility]) Respiratory rate 18 /min 18 /min [facility] ( [facility]) Body weight 293 [lb_av] 293 [lb_av] eCW1 ([facility] Body height 67.5 [in_i] 67.5 [in_i] eCW1 ([facility] Body mass index (BMI) [Ratio] 45.21 kg/m2 45.21 kg/m2 eCW1 ([facility]) Heart rate 73 /min 73 /min eCW1 ([facility]) Respiratory rate 17 /min 17 /min eCW1 ([facility]) Body temperature 97.5 [degF] 97.5 [degF] eCW1 ( [facility]) Systolic blood pressure 140 mm[Hg] 140 mm[Hg] e CW1 ([facility]) Diastolic blood pressure 72 mm[Hg] 72 mm[Hg] eCW1 ([facility]) Body weight 295 [lb_av] 295 [lb_av] eCW1 ([facility] Body height 67.5 [in_i] 67.5 [in_i] eCW1 ([facility] Body mass index (BMI) [Ratio] 45.52 kg/m2 45.52 kg/m2 eCW1 ([facility]) Heart rate 72 /min 72 /min eCW1 ([facility]) Respiratory rate 17 /min 17 /min eCW1 ([facility]) Body temperature 97.9 [degF] 97.9 [degF] eCW1 ( [facility]) Systolic blood pressure 111 mm[Hg] 111 mm[Hg] e CW1 ([facility]) Diastolic blood pressure 77 mm[Hg] 77 mm[Hg] eCW1 ([facility]) Body height 69 [in_i] 69 [in_i] [facility] ([facility], ) 5'9" Body weight 277.00 [lb_av] 277.00 [lb_av] [facility] T ([facility], ) Body mass index (BMI) [Ratio] 40.9 kg/m2 40.9 k g/m2 [facility] ([facility], ) [place] body weight 145 [lb_av] 145 [lb_av] [facility] T ([facility], ) Body weight 125.647 kg 125.647 kg [facility] ([facility], ) Body surface area Derived from formula 2.37 m2 2.37 m2 [facility] ([facility], ) Systolic blood pressure 122 mm[Hg] 122 mm[Hg] [facility] ([facility]) Diastolic blood pressure 74 mm[Hg] 74 mm[Hg] [facility] ([facility]) Heart rate 74 /min 74 /min [facility] ([facility]) Respiratory rate 14 /min 14 /min [facility] ( [facility]) Body temperature 97.1 [degF] 97.1 [degF] [facility] ([facility]) Systolic blood pressure 130 mm[Hg] 130 mm[Hg] [facility] ([facility]) Diastolic blood pressure 62 mm[Hg] 62 mm[Hg] [facility] ([facility]) Body height 67 [in_i] 67 [in_i] [facility] ([facility]) 5'7" Body weight 278.00 [lb_av] 278.00 [lb_av] [facility] T ([facility]) Body mass index (BMI) [Ratio] 43.5 kg/m2 43.5 k g/m2 [facility] ([facility]) [place] body weight 135 [lb_av] 135 [lb_av] [facility] T ([facility]) Body weight 126.101 kg 126.101 kg [facility] ([facility]) Body surface area Derived from formula 2.33 m2 2.33 m2 [facility] ([facility]) Systolic blood pressure 138 mm[Hg] 138 mm[Hg] [facility] ([facility]) Diastolic blood pressure 87 mm[Hg] 87 mm[Hg] [facility] ([facility]) Body height 67 [in_i] 67 [in_i] [facility] ([facility]) 5'7" Body weight 283.00 [lb_av] 283.00 [lb_av] [facility] T ([facility]) Body mass index (BMI) [Ratio] 44.3 kg/m2 44.3 k g/m2 [facility] ([facility]) [place] body weight 135 [lb_av] 135 [lb_av] [facility] T ([facility]) Body weight 128.369 kg 128.369 kg [facility] ([facility]) Body surface area Derived from formula 2.34 m2 2.34 m2 [facility] ([facility]) Body weight 291 [lb_av] 291 [lb_av] eCW1 ([facility] Respiratory rate 18 /min 18 /min eCW1 ([facility]) Body temperature 97.7 [degF] 97.7 [degF] eCW1 ( [facility]) Systolic blood pressure 114 mm[Hg] 114 mm[Hg] e CW1 ([facility]) Diastolic blood pressure 64 mm[Hg] 64 mm[Hg] eCW1 ([facility]) Body height 67.5 [in_i] 67.5 [in_i] eCW1 ([facility] Body mass index (BMI) [Ratio] 44.90 kg/m2 44.90 kg/m2 eCW1 ([facility]) Heart rate 63 /min 63 /min eCW1 ([facility]) Systolic blood pressure 120 mm[Hg] 120 mm[Hg] M [facility] ([facility]) Diastolic blood pressure 70 mm[Hg] 70 mm[Hg] [facility] ([facility]) Body height 67 [in_i] 67 [in_i] [facility] ([facility]) 5'7" Body weight 291.00 [lb_av] 291.00 [lb_av] [facility] T ([facility]) Body mass index (BMI) [Ratio] 45.6 kg/m2 45.6 k g/m2 [facility] ([facility]) [place] body weight 135 [lb_av] 135 [lb_av] [facility] T ([facility]) Body weight 131.998 kg 131.998 kg [facility] ([facility]) Diastolic blood pressure 77 mm[Hg] 77 mm[Hg] eCW1 ([facility]) Body weight 288 [lb_av] 288 [lb_av] eCW1 [facility] Body height 67.5 [in_i] 67.5 [in_i] eCW1 ([facility] Body mass index (BMI) [Ratio] 44.44 kg/m2 44.44 kg/m2 eCW1 ([facility]) Heart rate 79 /min 79 /min eCW1 ([facility]) Respiratory rate 18 /min 18 /min eCW1 ([facility]) Body temperature 97.9 [degF] 97.9 [degF] eCW1 ( [facility]) Systolic blood pressure 128 mm[Hg] 128 mm[Hg] e CW1 ([facility]) ID Date Data Source [id number] 01/24/2021 08:29:09 AM EDT [facility] Name Value Range Interpretation Code Description Data Source(s) TRANSFER FROM [facility] ID Date Data Source [id number] 01/22/2021 09:36:14 AM EDT [facility] Name Value Range Interpretation Code Description Data Source(s) TRANSFER FROM [facility] Patient Treatment Plan of Care Planned Activity Planned Date Details Description Data Source (s) Ergocalciferol [id number] UNT Oral Capsule [Drisdol] 09/02/2020 12:00:00 AM EDT eCW1 ([facility]) Ergocalciferol 86002 UNT Oral Capsule [Drisdol] 09/02/2020 12:00:00 AM EDT eCW1 ([facility]) Naproxen 500 MG Oral Tablet 07/24/2020 12:00:00 AM EDT eCW1 ([facility]) Naproxen 500 MG Oral Tablet 07/24/2020 12:00:00 AM EDT eCW1 ([facility]) Naproxen 500 MG Oral Tablet 07/24/2020 12:00:00 AM EDT eCW1 ([facility])
[2021-02-06] MEDS ORDERED: PANT40TA29 (11:57)
[2021-02-06] MEDS ORDERED: MISO200T56 (11:57)
--- OUTSIDE RECORDS SUMMARY | 2021-02-06 13:02 | CCD | Continuity of Care Document ---
Author Author Christina CORRALES MD Organization Unknown Address [address] , [facility] [place] [address] Phone [phone] Care Team Providers Care Pot Filler Name Role Phone Ilda Dickson AUTM [phone] AUTM Unavailable Problems Active Problems Provider Date [...] lb BMI (Body Mass Index) 42.6 kg/m2 [place] Body Weight 135 lb Weight 123.379 kg BSA (Body Surface Area) 2.30 m2 Results Description No Information Available Procedures Date Code Description Status 01/09/2021 27811 Arthroplasty Knee Total Complete d 12/25/2020 10356 Office/Outpatient Established Lo w MDM 20-29 Min Completed 10/30/2020 58166 Office/Outpatient Established Mo d MDM 30-39 Min Completed 09/16/2020 03702 Arthroscopy Knee W/Meniscectomy (Medial & Lateral) Completed 09/16/2020 94791 Arthroscopy Knee Remove Loose/Fo reign Body Completed 09/11/2020 27849 Office/Outpatient Established Mo d MDM 30-39 Min Completed 08/08/2020 83217 Office/Outpatient New Low MDM 30 -44 Minutes Completed Medical Devices Description No Information Available Encounters Type Date Location Provider Dx Diagnosis Office Visit 01/16/2021 12:45p Madhu Corrales MD Z96.652 Presence of left artificial knee joint Z47.89 Encounter for other orthoped ic aftercare Office Visit 12/25/2020 11:30a Madhu Corrales MD M17.12 Unilateral primary osteoarthritis, left knee Office Visit 10/30/2020 10:30a Madhu Corrales MD Z98.890 Other specified postprocedural states M17.12 Unilateral primary osteoarth ritis, left knee Office Visit 10/02/2020 8:00a Madhu Avendaños Kj Corrales MD Z98.890 Other specified [...] Loose body in knee, left knee Da vid Corrales, MD 09/11/2020 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
--- OUTSIDE RECORDS SUMMARY | 2021-02-06 13:03 | CCD ---
Author Author [facility] Organization [facility] Address Unknown Phone Unavailable Care Team Providers Care Technical Support Consultant Name Role Phone Watts, P Taylor Unavailable [...] FAVIO DO Unavailable Unavailable Almita, Ramona Richie SMALL ELECTRIC ENGINE TECHNICIAN Unavailable Unavailable [place], Ramona Richie SMALL ELECTRIC ENGINE TECHNICIAN Unavailable Unavailable [place], Ramona Richie SMALL ELECTRIC ENGINE TECHNICIAN Unavailable Unavailable Almita, Ramona Richie SMALL ELECTRIC ENGINE TECHNICIAN Unavailable Unavailable Almita, Ramona Richie SMALL ELECTRIC ENGINE TECHNICIAN Unavailable Unavailable [place], Ramona Richie SMALL ELECTRIC ENGINE TECHNICIAN Unavailable Unavailable Almita, Ramona Richie SMALL ELECTRIC ENGINE TECHNICIAN Unavailable Unavailable Almita, Ramona Richie SMALL ELECTRIC ENGINE TECHNICIAN Unavailable Unavailable Almita, Ramona Richie SMALL ELECTRIC ENGINE TECHNICIAN Unavailable Unavailable [place], Ramona Richie SMALL ELECTRIC ENGINE TECHNICIAN Unavailable Unavailable Almita, Ramona Richie SMALL ELECTRIC ENGINE TECHNICIAN Unavailable Unavailable [place], Ramona Richie SMALL ELECTRIC ENGINE TECHNICIAN Unavailable Unavailable Almita, Ramona Richie SMALL ELECTRIC ENGINE TECHNICIAN Unavailable Unavailable [place], Ramona Richie SMALL ELECTRIC ENGINE TECHNICIAN Unavailable Unavailable KIRK BAEZ MD Unavailable [...] Unavailable Portillo, A Carlyn PA Unavailable Unavailable Poritllo, A Carlyn PA Unavailable Unavailable Portillo, A [...] Unavailable Portillo, A Carlyn PA Unavailable Unavailable Oprtillo, A Carlyn PA Unavailable Unavailable Portillo, A [...] MD Unavailable Unavailable SalasRavindra MD Unavailable Unavailable CarlockRavindra MD Unavailable Unavailable SalasRavindra MD Unavailable Unavailable SalasRavindra MD Unavailable Unavailable CarlockRavindra vila MD Unavailable Unavailable Ravindra Marina MD Unavailable Unavailable Ravindra Marina MD Unavailable Unavailable CarlockRavindra MD Unavailable Unavailable CarlockRavindra vila MD Unavailable Unavailable SalasRavindra MD Unavailable Unavailable Ravindra Marina MD Unavailable Unavailable Ravindra Marina MD Unavailable Unavailable Ravindra Marina MD Unavailable Unavailable CarlockRavindra MD Unavailable Unavailable CarlockRavindra MD Unavailable Unavailable SalasRavindra MD Unavailable Unavailable CarlockRavindra MD Unavailable Unavailable CarlockRavindra vila MD Unavailable Unavailable CarlockRavindra vila MD Unavailable Unavailable SalasRavindra vila MD Unavailable Unavailable SalasRavindra MD Unavailable Unavailable SalasRavindra MD Unavailable Unavailable SalasRavindra MD Unavailable Unavailable SalasRavindra MD Unavailable Unavailable SalasRavindra vila MD Unavailable Unavailable SalasRavindra driscoll MD Unavailable Unavailable SalasRavindra MD Unavailable Unavailable SalasRavindra driscoll MD Unavailable Unavailable CarlockRavindra vila MD Unavailable Unavailable CarlockRavindra vila MD Unavailable Unavailable CarlockRavindra vila MD Unavailable Unavailable CarlockRavindra vila MD Unavailable Unavailable SalasRavindra driscoll MD Unavailable Unavailable CarlockRavindra driscoll MD Unavailable Unavailable CarlockRavindra vila MD Unavailable Unavailable CarlockRavindra vila MD Unavailable Unavailable SalasRavindra driscoll MD Unavailable Unavailable SalasRavindra MD Unavailable Unavailable SalasRavindra MD Unavailable Unavailable SalasRavindra MD Unavailable Unavailable SalasRavindra MD Unavailable Unavailable SalasRavindra MD Unavailable Unavailable CarlockRavindra MD Unavailable Unavailable CarlockRavindra MD Unavailable Unavailable CarlockRavindra MD Unavailable Unavailable SalasRavindra MD Unavailable Unavailable FELIU, DOMINGO CHILD CARE GROUP LEADER Unavailable Unavailable FELIU, DOMINGO CHILD CARE GROUP LEADER Unavailable Unavailable FELIU, DOMINGO CHILD CARE GROUP LEADER Unavailable Unavailable FELIU, DOMINGO CHILD CARE GROUP LEADER Unavailable Unavailable FELIU, DOMINGO CHILD CARE GROUP LEADER Unavailable Unavailable FELIU, DOMINGO CHILD CARE GROUP LEADER Unavailable Unavailable FELIU, DOMINGO CHILD CARE GROUP LEADER Unavailable Unavailable FELIU, DOMINGO CHILD CARE GROUP LEADER Unavailable Unavailable FELIU, DOMINGO CHILD CARE GROUP LEADER Unavailable Unavailable FELIU, DOMINGO CHILD CARE GROUP LEADER Unavailable Unavailable FELIU, DOMINGO CHILD CARE GROUP LEADER Unavailable Unavailable FELIU, DOMINGO CHILD CARE GROUP LEADER Unavailable Unavailable FELIU, DOMINGO CHILD CARE GROUP LEADER Unavailable Unavailable FELIU, DOMINGO CHILD CARE GROUP LEADER Unavailable Unavailable FELIU, DOMINGO CHILD CARE GROUP LEADER Unavailable Unavailable FELIU, DOMINGO CHILD CARE GROUP LEADER Unavailable Unavailable FELIU, DOMINGO CHILD CARE GROUP LEADER Unavailable Unavailable FELIU, DOMINGO CHILD CARE GROUP LEADER Unavailable Unavailable FELIU, DOMINGO CHILD CARE GROUP LEADER Unavailable Unavailable FELIU, DOMINGO CHILD CARE GROUP LEADER Unavailable Unavailable FELIU, DOMINGO CHILD CARE GROUP LEADER Unavailable Unavailable FELIU, DOMINGO CHILD CARE GROUP LEADER Unavailable Unavailable Re-disclosure Warning The records that [...] is protected by Article 27-F of the [facility] Public Health law. If you continue you may have access to information: Regarding HIV / AIDS; Provided by facilities licensed or operated by the [facility] Office of Mental Health; or Provided by the [facility] Office for People With Developmental Disabilities. If such information is present, then the following [facility] mandated warning applies: This information has [...] law may result in a fine or fpc sentence or both. A general authorization for the release of medical or other information is NOT sufficient authorization for further disc losure. Allergies and Adverse Reactions Type Description Substance Reaction Status Data Source(s ) Propensity to adverse reactions MORPH[facility] Encounter Providers Location Date Indications Data Source(s ) Outpatient Attender: TAYLOR MAYO MDAttender: KIRK CARMONA MD 02/19/2021 12:00:00 AM [facility] Outpatient Attender: TAYLOR MAYO MDAttender: KIRK CARMONA MD 02/10/2021 12:00:00 AM [facility] Office Visit Attender: Kj Monreal/Alex/Diallo/Alfonzo osborn 01/29/2021 08:00:00 AM EDT MEDENT ([facility]) Inpatient Attender: TAYLOR MAYO MDA ttender: KIRK BAEZ MDAdmitter: KIRK BAEZ MDReferrer: KIRK BAEZ MD 1 12:00:00 AM [facility] Inpatient Attender: TAYLOR MAYO MDA ttender: KIRK BAEZ MDAdmitter: KIRK BAEZ MDReferrer: Valentino Barber PA-C 01/22/2021 12:0 0:00 AM EDT [facility] Emergency Attender: Kolby Gage MDConsultant: Carlyn CROUCH 01/19/2021 07:50:00 AM EDT - 01/19/2021 10:58:00 AM EDT [facility] Patient discharged. Inpatient Attender: TAYLOR MAYO MDA ttender: KIRK BAEZ MDAttender: FRANKLYN COTA DOAttender: Taylor MacAdmitter: KIRK BAEZ MDReferrer: DOMINGO PANG NPConsultant: Tigre Marina MD [id number] 12/28 12:00:00 AM EDT - 01/25/2021 04:29:00 PM EDT abd pain, perforation [facility] abd pain, perforation Patient discharged. Office Visit Attender: Kj Monreal/Alex/Diallo/Alfonzo dl 01/16/2021 12:45:00 PM EDT MED[facility] ([facility]) Unknown [address] [facility] [place] [address] 12/26/2020 12:00:00 AM EDT eCW1 ([facility]) Outpatient Attender: Kj Monreal/Alex/Diallo/Alfonzo dl 12/25/2020 11:30:00 AM EDT [facility] ([facility] [place] [address] [facility] [address] 12/25/2020 12:00:00 AM EDT eCW1 ([facility]) Outpatient [address] [facility] [place] [address] 12/19/2020 12:00:00 AM EDT eCW1 ([facility]) [place] [address] [facility] [address] 11/26/2020 12:00:00 AM EDT eCW1 ([facility]) Outpatient Attender: Kj Monreal/Alex/Diallo/Rein dl 10/30/2020 10:30:00 AM EDT [facility] ([facility]) [place] [address] [facility] [address] 10/04/2020 12:00:00 AM EDT eCW1 ([facility]) Office Visit Attender: Kj Monreal/Alex/Diallo/Rein dl 10/02/2020 08:00:00 AM EDT [facility] ([facility]) Outpatient Attender: Kj Monreal/Alex/Diallo/Rein dl 09/11/2020 01:30:00 PM EDT [facility] ([facility]) [place] [address] [facility] [address] 09/02/2020 12:00:00 AM EDT eCW1 ([facility]) [place] [address] [facility] [address] 09/02/2020 12:00:00 AM EDT eCW1 ([facility]) [place] [address] [facility] [address] 08/29/2020 12:00:00 AM EDT eCW1 ([facility]) [place] [address] [facility] [address] 08/13/2020 12:00:00 AM EDT eCW1 ([facility]) Outpatient Attender: Kj Monreal/Alex/Diallo/Rein dl 08/08/2020 09:30:00 AM EDT [facility] ([facility]) [place] [address] [facility] [place] [address] 08/07/2020 12:00:00 AM EDT eCW1 ([facility]) [place] [address] [facility] [address] 08/07/2020 12:00:00 AM EDT eCW1 ([facility]) [place] [address] [facility] [address] 08/06/2020 12:00:00 AM EDT eCW1 ([facility]) [place] [address] [facility] [address] 08/01/2020 12:00:00 AM EDT eCW1 ([facility]) [place] [address] [facility] [place] [address] 07/25/2020 12:00:00 AM EDT eCW1 ([facility]) [place] [address] [facility] [address] 07/24/2020 12:00:00 AM EDT eCW1 ([facility]) Outpatient Attender: FAVIO Tay/Alex/Diallo/Alfonzod elvira 06/28/2020 03:00:00 PM EDT [facility] ([facility] ) Outpatient Attender: KRISTINE Monreal/Alex/Diallo/ Yobany 04/09/2020 01:10:00 PM EST [facility] ([facility] ) [place] [address] [facility] [address] 01/22/2020 12:00:00 AM EDT eCW1 ([facility]) Office Visit Attender: Richie Monreal/Alex/Diallo/Stephon leander 01/15/2020 09:30:00 AM EDT [facility] ([facility] ) [place] [address] [facility] [address] 12/26/2019 12:00:00 AM EDT eCW1 ([facility]) Immunizations Vaccine Date Status Description Data Source(s) 07/24/2020 03:57:00 PM EDT completed e CW1 ([facility]) 07/24/2020 03:57:00 PM EDT completed e CW1 ([facility]) 07/24/2020 03:57:00 PM EDT completed e CW1 ([facility]) 07/24/2020 03:57:00 PM EDT completed e CW1 ([facility]) 07/24/2020 03:57:00 PM EDT completed e CW1 ([facility]) 07/24/2020 03:57:00 PM EDT completed e CW1 ([facility]) 07/24/2020 03:57:00 PM EDT completed e CW1 ([facility]) 07/24/2020 03:57:00 PM EDT completed e CW1 ([facility]) 07/24/2020 03:57:00 PM EDT completed e CW1 ([facility]) 07/24/2020 03:57:00 PM EDT completed e CW1 ([facility]) 07/24/2020 03:57:00 PM EDT completed e CW1 ([facility]) 07/24/2020 03:57:00 PM EDT completed e CW1 ([facility]) 07/24/2020 03:57:00 PM EDT completed e CW1 ([facility]) 07/24/2020 03:57:00 PM EDT completed e CW1 ([facility]) 07/24/2020 03:57:00 PM EDT completed e CW1 ([facility]) 07/24/2020 03:56:00 PM EDT completed e CW1 ([facility]) 07/24/2020 03:56:00 PM EDT completed e CW1 ([facility]) 07/24/2020 03:56:00 PM EDT completed e CW1 ([facility]) 07/24/2020 03:56:00 PM EDT completed e CW1 ([facility]) 07/24/2020 03:56:00 PM EDT completed e CW1 ([facility]) 07/24/2020 03:56:00 PM EDT completed e CW1 ([facility]) 07/24/2020 03:56:00 PM EDT completed e CW1 ([facility]) 07/24/2020 03:56:00 PM EDT completed e CW1 ([facility]) 07/24/2020 03:56:00 PM EDT completed e CW1 ([facility]) 07/24/2020 03:56:00 PM EDT completed e CW1 ([facility]) 07/24/2020 03:56:00 PM EDT completed e CW1 ([facility]) 07/24/2020 03:56:00 PM EDT completed e CW1 ([facility]) 07/24/2020 03:56:00 PM EDT completed e CW1 ([facility]) 07/24/2020 03:56:00 PM EDT completed e CW1 ([facility]) 07/24/2020 03:56:00 PM EDT completed e CW1 ([facility]) COVID-19 dose #2 given elsewhere Unspecified 07/09/2020 04:1 1:00 PM EDT completed eCW1 ([facility]) COVID-19 dose #2 given elsewhere Unspecified 07/09/2020 04:1 1:00 PM EDT completed eCW1 ([facility]) COVID-19 dose #2 given elsewhere Unspecified 07/09/2020 04:1 1:00 PM EDT completed eCW1 ([facility]) COVID-19 dose #2 given elsewhere Unspecified 07/09/2020 04:1 1:00 PM EDT completed eCW1 ([facility]) COVID-19 dose #2 given elsewhere Unspecified 07/09/2020 04:1 1:00 PM EDT completed eCW1 ([facility]) COVID-19 dose #2 given elsewhere Unspecified 07/09/2020 04:1 1:00 PM EDT completed eCW1 ([facility]) COVID-19 dose #2 given elsewhere Unspecified 07/09/2020 04:1 1:00 PM EDT completed eCW1 ([facility]) COVID-19 dose #2 given elsewhere Unspecified 07/09/2020 04:1 1:00 PM EDT completed eCW1 ([facility]) COVID-19 dose #2 given elsewhere Unspecified 07/09/2020 04:1 1:00 PM EDT completed eCW1 ([facility]) COVID-19 dose #2 given elsewhere Unspecified 07/09/2020 04:1 1:00 PM EDT completed eCW1 ([facility]) COVID-19 dose #2 given elsewhere Unspecified 07/09/2020 04:1 1:00 PM EDT completed eCW1 ([facility]) COVID-19 dose #2 given elsewhere Unspecified 07/09/2020 04:1 1:00 PM EDT completed eCW1 ([facility]) COVID-19 dose #2 given elsewhere Unspecified 07/09/2020 04:1 1:00 PM EDT completed eCW1 ([facility]) COVID-19 dose #2 given elsewhere Unspecified 07/09/2020 04:1 1:00 PM EDT completed eCW1 ([facility]) COVID-19 dose #2 given elsewhere Unspecified 07/09/2020 04:1 1:00 PM EDT completed eCW1 ([facility]) COVID-19 VACCINE Moderna 07/09/2020 12:00:00 AM EDT completed [employer] Vaccine Series Complete: YESThis Data wa s Submitted to [facility] Via [employer]. COVID-19 dose #1 given elsewhere Unspecified 06/11/2020 04:1 1:00 PM EDT completed eCW1 ([facility]) COVID-19 dose #1 given elsewhere Unspecified 06/11/2020 04:1 1:00 PM EDT completed eCW1 ([facility]) COVID-19 dose #1 given elsewhere Unspecified 06/11/2020 04:1 1:00 PM EDT completed eCW1 ([facility]) COVID-19 dose #1 given elsewhere Unspecified 06/11/2020 04:1 1:00 PM EDT completed eCW1 ([facility]) COVID-19 dose #1 given elsewhere Unspecified 06/11/2020 04:1 1:00 PM EDT completed eCW1 ([facility]) COVID-19 dose #1 given elsewhere Unspecified 06/11/2020 04:1 1:00 PM EDT completed eCW1 ([facility]) COVID-19 dose #1 given elsewhere Unspecified 06/11/2020 04:1 1:00 PM EDT completed eCW1 ([facility]) COVID-19 dose #1 given elsewhere Unspecified 06/11/2020 04:1 1:00 PM EDT completed eCW1 ([facility]) COVID-19 dose #1 given elsewhere Unspecified 06/11/2020 04:1 1:00 PM EDT completed eCW1 ([facility]) COVID-19 dose #1 given elsewhere Unspecified 06/11/2020 04:1 1:00 PM EDT completed eCW1 ([facility]) COVID-19 dose #1 given elsewhere Unspecified 06/11/2020 04:1 1:00 PM EDT completed eCW1 ([facility]) COVID-19 dose #1 given elsewhere Unspecified 06/11/2020 04:1 1:00 PM EDT completed eCW1 ([facility]) COVID-19 dose #1 given elsewhere Unspecified 06/11/2020 04:1 1:00 PM EDT completed eCW1 ([facility]) COVID-19 dose #1 given elsewhere Unspecified 06/11/2020 04:1 1:00 PM EDT completed eCW1 ([facility]) COVID-19 dose #1 given elsewhere Unspecified 06/11/2020 04:1 1:00 PM EDT completed eCW1 ([facility]) COVID-19 VACCINE Moderna 06/11/2020 12:00:00 AM EDT completed [employer] Vaccine Series Complete: NOThis Data was Submitted to [facility] Via [employer] (EPS). Medications Medication Brand Name Start Date Product [...] AM EDT tablet,delayed release (DR/EC) 90 T HAIEL ONE TABLET BY MOUTH EVERY DAY TAKE ONE TABLET BY MOUTH EVERY DAY SOLD: 01/26/2021 [facility] Oxycodone Hydrochloride 5 MG Oral Tablet Oxycodone HCL 01/12/2021 12:00:00 AM EDT active MEDENT ([facility], ) 5 mg 01/12/2021 12:00:00 AM [...] 01/11/2021 12:00:00 AM EDT ORAL completed MEDENT ([facility], ) 5 mg 01/10/2021 12:00:00 AM [...] HCL 09/16/2020 12:00:00 AM EDT completed MEDENT ([facility], ) sennosides, [facility] 8.6 MG Oral Tablet Senna-Tabs 09/16/2020 12:00:00 AM EDT ORAL completed MEDENT ([facility], ) 5 mg 09/16/2020 12:00:00 AM [...] 09/16/2020 12:00:00 AM EDT ORAL completed MEDENT ([facility], ) 1,250 mcg (50,000 unit) 09/03/2020 12:00:00 AM EDT capsule 12 TAKE ONE CAPSULE BY MOUTH WEEKLY TAKE ONE CAPSULE BY MOUTH WEEKLY SOLD: 09/10/2020 [facility] Ergocalciferol 63531 UNT Oral Capsule [Drisdol] Drisdo l 1.25 MG (09221 UT) Drisdol 1.25 MG (32604 UT) 09/02/2020 12:00:00 AM EDT 1.0 {capsule} active Drisdol 1.25 MG (95937 UT) eCW ([facility]) Ergocalciferol 78249 UNT Oral Capsule [Drisdol] Drisdo l 1.25 MG (22288 UT) Drisdol 1.25 MG (49631 UT) 09/02/2020 12:00:00 AM EDT 1.0 {capsule} active Drisdol 1.25 MG (94815 UT) eCW ([facility]) Ergocalciferol 79673 UNT Oral Capsule [Drisdol] Drisdo l 1.25 MG (59447 UT) Drisdol 1.25 MG (13370 UT) 09/02/2020 12:00:00 AM EDT 1.0 {capsule} active Drisdol 1.25 MG (95627 UT) [facility] ([facility]) Ergocalciferol 76256 UNT Oral Capsule [Drisdol] Drisdo l 1.25 MG (25755 UT) Drisdol 1.25 MG (58683 UT) 09/02/2020 12:00:00 AM EDT 1.0 {capsule} active Drisdol 1.25 MG (62133 UT) eCW1 ([facility]) Ergocalciferol 80590 UNT Oral Capsule [Drisdol] Drisdo l 1.25 MG (62844 UT) Drisdol 1.25 MG (39025 UT) 09/02/2020 12:00:00 AM EDT 1.0 {capsule} active Drisdol 1.25 MG (15453 UT) eCW1 ([facility]) Ergocalciferol 47480 UNT Oral Capsule [Drisdol] Drisdo l 1.25 MG (98012 UT) Drisdol 1.25 MG (58963 UT) 09/02/2020 12:00:00 AM EDT 1.0 {capsule} active Drisdol 1.25 MG (59311 UT) eCW1 ([facility]) Ergocalciferol 67220 UNT Oral Capsule [Drisdol] Drisdo l 1.25 MG (45347 UT) Drisdol 1.25 MG (99647 UT) 09/02/2020 12:00:00 AM EDT 1.0 {capsule} active Drisdol 1.25 MG (19150 UT) eCW1 ([facility]) Naproxen 500 MG Oral Tablet Naproxen 500 MG 07/24/2020 12:00:00 AM EDT suspended Naproxen 500 MG eCW1 ([facility]) Naproxen 500 MG Oral Tablet Naproxen 500 MG 07/24/2020 12:00:00 AM EDT suspended Naproxen 500 MG eCW1 ([facility]) Naproxen 500 MG Oral Tablet Naproxen 500 MG 07/24/2020 12:00:00 AM EDT active eCW1 ([facility]) Naproxen 500 MG Oral Tablet Naproxen 500 MG 07/24/2020 12:00:00 AM EDT suspended Naproxen 500 MG eCW1 ([facility]) Naproxen 500 MG Oral Tablet Naproxen 500 MG 07/24/2020 12:00:00 AM EDT active Naproxen 500 MG eCW1 ([facility]) Naproxen 500 MG Oral Tablet Naproxen 500 MG 07/24/2020 12:00:00 AM EDT active Naproxen 500 MG eCW1 ([facility]) 500 mg 07/24/2020 12:00:00 AM EDT tablet 20 TAKE ONE TABLET BY MOUTH EVERY 12 HOURS WITH FOOD OR MILK TAKE ONE TABLET BY MOUTH EVERY 12 HOURS WITH FOOD OR MILK SOLD: 07/25/2020 [facility] Naproxen 500 MG Oral Tablet Naproxen 500 MG 07/24/2020 12:00:00 AM EDT suspended Naproxen 500 MG eCW1 ([facility]) Naproxen 500 MG Oral Tablet Naproxen 500 MG 07/24/2020 12:00:00 AM EDT active Naproxen 500 MG eCW1 ([facility]) Naproxen 500 MG Oral Tablet Naproxen 500 MG 07/24/2020 12:00:00 AM EDT suspended Naproxen 500 MG eCW1 ([facility]) Naproxen 500 MG Oral Tablet Naproxen 500 MG 07/24/2020 12:00:00 AM EDT active Naproxen 500 MG eCW1 ([facility]) Naproxen 500 MG Oral Tablet Naproxen 500 MG 07/24/2020 12:00:00 AM EDT suspended Naproxen 500 MG eCW1 ([facility]) Naproxen 500 MG Oral Tablet Naproxen 500 MG 07/24/2020 12:00:00 AM EDT active Naproxen 500 MG eCW1 ([facility]) Naproxen 500 MG Oral Tablet Naproxen 500 MG 07/24/2020 12:00:00 AM EDT suspended Naproxen 500 MG eCW1 ([facility]) Naproxen 500 MG Oral Tablet Naproxen 500 MG 07/24/2020 12:00:00 AM EDT active Naproxen 500 MG eCW1 ([facility]) Naproxen 500 MG Oral Tablet Naproxen 500 MG 07/24/2020 12:00:00 AM EDT active Naproxen 500 MG eCW1 ([facility]) 0.35 mg 01/22/2020 12:00:00 AM EDT tablet [...] Hydrocodone Bitartrate 5 MG Oral Tabl et [Orgas] Orgas 12/25/2019 12:00:00 AM EDT ORAL active MEDENT ([facility] ) Insurance Providers Payer name Policy type / Coverage type Policy ID Covered alliance party ID Covered alliance party's relationship to beckwith Policy Beckwith Plan Information [id number] BCBS [facility] 020/520 [id number] SP [id number] [place] P[place] 302/307 [id number] SP [id number] MEDICAID [id number] SP [id number] BCBS Ppo Commercial [id number] Self [id number] EXCELLUS BCBS MEDICAID [id number] EXCELLUS BCBS MEDICAID [id number] Mariaelena [id number] BIRDIE EXCHANGE U [id number] Self [id number] BCBS DENIZ HMO [id number] SP [id number] [place] PPO 302/307 [id number] SP [id number] [place]US BCBS MEDICAID PI PI ANSI-Not a Secondary Insurance [id number] ANSI-Not a Secondary Insurance [id number] ANSI-Not a Secondary Insurance [id number] ANSI-Not a Secondary Insurance [id number] ANSI-Not a Secondary Insurance [id number] Medicaid [place] Medigap Part B [id number] Self [id number] [facility] [place] Medigap Part B [id number] Self W [id number] ANSI-Not a Secondary Insurance [id number] ANSI-Commercial [id number] ANSI-Medicaid [id number] MEDICAID [id number] SP [id number] [place] PPO 302/307 [id number] SP [id number] [facility] BCBS B [id number] S W [id number] ANSI-Commercial [id number] ANSI-Medicaid [id number] ANSI-Medicaid [id number] ANSI-Commercial [id number] Medicaid [place] Medigap Part B [id number] Self [id number] BIRDIE [id number] SP [id number] [place] PPO 302/307 [id number] SP [id number] [place]/307 [id number] SP [id number] [place] 302/307 [id number] SP [id number] [place] [employer] [id number] Self W [id number] [place] [id number] 18 [id number] [place] 00 18 00 BLUE CROSS BLUE SHIELD-O/P [id number] 18 [id number] [place] [id number] SP [id number] BCBS DEN[place] HMO [id number] SP [id number] [place]CELL[place] BCBS B [id number] S [id number] MEDICAID M [id number] S [id number] Problems, Conditions, and Diagnoses Code Display Name Description Problem Type Effective Dates Data Source(s) abd pain, perforation abd pain, perforation Diagnosis 01/19/2021 12:56:00 PM EDT [facility] Z9884 Bariatric surgery status Bariatric surgery status Diag nosis [facility] assisted (current) use of aspirin assisted (cu rrent) use of aspirin Diagnosis 01/19/2021 07:50:00 AM EDT [facility] Z6841 Body mass index [BMI]40.0-44.9, adult [place] dy mass index [BMI]40.0-44.9, adult Diagnosis 01/19/2021 07:50:00 AM EDT [facility] [id number] CONTACT WITH AND SUSPECTED EXPOSURE TO C OVID-19 CONTACT WITH AND SUSPECTED EXPOSURE TO COVID-19 Diagnosis 01/19/2021 07:50:00 AM EDT [facility] E6601 Morbid (severe) obesity due to excess ca lories Morbid (severe) obesity due to excess calories Diagnosis 01/19/2021 07:50:00 AM EDT [facility] K631 Perforation of intestine (nontraumatic) Perforation of intestine (nontraumatic) Diagnosis 01/19/2021 07:50:00 AM EDT [facility] R1033 Periumbilical pain Periumbilical pain Diagnosis 07:50:00 AM [facility] M17.12 [id number] Arthritis of knee, left Problem 12/19/2020 12:00:00 AM EDT eCW ([facility]) E55.9 [id number] Vitamin D deficiency Problem 09/02/2020 12:0 0:00 AM EDT eCW1 ([facility]) Surgeries/Procedures Procedure Description Date Indications Data Source(s) OFFICE OUTPATIENT VISIT 25 MINUTES 01/29/2021 12:00:00 AM EDT [facility]) OFFICE OUTPATIENT VISIT 15 MINUTES 01/16/2021 12:00:00 AM [facility] ARTHRP KNE CONDYLE&PLATU MEDIAL&LAT CMPRTS 01/09/2021 12:00:00 AM [facility] OFFICE OUTPATIENT VISIT 15 MINUTES 12/25/2020 12:00:00 AM [facility]T [facility] OFFICE OUTPATIENT VISIT 25 MINUTES 10/30/2020 12:00:00 AM [facility] ARTHROSCOPY KNEE REMOVAL LOOSE/FOREIGN BODY 09/16/2020 12:00:00 AM EDT [facility] ([facility]) ARTHRS KNEE W/MENISCECTOMY MED&LAT W/SHAVING 12:00:00 AM EDT [facility] ([facility]) OFFICE OUTPATIENT VISIT 25 MINUTES 09/11/2020 12:00:00 AM [facility] OFFICE OUTPATIENT NEW 30 MINUTES 08/08/2020 12:00:00 A M EDT [facility] Medication: Toradol 30mg/1mL IM (Ketorolac) 07/24/2020 12:00:00 AM EDT eC ([facility]) OFFICE OUTPATIENT NEW 45 MINUTES 06/28/2020 12:00:00 A M [facility]T [facility] OFFICE OUTPATIENT VISIT 10 MINUTES 04/09/2020 12:00:00 AM EST [facility] ([facility]) Laparoscopic Incisional Hernia W/ Mesh, Reducible 01/01/2020 12:00:00 AM EDT [facility] ([facility]) ECG ROUTINE ECG W/LEAST 12 LDS W/I&R 12/26/2019 12:00: 00 AM EDT eCW1 ([facility]) Results ID Date Data Source [id number] 01/28/2021 11:37:02 AM EDT [facility] Name Value Range Interpretation Code Description Data Esmer rce(s) Supporting Document(s) Discharge Summary [facility] YMFBEr2wHtDFOnTy55/NRRsvILRef5XwVDisPPp6IFjnQXAdX9IoKHE9sL0kBJI9NLoYDcMxOvBdKCZm lbm [file] AgICAgICAgICAgICAgICAgICAgICAgICAgICAgICAg ICAgICAgICAgICAgICAgICAgICAgICAgICAgICAgICAgICAgICAgICAgICAgICAgICAgICAgICAgICAg ICAgICANCiAgICAgICAgICAgICAgICAgICAgICAgICAgICAgICAgICAgICAgICAgICAgICAgICAgICAg ICAgICAgICAgICAgICAgICAgICAgICAgICAgICAgIC AgICAgICAgICAgICAgICANCiAgICAgICAgICAgICAgICAgICAgICAgICAgICAgICAgICAgICAgICAgIC AgICAgICAgICAgICAgICAgICAgICAgICAgICAgICAgICAgICAgICAgICAgICAgICAgICAgICAgICANCi AgICAgICAgICAgICAgICAgICAgICAgICAgICAgICAg ICAgICAgICAgICAgICAgICAgICAgICAgICAgICAgICAgICAgICAgICAgICAgICAgICAgICAgICAgICAg ICAgICAgICANCiAgICAgICAgICAgICAgICAgICAgICAgICAgICAgICAgICAgICAgICAgICAgICAgICAg ICAgICAgICAgICAgICAgICAgICAgICAgICAgICAgIC AgICAgICAgICAgICAgICAgICANCiAgICAgICAgICAgICAgICAgICAgICAgICAgICAgICAgICAgICAgIC AgICAgICAgICAgICAgICAgICAgICAgICAgICAgICAgICAgICAgICAgICAgICAgICAgICAgICAgICAgIC ANCiAgICAgICAgICAgICAgICAgICAgICAgICAgICAg ICAgICAgICAgICAgICAgICAgICAgICAgICAgICAgICAgICAgICAgICAgICAgICAgICAgICAgICAgICAg ICAgICAgICAgICANCiAgICAgICAgICAgICAgICAgICAgICAgICAgICAgICAgICAgICAgICAgICAgICAg ICAgICAgICAgICAgICAgICAgICAgICAgICAgICAgIC AgICAgICAgICAgICAgICAgICAgICANCiAgICAgICAgICAgICAgICAgICAgICAgICAgICAgICAgICAgIC AgICAgICAgICAgICAgICAgICAgICAgICAgICAgICAgICAgICAgICAgICAgICAgICAgICAgICAgICAgIC AgICANCiAgICAgICAgICAgICAgICAgICAgICAgICAg ICAgICAgICAgICAgICAgICAgICAgICAgICAgICAgICAgICAgICAgICAgICAgICAgICAgICAgICAgICAg ICAgICAgICAgICAgICANCjw/bGFvI8kvqFJrxnV2T6qqVr0GKz1GNY8xs6QoPSKpYZrowjAqViqVXwQb CLJnHnoBLzu8RRhjNH9WyNVhN7TpL6GkIYqeYY5UBG GaICBpyGJnTFKhGRAmNfC9HNRhLKkxNO8NdLSzRCdgTTJwWHGnXoLhNIEyMAGoAJAmEHHiNTUBSD5UHo LqR5TukX34DZTJNg5+CHmqshDlPoyIHrV7UHAkb8XqFSz5WP1OUEPdHzduk0CoRrfbYOOLVWdzMR7DSD S9JUN0CZZvPh8WFUTiB705uuUaFB6SYd3KDxEzKZ9d lp8AClpjLWPwQcsILyf0XFeyUL3PfGFmBKkKbMYfaBFzC5KxU0SexAPfqZJoeSEGNDqccGI9CZFeVIOo bSHdAZVUKfHUWRF9WJQdZyVcGaJvDvWzEFZ1CCouCF1dCFczVG9GSZO8KNlgSPTtAIHsS4lNEgLdVWJt SxMkhKlhHM6LViWkT0YlfoNrpPFjXnPdKDCXSh3+DQ skkcOyXooNCqI8STPox1ShRZf0RM9QXDPqLFdgNT9CUWOonP7bXHchGQ9INhFlOQQiURYVDtFiL18sxC XsXSz9A0UqWfSmNZEzNgasIJGnKRbdOlGhISTsXyHxDXqiSC1+ID4+LBvlCS2XGErpprTaKFYmGz0PSR BdGXZcWX3kMQYyIOPvH5Z8nOwgOIKIUpLfR6zjjuph EE6yFJMgU876fZrdvjKeRAL7JMSyCi2VLCGwVHY1NIShkBCyJsEqMUOPXQvwYV9LxVOwFRI5vT8lOIep KXZeTEDfW1nUWvIugVemGF87pVpvvxBitGIaIBm+Wq4FLP3jg2YiSFp5lzMoDKaxUWS4AGnoMZKvVQFp UBSfBHF1CEE0TFUUDaDsMPBoUGBmHZkvWVDdNGUtrb 3CMPJoURCsEES7IsZzTPMhLYSpTNrtDXKtOSXiQCB7TBEgQBQkDH1ZScMcVXVpESRiGSbzQVZcULPepi 6NPUUfCFSnCRJ3UdZkVTSwEKXnORbsJOZvDJZ0LjK4AJBmOBYjSQ2USjZaSNRiOJesYAcxKSBeSGEjnm 8JMONiPJEdVlA9BsQdNDEhPAFgQKyyZJYeHPYkNFFi YDBvWHWpNC7OQgYbPOSaJRTbUQfzYGOnJROjmm1JUKWdCFBtQlJ8OUKcTWChJBVtRThtPVZaIPXgFbN9 GJXrFKMzCS8AJqTxOFDbVLXuTKGmDYZaFOIeam8JUKQfELFoCSSmZoOsGMOiKPSqFNtiPNDoYHS4UKp7 DIIyEBVuMF2HXcWxRYZuPFP2PKZpKSDsTYKnhi9KPN RjKTYcXVc7UhYaPACjWBMdOByuWYHlABN9KIC0OZCnYTUmUG0VBaDrUIVbRNY4BHIxJRHdITTomv6XLS KqEQBcQnMrBBAqKKBdFESdTFmhYSHzFBP1Vvp7KJJuQIWpAA5HLsFoJZHiNHggYHTcUCRxFCDjzv0HJQ MtPMPuBNG3LRBhZBFzACWlBSuiIDWeMYC4VoY3QERd UASzIR9EMlFrURUkMRwsLxbjYOSvPNEull0XRCHoSIPxCQYnPrOvSTNrEDJwSAkaDLBqXVXfGhO6AEPx HAFwSY4CFrArLDBmHzI5OeYnKNYoCCLybi6KxLIehNtcnn4AHNtMCe2SxKiwXRC9NOxeAu5rkSVcBOTu GBYRGz7ZmuQnJCOyCGOSPZleJDJjEVOrKHFyGmVgLV c9WaB0CVDeNWr5JQL1AuO4QoRsWiLlYyF5Q4G4WkSaVNM7UTX0KoS4RYIwHJduTuCvFNVwVJQeAHA+IF 0gDQo+Qp5Zn3NzwiF8yyNzLYqyCUYjVF0QFRZVY3YVXf== ID Date Data Source [id number] 01/26/2021 02:57:21 AM EDT [facility] Name Value Range Interpretation Code Description Data Esmer rce(s) Supporting Document(s) ED Provider Note [facility] FZFYHv7cFyWNZnUl66/JLGqdLRJpz1GuZEhfYCo5ACyfHZQbM0OgQLS1qN8dZYX4YYmMYeVsUrBnXNGo lbm LgRamSIeMfNRSnDlxNPjEsTMdcDlfhdOMdCT1UxSZ1DYAnV90sWTNrBDLkH3ZnAZZ8DMm+Pq3RMUJzeC IoTT7LOlcI6H5CxfaGGl6oSI3Kj59CZWSsE5RexfYMlqXyI3AKZNGHCZTlRNRVKbXBdEoW0dkpSmIIIr 2fh1RUMe1TNBS29u4gra+2hcj//N912bsItyGue698 0mJ4K/46D4EaBkCFrkysgRZ7AdmM8vvM4DkAC2/wTV+8/LoYsCicDhtCsnRFSOYWnQR3Ef/OBsPfvhYX 2Iv2CB5I06+oOU4AB8KYTym1L0+J/q/idV+8bcwyUskrJU/mcwvxl1tsdPPTM8v2GTy8BjtssuWyBRgJ mfoWPLUZnNgGnNQrxUlY25PktLtgC9jKYGzmZvljiN uFO/K8vm90J0fUWrfkugQ8lYfgmPk+3ttrxFyG3ttmgg2YZx96hGyW8rAEIpT+Pz3O4ROYkni3fKzwac yPSVi5IjlxSCCMONIKkkHHmkowEO5qVOtrwPa7aLK8LMZLD2whMWE1QKLhXozqBQhuoldOBZ1BXXcIGB Now6/Gl6ZJG0oIxihkwrMawAC0QbfM7jAL6tzTl10H K1qPLMPFQGCA3xDBuPEuBlORnp+jehMxiEBEleMU7ScRKQpPP4B/Strike Warfare/Missile Systems Officer+ppFMNn2EbHmTuNENUvjaHyLb [file] XSANCj4+IAzoxKJtyZhbJOGJIsV3DLqaYTbdXVCZDf8N ID Date Data Source [id number] 01/24/2021 10:13:50 AM EDT [facility] FLUORO UPPER GI SERIESFINAL RESULTInterp reted by:Edmund Ribera [facility]: 50-year-old female with a history of repair of a perforated gastric ulcer, who presents for postoperative fluoroscopic evaluation.TECHNIQUE: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 The patient swallowed water-soluble oral contrast under videofluoroscopic observation and multiple projections.The patient then swallowed a thin barium solution under videofluoroscopic observation and multiple projections. Multiple spot images of the esophagus, gastric pouch, g astrojejunostomy and [place] stomach were obtained. Fluoroscopic Time: 2.5 minutes. Dose: 65.1 mGy. 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 IMPRESSION:1. [...] Name Value Range Interpretation Code Description Data [facility](s) Supporting Document(s) ID Date Data Source [id number] 01/24/2021 04:14:07 AM [facility] Name Value Range Interpretation Code Description Data Esmer e(s) Supporting Document(s) Leukocytes [#/volume] in Blood by Automated count 8.1 10*3/uL 4-10 [facility] Erythrocytes [#/volume] in Blood by Automated count 4.18 10*6/uL 4.1- 5.3 [facility] Hemoglobin [Mass/volume] in Blood 12.9 g/dL 11.5-15.5 [facility] Hematocrit [Volume Fraction] of Blood by Automated count 38.5 % 3 6-45 [facility] Erythrocyte mean corpuscular volume [Entitic volume] by Auto mated count 92.1 fL 80-96 [facility] Erythrocyte mean corpuscular hemoglobin [Entitic mass] by Automated count 30.9 pg 27-33 [facility] Erythrocyte mean corpuscular hemoglobin concentration [Mass/volume] by Automated count 33.5 g/dL 32.0-36.[facility] width [Ratio] by Automated count 13.2 % 11.5-14.5 [facility] Platelets [#/volume] in Blood by Automated count 246 10*3/uL 150-400 [facility] Differential cell count method - Blood [facility] Neutrophils/100 leukocytes in Blood by Automated count 66 % [facility] Lymphocytes/100 leukocytes in Blood by Automated count 18 % [facility] Monocytes/100 leukocytes in Blood by Automated count 14 % [facility] Eosinophils/100 leukocytes in Blood by Automated count 1 % [facility] Basophils/100 leukocytes in Blood by Automated count 1 % [facility] Neutrophils [#/volume] in Blood by Automated count 5.31 10*3/uL 1.8-7 .0 [facility] Lymphocytes [#/volume] in Blood by Automated count 1.46 10*3/uL 1.2-4 .0 [facility] Monocytes [#/volume] in Blood by Automated count 1.13 10*3/uL 0-0.8 H [facility] Eosinophils [#/volume] in Blood by Automated count 0.11 10*3/uL 0-0.5 [facility] Basophils [#/volume] in Blood by Automated count 0.07 10*3/uL 0-0.2 [facility] Nucleated erythrocytes/100 leukocytes [Ratio] in Blood by Automated count 0 /100{WBCs} 0-0 [facility] ID Date Data Source [id number] 01/24/2021 04:30:05 AM [facility] Name Value Range Interpretation Code Description Data Esmer rce(s) Supporting Document(s) Bicarbonate [Moles/volume] in Serum 30 mmol/L 22-29 H [facility] Chloride [Moles/volume] in Serum or Plasma 98 mmol/L 98-107 [facility] Creatinine [Mass/volume] in Serum or Plasma 0.37 mg/dL 0.50-0.90 L [facility] Glucose [Mass/volume] in Serum or Plasma 57 mg/dL 70-140 [facility] Potassium [Moles/volume] in Serum or Plasma 3.5 mmol/L 3.4-5.1 [facility] Sodium [Moles/volume] in Serum or Plasma 139 mmol/L 136-145 [facility] Urea nitrogen [Mass/volume] in Serum or Plasma 8 mg/dL 6-20 [facility] Anion gap 3 in Serum or Plasma 11 mmol/L 8-15 [facility] Osmolality of Serum or Plasma by calculation 284 mosm/kg 275-300 [facility] Creatinine/Urea nitrogen [Mass Ratio] in Serum or Plasma 22 [facility] Calcium [Mass/volume] in Serum or Plasma 8.7 mg/dL 8.6-10.0 [facility] Glomerular filtration rate/1.73 sq M pre dicted among non-blacks [Volume Rate/Area] in Serum or Plasma by Creatinine-based formula (MDRD) >6 0 [facility] Glomerular filtration rate/1.73 sq M pre dicted among blacks [Volume Rate/Area] in Serum or Plasma by Creatinine-based formula (MDRD) >60 [facility] ID Date Data Source [id number] 01/23/2021 04:56:28 AM [facility] Name Value Range Interpretation Code Description Data Esmer rce(s) Supporting Document(s) Leukocytes [#/volume] in Blood by Automated count 9.5 10*3/uL 4-10 [facility] Erythrocytes [#/volume] in Blood by Automated count 3.87 10*6/uL 4.1- 5.3 L [facility] Hemoglobin [Mass/volume] in Blood 12.1 g/dL 11.5-15.5 [facility] Hematocrit [Volume Fraction] of Blood by Automated count 35.0 % 3 6-45 L [facility] Erythrocyte mean corpuscular volume [Entitic volume] by Auto mated count 90.6 fL 80-96 [facility] Erythrocyte mean corpuscular hemoglobin [Entitic mass] by Automated count 31.3 pg 27-33 [facility] Erythrocyte mean corpuscular hemoglobin concentration [Mass/volume] by Automated count 34.5 g/dL 32.0-36.0 [facility] distribution width [Ratio] by Automated count 13.2 % 11.5-14.5 [facility] Platelets [#/volume] in Blood by Automated count 219 10*3/uL 150-400 [facility] Differential cell count method - Blood [facility] Neutrophils/100 leukocytes in Blood by Automated count 71 % [facility] Lymphocytes/100 leukocytes in Blood by Automated count 15 % [facility] Monocytes/100 leukocytes in Blood by Automated count 12 % [facility] Eosinophils/100 leukocytes in Blood by Automated count 1 % [facility] Basophils/100 leukocytes in Blood by Automated count 1 % [facility] Neutrophils [#/volume] in Blood by Automated count 6.81 10*3/uL 1.8-7 .0 [facility] Lymphocytes [#/volume] in Blood by Automated count 1.43 10*3/uL 1.2-4 .0 [facility] Monocytes [#/volume] in Blood by Automated count 1.12 10*3/uL 0-0.8 H [facility] Eosinophils [#/volume] in Blood by Automated count 0.08 10*3/uL 0-0.5 [facility] Basophils [#/volume] in Blood by Automated count 0.06 10*3/uL 0-0.2 [facility] Nucleated erythrocytes/100 leukocytes [Ratio] in Blood by Automated count 0 /100{WBCs} 0-0 [facility] ID Date Data Source [id number] 01/23/2021 05:23:00 AM EDT [facility] Name Value Range Interpretation Code Description Data Esmer rce(s) Supporting Document(s) Bicarbonate [Moles/volume] in Serum 27 mmol/L 22-29 [facility] Chloride [Moles/volume] in Serum or Plasma 100 mmol/L 98-107 [facility] Creatinine [Mass/volume] in Serum or Plasma 0.33 mg/dL 0.50-0.90 L [facility] Glucose [Mass/volume] in Serum or Plasma 69 mg/dL 70-140 L [facility] Potassium [Moles/volume] in Serum or Plasma 3.5 mmol/L 3.4-5.1 [facility] Sodium [Moles/volume] in Serum or Plasma 137 mmol/L 136-145 [facility] Urea nitrogen [Mass/volume] in Serum or Plasma 8 mg/dL 6-20 [facility] Anion gap 3 in Serum or Plasma 10 mmol/L 8-15 [facility] Osmolality of Serum or Plasma by calculation 281 mosm/kg 275-300 [facility] Creatinine/Urea nitrogen [Mass Ratio] in Serum or Plasma 24 [facility] Calcium [Mass/volume] in Serum or Plasma 8.4 mg/dL 8.6-10.0 [facility] Glomerular filtration rate/1.73 sq M pre dicted among non-blacks [Volume Rate/Area] in Serum or Plasma by Creatinine-based formula (MDRD) >6 0 [facility] Glomerular filtration rate/1.73 sq M pre dicted among blacks [Volume Rate/Area] in Serum or Plasma by Creatinine-based formula (MDRD) >60 [facility] ID Date Data Source [id number] 01/22/2021 01:04:30 PM EDT [facility] CT ANGIOGRAPHY THORAX [id number] RESULTI nterpreted by:Esteban Solomon MDCLINICAL INDICATION: 50-year-old [...] rce(s) Supporting Document(s) ID Date Data Source [id number] 01/22/2021 04:51:43 AM [facility] Name Value Range Interpretation Code Description Data Esmer rce(s) Supporting Document(s) Leukocytes [#/volume] in Blood by Automated count 12.8 10*3/uL 4-10 H [facility] Erythrocytes [#/volume] in Blood by Automated count 3.86 10*6/uL 4.1- 5.3 L [facility] Hemoglobin [Mass/volume] in Blood 11.8 g/dL 11.5-15.5 [facility] Hematocrit [Volume Fraction] of Blood by Automated count 35.5 % 3 6-45 L [facility] Erythrocyte mean corpuscular volume [Entitic volume] by Auto mated count 92.0 fL 80-96 [facility] Erythrocyte mean corpuscular hemoglobin [Entitic mass] by Automated count 30.5 pg 27-33 [facility] Erythrocyte mean corpuscular hemoglobin concentration [Mass/volume] by Automated count 33.1 g/dL 32.0-36.0 [facility] distribution width [Ratio] by Automated count 13.6 % 11.5-14.5 [facility] Platelets [#/volume] in Blood by Automated count 208 10*3/uL 150-400 [facility] Differential cell count method - Blood [facility] Neutrophils/100 leukocytes in Blood by Automated count 79 % [facility] Lymphocytes/100 leukocytes in Blood by Automated count 11 % [facility] Monocytes/100 leukocytes in Blood by Automated count 8 % [facility] Eosinophils/100 leukocytes in Blood by Automated count 1 % [facility] Basophils/100 leukocytes in Blood by Automated count 1 % [facility] Neutrophils [#/volume] in Blood by Automated count 10.38 10*3/uL 1.8- 7.0 H [facility] Lymphocytes [#/volume] in Blood by Automated count 1.38 10*3/uL 1.2-4 .0 [facility] Monocytes [#/volume] in Blood by Automated count 0.96 10*3/uL 0-0.8 H [facility] Eosinophils [#/volume] in Blood by Automated count 0.06 10*3/uL 0-0.5 [facility] Basophils [#/volume] in Blood by Automated count 0.06 10*3/uL 0-0.2 [facility] Nucleated erythrocytes/100 leukocytes [Ratio] in Blood by Automated count 0 /100{WBCs} 0-0 [facility] ID Date Data Source [id number] 01/22/2021 05:03:43 AM EDT [facility] Name Value Range Interpretation Code Description Data Esmer rce(s) Supporting Document(s) Bicarbonate [Moles/volume] in Serum 26 mmol/L 22-29 [facility] Chloride [Moles/volume] in Serum or Plasma 101 mmol/L 98-107 [facility] Creatinine [Mass/volume] in Serum or Plasma 0.36 mg/dL 0.50-0.90 L [facility] Glucose [Mass/volume] in Serum or Plasma 70 mg/dL 70-140 [facility] Potassium [Moles/volume] in Serum or Plasma 4.0 mmol/L 3.4-5.1 [facility] Sodium [Moles/volume] in Serum or Plasma 137 mmol/L 136-145 [facility] Urea nitrogen [Mass/volume] in Serum or Plasma 13 mg/dL 6-20 [facility] Anion gap 3 in Serum or Plasma 10 mmol/L 8-15 [facility] Osmolality of Serum or Plasma by calculation 283 mosm/kg 275-300 [facility] Creatinine/Urea nitrogen [Mass Ratio] in Serum or Plasma 36 [facility] Calcium [Mass/volume] in Serum or Plasma 8.2 mg/dL 8.6-10.0 L [facility] Glomerular filtration rate/1.73 sq M pre dicted among non-blacks [Volume Rate/Area] in Serum or Plasma by Creatinine-based formula (MDRD) >6 0 [facility] Glomerular filtration rate/1.73 sq M pre dicted among blacks [Volume Rate/Area] in Serum or Plasma by Creatinine-based formula (MDRD) >60 [facility] ID Date Data Source [id number] 01/22/2021 05:03:43 AM [facility] Name Value Range Interpretation Code Description Data Esmer rce(s) Supporting Document(s) Magnesium [Mass/volume] in Serum or Plasma 1.7 mg/dL 1.6-2.6 [facility] ID Date Data Source [id number] 01/21/2021 05:21:38 AM [facility] Name Value Range Interpretation Code Description Data Esmer rce(s) Supporting Document(s) Leukocytes [#/volume] in Blood by Automated count 16.4 10*3/uL 4-10 H [facility] Erythrocytes [#/volume] in Blood by Automated count 3.76 10*6/uL 4.1- 5.3 L [facility] Hemoglobin [Mass/volume] in Blood 11.6 g/dL 11.5-15.5 [facility] Hematocrit [Volume Fraction] of Blood by Automated count 34.7 % 3 6-45 L [facility] Erythrocyte mean corpuscular volume [Entitic volume] by Auto mated count 92.2 fL 80-96 [facility] Erythrocyte mean corpuscular hemoglobin [Entitic mass] by Automated count 30.8 pg 27-33 [facility] Erythrocyte mean corpuscular hemoglobin concentration [Mass/volume] by Automated count 33.4 g/dL 32.0-36.0 [facility] E[facility] distribution width [Ratio] by Automated count 14.2 % 11.5-14.5 [facility] Platelets [#/volume] in Blood by Automated count 199 10*3/uL 150-400 [facility] Differential cell count method - Blood [facility] Neutrophils/100 leukocytes in Blood by Automated count 85 % [facility] Lymphocytes/100 leukocytes in Blood by Automated count 9 % [facility] Monocytes/100 leukocytes in Blood by Automated count 6 % [facility] Eosinophils/100 leukocytes in Blood by Automated count 0 % [facility] Basophils/100 leukocytes in Blood by Automated count 0 % [facility] Neutrophils [#/volume] in Blood by Automated count 13.93 10*3/uL 1.8- 7.0 H [facility] Lymphocytes [#/volume] in Blood by Automated count 1.44 10*3/uL 1.2-4 .0 [facility] Monocytes [#/volume] in Blood by Automated count 0.99 10*3/uL 0-0.8 H [facility] Eosinophils [#/volume] in Blood by Automated count 0.02 10*3/uL 0-0.5 [facility] Basophils [#/volume] in Blood by Automated count 0.05 10*3/uL 0-0.2 [facility] Nucleated erythrocytes/100 leukocytes [Ratio] in Blood by Automated count 0 /100{WBCs} 0-0 [facility] ID Date Data Source [id number] 01/21/2021 06:03:07 AM T [facility] Name Value Range Interpretation Code Description Data Esmer rce(s) Supporting Document(s) Bicarbonate [Moles/volume] in Serum 28 mmol/L 22-29 [facility] Chloride [Moles/volume] in Serum or Plasma 106 mmol/L 98-107 [facility] Creatinine [Mass/volume] in Serum or Plasma 0.50 mg/dL 0.50-0.90 [facility] Glucose [Mass/volume] in Serum or Plasma 72 mg/dL 70-140 [facility] Potassium [Moles/volume] in Serum or Plasma 4.0 mmol/L 3.4-5.1 [facility] Sodium [Moles/volume] in Serum or Plasma 141 mmol/L 136-145 [facility] Urea nitrogen [Mass/volume] in Serum or Plasma 22 mg/dL 6-20 H [facility] Anion gap 3 in Serum or Plasma 7 mmol/L 8-15 L [facility] Osmolality of Serum or Plasma by calculation 294 mosm/kg 275-300 [facility] Creatinine/Urea nitrogen [Mass Ratio] in Serum or Plasma 43 [facility] Calcium [Mass/volume] in Serum or Plasma 8.7 mg/dL 8.6-10.0 [facility] Glomerular filtration rate/1.73 sq M pre dicted among non-blacks [Volume Rate/Area] in Serum or Plasma by Creatinine-based formula (MDRD) >6 0 [facility] Glomerular filtration rate/1.73 sq M pre dicted among blacks [Volume Rate/Area] in Serum or Plasma by Creatinine-based formula (MDRD) >60 [facility] ID Date Data Source [id number] 01/21/2021 06:03:07 AM [facility] Name Value Range Interpretation Code Description Data Esmer rce(s) Supporting Document(s) Magnesium [Mass/volume] in Serum or Plasma 1.9 mg/dL 1.6-2.6 [facility] ID Date Data Source [id number] 01/20/2021 02:05:58 PM EDT [facility] Name Value Range Interpretation Code Description Data Esmer rce(s) Supporting Document(s) Operative Note [facility] QJGBUq7oRhLUTsFb79/MNAtvEMEfg0OgCNlyXFm2YYmjFLOiX3TrZOF3hS6vBMU1IUvGLvEnGjKjDMC1 lbm [file] mold maker/gGG/VOHW1x6ljHAXdgKX6tkPSD8STVDIDRHG9ai1io+Zg3WU1GIXkmY/PaKODxqpkQkmWS6jeNgIO [file] o1KknbH7uqSiEFmbGko3QS1PUYRTK7HTQk== ID Date Data Source [id number] 01/20/2021 01:57:19 PM EDT [facility] Name Value Range Interpretation Code Description Data Esmer rce(s) Supporting Document(s) History and Physical [facility] ETWDWj9sEvTCBcEy61/CJAxsBPXyu0EaFSplIPt1EUwaFFBzK6DiNEF1hV1vPUE0LJiZQlYdZvPaKES8 lbm [file] ID Date Data Source [id number] 01/20/2021 12:10:17 PM EDT [facility] XR CHEST FRONTAL ONLY [id number] RESULTI nterpreted by:Mg Mckeon MDHISTORY: Please assess [...] document has been electronically signed by Mg Mckeon MD on 01/20/2021 12:08 PM Name Value Range Interpretation Code Description Data Esmer rce(s) Supporting Document(s) ID Date Data Source [id number] 01/20/2021 07:55:11 AM EDT [facility] Name Value Range Interpretation Code Description Data Esmer rce(s) Supporting Document(s) [facility] FMFNAy9iVeRMSzUzo3VySqOwOCUsBR0umyf3Q1N1sMHuT7DnkEXhg9baF9UwN5LrPTHcJRWHCE9BrQIw jb2 [file] iEBLuZ8VCMSSAWXXAGBFBqaiKHVHNC8l0gSFpOLwHr l9PRKe2cZQRPBsJH4FTXhjwDumjLawulZvhvg3qMNJIx3J3xOXI5Fwh8EhVXcfAx2vx5Jpq+abpRPLwP vGyfHE+tL2kQ6JL93bQotE2sNPJ95CZ8dEsdmedSqHPDoRFmXcLTKnBEVqBYGVMIRXLiJQd0QeCZ0pIG jOZJQqYAqP7eutGuA80eJIR7JpSAWu5ynFW7+qJINk dZbCXTNeMiVnUpDjlRmdMXAri5EamKD1yBYLbOJ1S46bCMtbWIiPUCegHFrB0ZDzZLqQe2WrKZwUWcnD WE8FeiAOt9g+jM9ZbijTBSQ2bYPD2PfFOKk9XXU6Q+TthFxwogve1Bqf6NCLK2ck27gxzyWx5vNekrWw tfFwKIUxs5pd0LmeA+3somy7GMoxEkGIlh/T2/bOGk /1QFM34oP63zlk/XkdURW2stRCD6ZeW+tipk59tYIrcmhpFgqsxE8a9BmPGk5kktf5eagrEjuOG60uz+ jQypPvnWfpREuCZ+pYTpTujpzsm9HwsV7FMxRZfjBYIpdBXS63PoHNQdATtoHEFYUAbpdvOLpCKr3Xs2 HNj7HnHFEoFBf7vkpcClnjUDaR5RRxnOvpYffF6qZ9 Sl70r5RL+fQ+Uyfm0/eEvCqP1vG5Au71m1REVgyc4UwbiYHHwXdiI1TvnJ6w+gIRr8rJHrdT09kq0RGe MqVOXFlgUyduzXg+MeUH9bUniyB+391XK8rvU/73M3Xy+g1gb3ztpwnJG92NWNM32a5A3cGCrRF9lpYS r53JD9urNd2zkJqg6uy1fS+ASAt1Hv9OkblY2/XafH YhYaD84mfdHiwkbN0y6sfojvHgexXjHKf4R/4YFgxs0QO+hRtfqL05C6nHY1h1GgglkSJDpM4p17AHs3 KlE1+ZFABvkqZPzv6MhXMhoAKIaj3C9JojIiGHpNEAxtvSaqDDcVICEnTW6iDCvafEDREYpEeC+IEpxg 9MoZWNOtEUGslUSZRkkAySSTJJjMRInMRJFskiCZIg oXBvPX4EuDhlV+7SfYqM8cAIqI15ZCHXUomidPW3Q4FGrCqVxLUjv4O9pYMY+gTL6uNf+Amt21xNUztc 1MrOEL66Na23PmexDR2KgIt6IXcqeQMqk5IB6hEzX0tQTliGCX+EN2nnkLb1gPD64g0UptAz+5NrM/Ld +1p9POGemoGElD+9x0vDlIHw8BwyE5oDKnLwqmHcrf PMQenETNWrE/Sm5lxSC18BxFjTaGxvLFXP8oDGaiEGfCrFTYyTTexmPAK5I7X40wrnY4l6w3HEYGm33z t57afmF64zoR3ayZ8ijN2hwT5vfp1271lRfXQKoVIfooX49xFH62eHWD+ZneED00jgkHuBEL0eYV77pp kitlJO07vB047A532T2065hZBGK3a4drx5EHtNXKwL cypr1PQDvQYvb/i+ae1FGMyAYKtRu9UExpwAdAvr9zQbtOXANJ6zkB5v7J6H+3EycwIaM0VZHYfURnGD mN2k7Rk7+8jHovDpf0mxAno9wx8+vtMp3ZyuR/jTgn2fDnukLmuDwTIm9OxYm9Syyl32kbRIi891A2mT MLJKM6JQ4/xE5/xE5/xE5/xE5/mXz5wG70KXW6zmuh MSTNvFY3yjN+cnumA+szoIaqiWetkFBgAFD8BoFN/xNNEumKvrNT+dNZp822wpQJHjJ0BZe+CC8QOv+Y eCMQ6o6QHpA9zqpcuL+QcumH/gNT/m6YJx5sUo4/KnGwPG7xVx/MRzHsUYiivmpbni/YIr3i+4ThLmQD OarSAsSZ1fD28G03Nu69l8RA4367p13XEz2YNPJ672 9+3I9789YSBFj+L6qksLMJmetmtyypk2aiQCROZHWZdHACenaGzIHQcF1wDrjaplOLD2TYqSzxaIPoT/ wCdzMJmDyRxMrF/wifUL/q7WL+DZ10ly575y1vEPgJVkdfiOT6568sIly+JxR5WPylzHxVm/njoxhzN8 6ljS9zDP+eO99xRylnEPB+bkWE+dOIucHFjGkzoxpw R79vYQIy47gagYjg4U1E4c/jFUgxNi3RmNnEfs5PR5YtPfcpKzRB3H5uueSTz+cS34smYL75peBPgv9J qFzJvX+bXGsci3HM123aPJ2x7djjakKL/VXVGDHe+Z8WVL1Sqd5S280O974Q6bJiGijzD49moLpMzHwP J04XngTGDQKu2i3Ds+4YaheVYerow4hww1qdi5uhu1 yXxu4lFvN0y6ESmZBc6X96EEjx6KnukLb7XHzDPqKqTmFn1uyTRSA0wJNWk6cAbgCKkHWYWJF7PKC4pd 4jl0afnURfRkHORI3Tx35cfdEK8PtWZauRBJhbZmOKR4Mx90gs6bo2+t570TaVulW58g/DG6nbo4bAH7 wN/4eat5khT2dx5MveuGO6Swy57cCfTeRKhGh3ns7S xyxrBZcmCL6tBb+0qdmI/y+J2xvbpK9kXoi6uitLxyrF6zi82Gdl3usqpDtOEWtYb/S2Owm3yGCUSCw5 Ck1i+yn7OSJP8z+0MebB1ceV0LYV1aqtZXGID7NmtWDKHk61LB82fi6RS9ZcHnNVX+PTfZgQmGuIEX7O j2gAKTde4BuNLUeMAlqcwfeG7Q+jHxCLf4EP/aVulE R7T4eawKrtdqqBI6D8l5xdCdEIEE3sR6o/zf/vM//tc/ucR9/AnVf/7r//rivet maker/+F/+ef/+M9//X/++fzt 3WVrl7D0w+78N9v3Zij0Vteh3hHkUb7dR2/Y6kt658wlWIRbJZQUEDZNTiTwXiosqabUsuHZw2RqTE6P 5TVINvfZOJo+Hq9H1iTMH6WNpTtZ0pUNS4OZMTMNf7 DzeN1X7thOGrgtZM9Tf97jSpR3239/jxc9TWHud+CTMrn2/EbjdjrSgbmveCByquoCzd9nyaNpjZ3/Ph Lt31r7/lvsA2YNwfydnHhIsUjG1jnjbiMSRls1DQFoLswBo3Q/Z+d2MqGkyr2DlIgNy1bpZs70Kol1h7 IXw3XhCXdEoWi4Jm5cyociGdoEXD+6lQaU19wkZb5G ALebfQ76gzVNRdaX3w3I/Cnf985YlG4vUSNruC2gwLEzCdDw+xAQI7uZ+dIrJvc1pnRva8CU2J2mknu1 UZclXt2gbPHSBzS7GQq5+Ma8K0eGWXFBDdXlWsipBWvQw8TQXcZ7btbsB7aWIIPvWD8wGcDHTiVMtkUE WEKMCbERyZRULnXTfay5w+VNz3WREIXmPx0GitZ14u ALuW+BnLzqrOA921uDvfzDR2QMOp6/cHY1LX7Zr6Z5xqg/8uEOeDHq7rWnUwncgKiqeJICQJ8CZ3Cwf5 Qqp4FqM7Tq45yOQec7WN7QgQ34LBf32kGYrYdFXnU1dqycv9gT6msnVS03F65VNVnm+jZ25g8ULqX4nE pHBT9q7ZOPvIl4U7nZxpzStxuHvx3aICJCg+J5shxk SD3vY1F7aR3j50c938HsXYXoFQZrWU+ELJUHRgiqg2oZxe0DyxySv0VOV0MOuqCVph7pC7TYQutNos1V TBVHAXORTQWAJgniyUcMfx2vb9+foyCuO3FXKPNsSYSTsqUYB21TvBFLpSEeesf4M5hlueB49Hsjch+X KvnRnpzAzzKW3X3dQgJ8ZNJbOc0uwFbiRtx+xu2DVf VpKQ5oWCchdFSEvNbVjmtSRol3bikGcNPs5KsiHcMVEGPVW9vp2DKRs84Ppz2Gio/RbMIq74q5z+3710 yLfEyWYfrntTz77yC+ua38maNy+/8iWWsIaIWhlRGMAhbE75BQDIifq4I+MQO4iGP9TVhjNE8olj5O9t iV0PPAAlto6nKdOxnFA7KiIA8R0csEyc6KbIk4757P aGb03640SU3CEsp4Vyf00zaCNUoeUjWpkGwGhvPerH7X+yH3OpfV7nPCABJ9ZMYhF98E9qBEPZ4Kkgj0 batKJ+ZnAkonloG+UUsnloF+XI19ulibsWUTHyVQ4uNEOUHKCGBtNbNZ7ahb7R5DSNEBQJZCcibIMhlx eelVBnXGB2PWKpLCrlSKIU8sjfKQTW43YlGIqvo8/W ssZYmOisR5bGCqFSFWEwCM9hPKuukETVDVCIQjtXWxDoN6FGnWaNzPbt8/XzfXdZv5yGKIDnuwvvR3Tz Weqxc7ya1ZhQ2svOU0J3xGy0wYkXqgCQaY1oGAP4Xyd6idvy9gYrb9FhMbsWYuP9SzcRUnpvpurrFUap Tad47gYwc0TaOreRU/BomTOMkiYb+QOvFrkGySfUmu oy1rz0MxKpQfrvaGsCrQU5YMAioFy+rNElMilZQ34RRKr+eN8vDDIAKaVDeFTcCddQUFg+17VcBc+14t 7qynqXGmRDKI1DemI9S4LmqiFSAF6A5T0Tv4q3PnSgLHVkfmhLLUIiTS8fKGZPPKk2POW45Oof9wNXVx ys7DIFBXCYXI8iYTT2IOlKnS9aXQi7QHz8r9Kr1VWN q17/F6q2cme9Nc708/VcNOvk37JU7UeQOLwGPERg3p30x1AZxKyhwbnrEbcwyt0asgq0OXs6//imMe4O AiTc1MoMVoNABraorg6XWoCA22thW5271/j3eMjpgksMBqU3n826/FECbPcuShm3AWRQwHqv/XIBESIV ES6INc+26td4y1qbjQp8779g92F+iDXPv+SCj2Ia74 /fpQdL8FOK9SA/RVI0328dkGGUx0rncGSQpyWhKHb6NYTkCDJLSYpeksETyVCk1ITegDugsK9EKt9AEw IAQbjfT6PXl3xcRLURjs683YHil331xtLTLPRWRCMdNvnW16LiE1GI2apcV1cEA2OxiiI7Gi+9v/LIwf 2Br6y7Wv8YmmBnFJXMhJbAZDSRj/bPCpuU2r5Fv3fp Xa97c/KhvCc546/bhZUqRnyGQfwSiNJieJNgNkQ8iisbExQiaLvEKu156OPSMafYpYek2he1hHnz+vQk mdmM/Mspw8za3Cd4080w5gmsZh+9tRr440QioiSjuTj0mLgiYmsLGWBRLFTWJ22etqNXLoAOSiIWQCYQ EMxumHfIN9hPQ9MNQvaYZuaBZGItk2BrjA/dkYPxg1 zteiAAsEvqjdjmw35C1jGQ3GD87FL44XAJ+MH0x+qH+WGgmcvmWUiJRHJ88PjIX+oW08Jibn+jMfjB/M B+GC5ywMCKpmK+AvGgskecaL04aS12sY81nT56zJLyuzgTDXmEubjzj21vyrkoNf9xTURJtSUCfvlURs 7wgZoefbnU50+j677t1j0FafywyUT3yVMC983ipdq3 FvkKH0gVCgFfZQAQcQysNzGDRVp3IcXAftRWQDFlVSfxTmJRlBLKBPJ9YQY7N904b9/tafgXHlOTCuPA fevc+MqzK9Dy91hsxlW2wXT3WO9W0vOvA9NEANgJYrQHukrbAlaCamDMs3QLvdKf+FRHb0pzKMorF/7V uufa/+J9e+VzOYa9+r/8h060Pf9ch81o9j0jeriP94 ZuIXUdTEniUBQPBOYtONlwk5AAU8KdIdnuitZFw+zhu2RyO4iQJy6aP8aJmn70ku6Gv37w949x1zOUVm 178Q0NinLV7jHmKhkHNtHkezHXpOmgFxIIyssm68Rww5gUXAtNqEjT/Ph4W0kaORiZEDogUXUUuhBl7V XBg/sDawY9Ck/JDpBcOd18tviKaneZOCaOuWwOowUF CxuxH2StTKJOtlIABAzHzJ0m0r7gmnimcDsYtCL1/Mmj5oLjBloOjbBKvaTAn6X3taX5bYHBSQZf8K06 elpvUjtZeA4F4UBgx44ErZ0XSpoTtEJh2d4el21PvoGfp+Dbs/S52Yj/+59v1Z+615p7uVs1KxmEw84m 1dXgt4Jn83xc4387l8bg4IVmc+TQoroW28+c238c6o 5HvnyffOk++dje+dc+93jEoGim9dBy8SN+i78a91x7L1UlxeqZhk0TcE9kAJimvOYWDYjWxSf0FCcv0m 5ilKCO3LRBHZUBDjCUzQKA0djvqWwNdCyveUKNHxNoNFBQ2Y3GWaWbEECzIQRaiR6/xE4/yW30spOCoo DQ8EsOjX+QuAnJoiRaGPmn7cRlii7UT5mdkVWZWtmU Sqq6w34nuuMyJBEOrpcSAjrnwzqzw4zwRvg2CruRYofOGkgdgu0vy45JXHddoizBVwFSqVf4oCf0YU/M XqlTv6zJMf4ghjgy+qKgISie56aDr07o6b+NSrm3Kntqe4gkEr6icUARDehHJdIATGWSNxrOQ6IOaj9g /iHuNU5dPGD5aPENwsiRpnyueuwY7uvccohHsi43zh 7Jb06a93d8iZ1oydLdwHKEbXOaMdHOJIcca7ZznpkHIECUZAX4mKYCzsrYAlqPsEgkB7bsYkn+BsD6gT 0A4FLTEgeqNXgEnVoJ8ttO4dnxUyl0szzg+EPVfNKCQ031nf4m2OMdFaYnEyOjPWCrmkhXPDFaHIlyjp 6cKnD1q5KLjrC/tP499cVq21raGDGAe8IbGmSIoBkz 4x2DcG+8ZXJ+pE3BNZmjfxG7W9Zblzt31c7NgM+8Kp2zgDE4c7NHKcvRqSOU2gpOWETMhrVFGDowqWtV kroGLFI9R+bwWx3lk2v4DaJ1k04YiVHz8d8jo4MYGQWRYs+INxJH+gD/gSNHkN2zqvCA8cPSJmC3P8SQ 8pF03qAAKBzEaKszM61y+D9FbHcluyxW8s07yuK769 67OHl55d7rYiLf/S7qV0trfQE9u9GOORttQS4vErXpF+IQnWL+Ll3oplytMb4Mgo8qumxaWlo3Sjclb3 awRJkGwSzD/Ite/WhOfX56w6zSKvqHCZ0/zEJOPqHVdoJC+dmHeudOJIgnlp/p1tUBAfNQuVwLUnxhc0 92r42tA/xObOneEn77xdIw2Crta90y3eYQIuQDlvIP NkkEySbA+CNMh900kexPSvEOJAEFkh3i03tmQoCKkHY8qy49on/EqLb813uvtMwvuJFNj0auikQdLPxO CFTzNJ791gfVQ3oVoBjqLsSYbPSND1X51ypRYbCfadLeL0bMk8ji/Hri5y0OWMbYfdkFggurhyrvg2ob nLA+A4bnxi5m6mcP+rzCANwh74QXuFde5/7Afx3QAu 2sUIWjPvPwnYlmyNh6QQDsCdVVs+ANRRpaWP2heF9e380Z/5oYzfxveNPxXE3388/ibRMQ/TlQ7NWzjq dljJdj13VDtwP6R5ssoHhAWtKeCr7dJWEE2d8YaSbufNtC6l0PCWekxAirFJvOUQreKDquBMmrEKngRS xpSXnoVBzzZBjtEOweVGusLRzlPOkHcEwWBsDhU8J2 GD+xWNX9rVdLoZcKDgLcOjJt7Rm7AAzthG4mFChBwi8DcsguXQxvMr3gkjic367zX7eiosuoJ2hbE1Vf neM/nG/APfmH+Qa9+vQWIkRkKNVOtYstfcWL/dKJ3LIP2SM6ow0zPXH++EgEB7afAgts4O1tSsA+sXFt 87y9QIwiYv3gqoB+YydLxnWg/ZT9cPsbaT4eQk++Ad Y587Y92Lw46PkDRz7yaKzMBn7kvla41yfDYZfipskMhemyCYOdRs+Pkt42iFfQkku7Jaa7HReh58dfXL vj++kmS/UAbmH+Ta9+5BcDnhsog2mx4zRgn6nWMo83FadpvkPievU3JRg0cXYdxw3Ddr3rWSBM5h6Gvs dKKXYTCqHOSy+kyQJEtPH3YEWdbXYVj4qiz5Ge0ceV MqEgmrwds25m7/quJZ+q3g5w2eJAm16ezY/jdXvt/j91zdmRj3An/Ar/Ar/AP+Af+Efx7/BA20mfycP5 7/0JvqucEh5Z/n7rtw/UBvJk4j/H7f4+jzYBt+gV/gV/gV/gH/gH/Pe9sH6kNnltqDq+J9t+E/8Xr+/s Lfvco7aJu1/aCuVfQ34j19o5m77T+eA/8ifk9aw2yZ v8B/4b575V1/rMlpeycmVi6X/n+PY+f4+SzQeFiN78la68hIycciev3w/Sj/uw1/wC92589NQdq582ay 2l3KeeOAX2d1ikbsU73Uw23xrLdi399WojP6qN3guiLBnX1owrNTm/7+3N93G/6AP+Df8J/2k2hC1HVv dxt+gV/gV/gLoPb803009co5Q/1Iu6Fu3J18rtA5yD k1mBU2Q++7DX/AH/Bv+Pf1+/Ya776amaqQ50CnslZo421AD/gH/BP+efPvuL+O++t+2xnP+pv+deuLr1 dCCR084Gn5pEy2jR/ednBwqA2kzwG5Fa3XWE+ba8/9XUb+pqpk6zsj3fh3/CLzYqdoK6r1hlhNnfshbG etE//Kr5EEp6t9o8w/tPrX/7y88ALko2ncco70ln6W /8T7ufn/5nLz7/F16eA5ypeleqb1lDKzrMAlLdG4ApY+UejnceDfXGh+ngb+zXXmb+fxkl48o/2sMv9T /8H2aSqzO4v4HtF23S3z+xr6N2okFWSzf422pcN/js7rJYp28VeDtbE00ZE/tNEfbfRHG/3RRn+00R9t 9Ecb/yJGo8Fr/CjPG+A6dmqli+3bRv+7F/vR4eNDf+ G/6E900MadfoUo3Tb0Kv8V/4B/wn/b57Ny/G7D7/A7/Av+heMHjh/wb/gRryBeQbyCeAXxCuIVxCuIVx LlMD5K2Jq06g7PaXKQukP/4F/wB/wB/4Z/X3/pq9qGX+AX+BV+hQm9pyDIMd6whblBQ2SfOH/pv2fVvl rbfvz6R/6AP+Df8N/+71vQp1wzU65JdJzxQP7X7aI+ Af/E8SeOb/Ab/Zn4QL9YqBomNjv/A/q71H7V3R+J+nrQsxuB57D7iodLW/q00k2C6K+J+gnvo8BbYZcK V0ql0KIQK+lE/W0ablA7B/pKJ+H7xOw0efANBo9ksu/i71cbEvNRGk+z3d5y9e/h/hrur+H+wm0f3kkl s4Ym0Aq4G/59/wnd3d41CY9UY/NGV3ehTHmuh+P+Ou 2c1GHZR8u9/A7/gh/313F/WxjR8R025xqQ2zkaYK+S78KkvUCyY5veXuewhIfy2fO0U7hhpdDrkSpoiY sO9vlUHz/P66D4u5DbA1qloOyW7w4LT5w1ED0f1gH0wVoTJ1W/mfrK0n/q0cLuIaeu0isbjSMxj08N0Z WIdp7Mm8S/HmwfnZy/yeff9O+xej1afm15/AK/wK/w k39ArRmqrs2dtxMY0Yo97hYT3+aLqn23da5p/Ptu4/eW42nd80j+i647iaVnwLyCAnqrluBOmi/O9nju 13VYxFVVffOr12Y4bwiJ/T33YqS+ShttvH08c+Gf8N/3L4QddmLx23nl/R2Pw7/gX/AH/AH/hv/W3wF9 FtTzUsBMmF9i0DhZ+vpNUu0rldG6ChDnFfLEjJcOhK pYxCoNEJLldReIrbCkKxmHonwHivsDjhwYuadEsqdYpmcGSeL4jvX+ynunuL+hd9J5HONGxfWSlyazZI nk7p6pb/x6ozpPFp645pc44n/0B/qmyK7bTmB0zBrrF/rqLJ8+73r+nlCLvbH2N3/OShIva1mf2aCZmy n38Qkg83TV6xV6v3jl4wmzzZ2Eb/X78/xb1/CJt/5a 99FX+UChy9K863n4m8YejlZ5DZijry4mEkRvdCwyYFyl4uB9p46025DXNb6rtlR0KO0TRpiPWJ27/s0/ RI3dq7GGJCrmog2gA5g9mvLYMb7mmfH7HgIpAmevboeXLdF7Vox9korybnx8A/47HjsmyrOhPBvKc+qr /C9p7sjbb/x5mMI/4B/wT/krrybh7igAXO1H9+Ff8C /4A/8Kh289BeVGbzonu94g+NE+O5hf5Isb2smxNX4KY0csr2ji2W/4DX6D3+F3+Bf8C/6AP+BHvKmvcj p15dyPl3CBdNTsUg3IyGLrO/4B/2a2XY7T4tn/lq58jdi09+i581PkWr7wGw8ur0ig/whG1OvovNN709 ax152GD+CB459OEuf+6oGzqvluwz/hn/Ab/FdvnPXM b/scftvbWA+36o4bvT+1b+A4G/59/ydr7t670A4M9urfLfnIL/GK3Wp9T47CxUs8udPYSd9qnyr2I/51 71eOX+Z29XfFdf3ckohjkfO0BAsk9La08fVdY/NXwQz5gihF67xf+Qz4J/y3PM/tijq6ZKhLz7L/4F/w B/wB/8Z5b/87U1+92/AL/AK/on90YqBV5wEWSuN+xC a5kAxj43agDl+Bh5Ga3Jg6J/5wVa896hPBG77FP94h/Wb84M2RS/P9yzFdh74myymhfKrtebP5C2J/Ff e33g+elEB35whYF+8d1KHdnK6C39pb/c2L14QoZA2Kn4mLK+Cf8E/4DX6D3+F3+G/6ACsrs7Lq81MU83 e1veG/71Mm3g+tXkcWufpTwrE8cXEY4H7v3aGGGh4j xdVmntXFd/ure8/k8vbHx9Um6Uv9Hk+C/6UAE0308pXUNoie3pCo9d/7tf1g1KPo73GLMecQY++2ftvz g2J9sdaCH3Cwf86wo2nbfheaP/jt5j/0Do604Ve9W+0+336LqIa4L4k7YoCKm50gfitcrNXru0nm0Ge7 ddRfR/31Af+Af8I/4Yi0PG7X6+Ff8C/4A/6Af8O/r3 /d+Ruz3g+m/+rnmfqqthX++ww0GV89EB77AP33TN95n4Ng0Ou7Ob+Pj8AvpA32uRCE9fnW/mj4CH9j8l x94gphumELK/2nPL/wE13vCF472B2i95e/qa/qXFc/zxy/klr6+5cxf2AzB8lsK8r/6nPWVE2+elcUf+ DoNreSXmDM8I35lk4AfpDff/J3fn/2oHqdV80h7l0t q4jP2dXzMi8jG/aii7BI5r+gCsOBX1Z6UD1Um+2PvqpV/EdfvSuFP/L13wNdz0uiH2g8G4/gz2ud2eri h15OD8MAf/z93n2j5Rj7lHe+OtuW+urdhv/PT2Vr7l21yx698w3u2WQ5M8wJ/BP+Cb/Bb/Df/tegrwz6 an6T1vmXM/Bv+O/vaPw1VcT1lmBq8n3PoJUeKk/iOA PHGfBP+QZiXC9nM7F+Rdkda13a6IiGixViH2J+SoL4eyj9rB/qJcJYqFx4w8z1xs8U+glK4QnhJbWkqP h9kyxjlzn6f46sX5nNz2axBe/QVbMF44K0I+AX+K9+psH2qaKWDp4l8MuTyLRHUdE3OqHNVonOS2phR5 eIoU0VV+3suJ4hOxn0n1p1Z/oLgrDid6cGgtkfdya3 A/4J/4Ch3Wi9CdfMtZI6ymFoccKXzWM/w4/ybLi/hvprKM+T2xfga6gyfPsqiU50SDh1rrUdBO7fcj+y ayK3b9ECU6B/jteZLfgD/oB/w4/22dE+O9pnF/jv+NE9MM80U/gH/AP+Cf+E3+C/78vM7/syc4d/wb9w eCKzDc6G/t4xrBAwm2p71wtsJysOp6Pw2Q/4B/z3/a +tO7/Z8y1oU9lhz/gd/oXjLBw/rG2Hb8L/8k7c4SONw/tBw/tBw/tBw/tBw/tBw/tBw/tBw/tBw/tBiz s/6wFgVgp2x3L+UABisnQhf931IEw5/Fc/125TL6Dr+AV+4B2OmaXUzeXtdrh0Q/wTftTfjXhr/lXk9q 7diO0pyS1rC+AP+Df8t/469JVDX/av9Xp0Sw/CP+C/ 4+3S27GIdoQILv367kND/tz22Z/9ZMqBgr939e7m+3Of9/3Z8N/n/bQsfc0Ay4PE1cEdYcfvila686jR vdvwD/gH/BP+Cb/Bb/A7/A7/gn/XX6pEW4/IPkWfljw56Y9/MtPPrWP449Poz1yM2a8tlIojmrH+Yv6V Y/6VY/6Vq8F/22fH/CvH/CvH/CvH/GbB3622Ih6k9i /tlY/gHep23Ag86/wcH3c+sA+Ff8A/4J/w3/cEn35kzVa9Kv/Dv+Lf9Os0Oc27j5Ewy3g8+fTuryx3SN Josie/GJeCfinYrfD/x+wD/rI9uTjGp6nR/svl678PXovfftJs83It/jdeig596g7Mmtn+9C1T30Jqs6tg S6yg17xsSh3C74sA89z1Dck1vwFtkBH8Y7kd7/z7rV eqY+P/4s1YydZ1hrj2+w+CFXn6YR6b3/l59+4hHh738+NvT7JSFiNi0GC4Lv2bptQgY/5EL4mbo5n797 vO9/r8ZRqdM3kq+8n7vpt8RygJhJkN2DWUww6Rbl+qDq3HYckG622Z5xa20QgctK4u/xjfTn/Of03/rivet maker 7ijPjvrrqL/YCc655eZNzblTgpiTwgqKbyiXozeFhj Erx/Francis/iBVI2bXO6bsR/0qlYBvQ400Pa/mlueRcfsvKE2sBnb1lS3pk8h+kpwiaa8xzKfOHlMiv3h+s yC7UwmNmWovF/i0NZiVGhAyMZxZgZLuTw24F896Q775I970R161B169W121P673L489T072x4brq6eeR 392lpC6wkskt7nbqyrZ5zzqWm5P/53a4V0x/7keh74 Bf7bPq/nPi+x1j8vrFpFZ+Cf8E/4OF0I0N//cz0My6E/0H9xL9K9Rh/tf5fc/nfJA7/AL/UzEeT0guaW 8modq1aw+rFXWJ9V5224Uod/tTD/amH+4tR2h2K2RytldmhbTs0Yn5qJb8Xo/2ph/tXC/KuF+HsZ359V 6YRWkpkPNng6aksQm4c6wjsHwe8nftfYpf/Wx7t4rh 95nL/t/N8+ht0/9Hy+24FIZqLaHiwvyxZrRPQdLDmHTdqMH8NQc1e8IhmCDIqcHE0bqbLSp6ziDWCnCc bWWPwNiKOHVoYrfWXXTXvpdSpEOt7DKhMChOtvgrQBjANPIWVlalnUaIfCpaaOYKEjQwCOBow/Dw0SIW QKaIoomlRtLPEJG8g1sZbPqGTgOkm4iPLBAquffsJe OXDmwDMH+CyDRMDGvltnZvUDj6wIgaEQdn7+SF6nPEc/BvvKHLwGySSZJEZiJJmD/HXcJ6ZXb1Z7CV67 IxTRh5JXfqkl4qit5OF5fFq8CAZFTOYb/jfzVNxYBmUgMWx8OV0PE6XBcGBecV83ISvXoUJ/Nq4RbBv8 eI0XvW2J0WEvVAHQUAXuqCaLxEol9Du/iEo7g4QvLj wJFqEI4ifXTXs117BRcrQoTLlUDZqHpvvb79bsC2lZAN1ONX9NfnoUyivFIuqqMFSdg5DfMji8XopcKT IhURIlGSSZg/YMkbjhV66EUjGFr9SNwVw7CuH4RfbaHwcAxZ2q9LPzZO5yZVMRM0poDK24PvL7Kjtjya MbwefETu1vttpy4iuezZw5sUydgh/HgUmdDXlEs4x1 [file] [id number]= ID Date Data Source [id number] 01/20/2021 07:05:26 AM EDT [facility] XR CHEST FRONTAL ONLY [id number] RESULTI nterpreted by:Luis Angel Diaz III, MDPROCEDURE [...] Date Data Source [id number] 01/20/2021 04:47:44 AM [facility] Name Value Range Interpretation Code Description Data Esmer rce(s) Supporting Document(s) Leukocytes [#/volume] in Blood by Automated count 21.1 10*3/uL 4-10 [facility] Erythrocytes [#/volume] in Blood by Automated count 4.17 10*6/uL 4.1- 5.3 [facility] Hemoglobin [Mass/volume] in Blood 12.8 g/dL 11.5-15.5 [facility] Hematocrit [Volume Fraction] of Blood by Automated count 38.4 % 3 6-45 [facility] Erythrocyte mean corpuscular volume [Entitic volume] by Auto mated count 92.0 fL 80-96 [facility] Erythrocyte mean corpuscular hemoglobin [Entitic mass] by Automated count 30.8 pg 27-33 [facility] Erythrocyte mean corpuscular hemoglobin concentration [Mass/volume] by Automated [facility] 33.5 g/[facility] width [Ratio] by Automated count 14.2 % 11.5-14.5 [facility] Platelets [#/volume] in Blood by Automated count 226 10*3/uL 150-400 [facility] Differential cell count method - Blood [facility] Neutrophils/100 leukocytes in Blood by Automated count 93 % [facility] Lymphocytes/100 leukocytes in Blood by Automated count 3 % [facility] Monocytes/100 leukocytes in Blood by Automated count 4 % [facility] Eosinophils/100 leukocytes in Blood by Automated count 0 % [facility] Basophils/100 leukocytes in Blood by Automated count 0 % [facility] Neutrophils [#/volume] in Blood by Automated count 19.63 10*3/uL 1.8- 7.0 [facility] Lymphocytes [#/volume] in Blood by Automated count 0.63 10*3/uL 1.2-4 .0 L [facility] Monocytes [#/volume] in Blood by Automated count 0.80 10*3/uL 0-0.8 [facility] Eosinophils [#/volume] in Blood by Automated count 0.00 10*3/uL 0-0.5 [facility] Basophils [#/volume] in Blood by Automated count 0.01 10*3/uL 0-0.2 [facility] Nucleated erythrocytes/100 leukocytes [Ratio] in Blood by Automated count 0 /100{WBCs} 0-0 [facility] ID Date Data Source [id number] 01/20/2021 05:03:54 AM EDT [facility] Name Value Range Interpretation Code Description Data Esmer rce(s) Supporting Document(s) Bicarbonate [Moles/volume] in Serum 26 mmol/L 22-29 [facility] Chloride [Moles/volume] in Serum or Plasma 104 mmol/L 98-107 [facility] Creatinine [Mass/volume] in Serum or Plasma 0.64 mg/dL 0.50-0.90 [facility] Glucose [Mass/volume] in Serum or Plasma 136 mg/dL 70-140 [facility] Potassium [Moles/volume] in Serum or Plasma 4.3 mmol/L 3.4-5.1 [facility] Sodium [Moles/volume] in Serum or Plasma 138 mmol/L 136-145 [facility] Urea nitrogen [Mass/volume] in Serum or Plasma 20 mg/dL 6-20 [facility] Anion gap 3 in Serum or Plasma 8 mmol/L 8-15 [facility] Osmolality of Serum or Plasma by calculation 291 mosm/kg 275-300 [facility] Creatinine/Urea nitrogen [Mass Ratio] in Serum or Plasma 30 [facility] Calcium [Mass/volume] in Serum or Plasma 8.5 mg/dL 8.6-10.0 L [facility] Glomerular filtration rate/1.73 sq M pre dicted among non-blacks [Volume Rate/Area] in Serum or Plasma by Creatinine-based formula (MDRD) >6 0 [facility] Glomerular filtration rate/1.73 sq M pre dicted among blacks [Volume Rate/Area] in Serum or Plasma by Creatinine-based formula (MDRD) >60 [facility] ID Date Data Source [id number] 01/20/2021 05:03:54 AM EDT [facility] Name Value Range Interpretation Code Description Data Esmer rce(s) Supporting Document(s) Magnesium [Mass/volume] in Serum or Plasma 1.8 mg/dL 1.6-2.6 [facility] ID Date Data Source [id number] 01/20/2021 12:23:00 AM EDT [facility] Name Value Range Interpretation Code Description Data Esmer rce(s) Supporting Document(s) Glucose [Mass/volume] in Capillary blood by Glucometer 149 mg/dL 70- 140 [facility] ID Date Data Source [id number] 01/19/2021 11:07:20 PM EDT [facility] Name Value Range Interpretation Code Description Data Esmer rce(s) Supporting Document(s) ED Provider Note [facility] IMZRTs3vEeWTZsMf83/[id number]qJFQ1wZ7mIGH2OJbDEpDsToWaJET3 lbm [file] vDQyRGo8B49kmUPxZUbdYA5LBCQ+Yessenia+Sz0YKWZrIEXoFXAyBxByFQZITyDeG6DfA9LQy8RmS9UrVY91 eDgayaOdWSlmPJ3SKS8lSGTaQGXJLP6GeSJxnR6qjuSzUWYfWTXTAhSxX93uaYOhDGPeIMP7YRDxIh5X XLRtE0VdjiYxqNinvlCfFWPzBDAACB2OFEuafnMrhD YzpFrlMN87eZciDH2IPu3YGkVtES0hgv6KwHFvFj3AZKU6En4ITIQpUNBkVIXqWNC6WDRgChIfTJibZR TkZKPkAIA7JJDxJZMpQR1VLsUpELOmUuU7KkTpAGHdSQLqft3UAGHyLZDyKzDzYsVaSAKpYENjUExoHC ZzVUVgRKY7NYFaHBEyZR7PVcCjMGJxVPFqShDlYSLp JXHmbm9FGCTbUATkAqY3JiJjBPQvEWEpFQapOJAmFZK6HpM4DVMnHAEtPU7MUqElEGWoUTW6EBRiNAMb UOQwtk0MGNCcQUIdADT8CiMpBKEtSGQtZKfnFICjKPP1Jke6GZCiKCJuKK8OIvMbYWMlYLXiHQMnZDVj QGMebo1CVOBvRIFnSjTfBWYtKCRlPYOoDUosNBRiHA I3KQT0EKIvBDBmMM0OBgGlBRZlMKQ2TYDsHYKtKFLsqd7UQQBjJPTjKor9TiIcCHTaETKaXAfsGAYvHJ V5DVL9BDRsRHNmFL5XFnAtDFDiNQb9ELvwERTbYGTexy8DHWKbWMQzVFLuCoNsEXAdKUQmZLidJCFtAK G8Fih5RKZrXFSdLS9KFkMwUGBrZNcvVNahSCJbQVPp ff0XLFEnZTXuWVW8VFKiNDRhJLVzNVpvIETgFSQ5GsI8BXRwVTXpQR9NLvOlMNPcFiO7DHmcVUNzKJAi ms3ZVMKfRVHbZYi6SYQjTXJuKZVuYSfcTHKhGXTbVGk0BNQcIMAqDG4XXwCzVQRrGlS1YYfdUEGgDLEj ye5TBLDzNQOoKkuoAvMjLDCmOKNqPQygQCYkVPHeJM RfCTKwODSfUR6EYfYgUQAwMzHuMFYpKBHcOFGakr6JDRAfQOIyPxUwXYVyOUIkKPPpNSfbKROtULX3Ys fbSMBuIUOnZD3EBhXnPHWfIdI6WuEuKGPrTLGipt1AHXGzILUkOIS9OEPgYLGgRTGjTDajYETaPUW1FP qsMEVmIFLlOM2FMqIqUBYmHhL7LOOpABMmPAYqhq8L UENeVDMuAeVhBwOcQGPqIHJyIMfgZGUeVPJ5Enu9LTXqAXFvGM3PYySgFDOoDjG7CUKrTUYbENSssu1Z OVUaESBrYvD1YFCbCHXkSAMfYLiaISZxIAG9AbJ1SGXhUZTsFW3XDxNkMLRqBog9RnmtQPQaSTFjal7P HCReAAUwSokbMRXoJIBkFYNtHZyzDZWkEEB1RDdfFY DwVVGoPF3WNkGuNTXnOvajBcZlJPNaUYHdub5XNMYzGQJfBJC3HCNzVSNnYUTcHRxrJWJwGTK9FEP4ED AtSDRvCK1ZWyWwBXnvCFTYOzi4GZhwB9j6UFA9Lr9AW3Imk5TiSZQbOAFLPQtrDZ6gtdQeXGVaYr7SX8 nELpwpHgrvFFE9KDG3GQF8XRMuTZC3BGT3NNG4RmPe UhH5Dd8cKXJzGHQnWlKbNSk0JUy3NyA5HlIjCrxcGrahAgO6QgKpOcMfNV0UNj9SQpS5TGF9oFEmUx3X Fpg9FSzKGjYqEL1JLGi= ID Date Data Source [id number] 01/19/2021 03:40:30 PM EDT [facility] Name Value Range Interpretation Code Description Data Esmer rce(s) Supporting Document(s) Lactate [Moles/volume] in Serum or Plasma 1.6 mmol/l 0.5-2.2 [facility] ID Date Data Source [id number] 01/19/2021 03:10:08 PM EDT [facility] Name Value Range Interpretation Code Description Data Esmer rce(s) Supporting Document(s) pH of Venous blood 7.36 7.36-7.41 [facility] Carbon dioxide [Partial pressure] in Venous blood 54 mmHg 40-45 H [facility] Oxygen [Partial pressure] in Venous blood [facility] Base excess standard in Venous blood by calculation 3 mmol/L [facility] Oxygen saturation Calculated from oxygen partial pressure in Venous blood 60-85 [facility] Lactate [Moles/volume] in Venous blood 1.3 mmol/L 0.5-2.2 [facility] Bicarbonate [Moles/volume] in Venous blood 32 mmol/L [facility] ID Date Data Source [id number] 01/19/2021 07:50:00 AM EDT [facility] 1 OrderSheet [facility] Emergency Department [address] [place] [address] Phone #: ext- [phone] 01/19/2021 07:43 Patient: INDRA BURCIAGA Sex: F : 1970 Age: 50yWEIGHT:126.0 kg (S) HEIGHT:69 inches (S) BMI:41.0ALLERGIES: Morphine and RelatedCHIEF COMPLAINT: abdominal painDIAGNOSIS: Perforation of intestineLAB ORDERSOrder Description Priority Entered Acknowledged InitialedCMP STAT 08:38 01/19/2021 08:42 Kolby Gamble ; Dylan KAHNCBC w Diff STAT 08:38 01/19/2021 08:42 Kolby Gabmle ; Dylan RNLipase STAT 08:38 01/19/2021 08:42 Kolby Gamble ; Dylan RNLactic Acid STAT 09:40 01/19/2021 09:41 Kolby Gamble ; Dylan KAHNCOVID-19 CAH (Not STAT 09:40 01/19/2021 09:55 PeterSymptomatic as Kolby Gage ; Dylan RNDefined by [facility])(01/19/2021) (NotFirst Test) (NotHospitalized) (Not) (NotResident inCongregate CareSetting) (NotEmployed inHealthcare Setting)DIAGNOSTIC STUDY ORDERSOrder Description Priority Entered Acknowledged InitialedCT Abd PEL W/ IV STAT 08:38 01/19/2021 08:42 PeterContrast Only Kolby Gage ; Dylan RN(Oxygen?(No))(IV?(Yes)) NOTES: sp knee surgery Reason for Study: Abdominal Distention, Abdominal PainMEDICATION/IV /DRIP/FLUID ORDERS 2 OrderSheet [facility] Emergency Department [address] [place] [address] Phone #: ext- [phone] 01/19/2021 07:43 Patient: INDRA BURCIAGA Sex: F : 1970 Age: 50yOrder Description Priority Entered Acknowledged InitialedToradol IVP 30 mg 08:38 01/19/2021 08:45 Kody(NOW x1) Kolby Gage ; Dylan RNNS IV 75 mL/hr: : 09:40 01/19/2021 09:47 [id number] mL/hr (NOW Kolby Gage ; Dylan RNx1)Zosyn- [...] rce(s) Supporting Document(s) ID Date Data Source [id number] 01/19/2021 07:50:00 AM EDT [facility] 1 Medication Reconciliation Report [facility] Emergency Department [address] [place] [address] Phone #: ext- [phone] 01/19/2021 07:43 Patient: [...] rce(s) Supporting Document(s) ID Date Data Source [id number] 01/19/2021 07:50:00 AM EDT [facility] 1 Medication Administration Record [facility] Emergency Department [address] [place] [address] Phone #: ext- [phone] 01/19/2021 07:43 Patient: [...] rce(s) Supporting Document(s) ID Date Data Source [id number] 01/19/2021 07:50:00 AM EDT [facility] 1 General Instructions [facility] Emergency Department [address] [place] [address] Phone #: ext- [phone] 01/19/2021 07:43 Patient: INDRA BURCIAGA Sex: F : 1970 Age: 50yNontraumatic bowel perforation.(Electronically signed by Kolby Gage 01/19/2021 13:52) Name Value Range Interpretation Code Description Data Esmer rce(s) Supporting Document(s) ID Date Data Source [id number] 01/19/2021 07:50:00 AM EDT [facility] 1 Clinical Report - Nurses [facility] Emergency Department [address] [place] [address] Phone #: ext- [phone] 01/19/2021 07:43 Patient: NIDRA BURCIAGA Sex: F : 1970 Age: 50yTRIAGEArrived by EMS. Historian: patient.Acuity: LEVEL 3.Chief Complaint: ABDOMINAL PAIN.This started yesterday. 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 See [...] SURGERIES:.Gastric Resection. 2 Clinical Report - Nurses [facility] Emergency Department [address] [place] [address] Phone #: ext- [phone] 01/19/2021 07:43 Patient: [...] with 10 mL saline. --07:51 01/19/21 Kody Richardsno RN.PHYSICAL ASSESSMENTTo room via stretcher. ( last BM 4 days ago).GENERAL / NEURO / PSYCH: Alert. Oriented X 4. Appears in pain.HEENT: Mucous membranes are pink. 3 Clinical Report - Nurses [facility] Emergency Department [address] [place] [address] Phone #: ext- [phone] 01/19/2021 07:43 Patient: [...] 18. O2 saturation: 97%. --08:11 01/19/21 Anita Asif R.N. 08:45 01/19/2021 Toradol (Ketorolac Tromethamine) IVP [...] Richardson RN 4 Clinical Report - Nurses [facility] Emergency Department [address] [place] [address] Phone #: ext- [phone] 01/19/2021 07:43 Patient: [...] RN.DISPOSITION / DISCHARGE 10:26 01/19/21. Transferred to [facility]. Visit overview and summary of care [...] rce(s) Supporting Document(s) ID Date Data Source [id number] 01/19/2021 07:50:00 AM EDT [facility] 1 Clinical Report - Physicians/Mid Levels [facility] Emergency Department [address] [place] [address] Phone #: ext- [phone] 01/19/2021 07:43 Patient: INDRA BURCIAGA [facility]#: [id number] Sex: F : 1970 Age: 50y Time [...] oxycodone after left knee replacement surgery at [facility] 10 days ago. small hard stools until [...] Allergies: 2 Clinical Report - Physicians/Mid Levels [facility] Emergency Department [address] [place] [address] Phone #: ext- [phone] 01/19/2021 07:43 Patient: [...] SARS-CoV-2 3 Clinical Report - Physicians/Mid Levels [facility] Emergency Department [address] [place] [address] Phone #: ext- [phone] 01/19/2021 07:43 Patient: [...] Male GFR Interprentation 20-49 yrs >60 mL/min Krmbco54-77 yrs >56 mL/min Normal 60- 69 yrs >49 mL/min Normal 70-79yrs>42 mL/min Normal 80 and above >35 mL/min Normal Female GFRInterpretation 20-39 yrs >60 mL/min Normal 40-49 yrs >58 mL/minNormal 50-59 yrs >51 mL/min Normal 60-69 yrs >45 mL/min Zpjnau11-05 yrs >39 mL/min Normal 80 and above [...] 6.90) 4 Clinical Report - Physicians/Mid Levels [facility] Emergency Department [address] [place] [address] Phone #: ext- [phone] 01/19/2021 07:43 Patient: [...] CT ABD //T// PELVIS W/ IV ONLY [address] [facility] [place] [address] PHONE: [phone] FAX: [phone] Name .................. : GUALBERTO BURRELL Acct Number.................. : [id number] ROOM. ................. : TR-07 MR Number ................... : [id number] Stay type ............. : E/R Discharge Date......... ... : 01/19/21 Admit Date ......... : 01/19/21 Admit Phys .................... : MARIANA Peña Date of ....... : 1970 Family Phys ................... : BANDAR BOBBY Phone .................. : [phone] Age ................................ : 50 Film# .................. .:[id number] Sex ................................. : F Unsigned transcriptions are [...] mm. 5 Clinical Report - Physicians/Mid Levels [facility] Emergency Department [address] [place] [address] Phone #: ext- [phone] 01/19/2021 07:43 Patient: INDRA BURCIAGA Sex: F : 1970 Age: 50y No solid component identified. The remainder the pancreas is normal size and enhances normally. No calcifications. Pancreatic duct is not dilated. ADRENALS: Normal bilaterally. RIGHT KIDNEY: No hydronephrosis, stones or masses. LEFT KIDNEY: No hydronephrosis, stones or masses. [address] [place] [address] PHONE: [phone] FAX: [phone] Name .................. : GUALBERTO BURRELL Acct Number.................. : [id number] ROOM. ................. : TR-07 MR Number ................... : [id number] Stay type ............. : E/R Discharge Date......... ... : 01/19/21 Admit Date ......... : 01/19/21 Admit Phys .................... : MARIANA Peña Date of ....... : 1970 Family Phys ................... : BANDAR BOBBY Phone .................. : [phone] Age ................................ : 50 Film# .................. .:[id number] Sex ................................. : F Unsigned transcriptions are [...] AM 6 Clinical Report - Physicians/Mid Levels [facility] Emergency Department [address] [place] [address] Phone #: ext- [phone] 01/19/2021 07:43 Patient: INDRA BURCIAGA Sex: F : 1970 Age: 50y Electronically Reviewed and Signed By [address] [place] [address] PHONE: [phone] FAX: [phone] Name .................. : GUALBERTO BURRELL Acct Number.................. : [id number] ROOM. ................. : TR-07 MR Number ................... : [id number] Stay type ............. : E/R Discharge Date......... ... : 01/19/21 Admit Date ......... : 01/19/21 Admit Phys .................... : MARIANA Peña Date of ....... : 1970 Family Phys ................... : PORTILLO KANU Phone .................. : [phone] Age ................................ : 50 Film# .................. .:[id number] Sex ................................. : F Unsigned transcriptions are [...] to transfer explained to patient. Transferred to [facility]. 7 Clinical Report - Physicians/Mid Levels [facility] Emergency Department [address] [place] [address] Phone #: ext- [phone] 01/19/2021 07:43 Patient: INDRA BURCIAGA Sex: F : 1970 Age: 50yCLINICAL IMPRESSION Nontraumatic bowel perforation.(Electronically signed by Kolby Gage 01/19/2021 13:52) Name Value Range Interpretation Code Description Data Esmer rce(s) Supporting Document(s) ID Date Data Source [id number] 01/19/2021 01:02:00 PM EDT [facility] [address] [place] [address] PHONE: [phone] FAX: [phone] Name .................. : GUALBERTO BURRELL Acct Number.................. : [id number] ROOM. ................. : TR-07 MR Number ................... : [id number] Stay type ............. : E/R Discharge Date......... ... : 01/19/21 Admit Date ......... : 01/19/21 Admit Phys .................... : MARIANA Peña Date of ....... : 1970 Family Phys ................... : BANDAR BOBBY Phone .................. : [phone] Age ................................ : 50 Film# .................. .:[id number] Sex ................................. : F Unsigned transcriptions are preliminary reports and do not represent a medical or legal document CT ABD & PELVIS W/ IV ONLY [id number] COMPLETE:01/19/21 09:32 KEYON [id number] Reason(s): Abdominal Distention CT ABDOMEN AND PELVIS [...] stones or masses. [address] [place] [address] PHONE: [phone] FAX: [phone] Name .................. : GUALBERTO BURRELL Acct Number.................. : [id number] ROOM. ................. : TR-07 MR Number ................... : [id number] Stay type ............. : E/R Discharge Date......... ... : 01/19/21 Admit Date ......... : 01/19/21 Admit Phys .................... : MARIANA Peña Date of ....... : 1970 Family Phys ................... : BANDAR BOBBY Phone .................. : [phone] Age ................................ : 50 Film# .................. .:[id number] Sex ................................. : F Unsigned transcriptions are preliminary reports and do not represent a medical or legal document CT ABD & PELVIS W/ IV ONLY [id number] COMPLETE:01/19/21 09:32 KEYON 13631 Reason(s): Abdominal Distention OTHER : No abnormalities [...] and Signed By [address] [place] [address] [place] [address] PHONE: [phone] FAX: [phone] Name .................. : GUALBERTO BURRELL Acct Number.................. : [id number] ROOM. ................. : TR-07 MR Number ................... : [id number] Stay type ............. : E/R Discharge Date......... ... : 01/19/21 Admit Date ......... : 01/19/21 Admit Phys .................... : MARIANA Peña Date of ....... : 1970 Family Phys ................... : PORTILLO [employer] Phone .................. : [phone] Age ................................ : 50 Film# .................. .:[id number] Sex ................................. : F Unsigned transcriptions are preliminary reports and do not represent a medical or legal document CT ABD & PELVIS W/ IV ONLY [id number] COMPLETE:01/19/21 09:32 KEYON 22535 Reason(s): Abdominal Distention Van Conner MD , 01/19/21 13:02, JWS Transcribe Initials: AMBER , Transcribe Date: 01/19/21 12:25, Dictation Date: Copy for: EMERGENCY DEPT via mode Copy for: 710 MED REC DISCHARGED Page 3 of 3 Name Value Range Interpretation Code Description Data Esmer rce(s) Supporting Document(s) ID Date Data Source [id number] 01/19/2021 10:37:00 AM EDT [facility] Name Value Range Interpretation Code Description Data Esmer rce(s) Supporting Document(s) Lactate [Moles/volume] in Serum or Plasma 1.1 MMOL/L 0.2 - 2.2 [facility] ID Date Data Source [id number] 01/19/2021 09:55:00 AM EDT [facility] Name Value Range Interpretation Code Description Data Esmer rce(s) Supporting Document(s) COVID19 Case rprt NOT DETECTED [facility] This lab was ordered by [facility] and reported by [facility]. ID Date Data Source [id number] 01/19/2021 10:38:00 AM EDT [facility] NOT DETECTEDNOT DETECTED PROCE DURAL CONTROL [...] rce(s) Supporting Document(s) ID Date Data Source [id number] 01/19/2021 09:47:00 AM EDT [facility] Name Value Range Interpretation Code Description Data Esmer rce(s) Supporting Document(s) COMPREHENSIVE METABOLIC PANEL [facility] COMPREHENSIVE METABOLIC PANEL Sodium [Moles/volume] in Serum or Plasma 142 mEq/L 134 - 153 [facility] Potassium [Moles/volume] in Serum or Plasma 3.8 mEq/L 3.6 - 5.0 [facility] Chloride [Moles/volume] in Serum or Plasma 106 mEq/L 98 - 107 [facility] Carbon dioxide, total [Moles/volume] in Serum or Plasma 28 MEQ/L 22 - 30 [facility] Glucose [Mass/volume] in Serum or Plasma 93 MG/DL 70 - 99 [facility] BUN 15 MG/DL 7 - 21 [facility] Creatinine [Mass/volume] in Serum or Plasma 0.6 MG/DL 0.7 - 1.5 L [facility] BUN/CREAT 25 8 - 27 [facility] Protein [Mass/volume] in Serum or Plasma 6.3 G/DL 6.3 - 8.2 [facility] Albumin [Mass/volume] in Serum or Plasma 3.4 G/DL 3.9 - 5.0 L [facility] Globulin [Mass/volume] in Serum by calculation 2.9 GM/DL 2.4 - 3.2 [facility] A/G RATIO 1.2 0.8 - 2.0 [facility] Calcium [Mass/volume] in Serum or Plasma 8.9 MG/DL 8.4 - 10.2 [facility] Bilirubin.total [Mass/volume] in Serum or Plasma <0.7 MG/DL 0.2 - 1.3 [facility] Alkaline phosphatase [Enzymatic activity/volume] in Serum or Plasma 55 U/L 38 - 126 [facility] Aspartate aminotransferase [Enzymatic activity/volume] in Serum or Plasma 11 U/L 5 - 40 [facility] Alanine aminotransferase [Enzymatic activity/volume] in Seru m or Plasma 8 U/L 7 - 56 [facility] Anion gap 3 in Serum or Plasma 8.0 mmol/L 8.0 - 16.0 [facility] AGE 50 yrs [facility] al NON-AA GFR >60 mL/min [facility] ital AFR AMER GFR >60 mL/min [facility] Male GFR In terprentation [...] >32 mL/min Normal ID Date Data Source [id number] 01/19/2021 09:42:00 AM T [facility] Name Value Range Interpretation Code Description Data Esmer rce(s) Supporting Document(s) Lipase [Enzymatic activity/volume] in Serum or Plasma 15 U/L 13 - 60 [facility] ID Date Data Source [id number] 01/19/2021 09:13:00 AM EDT [facility] Name Value Range Interpretation Code Description Data Esmer rce(s) Supporting Document(s) CBC W/AUTOMATED DIFF [facility] COMPLETE BLOOD COUNT Leukocytes [#/volume] in Blood by Automated count 15.8 10^3/uL 4.2 - 11.0 H [facility] Erythrocytes [#/volume] in Blood by Automated count 5.10 10^6/uL 4. 20 - 5.40 [facility] Hemoglobin [Mass/volume] in Blood 15.6 g/dL 12.0 - 16.0 [facility] Hematocrit [Volume Fraction] of Blood by Automated count 46.7 % 3 7.0 - 47.0 [facility] Erythrocyte mean corpuscular volume [Entitic volume] by Auto mated count 91.6 fL 81.0 - 101 [facility] Erythrocyte mean corpuscular hemoglobin [Entitic mass] by Automated count 30.6 pg 27.0 - 34.0 [facility] Erythrocyte mean corpuscular hemoglobin concentration [Mass/volume] by Automated count 33.4 g/dL 31.0 - 36.0 [facility] Erythrocyte distribution width [Ratio] by Automated count 13.2 % 11.5 - 14.5 [facility] Platelets [#/volume] in Blood by Automated count 272 10^3/uL 150 - 45 0 [facility] Platelet mean volume [Entitic volume] in Blood by Automated count 8.5 fL 7.4 - 10.4 [facility] Neutrophils/100 leukocytes in Blood by Automated count 80.6 % 37. 0 - 80.0 H [facility] Lymphocytes/100 leukocytes in Blood by Manual count 12.3 % 25.0 - 40.0 L [facility] Monocytes/100 leukocytes in Blood by Automated count 5.6 % 3.0 - 8.0 [facility] Eosinophils/100 leukocytes in Blood by Automated count 0.8 % 0.0 - 7.0 [facility] Basophils/100 leukocytes in Blood by Automated count 0.4 % 0.0 - 2.5 [facility] %IG 0.3 % 0.0 - 0.0 H [facility] Hospit al %NRBC 0.0 % 0.0 - 0.0 [facility] al Neutrophils [#/volume] in Blood by Automated count 12.73 10^3/uL 2. 00 - 6.90 H [facility] Lymphocytes [#/volume] in Blood by Automated count 1.94 10^3/uL 0.60 - 3.40 [facility] Monocytes [#/volume] in Blood by Automated count 0.88 10^3/uL 0.00 - 0.90 [facility] Eosinophils [#/volume] in Blood by Automated count 0.13 10^3/uL 0.00 - 0.70 [facility] Basophils [#/volume] in Blood by Automated count 0.06 10^3/uL 0.00 - 0.20 [facility] #IG 0.05 10^3/uL 0.00 - 0.10 [facility] #NRBC 0.00 10^3/uL 0.00 - 0.00 [facility] MANUAL DIFF NOT INDICATED [facility] RBC MORPH NOT INDICATED [facility] ID Date Data Source [id number] 09/12/2020 12:25:00 PM EDT [facility] Name Value Range Interpretation Code Description Data Esmer rce(s) Supporting Document(s) SARS-CoV-2 (COVID-19) RNA [Presence] in Respiratory specimen by ROYER with probe detection Not Detected [facility] This lab was ordered by [facility] and reported by [email or web address] ID Date Data Source PLZ KNEE COMPLETE 07/25/2020 12:00:00 AM EDT eCW1 ([facility]) Name Value Range Interpretation Code Description Data Esmer rce(s) Supporting Document(s) PLZ KNEE COMPLETE eCW1 ([facility]) ID Date Data Source [id number] 04/12/2020 12:00:00 AM EST [facility] Name Value Range Interpretation Code Description Data Esmer rce(s) Supporting Document(s) SARS-CoV2 Rapid Antigen Negative [facility] This lab was ordered by [facility] and reported by [facility]. ID Date Data Source [id number] 03/15/2020 11:55:00 AM EST [facility] Name Value Range Interpretation Code Description Data Esmer rce(s) Supporting Document(s) SARS coronavirus 2 RNA [facility] This lab was ordered by [facility] and reported by [facility]. ID Date Data Source [id number] 02/16/2020 12:00:00 AM EST [facility] Name Value Range Interpretation Code Description Data Esmer rce(s) Supporting Document(s) SARS coronavirus 2 RNA Not Detected [facility] This lab was ordered by [facility] and rep orted by [facility]. ID Date Data Source [id number] 01/02/2020 05:30:00 AM EDT [facility] ([facility], ) Name Value Range Interpretation Code Description Data Esmer rce(s) Supporting Document(s) Glucose, Fasting 73 mg/dL 70-100 Normal (applies to non-numeric results) [facility] ([facility], ) Creatinine For GFR 0.66 mg/dL 0.55-1.30 Normal (applies to non -numeric results) [facility] ([facility], ) Blood Urea Nitrogen 17 mg/dL 7-18 Normal (applies to non-nume yaritza results) [facility] Glomerular Filtration Rate Laboratory test result Normal (applies to non- numeric results) [facility] ) <content>Units are mL/min/1.73 m2</content>
<content></content>
<content>Chronic Kidney Disease Staging per NKF:</content>
<content></content>
<content>Stage I & II GFR >=60 Normal to Mildly Decreased</content>
<content>Stage III GFR 30- 59 Moderately Decreased</content>
<content>Stage IV GFR 15-29 Severely Decreased</content>
<content>Stage V GFR <15 Very Little GFR Left</content>
<content>ESRD GFR <15 on POMPOM MAKER</content>
<content></content> Sodium Level 141 meq/L 136-145 Normal (applies to non-numeric res ults) [facility] ([facility]) Potassium Serum 4.1 meq/L 3.5-5.1 Normal (applies to non-numeric results) [facility] ([facility]) Carbon Dioxide Level 29 meq/L 21-32 Normal (applies to non-num gio results) [facility]) Chloride Level 109 meq/L 98-107 Above high normal [facility] ([facility]) Calcium Level 8.1 mg/dL 8.5-10.1 Below low normal [facility] Anion Gap 3 meq/L 8-16 Below low normal [facility] ( [facility]) ID Date Data Source [id number] 01/02/2020 05:30:00 AM EDT [facility] ([facility]) Name Value Range Interpretation Code Description Data Esmer rce(s) Supporting Document(s) Red Blood Count 4.71 10 4.00-5.40 Normal (applies to non-numeric results) [facility] ([facility]) White Blood Count 11.0 10 4.0-10.0 Above high normal [facility] ([facility]) Hematocrit 43.9 % 36.0-47.0 Normal (applies to non-numeric resul ts) [facility] ([facility]) Hemoglobin 14.3 g/dL 12.0-15.5 Normal (applies to non-numeric resul ts) [facility]) Mean Corpuscular HGB Conc 32.6 g/dL 32.0-36.5 Normal (applies to non-numeric results) [facility]) Mean Corpuscular Volume 93.2 fl 80.0-96.0 Normal ( applies to non-numeric results) [facility]) Mean Corpuscular Hemoglobin 30.4 pg 27.0-33.0 Norm al (applies to non-numeric results) [facility]) Platelet Count, Automated 212 10 150-450 Normal (applies to non-numeric results) [facility] ([facility]) Red Cell Distribution Width 13.3 % 11.5-14.5 Norm al (applies to non-numeric results) [facility] ([facility]) Neutrophils % 65.0 % 36.0-66.0 Normal (applies to non-numeric re sults) [facility]) Lymph % 24.2 % 24.0-44.0 Normal (applies to non-numeric resul ts) [facility] Baso % 0.4 % 0.0-1.0 Normal (applies to non-numeric resul ts) [facility]) Wilkinson % 9.5 % 0.0-5.0 Above high normal [facility] Eos % 0.5 % 0.0-3.0 Normal (applies to non-numeric resul ts) [facility] ([facility]) Nucleated Red Blood Cell % 0.0 % 0-0 Normal (applies to n on-numeric results) [facility] ([facility]) Immature Granulocyte % 0.4 % 0-3.0 Normal (applies to non-n umeric results) [facility]) Neutrophils # 7.2 10 1.5-8.5 Normal (applies to non-numeric re sults) [facility]) Lymph # 2.7 10 1.5-5.0 Normal (applies to non-numeric resul ts) [facility]) Eos # 0.1 10 0.0-0.5 Normal (applies to non-numeric resul ts) [facility]) Wilkinson # 1.1 10 0.0-0.8 Above high normal [facility]) Baso # 0.0 10 0.0-0.2 Normal (applies to non-numeric resul ts) [facility] ID Date Data Source [id number] 12/27/2019 12:20:00 PM EDT [facility] Name Value Range Interpretation Code Description Data Esmer rce(s) Supporting Document(s) SARS coronavirus 2 RNA [facility] This lab was ordered by [facility] and reported by [facility]. Procedure Social History Code Duration Value Status Description Data Source(s ) Smoking 12/19/2020 12:00:00 AM EDT Former Smoker completed Former Smoker eCW1 ([facility]) Smoking 12/19/2020 12:00:00 AM EDT Former Smoker completed Former Smoker eCW1 ([facility]) Smoking 12/19/2020 12:00:00 AM EDT Former Smoker completed Former Smoker eCW1 ([facility]) Smoking 10/04/2020 12:00:00 AM EDT Current Smoker completed Curre nt Smoker eCW1 ([facility]) Smoking 10/04/2020 12:00:00 AM EDT Current Smoker completed Curre nt Smoker eCW1 ([facility]) Smoking 09/02/2020 12:00:00 AM EDT Current Smoker completed Curre nt Smoker eCW1 ([facility]) Smoking 09/02/2020 12:00:00 AM EDT Current Smoker completed Curre nt Smoker eCW1 ([facility]) Smoking 08/06/2020 12:00:00 AM EDT Current Smoker completed Curre nt Smoker eCW1 ([facility]) Smoking 08/06/2020 12:00:00 AM EDT Current Smoker completed Curre nt Smoker eCW1 ([facility]) Smoking 08/06/2020 12:00:00 AM EDT Current Smoker completed Curre nt Smoker eCW1 ([facility]) Smoking 08/06/2020 12:00:00 AM EDT Current Smoker completed Curre nt Smoker eCW1 ([facility]) Smoking 08/06/2020 12:00:00 AM EDT Current Smoker completed Curre nt Smoker eCW1 ([facility]) Smoking 07/24/2020 12:00:00 AM EDT Current Smoker completed Curre nt Smoker eCW1 ([facility]) Smoking 07/24/2020 12:00:00 AM EDT Current Smoker completed Curre nt Smoker eCW1 ([facility]) Smoking 07/24/2020 12:00:00 AM EDT Current Smoker completed Curre nt Smoker eCW1 ([facility]) Smoking 01/22/2020 12:00:00 AM EDT Current Smoker completed Curre nt Smoker eCW1 ([facility]) Smoking 12/26/2019 12:00:00 AM EDT Current Smoker completed Curre nt Smoker eCW1 ([facility]) Vital Signs ID Date Data Source UNK Name Value Range Interpretation Code Description Data Source(s) Body temperature 96.7 [degF] 96.7 [degF] MEDENT ([facility], ) Body temperature 97.4 [degF] 97.4 [degF] MEDENT ([facility], ) Body weight 178.6 [lb_av] 178.6 [lb_av] eCW1 ([facility]) Body weight 81.01 kg 81.01 kg W1 ([facility]) Body height 67.5 [in_i] 67.5 [in_i] eCW1 ([facility]) Body mass index (BMI) [Ratio] 27.56 kg/m2 27.56 kg/m2 W1 ([facility]) Heart rate 53 /min 53 /min [facility] Respiratory rate 17 /min 17 /min eCW1 ([facility]) Body temperature 96.6 [degF] 96.6 [degF] eCW1 ( [facility]) Systolic blood pressure 115 mm[Hg] 115 mm[Hg] e CW1 ([facility]) Diastolic blood pressure 74 mm[Hg] 74 mm[Hg] eCW1 ([facility]) Body temperature 97.4 [degF] 97.4 [degF] MEDENT ([facility], ) Body height 67 [in_i] 67 [in_i] MEDENT ([facility], ) 5'7" Body weight 272.00 [lb_av] 272.00 [lb_av] MEDEN T ([facility]) Body weight 123.379 kg 123.379 kg [facility] ([facility]) Body mass index (BMI) [Ratio] 42.6 kg/m2 42.6 k g/m2 [facility] ([facility]) [place] body weight 135 [lb_av] 135 [lb_av] MEDEN T ([facility]) Body surface area Derived from formula 2.30 m2 2.30 m2 [facility] ([facility]) Body weight 271.8 [lb_av] 271.8 [lb_av] eCW1 ([facility]) Body weight 123.29 kg 123.29 kg W1 ([facility]) Body height 67.5 [in_i] 67.5 [in_i] eCW1 ([facility]) Body mass index (BMI) [Ratio] 41.94 kg/m2 41.94 kg/m2 W1 ([facility]) Heart rate 68 /min 68 /min W1 ([facility] Body temperature 98.1 [degF] 98.1 [degF] eCW1 ( [facility]) Systolic blood pressure 122 mm[Hg] 122 mm[Hg] e CW1 ([facility]) Diastolic blood pressure 60 mm[Hg] 60 mm[Hg] eCW1 ([facility]) Body temperature 97.6 [degF] 97.6 [degF] [facility] Body temperature 97.6 [degF] 97.6 [degF] [facility] ([facility]) Body temperature 95.8 [degF] 95.8 [degF] [facility] ([facility]) Body weight 271 [lb_av] 271 [lb_av] eCW1 ([facility]) Body height 67.5 [in_i] 67.5 [in_i] eCW1 ([facility]) Body mass index (BMI) [Ratio] 41.81 kg/m2 41.81 kg/m2 W1 ([facility]) Heart rate 73 /min 73 /min eCW[facility] Respiratory rate 18 /min 18 /min eCW1 ([facility]) Body temperature 97.2 [degF] 97.2 [degF] eCW1 ( [facility]) Systolic blood pressure 123 mm[Hg] 123 mm[Hg] e CW1 ([facility]) Diastolic blood pressure 63 mm[Hg] 63 mm[Hg] eCW1 ([facility]) Systolic blood pressure 124 mm[Hg] 124 mm[Hg] M EDENT ([facility], ) Body weight 272.50 [lb_av] 272.50 [lb_av] MEDEN T ([facility]) Diastolic blood pressure 74 mm[Hg] 74 mm[facility]Hg] [facility] Heart rate 71 /min 71 /min [facility] ([facility]) Body temperature 98.4 [degF] 98.4 [degF] MEDENT ([facility]) Body height 67 [in_i] 67 [in_i] [facility] ([facility]) 5'7" Body mass index (BMI) [Ratio] 42.7 kg/m2 42.7 k g/m2 [facility] ([facility]) [place] body weight 135 [lb_av] 135 [lb_av] MEDEN T ([facility]) Body weight 123.606 kg 123.606 kg [facility] ([facility]) Body surface area Derived from formula 2.31 m2 2.31 m2 [facility] ([facility]) Oxygen saturation in Arterial blood by Pulse oximetry 99 % 99 % [facility] ([facility]) Respiratory rate 18 /min 18 /min [facility] ( [facility]) Body weight 293 [lb_av] 293 [lb_av] eCW1 ([facility]) Body height 67.5 [in_i] 67.5 [in_i] eCW1 ([facility]) Body mass index (BMI) [Ratio] 45.21 kg/m2 45.21 kg/m2 eCW1 ([facility]) Heart rate 73 /min 73 /min eCW1 [facility] Respiratory rate 17 /min 17 /min eCW1 ([facility]) Body temperature 97.5 [degF] 97.5 [degF] eCW1 ( [facility]) Systolic blood pressure 140 mm[Hg] 140 mm[Hg] e CW1 ([facility]) Diastolic blood pressure 72 mm[Hg] 72 mm[Hg] eCW1 ([facility]) Body weight 295 [lb_av] 295 [lb_av] eCW1 ([facility]) Body height 67.5 [in_i] 67.5 [in_i] eCW1 ([facility]) Body mass index (BMI) [Ratio] 45.52 kg/m2 45.52 kg/m2 eCW1 ([facility]) Heart rate 72 /min 72 /min eCW1 [facility] Respiratory rate 17 /min 17 /min eCW1 ([facility]) Body temperature 97.9 [degF] 97.9 [degF] eCW1 ( [facility]) Systolic blood pressure 111 mm[Hg] 111 mm[Hg] e CW1 ([facility]) Diastolic blood pressure 77 mm[Hg] 77 mm[Hg] eCW1 ([facility]) Body height 69 [in_i] 69 [in_i] [facility] ([facility], ) 5'9" Body weight 277.00 [lb_av] 277.00 [lb_av] MEDEN T ([facility], ) Body mass index (BMI) [Ratio] 40.9 kg/m2 40.9 k g/m2 [facility] ([facility], ) [place] body weight 145 [lb_av] 145 [lb_av] MEDEN T ([facility], ) Body weight 125.647 kg 125.647 kg [facility] ([facility], ) Body surface area Derived from formula 2.37 m2 2.37 m2 [facility] ([facility], ) Systolic blood pressure 122 mm[Hg] 122 mm[Hg] [facility] ([facility]) Diastolic blood pressure 74 mm[Hg] 74 mm[Hg] [facility] ([facility]) Heart rate 74 /min 74 /min [facility] ([facility]) Respiratory rate 14 /min 14 /min [facility] ( [facility]) Body temperature 97.1 [degF] 97.1 [degF] [facility] ([facility]) Systolic blood pressure 130 mm[Hg] 130 mm[Hg] [facility] ([facility]) Diastolic blood pressure 62 mm[Hg] 62 mm[Hg] [facility] ([facility]) Body height 67 [in_i] 67 [in_i] [facility] ([facility]) 5'7" Body weight 278.00 [lb_av] 278.00 [lb_av] MEDEN T ([facility]) Body mass index (BMI) [Ratio] 43.5 kg/m2 43.5 k g/m2 [facility] ([facility]) [place] body weight 135 [lb_av] 135 [lb_av] MEDEN T ([facility]) Body weight 126.101 kg 126.101 kg [facility] ([facility]) Body surface area Derived from formula 2.33 m2 2.33 m2 [facility] ([facility]) Systolic blood pressure 138 mm[Hg] 138 mm[Hg] [facility] ([facility]) Diastolic blood pressure 87 mm[Hg] 87 mm[Hg] [facility] ([facility]) Body height 67 [in_i] 67 [in_i] [facility] ([facility]) 5'7" Body weight 283.00 [lb_av] 283.00 [lb_av] MEDEN T ([facility]) Body mass index (BMI) [Ratio] 44.3 kg/m2 44.3 k g/m2 [facility] ([facility]) [place] body weight 135 [lb_av] 135 [lb_av] MEDEN T ([facility]) Body weight 128.369 kg 128.369 [facility] Body surface area Derived from formula 2.34 m2 2.34 m2 [facility] ([facility]) Respiratory rate 18 /min 18 /min eCW1 ([facility]) Body temperature 97.7 [degF] 97.7 [degF] eCW1 ( [facility]) Systolic blood pressure 114 mm[Hg] 114 mm[Hg] e CW1 ([facility]) Diastolic blood pressure 64 mm[Hg] 64 mm[Hg] eCW1 ([facility]) Body weight 291 [lb_av] 291 [lb_av] eCW1 ([facility]) Body height 67.5 [in_i] 67.5 [in_i] eCW1 ([facility]) Body mass index (BMI) [Ratio] 44.90 kg/m2 44.90 kg/m2 eCW1 ([facility]) Heart rate 63 /min 63 /min [facility]CW[facility] Systolic blood pressure 120 mm[Hg] 120 mm[Hg] M [facility]ENT ([facility]) Diastolic blood pressure 70 mm[Hg] 70 mm[Hg] MEDENT ([facility]) Body height 67 [in_i] 67 [in_i] [facility] ([facility]) 5'7" Body weight 291.00 [lb_av] 291.00 [lb_av] MEDEN T ([facility]) Body mass index (BMI) [Ratio] 45.6 kg/m2 45.6 k g/m2 [facility] ([facility]) [place] body weight 135 [lb_av] 135 [lb_av] MEDEN T ([facility], ) Body weight 131.998 kg 131.998 kg [facility] ([facility]) Diastolic blood pressure 77 mm[Hg] 77 mm[Hg] eCW1 ([facility]) Body weight 288 [lb_av] 288 [lb_av] eCW1 ([facility]) Body height 67.5 [in_i] 67.5 [in_i] eCW1 ([facility]) Body mass index (BMI) [Ratio] 44.44 kg/m2 44.44 kg/m2 eCW1 ([facility]) Heart rate 79 /min 79 /min [facility]CW[facility] Respiratory rate 18 /min 18 /min eCW1 ([facility]) Body temperature 97.9 [degF] 97.9 [degF] eCW1 ( [facility]) Systolic blood pressure 128 mm[Hg] 128 mm[Hg] e CW1 ([facility]) ID Date Data Source [id number] 01/24/2021 08:29:09 AM EDT [facility] Name Value Range Interpretation Code Description Data Source(s) TRANSFER FROM [facility] ID Date Data Source [id number] 01/22/2021 09:36:14 AM EDT [facility] Name Value Range Interpretation Code Description Data Source(s) TRANSFER FROM [facility] Patient Treatment Plan of Care Planned Activity Planned Date Details Description Data Source (s) Ergocalciferol [id number] UNT Oral Capsule [Drisdol] 09/02/2020 12:00:00 AM EDT eCW1 ([facility]) Ergocalciferol [id number] UNT Oral Capsule [Drisdol] 09/02/2020 12:00:00 AM EDT eCW1 ([facility]) Naproxen 500 MG Oral Tablet 07/24/2020 12:00:00 AM EDT eCW1 ([facility]) Naproxen 500 MG Oral Tablet 07/24/2020 12:00:00 AM EDT eCW1 ([facility]) Naproxen 500 MG Oral Tablet 07/24/2020 12:00:00 AM EDT eCW1 ([facility])
[2021-02-06] MEDS ORDERED: PANTOPRAZOLE 40MG VIAL (C9113 PER 1) IV ONE (13:40)
[2021-02-06] MEDS ORDERED: ACETAMINOPHEN IV ONE (13:40)
[2021-02-06] MEDS ORDERED: NS 1,000 ML IV ONE (13:40)
[2021-02-06 13:59] LABS: BASO # 0.1 10^3/uL (0.0-0.2); BASO % 0.7 % (0.0-1.0); EOS # 0.1 10^3/uL (0.0-0.5); EOS % 0.5 % (0.0-3.0); HEMATOCRIT 48.3 % (36.0-47.0); LYMPH # 1.7 10^3/uL (1.5-5.0); LYMPH % 12.5 % (24.0-44.0); MEAN CORPUSCULAR HEMOGLOBIN 30.7 pg (27.0-33.0); MEAN CORPUSCULAR HGB CONC 33.1 g/dl (32.0-36.5); MEAN CORPUSCULAR VOLUME 92.5 fl (80.0-96.0); MONO # 1.1 10^3/uL (0.0-0.8); NEUTROPHILS # 10.6 10^3/uL (1.5-8.5); NEUTROPHILS % 77.9 % (36.0-66.0); PLATELET COUNT, AUTOMATED 335 10^3/uL (150-450); RED BLOOD COUNT 5.22 10^6/uL (4.00-5.40); WHITE BLOOD COUNT 13.6 10^3/uL (4.0-10.0)
[2021-02-06] MEDS: GASTROGRAFIN SOLUTION 30ML PO SCH ×3 (14:23→14:26)
[2021-02-06 14:38] LABS: ALBUMIN 3.3 GM/DL (3.2-5.2); ALT/SGPT 47 U/L (12-78); AMYLASE 101 U/L (25-115); BILIRUBIN,DIRECT 0.7 MG/DL (0.0-0.2); BILIRUBIN,TOTAL 1.1 MG/DL (0.2-1.0); BLOOD UREA NITROGEN 14 MG/DL (7-18); CALCIUM LEVEL 9.4 MG/DL (8.5-10.1); CARBON DIOXIDE LEVEL 29 MEQ/L (21-32); CHLORIDE LEVEL 107 MEQ/L (98-107); CREATININE FOR GFR 0.61 MG/DL (0.55-1.30); GLOMERULAR FILTRATION RATE > 60.0 (>58); GLUCOSE, FASTING 98 MG/DL (70-100); LIPASE 152 U/L (73-393); POTASSIUM SERUM 4.3 MEQ/L (3.5-5.1); SODIUM LEVEL 139 MEQ/L (136-145); TOTAL PROTEIN 7.3 GM/DL (6.4-8.2)
[2021-02-06] MEDS ORDERED: ISOVUE-370 76% 100ML VIAL As Ordered ONE (15:38)
--- NOTE | 2021-02-06 16:29 | REP ---
INDICATION: abd pain, bowel perf/PUD last week, s/p gastric bypass. COMPARISON: CT 04/24/2019, 11/11/2011. TECHNIQUE: Oral Gastrografin 10 mL in 290 mL flavored water for 2 doses per our bowel contrast protocol and bolus 100 mL Isovue 370 scanning through the abdomen and pelvis with coronal and sagittal reconstructions provided. FINDINGS: CT abdomen: Bases are clear heart is not enlarged there is no pericardial thickening or effusion. I see no hiatal hernia staple lines from previous gastric bypass noted. Although history states a bowel perforation and peptic ulcer disease last week, I do not see free intra-abdominal or pelvic air on lung window review of all CT slices. Appears to be thinning of the anterior wall of the 1st portion of the duodenum. I see no postsurgical changes are or adjacent inflammatory change at the stomach and duodenal margin. There is no hepatomegaly or intrahepatic biliary dilatation. There is an 8 mm hypodense nodule in the right hepatic lobe on image [address] attenuation value 4 HU. Other smaller hypodense nodules in the left and right lobes are notedm too small to characterize. No intrahepatic biliary dilatation. The spleen is not enlarged and shows no focal lesion. There is no ascites in the upper abdomen. Gallbladder shows no wall thickening, mass or calcified stone. No calcifications in the head body or tail the pancreas. However, tail the pancreas near its body has a rounded low-density lesion with CT fluid attenuation of the morales HU and no calcification or nodularity to its border currently measures 3.3 x 3.4 cm. On the 04/24/2019 exam it measured 3.1 x 2.6 cm and on 11/11/2011 it measured 23 x 18 mm all with similar rounded smooth margins and no calcification or nodularity to its wall. No peripancreatic adenopathy, solid mass, edema or fluid collection. The aorta is without aneurysm there is no periaortic, other retroperitoneal mesenteric pathologic sized lymphadenopathy. Small bowel loops with contrast but no dilatation, wall thickening or mesenteric edema adjacent. Appendix is seen and normal. Terminal ileum unremarkable. The colon shows stool and gas without signs of colitis or diverticulitis. In the anterior abdomen are postsurgical changes from ventral hernia repair without recurrence. There is some scarring and clips but no tethering of bowel adjacent to it. Degenerative changes in the spine without compression fracture or destructive lesion. Visualized ribs grossly unremarkable. CT pelvis: Sacrum, pelvis and hips without acute finding there is some sclerosis of the SI joint on the sacral greater than iliac margin on the left unchanged. Uterus is not enlarged. There is no pelvic mass right ovary appears slightly larger than the left. No pelvic free fluid. Distal left colon sigmoid and rectum are unremarkable the small bowel loops in the pelvis were unremarkable. There is no inguinal hernia or pathologic sized adenopathy. IMPRESSION: 1. There is no evidence of free air or other sign of perforation. There is some thinning of the anterior wall of the 1st portion the duodenum without adjacent inflammatory change or other acute finding. 2. Slowly enlarging cyst in the tail of the pancreas just lateral to the body and measuring 3.4 x 3.3 cm today, 3.1 x 2.6 cm on 04/17 and 2.3 x 1.8 cm on 11/11/2011. Smooth margins without nodularity or calcification nor any adjacent abnormality. Previous exams of recommended routine MRI follow-up. Ultrasound would be rather challenging for definitive examination with this body habitus. 3. Liver shows a few low-density lesions, the largest [address] numbers consistent with cyst. These need no follow-up. 4. Status post gastric bypass surgery. These findings unchanged. No other significant or acute finding. <Electronically signed by Bandar Duckworth > 02/06/21 [id number]
[2021-02-06] MEDS ORDERED: DOCUSATE SODIUM 100MG CAPSULE PO ONE (16:50)
[2021-02-06] MEDS ORDERED: GLYCERIN ADULT SUPP PR ONE (16:50)
--- NOTE | 2021-02-06 17:35 | REP ---
INDICATION: abd pain, elevated lfts/bilirubin. COMPARISON: None. TECHNIQUE: Real-time and Doppler imaging utilizing the external transducer FINDINGS: The pancreas is not identified due to overlying bowel gas. A subcentimeter hypoechoic area in the liver is nonvascular and likely a cyst. No other abnormality of the liver is identified. No abnormality of the right kidney is identified. The kidney measures 11.0 x 4.5 x 4.6 cm. The gallbladder contains sludge and several images there are occasional echogenic areas and suggestion of a stones within the sludge. The gallbladder wall measures 3 mm in thickness with no evidence of cesar cholecystic fluid. The common duct is normal at 4 mm. No intra hepatic ductal dilatation is present. IMPRESSION: Sludge and probable stones in the gallbladder. No evidence of acute or chronic cholecystitis is identified. 2. Subcentimeter hypoechoic lesion in the liver most likely is a cyst. <Electronically signed by Van Alexander > 02/06/21 [id number]
[2021-02-06] MEDS ORDERED: COLA100C5 PO (18:30)
[2021-02-06 19:12] VITALS: BP 146/86
== END 2021-02-06 19:14 | disposition home or self-care (01) ==
LOC: M ED 11:45
DX: K59.00 Constipation, unspecified (principal); R74.01 Elevation of levels of liver transaminase levels; K86.2 Cyst of pancreas; Q44.6 Cystic disease of liver; K80.20 Calculus of gallbladder without cholecystitis without obstruction; K31.89 Other diseases of stomach and duodenum; Z87.11 Personal history of peptic ulcer disease; E66.01 Morbid (severe) obesity due to excess calories; Z87.19 Personal history of other diseases of the digestive system; E78.5 Hyperlipidemia, unspecified; G47.30 Sleep apnea, unspecified; K44.9 Diaphragmatic hernia without obstruction or gangrene; Z98.84 Bariatric surgery status; Z79.82 Long term (current) use of aspirin; Z79.899 Other long term (current) drug therapy; Z88.5 Allergy status to narcotic agent
CPT/HCPCS: 74177; 76705; 80048; 80076; 82150; 83605; 83690; 85025; 96365; 96366; 96375; 99284; C9113; J0131; Q9963; Q9967

== ENCOUNTER → 2021-04-18 | Outpatient (CLI) | payer OTHER ==
[~2021-04-18] MED LIST changes: +COLA100C5 PO; +MISO200T56; -OMEP-221; +OMEP40CA5; +PANT40TA29
== END ==
LOC: M RAD 09:12
PROVIDERS: ATTEND Nurse Practitioner Family
DX: L02.01 Cutaneous abscess of face (principal)

== ENCOUNTER → 2021-06-25 | Outpatient (CLI) | payer OTHER | LOC: M LABSMTC 10:19 | PROVIDERS: ATTEND Anesthesiology | DX: Z01.812 Encounter for preprocedural laboratory examination (principal); Z20.822 Contact with and (suspected) exposure to COVID-19 ==

== ENCOUNTER 2021-06-30 10:44 | Day surgery (SDC) | payer OTHER ==
[~2021-06-30] VITALS: Ht 175.3 cm; Wt 122.8 kg
[~2021-06-30 10:44] MED LIST changes: +NS 1,000 ML IV ONE
[2021-06-30] MEDS ORDERED: propofoL 200 MG/20 ML VIAL As Ordered ONE ×2 (10:57→12:44)
[2021-06-30] MEDS ORDERED: LIDOCAINE 2% 100MG/5ML SDV (FOR ANES.) As Ordered ONE (10:58)
[2021-06-30 13:27] VITALS: BP 135/90
== END 2021-06-30 13:27 | disposition home or self-care (01) ==
LOC: M OPP 10:44
PROVIDERS: ATTEND Internal Medicine Gastroenterology
DX: Z12.11 Encounter for screening for malignant neoplasm of colon (principal); K63.5 Polyp of colon; K64.8 Other hemorrhoids; K21.00 Gastro-esophageal reflux disease with esophagitis, without bleeding; Z98.0 Intestinal bypass and anastomosis status; K28.9 Gastrojejunal ulcer, unspecified as acute or chronic, without hemorrhage or perforation; Z79.899 Other long term (current) drug therapy; Z88.5 Allergy status to narcotic agent; Z88.8 Allergy status to other drugs, medicaments and biological substances

== ENCOUNTER → 2024-05-02 | Outpatient (CLI) | payer OTHER ==
[~2024-05-02] MED LIST changes: -MISO200T56; +MISO200T83; -NS 1,000 ML IV ONE; +ONDA-282 PO; -ONDA4TAB6 PO
== END ==
LOC: M WUC 11:44
PROVIDERS: ATTEND Student in an Organized Health Care Education/Training Program
DX: M79.602 Pain in left arm (principal); R93.6 Abnormal findings on diagnostic imaging of limbs